=== PATIENT | male | born 1960 | race Caucasian/White ===

== ENCOUNTER 2017-10-16 18:44 | Emergency (ER) | payer MEDICAID, MEDICARE ==
[~2017-10-16] VITALS: Ht 185.4 cm; Wt 104.3 kg
--- NOTE | 2017-10-16 19:52 | ED Abdominal Pain ---
General Chief Complaint: Abdominal/GI Problems Stated Complaint: UNABLE TO URINATE,CONSTIPATED,PELVIC/LOWER BA PAIN Nursing Triage Note: PT STATES LOWER ABD PAIN SINCE LAST NIGHT. STATES HE HAS NOT BEEN ABLE TO URIATE TODAY AND HAS NOT HAD A BM SINCE LAST NIGHT. Sepsis Screen: No Definite Risk Source of Information: Patient Exam Limitations: No Limitations History of Present Illness Time Seen By Provider: 19:50 Initial Comments Ferdinand Guo with reports of suprapubic abdominal pain that radiates through to his back. He had a bowel movement yesterday that was normal. He has not urinated since this morning. He denies ever having had these symptoms before. Timing/Duration: 12-24 Hours Severity/Quality: Moderate Radiation: No Radiation Associated Symptoms: Nausea/Vomiting Allergies and Home Medications Allergies Coded Allergies: No Known Drug Allergies (Unverified , 10/16/17) Home Medications Docusate Sodium 100 Mg Capsule, 100 MG PO BID, #30 Prescribed by: CITLALI WEINBERG on 10/16/172120 Polyethylene Glycol 3350 17 Gm Powd.pack, 17 GM PO BID for 4 Days Prescribed by: CITLALI WEINBERG on 10/16/172120 Review of Systems Constitutional: see HPI EENTM: No Symptoms Reported Respiratory: No Symptoms Reported Cardiovascular: No Symptoms Reported Gastrointestinal: See HPI, Abdominal Pain, Denies Constipated, Denies Diarrhea , Denies Nausea, Denies Vomiting Genitourinary: See HPI, Other (retention) Musculoskeletal: no symptoms reported Skin: no symptoms reported Psychiatric/Neurological: No Symptoms Reported Endocrine: No Symptoms Reported Past Qxdjvkp-Hrdvxg-Nwqfwr Hx Patient Social History Alcohol Use: Denies Use Recreational Drug Use: No Smoking Status: Never a Smoker Type Used: Smokeless Tobacco Recent Foreign Travel: No Contact w/Someone Who Travel: No Recent Infectious Disease Expo: No Recent Hopitalizations: No Physical Abuse: No Sexual Abuse: No Mistreated: No Fear: No Immunizations Up To Date Date of Influenza Vaccine: Jul 28, 2017 Seasonal Allergies Seasonal Allergies: No Surgeries History of Surgeries: Yes (R HIP, TRAUMA-SHOULDER, CLAVICLE, NECK) Surgeries: Appendectomy, Gallbladder, Orthopedic, Tonsillectomy Respiratory History of Respiratory Disorde: Yes Respiratory Disorders: COPD Cardiovascular History of Cardiac Disorders: No Genitourinary History of Genitourinary Disor: No Gastrointestinal History of Gastrointestinal Di: Yes Gastrointestinal Disorders: Gastroesophageal Reflux Musculoskeletal History of Musculoskeletal Dis: No Endocrine History of Endocrine Disorders: No HEENT History of HEENT Disorders: No Cancer History of Cancer: Yes Cancer: Skin Psychosocial History of Psychiatric Problem: Yes Behavioral Health Disorders: Anxiety, Depression Suicide Risk Score: 0 Integumentary History of Skin or Integumenta: No Blood Transfusions History of Blood Disorders: No Physical Exam Vital Signs VS - Last 72 Hours, by Label 10/16/17 19:21 Temp 100.0 Pulse 75 Resp 16 B/P (MAP) 141/94 (110) Capillary Refill : Less Than 3 Seconds General Appearance: WD/WN, no apparent distress HEENT: PERRL/EOMI, normal ENT inspection Neck: non-tender, full range of motion Respiratory: normal breath sounds, no respiratory distress, no accessory muscle use Cardiovascular: regular rate, rhythm, no edema, no murmur Gastrointestinal: normal bowel sounds, soft, tenderness (Suprapubic tenderness) Extremities: normal range of motion, non-tender Neurologic/Psychiatric: alert, normal mood/affect, oriented x 3 Skin: normal color, warm/dry Progress/Results/Core Measures Results/Orders Lab Results Laboratory Tests Test 10/16/17 19:43 10/16/17 20:25 Range/Units White Blood Count 9.4 4.3-11.0 10^3/uL Red Blood Count 4.50 4.35-5.85 10^6/uL Hemoglobin 14.2 13.3-17.7 G/DL Hematocrit 41 40-54 % Mean Corpuscular Volume 91 80-99 FL Mean Corpuscular Hemoglobin 32 25-34 PG Mean Corpuscular Hemoglobin Concent 35 32-36 G/DL Red Cell Distribution Width 12.1 10.0-14.5 % Platelet Count 197 130-400 10^3/uL Mean Platelet Volume 10.6 H 7.4-10.4 FL Neutrophils (%) (Auto) 77 H 42-75 % Lymphocytes (%) (Auto) 13 12-44 % Monocytes (%) (Auto) 9 0-12 % Eosinophils (%) (Auto) 1 0-10 % Basophils (%) (Auto) 1 0-10 % Neutrophils # (Auto) 7.3 1.8-7.8 X 10^3 Lymphocytes # (Auto) 1.2 1.0-4.0 X 10^3 Monocytes # (Auto) 0.8 0.0-1.0 X 10^3 Eosinophils # (Auto) 0.1 0.0-0.3 10^3/uL Basophils # (Auto) 0.1 0.0-0.1 10^3/uL Sodium Level 138 135-145 MMOL/L Potassium Level 4.4 3.6-5.0 MMOL/L Chloride Level 106 98-107 MMOL/L Carbon Dioxide Level 25 21-32 MMOL/L Anion Gap 7 5-14 MMOL/L Blood Urea Nitrogen 13 7-18 MG/DL Creatinine 0.85 0.60-1.30 MG/DL Estimat Glomerular Filtration Rate > 60 BUN/Creatinine Ratio 15 Glucose Level 89 70-105 MG/DL Calcium Level 9.4 8.5-10.1 MG/DL Total Bilirubin 0.7 0.1-1.0 MG/DL Aspartate Amino Transf (AST/SGOT) 19 5-34 U/L Alanine Aminotransferase (ALT/SGPT) 13 0-55 U/L Alkaline Phosphatase 51 40-136 U/L Total Protein 6.5 6.4-8.2 GM/DL Albumin 4.2 3.2-4.5 GM/DL Urine Color YELLOW Urine Clarity CLEAR Urine pH 8 5-9 Urine Specific [place] 1.010 L 1.016-1.022 Urine Protein NEGATIVE NEGATIVE Urine Glucose (UA) NEGATIVE NEGATIVE Urine Ketones NEGATIVE NEGATIVE Urine Nitrite NEGATIVE NEGATIVE Urine Bilirubin NEGATIVE NEGATIVE Urine Urobilinogen NORMAL NORMAL MG/DL Urine Leukocyte Esterase 1+ H NEGATIVE Urine RBC (Auto) 2+ H NEGATIVE Urine RBC 5-10 H /HPF Urine WBC 2-5 /HPF Urine Squamous Epithelial Cells RARE /HPF Urine Crystals NONE /LPF Urine Bacteria NONE /HPF Urine Casts NONE /LPF Urine Mucus NEGATIVE /LPF Urine Culture Indicated NO My Orders Orders - CITLALI WEINBERG APRN Cbc With Automated Diff (10/16/17 19:29) Comprehensive Metabolic Panel (10/16/17 19:29) Ua Culture If Indicated (10/16/17 19:29) Saline Lock/Iv-Start (10/16/17 19:29) Ct Abdomen/Pelvis W (10/16/17 19:29) Saline Lock/Iv-Start (10/16/17 19:45) Lidocaine 2% (Urojet) (Xylocaine Urojet) (12/14/17 20:15) Iohexol Injection (Omnipaque 350 Mg/Ml 1 (10/16/17 20:30) Sodium Chloride Flush (Catheter Flush Sy (10/16/17 20:30) Ns (Ivpb) (Sodium Chloride 0.9% Ivpb Bag (10/16/17 20:30) Pharmacy Communication (Pharmacy Communi (10/16/17 20:20) Na Phos/Na Biphos Enema (Fleet Enema Carter (10/16/17 21:15) Ns Iv 1000 Ml (Sodium Chloride 0.9%) (10/16/17 21:15) Ns Iv 1000 Ml (Sodium Chloride 0.9%) (10/16/17 21:08) Fentanyl Injection (Sublimaze Injection (10/16/17 21:30) Lidocaine 2% (Urojet) (Xylocaine Urojet) (10/16/17 21:45) Medications Given in ED Current Medications Medications Dose Ordered Sig/Gunner Route Start Time Stop Time Status Last Admin Dose Admin Fentanyl Citrate 75 mcg ONCE ONCE IVP 10/16/17 21:30 10/16/17 21:31 DC 10/16/17 21:23 75 MCG Iohexol 100 ml ONCE ONCE IV 10/16/17 20:30 10/16/17 20:31 DC 10/16/17 20:40 100 ML Lidocaine HCl 10 ml ONCE ONCE TOP 10/16/17 20:15 10/16/17 20:16 DC 10/16/17 20:15 10 ML Lidocaine HCl 10 ml ONCE ONCE TOP 10/16/17 21:45 10/16/17 21:46 DC 10/16/17 21:38 10 ML Sodium Biphosphate/ Sodium Phosphate 1 ea ONCE ONCE IN 10/16/17 21:15 10/16/17 21:16 DC 10/16/17 21:38 1 EA Sodium Chloride 100 ml ONCE ONCE IV 10/16/17 20:30 10/16/17 20:31 DC 10/16/17 20:40 80 ML Vital Signs/I&O Vital Sign - Last 12Hours 10/16/17 19:21 Temp 100.0 Pulse 75 Resp 16 B/P (MAP) 141/94 (110) Blood Pressure Mean: 110 Diagnostic Imaging Diagonstic Imaging: CT Comments NAME: MITCH [facility]A [facility] REC#: [id number] PT STATUS: REG ER : 1960 PHYSICIAN: CITLALI WEINBERG APRN ADMIT DATE: 10/16/17/ER Draft Date of Exam:10/16/17 CT ABDOMEN/PELVIS W PROCEDURE: CT abdomen and pelvis with contrast. TECHNIQUE: Multiple contiguous axial images were obtained through the abdomen and pelvis after administration of intravenous contrast. INDICATION: Difficulty urinating, pelvic pain. No stool for one day. History of COPD, hernia repair, hip repair, cholecystectomy, ureteral stent. COMPARISON: None FINDINGS: There is atelectasis in the lung bases bilaterally. The heart is normal in size. There is no pericardial effusion. There are numerous well-circumscribed hypoattenuating nonenhancing lesions in the liver, thought to represent cysts. Cholecystectomy clips are noted. The spleen appears normal. The pancreas is unremarkable. The adrenal glands are normal. There is a cortical scar at the superior right kidney. No enhancing masses are seen. There are small hypoattenuating foci in the kidneys bilaterally, which likely represent cysts, but are too small to fully characterize. No associated enhancement is seen. There are mildly prominent loops of small bowel in the left abdomen, with no single focal transition point seen, which may represent ileus. The appendix is not seen. There is diverticulosis of the distal colon without diverticulitis seen. There is marked stool in the distal sigmoid colon and rectum. This is concerning for impaction. A Ortiz catheter is noted in the urinary bladder. Minimal free fluid is seen in the pelvis. There is retroperitoneal lymphadenopathy, with a prominent lymph node near the bifurcation of the aorta measuring 1.1 cm in short axis (image 53 series 2). There are also multiple prominent mesenteric lymph nodes, including the largest in the right lower quadrant, measuring 3.9 x 2.3 cm (image 55 series 2). There is inguinal lymphadenopathy bilaterally as well, which is prominent with the largest lymph node measuring up to 2 cm in short axis on the left (image 103 series 2). Right hip arthroplasty is noted. No acute osseous abnormalities are seen. IMPRESSION: 1. Marked stool in the rectum and sigmoid colon, concerning for impaction. 2. Diverticulosis of the distal colon without diverticulitis seen. 3. Lymphadenopathy in the retroperitoneum, mesentery, and inguinal regions, concerning for malignancy. Please correlate with patient history. 4. Mildly prominent loops of small bowel in the left abdomen, likely ileus. 5. Multiple hypoattenuating nonenhancing lesions in the liver are thought to represent cyst, however, further evaluation could be performed with MRI if clinically indicated. Dictated on workstation # [id number] Dict: 10/16/172051 Trans: 10/16/172110 [facility] [id number] Interpreted by: TRUMAN GRAY MD Electronically signed by: Departure Communication (Admissions) Family Conversation Patient reported being unable to urinate. Bladder scan was done showing 404 mL of urine in the bladder. Patient wanted to attempt urination in the bathroom prior to Ortiz catheter placement. He did attempt and was unsuccessful. 16 English Ortiz catheter coude was placed by RN. Immediate return of 500 ml clear yellow urine. I discussed the CT results of lymphadenopathy with the patient. He states that he has a strong family history of colon cancer but has had yearly colonoscopies most recently [address] Degroot at [place] and they have never found anything other than benign polyps. Progress Notes 2157- I did do a digital rectal exam. I was able to palpate a stool ball that was fairly soft actually. I was unable to reach the majority of this with my fingers to a fleets enema was given and a commode placed at the bedside. 2205- he had a very large formed bowel movement in the bed. Ortiz catheter has been clamped for one hour now. We will remove it to see if he can urinate. 2220-4 catheter was removed and he was then able to urinate on his own in the room. Impression Impression: Primary Impression: Bladder outlet obstruction Additional Impressions: Fecal impaction Pelvic lymphadenopathy Disposition: 01 HOME, SELF-CARE Condition: Stable Departure-Patient Inst. Decision time for Depature: 21:19 Referrals: SELF,SANGEETHA CARPENTER (PCP) Primary Care Physician VANESSA SCHWARTZ APRN (Family) Primary Care Physician Patient Instructions: Fecal Impaction Add. Discharge Instructions: 1. U have an abnormal number of lymph nodes in the lower part of your abdomen. This can be seen in response to certain cancers. You need to call one of the surgeons listed to make an appointment to schedule a colonoscopy. Call tomorrow to make an appointment to be seen within the next few weeks. Return to the emergency room if you find herself again unable to urinate. Take the stool softener and laxative as directed. Scripts Polyethylene Glycol 3350 (Miralax) 17 Gm Powd.pack 17 GM PO BID for 4 Days, EACH Prov: CITLALI WEINBERG APRN 10/16/17 Docusate Sodium (Colace) 100 Mg Capsule 100 MG PO BID, #30 CAP Prov: CITLALI WEINBERG APRN 10/16/17 Copy Copies To 1: SELF,CITLALI CORREA MD, APRN Oct 16, 2017 19:52
[2017-10-16 20:07] LABS: ALANINE AMINOTRANSFERASE 13 U/L (0-55); ALBUMIN 4.2 GM/DL (3.2-4.5); ANION GAP 7 MMOL/L (5-14); ASPARTATE AMINO TRANSFERASE 19 U/L (5-34); BILIRUBIN,TOTAL 0.7 MG/DL (0.1-1.0); BLOOD UREA NITROGEN 13 MG/DL (7-18); BUN/CREATININE RATIO 15; CALCIUM 9.4 MG/DL (8.5-10.1); CARBON DIOXIDE 25 MMOL/L (21-32); CHLORIDE 106 MMOL/L (98-107); CREATININE SERUM 0.85 MG/DL (0.60-1.30); GFR ESTIMATED > 60; GLUCOSE 89 MG/DL (70-105); POTASSIUM 4.4 MMOL/L (3.6-5.0); SODIUM 138 MMOL/L (135-145); TOTAL PROTEIN 6.5 GM/DL (6.4-8.2)
[2017-10-16 20:11] LABS: BASOPHILS # (AUTO) 0.1 10^3/uL (0.0-0.1); BASOPHILS % (AUTO) 1 % (0-10); EOSINOPHILS # (AUTO) 0.1 10^3/uL (0.0-0.3); EOSINOPHILS % (AUTO) 1 % (0-10); LYMPHOCYTES # (AUTO) 1.2 X 10^3 (1.0-4.0); LYMPHOCYTES % (AUTO) 13 % (12-44); MEAN CORPUSCULAR HEMOGLOBIN 32 PG (25-34); MEAN CORPUSCULAR HGB CONC 35 G/DL (32-36); MEAN CORPUSCULAR VOLUME 91 FL (80-99); MEAN PLATELET VOLUME 10.6 FL (7.4-10.4); MONOCYTES # (AUTO) 0.8 X 10^3 (0.0-1.0); MONOCYTES % (AUTO) 9 % (0-12); NEUTROPHILS # (AUTO) 7.3 X 10^3 (1.8-7.8); NEUTROPHILS % (AUTO) 77 % (42-75); PLATELET COUNT 197 10^3/uL (130-400); RED CELL DISTRIBUTION WIDTH 12.1 % (10.0-14.5); WHITE BLOOD COUNT 9.4 10^3/uL (4.3-11.0)
[2017-10-16] MEDS ORDERED: LIDOCAINE UROJET 2% GEL 10 ML PKG TOP ONE ×2 (20:15→21:45)
[2017-10-16] MEDS ORDERED: CATHETER FLUSH 10 ML SYR IV PRN (20:30)
[2017-10-16] MEDS ORDERED: IOHEXOL 350 MG/ML 100 ML (OMNIPAQUE 350) VIAL IV ONE (20:30)
[2017-10-16] MEDS ORDERED: NS 100 ML (IVPB) BAG IV ONE (20:30)
[2017-10-16 20:39] LABS: BILIRUBIN,URINE NEGATIVE (NEGATIVE); KETONES,URINE NEGATIVE (NEGATIVE); LEUKOCYTE ESTERASE ,URINE 1+ (NEGATIVE); NITRITE,URINE NEGATIVE (NEGATIVE); PH,URINE 8 (5-9); PROTEIN,URINE NEGATIVE (NEGATIVE); UROBILINOGEN,URINE NORMAL (NORMAL)
[2017-10-16 20:59] LABS: SQUAMOUS EPITHELIAL CELL,UR RARE /HPF
[2017-10-16] MEDS ORDERED: NS IV 1000 ML 1,000 ML ONE (21:08)
--- NOTE | 2017-10-16 21:12 | Diagnostic Imaging Report ---
PROCEDURE: CT abdomen and pelvis with contrast. TECHNIQUE: Multiple contiguous axial images were obtained through the abdomen and pelvis after administration of intravenous contrast. INDICATION: Difficulty urinating, pelvic pain. No stool for one day. History of COPD, hernia repair, hip repair, cholecystectomy, ureteral stent. COMPARISON: None FINDINGS: There is atelectasis in the lung bases bilaterally. The heart is normal in size. There is no pericardial effusion. There are numerous well-circumscribed hypoattenuating nonenhancing lesions in the liver, thought to represent cysts. Cholecystectomy clips are noted. The spleen appears normal. The pancreas is unremarkable. The adrenal glands are normal. There is a cortical scar at the superior right kidney. No enhancing masses are seen. There are small hypoattenuating foci in the kidneys bilaterally, which likely represent cysts, but are too small to fully characterize. No associated enhancement is seen. There are mildly prominent loops of small bowel in the left abdomen, with no single focal transition point seen, which may represent ileus. The appendix is not seen. There is diverticulosis of the distal colon without diverticulitis seen. There is marked stool in the distal sigmoid colon and rectum. This is concerning for impaction. A Ortiz catheter is noted in the urinary bladder. Minimal free fluid is seen in the pelvis. There is retroperitoneal lymphadenopathy, with a prominent lymph node near the bifurcation of the aorta measuring 1.1 cm in short axis (image 53 series 2). There are also multiple prominent mesenteric lymph nodes, including the largest in the right lower quadrant, measuring 3.9 x 2.3 cm (image 55 series 2). There is inguinal lymphadenopathy bilaterally as well, which is prominent with the largest lymph node measuring up to 2 cm in short axis on the left (image 103 series 2). Right hip arthroplasty is noted. No acute osseous abnormalities are seen. IMPRESSION: 1. Marked stool in the rectum and sigmoid colon, concerning for impaction. 2. Diverticulosis of the distal colon without diverticulitis seen. 3. Lymphadenopathy in the retroperitoneum, mesentery, and inguinal regions, concerning for malignancy. Please correlate with patient history. 4. Mildly prominent loops of small bowel in the left abdomen, likely ileus. 5. Multiple hypoattenuating nonenhancing lesions in the liver are thought to represent cyst, however, further evaluation could be performed with MRI if clinically indicated. Dictated by: Dictated on workstation # [id number]
[2017-10-16] MEDS ORDERED: FLEET ENEMA ADULT 1 EA BTL PR ONE (21:15)
[2017-10-16] MEDS ORDERED: NS IV 1000 ML 1,000 ML IV SCH (21:15)
[2017-10-16] MEDS ORDERED: POLY17PO6 PO (21:21)
[2017-10-16] MEDS ORDERED: DOCU-143 PO (21:21)
[2017-10-16] MEDS ORDERED: fentaNYL INJECTION 100 MCG/2 ML AMP IVP ONE (21:30)
[2017-10-16 22:35] VITALS: BP 141/94
== END 2017-10-16 22:37 | disposition home or self-care (01) ==
LOC: EDUNIT# 18:44 → ER 18:48
DX: N32.0 Bladder-neck obstruction (principal); K56.41 Fecal impaction; R59.0 Localized enlarged lymph nodes; J44.9 Chronic obstructive pulmonary disease, unspecified; K21.9 Gastro-esophageal reflux disease without esophagitis; F41.9 Anxiety disorder, unspecified; F32.9 Major depressive disorder, single episode, unspecified; Z85.828 Personal history of other malignant neoplasm of skin; Z90.49 Acquired absence of other specified parts of digestive tract; Z90.89 Acquired absence of other organs
CPT/HCPCS: 36415; 51702; 74177; 80053; 81000; 85025; 96361; 96374

== ENCOUNTER 2018-11-30 18:36 | Emergency (ER) | payer MEDICAID, MEDICARE ==
[~2018-11-30] VITALS: Ht 185.4 cm; Wt 112.5 kg
[~2018-11-30 18:36] MED LIST: DOCU-143 PO; POLY17PO6 PO
[2018-11-30 18:41] VITALS: BP 135/81
[2018-11-30 19:18] LABS: BASOPHILS % (AUTO) 1 % (0-10); EOSINOPHILS # (AUTO) 0.1 10^3/uL (0.0-0.3); EOSINOPHILS % (AUTO) 2 % (0-10); HEMATOCRIT 40 % (40-54); HEMOGLOBIN 14.4 G/DL (13.3-17.7); LYMPHOCYTES # (AUTO) 1.6 X 10^3 (1.0-4.0); LYMPHOCYTES % (AUTO) 26 % (12-44); MEAN CORPUSCULAR HEMOGLOBIN 32 PG (25-34); MEAN CORPUSCULAR HGB CONC 37 G/DL (32-36); MEAN CORPUSCULAR VOLUME 89 FL (80-99); MEAN PLATELET VOLUME 9.5 FL (7.4-10.4); MONOCYTES # (AUTO) 0.6 X 10^3 (0.0-1.0); MONOCYTES % (AUTO) 9 % (0-12); NEUTROPHILS # (AUTO) 3.9 X 10^3 (1.8-7.8); NEUTROPHILS % (AUTO) 62 % (42-75); PLATELET COUNT 165 10^3/uL (130-400); RED CELL DISTRIBUTION WIDTH 12.9 % (10.0-14.5); WHITE BLOOD COUNT 6.3 10^3/uL (4.3-11.0)
[2018-11-30 19:20] LABS: BILIRUBIN,URINE NEGATIVE (NEGATIVE); CLARITY,URINE CLEAR; COLOR,URINE YELLOW; GLUCOSE, URINE (UA) NEGATIVE (NEGATIVE); KETONES,URINE NEGATIVE (NEGATIVE); LEUKOCYTE ESTERASE ,URINE 1+ (NEGATIVE); NITRITE,URINE NEGATIVE (NEGATIVE); PH,URINE 5 (5-9); PROTEIN,URINE 2+ (NEGATIVE); UROBILINOGEN,URINE NORMAL (NORMAL)
--- NOTE | 2018-11-30 19:20 | ED Abdominal Pain ---
General Chief Complaint: Abdominal/GI Problems Stated Complaint: ABD PAIN Nursing Triage Note: pt arrived to ED POV et ambulated to triage room. Pt c/o mid abdominal pain with fevers, vomiting, diarrhea and thinks he has blood in his stool. Sepsis Screen: No Definite Risk Source of Information: Patient Exam Limitations: No Limitations History of Present Illness Date Seen by Provider: Nov 30, 2018 Time Seen by Provider: 19:10 Initial Comments 58-year-old male who presents to the emergency room with complaints of periumbilical abdominal pain, fevers, nausea, vomiting, diarrhea for one week. He reports that 1 week ago he finished a course of Levaquin for a sinus infection that he had previously taken amoxicillin before starting the Levaquin. He is concerned that there might be some blood streaking in his stool. Timing/Duration: 1 Week Severity/Quality: Cramping Location: Periumbilical Radiation: No Radiation Associated Symptoms: Fever/Chills, Nausea/Vomiting Allergies and Home Medications Allergies Coded Allergies: No Known Drug Allergies (Unverified , 10/16/17) Home Medications Docusate Sodium 100 Mg Capsule, 100 MG PO BID Prescribed by: CITLALI WEINBERG on 10/16/172120 Ondansetron HCl 4 Mg Tab, 4 MG PO Q4H PRN for NAUSEA/VOMITING-1ST LINE Prescribed by: BOY SOUSA on 11/30/182111 Polyethylene Glycol 3350 17 Gm Powd.pack, 17 GM PO BID Prescribed by: CITLALI WEINBERG on 10/16/172120 Patient Home Medication List Home Medication List Reviewed: Yes Review of Systems Review of Systems Constitutional: see HPI, fever Gastrointestinal: See HPI, Abdominal Pain, Diarrhea, Nausea, Vomiting All Other Systems Reviewed Negative Unless Noted: Yes Past Zyrvhlc-Vewmet-Ijtcmq Hx Past Med/Social Hx: Reviewed Nursing Past Med/Soc Hx Patient Social History Alcohol Use: Occasionally Uses Recreational Drug Use: No Type Used: Smokeless Tobacco 2nd Hand Smoke Exposure: No Recent Foreign Travel: No Contact w/Someone Who Travel: No Recent Infectious Disease Expo: No Recent Hopitalizations: No Physical Abuse: No Sexual Abuse: No Immunizations Up To Date Date of Influenza Vaccine: Jul 28, 2017 Seasonal Allergies Seasonal Allergies: No Past Medical History Surgeries: Yes (R HIP, TRAUMA-SHOULDER, CLAVICLE, NECK) Appendectomy, Gallbladder, Orthopedic, Tonsillectomy Respiratory: Yes COPD Cardiac: No Genitourinary: No Gastrointestinal: Yes Gastroesophageal Reflux Musculoskeletal: No Endocrine: No HEENT: No Cancer: Yes Skin Psychosocial: Yes Anxiety, Depression Integumentary: No Blood Disorders: No Family Medical History Reviewed Nursing Family Hx Physical Exam Vital Signs Vital Signs - First Documented 11/30/18 18:41 Temp 96.7 Pulse 86 Resp 20 B/P (MAP) 135/81 (99) Pulse Ox 100 O2 Delivery Room Air Capillary Refill : Less Than 3 Seconds Height/Weight/BMI Height: 6'1.00" Weight: 248lbs. oz. 112.950226er; BMI Method:Stated General Appearance: WD/WN, no apparent distress Neck: non-tender, full range of motion, supple, normal inspection Respiratory: chest non-tender, lungs clear, normal breath sounds, no respiratory distress, no accessory muscle use Cardiovascular: normal peripheral pulses, regular rate, rhythm, no edema, no gallop, no JVD, no murmur Gastrointestinal: normal bowel sounds, soft, no organomegaly, no pulsatile mass , tenderness (periumbilical tenderness) Rectal: normal exam, normal rectal tone, heme negative stool Neurologic/Psychiatric: alert, normal mood/affect, oriented x 3 Skin: normal color, warm/dry Progress/Results/Core Measures Results/Orders Lab Results Laboratory Tests Test 11/30/18 18:51 11/30/18 19:09 Range/Units Urine Color YELLOW Urine Clarity CLEAR Urine pH 5 5-9 Urine Specific [place] 1.025 H 1.016-1.022 Urine Protein 2+ H NEGATIVE Urine Glucose (UA) NEGATIVE NEGATIVE Urine Ketones NEGATIVE NEGATIVE Urine Nitrite NEGATIVE NEGATIVE Urine Bilirubin NEGATIVE NEGATIVE Urine Urobilinogen NORMAL NORMAL MG/DL Urine Leukocyte Esterase 1+ H NEGATIVE Urine RBC (Auto) 2+ H NEGATIVE Urine RBC RARE /HPF Urine WBC 0-2 /HPF Urine Squamous Epithelial Cells 0-2 /HPF Urine Crystals NONE /LPF Urine Bacteria FEW H /HPF Urine Casts PRESENT /LPF Urine Hyaline Casts 0-2 H /LPF Urine Mucus LARGE H /LPF Urine Culture Indicated NO White Blood Count 6.3 4.3-11.0 10^3/uL Red Blood Count 4.45 4.35-5.85 10^6/uL Hemoglobin 14.4 13.3-17.7 G/DL Hematocrit 40 40-54 % Mean Corpuscular Volume 89 80-99 FL Mean Corpuscular Hemoglobin 32 25-34 PG Mean Corpuscular Hemoglobin Concent 37 H 32-36 G/DL Red Cell Distribution Width 12.9 10.0-14.5 % Platelet Count 165 130-400 10^3/uL Mean Platelet Volume 9.5 7.4-10.4 FL Neutrophils (%) (Auto) 62 42-75 % Lymphocytes (%) (Auto) 26 12-44 % Monocytes (%) (Auto) 9 0-12 % Eosinophils (%) (Auto) 2 0-10 % Basophils (%) (Auto) 1 0-10 % Neutrophils # (Auto) 3.9 1.8-7.8 X 10^3 Lymphocytes # (Auto) 1.6 1.0-4.0 X 10^3 Monocytes # (Auto) 0.6 0.0-1.0 X 10^3 Eosinophils # (Auto) 0.1 0.0-0.3 10^3/uL Basophils # (Auto) 0.0 0.0-0.1 10^3/uL Sodium Level 141 135-145 MMOL/L Potassium Level 4.3 3.6-5.0 MMOL/L Chloride Level 107 98-107 MMOL/L Carbon Dioxide Level 23 21-32 MMOL/L Anion Gap 11 5-14 MMOL/L Blood Urea Nitrogen 18 7-18 MG/DL Creatinine 0.88 0.60-1.30 MG/DL Estimat Glomerular Filtration Rate > 60 BUN/Creatinine Ratio 20 Glucose Level 81 70-105 MG/DL Calcium Level 9.4 8.5-10.1 MG/DL Corrected Calcium 9.1 8.5-10.1 MG/DL Total Bilirubin 0.7 0.1-1.0 MG/DL Aspartate Amino Transf (AST/SGOT) 17 5-34 U/L Alanine Aminotransferase (ALT/SGPT) 12 0-55 U/L Alkaline Phosphatase 59 40-136 U/L Total Protein 6.5 6.4-8.2 GM/DL Albumin 4.4 3.2-4.5 GM/DL Amylase Level 61 25-125 U/L Lipase 31 8-78 U/L My Orders Orders - BOY SOUSA Comprehensive Metabolic Panel (11/30/18 19:13) Lipase (11/30/18 19:13) Amylase (11/30/18 19:13) Ua Culture If Indicated (11/30/18 19:13) Saline Lock/Iv-Start (11/30/18 19:13) Cbc With Automated Diff (11/30/18 19:13) Ct Abdomen/Pelvis W (11/30/18 19:13) Iohexol Injection (Omnipaque 350 Mg/Ml 1 (11/30/18 20:00) Contrast Received (Contrast Received) (11/30/18 20:00) Ns (Ivpb) (Sodium Chloride 0.9% Ivpb Bag (11/30/18 20:00) Rx-Ondansetron Po (Rx-Zofran Po) (11/30/18 21:13) Medications Given in ED Current Medications Medications Dose Ordered Sig/Gunner Route Start Time Stop Time Status Last Admin Dose Admin Iohexol 100 ml ONCE ONCE IV 11/30/18 20:00 11/30/18 20:06 DC 11/30/18 20:01 100 ML Sodium Chloride 100 ml ONCE ONCE IV 11/30/18 20:00 11/30/18 20:06 DC 11/30/18 20:02 85 ML Vital Signs/I&O 11/30/18 18:41 Temp 96.7 Pulse 86 Resp 20 B/P (MAP) 135/81 (99) Pulse Ox 100 O2 Delivery Room Air Blood Pressure Mean: 99 Progress Progress Note : Time: 21:00 Progress Note I have seen and evaluated the patient. I have informed the patient of his CT findings and a concerning mass. I have discussed the case with Dr. Siddiqui at this time. He agrees to have the patient follow up with him tomorrow morning. Patient agrees with plan of care, plans for discharge, return precautions were given. Diagnostic Imaging Diagonstic Imaging: CT Plain Films/CT/US/NM/MRI: abdomen, pelvis Comments NAME: MITCH [facility]A [facility] REC#: [id number] PT STATUS: REG ER : 1960 PHYSICIAN: BOY SOUSA ADMIT DATE: 11/30/18/ER Signed Date of Exam: 11/30/18 CT ABDOMEN/PELVIS W PROCEDURE: CT abdomen and pelvis with contrast. TECHNIQUE: Multiple contiguous axial images were obtained through the abdomen and pelvis after administration of intravenous contrast. INDICATION: Diffuse abdominal pain Lung bases are clear. There are multiple cysts of the liver. Gallbladder surgically absent. Pancreas appears normal. Kidneys and adrenals appear normal. Spleen is not enlarged. There is a soft tissue density mass anterior to the IVC and posterior to the portal vein and pancreas that measures 7 x 2 x 3.5 cm. This has smooth margins and suspicious for a large lymph node mass. Colon appears normal. Small bowel is not dilated. Appendix is surgically absent. Urinary bladder appears normal. 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 Hepatic artery appears to pass directly beneath it. The IVC is directed posterior to it. Portal vein is anterior to the mass and the duodenum passes around it. It is contiguous with the uncinate process of the pancreas but appears to be separate from the pancreas. Dictated by: Dictated on workstation # [id number] Dict: 11/30/182012 Trans: 11/30/182049 Interpreted by: PEMA TONG MD Electronically signed by: PEMA TONG MD 11/30/182049 Reviewed: Reviewed by Me Departure Impression Primary Impression: Gastroenteritis Additional Impression: Abdominal mass, RUQ (right upper quadrant) Disposition: HOME, SELF-CARE Condition: Stable/Unchanged Departure-Patient Inst. Decision time for Depature: 21:11 Referrals: SANGEETHA MURRY MD (PCP) Primary Care Physician VANESSA SCHWARTZ APRN (Family) Primary Care Physician CORINNA SIDDIQUI MD Patient Instructions: Acute Abdomen (Belly Pain), Adult (DC) Add. Discharge Instructions: Call first thing tomorrow morning for an appointment time with Dr. Siddiqui to review the results of your CT scan. Take medications as directed. Return back to the emergency room for worsening symptoms or concerns as needed. All discharge instructions reviewed with patient and/or family. Voiced understanding. Scripts Ondansetron HCl (Zofran) 4 Mg Tab 4 MG PO Q4H PRN for NAUSEA/VOMITING-1ST LINE, #10 TAB Prov: BOY SOUSA 11/30/18 Copy Copies To 1: CORINNA SIDDIQUI MD, TRAVIS Nov 30, 2018 19:20
[2018-11-30 19:29] LABS: BACTERIA,URINE FEW /HPF; HYALINE CASTS, URINE 0-2 /LPF; RBC,URINE RARE /HPF; SQUAMOUS EPITHELIAL CELL,UR 0-2 /HPF; WBC,URINE 0-2 /HPF
[2018-11-30 19:51] LABS: ALANINE AMINOTRANSFERASE 12 U/L (0-55); ALBUMIN 4.4 GM/DL (3.2-4.5); ALKALINE PHOSPHATASE 59 U/L (40-136); AMYLASE 61 U/L (25-125); BILIRUBIN,TOTAL 0.7 MG/DL (0.1-1.0); BUN/CREATININE RATIO 20; CALCIUM 9.4 MG/DL (8.5-10.1); CARBON DIOXIDE 23 MMOL/L (21-32); CHLORIDE 107 MMOL/L (98-107); CREATININE SERUM 0.88 MG/DL (0.60-1.30); GFR ESTIMATED > 60; GLUCOSE 81 MG/DL (70-105); LIPASE 31 U/L (8-78); POTASSIUM 4.3 MMOL/L (3.6-5.0); SODIUM 141 MMOL/L (135-145); TOTAL PROTEIN 6.5 GM/DL (6.4-8.2)
[2018-11-30] MEDS ORDERED: RECEIVED CONTRAST (Hold Metformin) IV SCH (20:00)
[2018-11-30] MEDS ORDERED: IOHEXOL 350 MG/ML 100 ML (OMNIPAQUE 350) VIAL IV ONE (20:00)
[2018-11-30] MEDS ORDERED: NS 100 ML (IVPB) BAG IV ONE (20:00)
--- NOTE | 2018-11-30 20:27 | Diagnostic Imaging Report ---
PROCEDURE: CT abdomen and pelvis with contrast. TECHNIQUE: Multiple contiguous axial images were obtained through the abdomen and pelvis after administration of intravenous contrast. INDICATION: Diffuse abdominal pain Lung bases are clear. There are multiple cysts of the liver. Gallbladder surgically absent. Pancreas appears normal. Kidneys and adrenals appear normal. Spleen is not enlarged. There is a soft tissue density mass anterior to the IVC and posterior to the portal vein and pancreas that measures 7 x 2 x 3.5 cm. This has smooth margins and suspicious for a large lymph node mass. Colon appears normal. Small bowel is not dilated. Appendix is surgically absent. Urinary bladder appears normal. 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 Hepatic artery appears to pass directly beneath it. The IVC is directed posterior to it. Portal vein is anterior to the mass and the duodenum passes around it. It is contiguous with the uncinate process of the pancreas but appears to be separate from the pancreas. Dictated by: Dictated on workstation # [id number]
[2018-11-30] MEDS ORDERED: ONDN4T PO (21:12)
[2018-11-30] MEDS ORDERED: RX-ONDANSETRON 4 MG ODT (ZOFRAN) PPK #4 PO STA (21:13)
== END 2018-11-30 21:30 | disposition home or self-care (01) ==
LOC: EDUNIT# 18:36 → ER 18:37
DX: K52.9 Noninfective gastroenteritis and colitis, unspecified (principal); J44.9 Chronic obstructive pulmonary disease, unspecified; K21.9 Gastro-esophageal reflux disease without esophagitis; F41.9 Anxiety disorder, unspecified; F32.9 Major depressive disorder, single episode, unspecified; Z85.828 Personal history of other malignant neoplasm of skin; Z90.49 Acquired absence of other specified parts of digestive tract; Z98.890 Other specified postprocedural states; Z90.89 Acquired absence of other organs
CPT/HCPCS: 36415; 74177; 80053; 81000; 82150; 83690; 85025

== ENCOUNTER 2018-12-08 09:24 | Day surgery (SDC) | payer MEDICARE ==
[~2018-12-08] VITALS: Ht 185.4 cm; Wt 110.3 kg
[~2018-12-08 09:24] MED LIST changes: +ONDN4T PO
[2018-12-08 09:50] VITALS: BP 137/82
[2018-12-08] MEDS ORDERED: ceFAZolin 2 GM IV Premixed 50 ML ONE (10:35)
[2018-12-08] MEDS ORDERED: BUP/EPI 0.5% 1:200,000 (SENSORCAINE) 30 ML VIAL ONE (10:36)
[2018-12-08] MEDS ORDERED: ESCI20TA45 PO (11:44)
[2018-12-08] MEDS ORDERED: VITA1CAP PO (11:44)
[2018-12-08] MEDS ORDERED: VENL75CA PO (11:44)
[2018-12-08] MEDS ORDERED: DIVA500T PO (11:44)
[2018-12-08] MEDS ORDERED: OMEP40CA36 PO (11:44)
[2018-12-08] MEDS ORDERED: OMG1KC PO (11:44)
[2018-12-08] MEDS ORDERED: MIDAZOLAM 2 MG/2 ML (VERSED) VIAL ONE (11:51)
[2018-12-08] MEDS ORDERED: fentaNYL INJECTION 100 MCG/2 ML AMP ONE (11:51)
[2018-12-08] MEDS ORDERED: ceFAZolin 2 GM/50 ML PRE-MIX IVPB IV ONE (12:15)
[2018-12-08] MEDS ORDERED: ONDANSETRON 4 MG/2 ML (SDV) Z0FRAN ONE ×2 (12:19→14:06)
[2018-12-08] MEDS ORDERED: ONDANSETRON 4 MG/2 ML (SDV) Z0FRAN IVP ONE (12:20)
--- NOTE | 2018-12-08 12:58 | Progress Note-Pre Operative ---
Pre-Operative Progress Note H&P Reviewed The H&P was reviewed, patient examined and no changes noted. Date Seen by Provider: Dec 07, 2018 Time Seen by Provider: 11:00 Date H&P Reviewed: Dec 08, 2018 Time H&P Reviewed: 12:57 Pre-Operative Diagnosis: Left inguinal lymphadenopathy CORINNA SIDDIQUI MD Dec 08, 2018 12:58
[2018-12-08] MEDS ORDERED: proPOfol 200 MG/20 ML (DIPRIVAN) VIAL IV ONE (14:06)
[2018-12-08] MEDS ORDERED: SEVOFLURANE (ULTANE) 15 ML INHAL SOLN ONE ×3 (14:06→14:07)
[2018-12-08] MEDS ORDERED: LIDOCAINE PF 2% 5 ML (XYLOCAINE) VIAL ONE (14:07)
[2018-12-08] MEDS ORDERED: DEXAMETHASONE 10 MG/ML (DECADRON) 1 ML VIAL ONE (14:08)
--- NOTE | 2018-12-08 14:27 | Operative Report ---
Operative Report Date of Procedure/Surgery Dec 08, 2018 Surgeon (s) CORINNA SIDDIQUI MD [employer] (s): N/A Post-Operative Diagnosis same Procedure Performed excision biopsy of left inguinal lymph node Description of Procedure Anesthesia Type: General Estimated blood loss (mL): minimal Specimen(s) collected/removed left inguinal lymph node Description of the Procedure Indication for the procedure: Evaluation for recent onset of poorly localized abdominal pain included a CT scan, revealing extensive para-aortic and hepatoduodenal lymphadenopathy, along with enlarged lymph nodes involving both inguinal regions. Lymphoma was suspected and therefore excision biopsy of a whole lymph node was felt to be appropriate. It was reasonable to perform excision of one of the left inguinal lymph nodes, that was easily palpable to, achieve a diagnosis. Should it returner to be nondiagnostic, CT-guided biopsy of para-aortic lymph nodes would be considered. With regard to the procedure, the details of surgery, complications of wound infection, lymphedema etc. were discussed with him. Informed consent was obtained. Description of the procedure: He was placed supine on the operative table and general anesthesia induced. 2 g of Ancef were administered intravenously as prophylaxis against wound infection. Sequential compression devices were placed around his legs, to minimize the risk of venous thrombosis. Left inguinal region was prepared and draped in the usual sterile manner. Preemptive analgesia was established using 0.5 percent Marcaine with epinephrine. A vertical incision about 5 cm in length was made and an enlarged lymph node about 3 cm in diameter involving the infra-inguinal group isolated. Lymphatics were controlled using ligaclips and the lymph node was sent fresh for histologic evaluation, followed by flow cytometry. Hemostasis was achieved using cautery and the incision closed using 3-0 Vicryl for the subcutaneous tissue and 4-0 Vicryl for skin, in a subcuticular fashion. Steri-Strips and a nonadherent dressing were then applied. He tolerated the procedure well, was extubated in the operating room and taken to recovery room in a stable condition Findings of the Procedure see operative report Allergies and Home Medications Allergies Coded Allergies: No Known Drug Allergies (Unverified , 10/16/17) Home Medications Divalproex Sodium 500 Mg Tablet.dr, 1,000 MG PO DAILY, (Reported) Docusate Sodium 100 Mg Capsule, 100 MG PO BID Prescribed by: CITLALI WEINBERG on 10/16/172120 [place] 3 Polyunsat Fatty Acids 1,000 Mg Cap, 1,000 MG PO DAILY, (Reported) Omeprazole 40 Mg Capsule.dr, 40 MG PO DAILY, (Reported) Ondansetron HCl 4 Mg Tab, 4 MG PO Q4H PRN for NAUSEA/VOMITING-1ST LINE Prescribed by: BOY SOUSA on 11/30/182111 Polyethylene Glycol 3350 17 Gm Powd.pack, 17 GM PO BID Prescribed by: CITLALI WEINBERG on 10/16/172120 Vitamin B Complex 1 Each Capsule, 1 EACH PO DAILY, (Reported) Patient Home Medication List Home Medication List Reviewed: Yes CORINNA SIDDIQUI MD Dec 08, 2018 14:27
[2018-12-08] MEDS ORDERED: ACHD5005 PO (14:28)
--- NOTE | 2018-12-08 14:29 | Discharge Inst-Simple/Standard ---
Discharge Inst-Standard Discharge Medications New, Converted or Re-Newed RX: RX on Chart Patient Instructions/Follow Up Plan of Care/Instructions/FU: dressings off in 48 hours. Follow-up in a week Activity as Tolerated: Yes Discharge Diet: No Restrictions CORINNA SIDDIQUI MD Dec 08, 2018 14:29
--- NOTE | 2018-12-08 14:37 | Anesthesia-General Post-Op ---
General Patient Condition Mental Status/LOC: Same as Preop Cardiovascular: Satisfactory Nausea/Vomiting: Absent Respiratory: Satisfactory Pain: Controlled Complications: Absent Post Op Complications Complications None Follow Up Care/Instructions Patient Instructions None needed. Anesthesia/Patient Condition Patient Condition Patient is doing well, no complaints, stable vital signs, no apparent adverse anesthesia problems. KENYA JETER DO Dec 08, 2018 14:37
[2018-12-08 14:50] VITALS: BP 111/68
[2018-12-08 15:20] VITALS: BP 131/87
== END 2018-12-08 15:30 | disposition home or self-care (01) ==
LOC: SDC 09:24
PROVIDERS: ATTEND Surgery
DX: C85.15 Unspecified B-cell lymphoma, lymph nodes of inguinal region and lower limb (principal); J44.9 Chronic obstructive pulmonary disease, unspecified; Z79.899 Other long term (current) drug therapy
CPT/HCPCS: 87081

== ENCOUNTER 2018-12-11 12:38 | Emergency (ER) | payer MEDICARE ==
[~2018-12-11] VITALS: Ht 185.4 cm; Wt 110.2 kg
[~2018-12-11 12:38] MED LIST changes: +ACHD5005 PO; +DIVA500T PO; +ESCI20TA45 PO; +OMEP40CA36 PO; +OMG1KC PO; +VENL75CA PO; +VITA1CAP PO
--- NOTE | 2018-12-11 13:13 | NUR ---
removed surgical dressing to look at pts incision. per , dr aaron instructed them they could remove the dressing after 48 hours. states pt did not want to remove the dressing after the 48 hours.
[2018-12-11] MEDS ORDERED: LIDOCAINE UROJET 2% GEL 10 ML PKG ONE (13:20)
[2018-12-11 13:52] LABS: BILIRUBIN,URINE NEGATIVE (NEGATIVE); CLARITY,URINE CLEAR; COLOR,URINE YELLOW; GLUCOSE, URINE (UA) NEGATIVE (NEGATIVE); KETONES,URINE NEGATIVE (NEGATIVE); LEUKOCYTE ESTERASE ,URINE NEGATIVE (NEGATIVE); NITRITE,URINE NEGATIVE (NEGATIVE); PH,URINE 8 (5-9); PROTEIN,URINE NEGATIVE (NEGATIVE); UROBILINOGEN,URINE NORMAL (NORMAL)
[2018-12-11 14:01] LABS: BACTERIA,URINE NEGATIVE /HPF
[2018-12-11] MEDS ORDERED: fentaNYL INJECTION 100 MCG/2 ML AMP ONE (14:09)
[2018-12-11] MEDS ORDERED: NS IV 1000 ML 1,000 ML ONE (14:09)
[2018-12-11] MEDS ORDERED: fentaNYL INJECTION 100 MCG/2 ML AMP IVP ONE ×2 (14:15→15:45)
[2018-12-11] MEDS ORDERED: NS IV 1000 ML 1,000 ML IV SCH (14:15)
[2018-12-11 14:31] LABS: BASOPHILS % (AUTO) 0 % (0-10); EOSINOPHILS # (AUTO) 0.1 10^3/uL (0.0-0.3); EOSINOPHILS % (AUTO) 1 % (0-10); HEMATOCRIT 39 % (40-54); HEMOGLOBIN 13.6 G/DL (13.3-17.7); LYMPHOCYTES # (AUTO) 1.4 X 10^3 (1.0-4.0); LYMPHOCYTES % (AUTO) 23 % (12-44); MEAN CORPUSCULAR HEMOGLOBIN 31 PG (25-34); MEAN CORPUSCULAR HGB CONC 35 G/DL (32-36); MEAN CORPUSCULAR VOLUME 90 FL (80-99); MEAN PLATELET VOLUME 9.7 FL (7.4-10.4); MONOCYTES # (AUTO) 0.7 X 10^3 (0.0-1.0); MONOCYTES % (AUTO) 11 % (0-12); NEUTROPHILS # (AUTO) 3.9 X 10^3 (1.8-7.8); NEUTROPHILS % (AUTO) 64 % (42-75); PLATELET COUNT 149 10^3/uL (130-400); RED CELL DISTRIBUTION WIDTH 12.7 % (10.0-14.5); WHITE BLOOD COUNT 6.1 10^3/uL (4.3-11.0)
[2018-12-11 14:49] LABS: ALANINE AMINOTRANSFERASE 11 U/L (0-55); ALBUMIN 3.8 GM/DL (3.2-4.5); ALKALINE PHOSPHATASE 45 U/L (40-136); AMYLASE 47 U/L (25-125); BILIRUBIN,TOTAL 0.6 MG/DL (0.1-1.0); BUN/CREATININE RATIO 21; CALCIUM 8.6 MG/DL (8.5-10.1); CARBON DIOXIDE 23 MMOL/L (21-32); CHLORIDE 108 MMOL/L (98-107); CREATININE SERUM 0.82 MG/DL (0.60-1.30); GFR ESTIMATED > 60; GLUCOSE 86 MG/DL (70-105); LIPASE 21 U/L (8-78); POTASSIUM 4.3 MMOL/L (3.6-5.0); SODIUM 140 MMOL/L (135-145); TOTAL PROTEIN 5.6 GM/DL (6.4-8.2)
--- NOTE | 2018-12-11 16:13 | Diagnostic Imaging Report ---
INDICATION: Constipation FINDINGS: The right hip is replaced. Calcific densities project lateral to the right acetabulum, unchanged from previous CT. A clip projects over the right lower quadrant as well as at the gallbladder fossa. There is no evidence for ileus or bowel obstruction. No abnormal fecal loading. IMPRESSION: Stable chronic findings, postoperative residua, right pelvic calcifications either pelvic digit or secondary to myositis ossificans as a chronic finding. Dictated by: Dictated on workstation # [id number]
[2018-12-11] MEDS ORDERED: HYDR-34 PO (16:46)
--- NOTE | 2018-12-11 16:46 | ED Abdominal Pain ---
General Chief Complaint: Abdominal/GI Problems Stated Complaint: GROIN PAIN Nursing Triage Note: RIGHT MID LOWER ABD PAIN THAT IS RADIATING INTO HIS TESTICLES AND RECUTUM. RECENT SURGERY WITH DR SIDDIQUI ON FRIDAY AND HAD AN ABD LYMPHNODE BX. Sepsis Screen: No Definite Risk Source of Information: Patient Exam Limitations: No Limitations History of Present Illness Date Seen by Provider: Dec 11, 2018 Time Seen by Provider: 13:20 Initial Comments 58-year-old male who presents to the emergency room with complaints of mid lower abdominal pain that is reading into his testicles and rectum. He reports that he had recent surgery remove an inguinal lymph node for biopsy. He is known to me from previous visit which diagnosed the mass in his abdomen. He reports that he has only had 1 episode avoiding since his surgery on Friday of this week. He also reports that he has not taken any of his pain medication at home which is Tylenol No. 3. Allergies and Home Medications Allergies Coded Allergies: No Known Drug Allergies (Unverified , 10/16/17) Home Medications Divalproex Sodium 500 Mg Tablet.dr, 1,000 MG PO DAILY, (Reported) Docusate Sodium 100 Mg Capsule, 100 MG PO BID Prescribed by: CITLALI WEINBERG on 10/16/172120 Hydrocodone Bit/Acetaminophen 1 Tab Tab, 1 TAB PO Q6H PRN for PAIN-MODERATE Prescribed by: CORINNA SIDDIQUI on 12/08/18 1428 [place] 3 Polyunsat Fatty Acids 1,000 Mg Cap, 1,000 MG PO DAILY, (Reported) Omeprazole 40 Mg Capsule., 40 MG PO DAILY, (Reported) Ondansetron HCl 4 Mg Tab, 4 MG PO Q4H PRN for NAUSEA/VOMITING-1ST LINE Prescribed by: BOY SOUSA on 11/30/182111 Polyethylene Glycol 3350 17 Gm Powd.pack, 17 GM PO BID Prescribed by: CITLALI WEINBERG on 10/16/172120 Vitamin B Complex 1 Each Capsule, 1 EACH PO DAILY, (Reported) Past Cdeeknu-Grvxja-Ofqufp Hx Patient Social History Alcohol Use: Denies Use Recreational Drug Use: No Type Used: Smokeless Tobacco 2nd Hand Smoke Exposure: No Recent Foreign Travel: No Contact w/Someone Who Travel: No Recent Infectious Disease Expo: No Recent Hopitalizations: No Immunizations Up To Date Tetanus Booster (TDap): Unknown PED Vaccines UTD: No Date of Influenza Vaccine: Jul 28, 2017 Seasonal Allergies Seasonal Allergies: No Past Medical History Surgeries: Yes (R HIP, TRAUMA-SHOULDER, CLAVICLE, NECK) Appendectomy, Gallbladder, Orthopedic, Tonsillectomy Respiratory: Yes COPD Cardiac: No Neurological: Yes ("head trauma") Genitourinary: No Gastrointestinal: Yes Gastroesophageal Reflux Musculoskeletal: No Endocrine: No HEENT: No Cancer: Yes Skin Psychosocial: Yes Anxiety, Depression Integumentary: No Blood Disorders: No Physical Exam Vital Signs Vital Signs - First Documented 12/11/18 12:48 Temp 96.8 Pulse 75 Resp 16 B/P (MAP) 152/81 (104) Pulse Ox 92 O2 Delivery Room Air Capillary Refill : Less Than 3 Seconds Height/Weight/BMI Height: 6'1.00" Weight: 243lbs. 2.0oz. 110.387876zz; 32.1 BMI Method:Stated Progress/Results/Core Measures Results/Orders Lab Results Laboratory Tests Test 12/11/18 13:35 12/11/18 14:25 Range/Units Urine Color YELLOW Urine Clarity CLEAR Urine pH 8 5-9 Urine Specific [place] 1.010 L 1.016-1.022 Urine Protein NEGATIVE NEGATIVE Urine Glucose (UA) NEGATIVE NEGATIVE Urine Ketones NEGATIVE NEGATIVE Urine Nitrite NEGATIVE NEGATIVE Urine Bilirubin NEGATIVE NEGATIVE Urine Urobilinogen NORMAL NORMAL MG/DL Urine Leukocyte Esterase NEGATIVE NEGATIVE Urine RBC (Auto) 3+ H NEGATIVE Urine RBC 10-25 H /HPF Urine WBC NONE /HPF Urine Squamous Epithelial Cells NONE /HPF Urine Crystals NONE /LPF Urine Bacteria NEGATIVE /HPF Urine Casts NONE /LPF Urine Mucus NEGATIVE /LPF Urine Culture Indicated NO White Blood Count 6.1 4.3-11.0 10^3/uL Red Blood Count 4.37 4.35-5.85 10^6/uL Hemoglobin 13.6 13.3-17.7 G/DL Hematocrit 39 L 40-54 % Mean Corpuscular Volume 90 80-99 FL Mean Corpuscular Hemoglobin 31 25-34 PG Mean Corpuscular Hemoglobin Concent 35 32-36 G/DL Red Cell Distribution Width 12.7 10.0-14.5 % Platelet Count 149 130-400 10^3/uL Mean Platelet Volume 9.7 7.4-10.4 FL Neutrophils (%) (Auto) 64 42-75 % Lymphocytes (%) (Auto) 23 12-44 % Monocytes (%) (Auto) 11 0-12 % Eosinophils (%) (Auto) 1 0-10 % Basophils (%) (Auto) 0 0-10 % Neutrophils # (Auto) 3.9 1.8-7.8 X 10^3 Lymphocytes # (Auto) 1.4 1.0-4.0 X 10^3 Monocytes # (Auto) 0.7 0.0-1.0 X 10^3 Eosinophils # (Auto) 0.1 0.0-0.3 10^3/uL Basophils # (Auto) 0.0 0.0-0.1 10^3/uL Sodium Level 140 135-145 MMOL/L Potassium Level 4.3 3.6-5.0 MMOL/L Chloride Level 108 H 98-107 MMOL/L Carbon Dioxide Level 23 21-32 MMOL/L Anion Gap 9 5-14 MMOL/L Blood Urea Nitrogen 17 7-18 MG/DL Creatinine 0.82 0.60-1.30 MG/DL Estimat Glomerular Filtration Rate > 60 BUN/Creatinine Ratio 21 Glucose Level 86 70-105 MG/DL Calcium Level 8.6 8.5-10.1 MG/DL Corrected Calcium 8.8 8.5-10.1 MG/DL Total Bilirubin 0.6 0.1-1.0 MG/DL Aspartate Amino Transf (AST/SGOT) 16 5-34 U/L Alanine Aminotransferase (ALT/SGPT) 11 0-55 U/L Alkaline Phosphatase 45 40-136 U/L Total Protein 5.6 L 6.4-8.2 GM/DL Albumin 3.8 3.2-4.5 GM/DL Amylase Level 47 25-125 U/L Lipase 21 8-78 U/L My Orders Orders - BOY SOUSA Comprehensive Metabolic Panel (12/11/18 13:20) Lipase (12/11/18 13:20) Amylase (12/11/18 13:20) Ua Culture If Indicated (12/11/18 13:20) Saline Lock/Iv-Start (12/11/18 13:20) Cbc With Automated Diff (12/11/18 13:20) Catheter(Urinary) Insert & Ass 03,15 (12/11/18 13:20) Lidocaine 2% (Urojet) (Xylocaine Urojet) (12/11/18 13:20) Ns Iv 1000 Ml (Sodium Chloride 0.9%) (12/11/18 14:15) Fentanyl Injection (Sublimaze Injection (12/11/18 14:15) Fentanyl Injection (Sublimaze Injection (12/11/18 14:09) Ns Iv 1000 Ml (Sodium Chloride 0.9%) (12/11/18 14:09) Fentanyl Injection (Sublimaze Injection (12/11/18 15:45) Abdomen/Kub 1[place] (12/11/18 15:20) Medications Given in ED Current Medications Medications Dose Ordered Sig/Gunner Route Start Time Stop Time Status Last Admin Dose Admin Fentanyl Citrate 75 mcg ONCE ONCE IVP 12/11/18 14:15 12/11/18 14:16 DC 12/11/18 14:18 75 MCG Fentanyl Citrate 75 mcg ONCE ONCE IVP 12/11/18 15:45 12/11/18 15:46 DC 12/11/18 15:41 75 MCG Lidocaine HCl 10 ml STK-MED ONCE .ROUTE 12/11/18 13:20 12/11/18 13:24 DC 12/11/18 13:30 10 ML Vital Signs/I&O 12/11/18 12:48 Temp 96.8 Pulse 75 Resp 16 B/P (MAP) 152/81 (104) Pulse Ox 92 O2 Delivery Room Air Blood Pressure Mean: 104 Departure Impression Primary Impression: Postoperative pain Disposition: 01 HOME, SELF-CARE Condition: Stable/Unchanged Departure-Patient Inst. Decision time for Depature: 16:45 Referrals: SELF,SANGEETHA CARPENTER (PCP) Primary Care Physician VANESSA SCHWARTZ APRN (Family) Primary Care Physician Patient Instructions: Postoperative Pain (DC) Add. Discharge Instructions: Take medications as directed. Keep your appointment with Dr. Siddiqui on Friday as scheduled. Return back to the emergency room for worsening symptoms or concerns as needed. All discharge instructions reviewed with patient and/or family. Voiced understanding. Scripts Hydrocodone Bit/Acetaminophen (LORTAB 7.5 MG TABLET) 1 Ea Tablet 1 EA PO Q4H PRN for PAIN-MODERATE, #14 TAB Prov: BOY SOUSA 12/11/18 BOY SOUSA Dec 11, 2018 16:46
[2018-12-11 17:02] VITALS: BP 127/81
== END 2018-12-11 17:02 | disposition home or self-care (01) ==
LOC: EDUNIT# 12:38 → ER 12:41
DX: G89.29 Other chronic pain (principal); R10.30 Lower abdominal pain, unspecified; J44.9 Chronic obstructive pulmonary disease, unspecified; K21.9 Gastro-esophageal reflux disease without esophagitis; F41.9 Anxiety disorder, unspecified; F32.9 Major depressive disorder, single episode, unspecified; Z85.828 Personal history of other malignant neoplasm of skin; Z90.49 Acquired absence of other specified parts of digestive tract; Z98.890 Other specified postprocedural states; Z90.89 Acquired absence of other organs
CPT/HCPCS: 36415; 51702; 74018; 80053; 81000; 82150; 83690; 85025

== ENCOUNTER → 2018-12-15 | Outpatient (CLI) | payer MEDICARE ==
[~2018-12-15] MED LIST changes: +HYDR-34 PO
--- NOTE | 2018-12-15 16:33 | Diagnostic Imaging Report ---
INDICATION: Non-Hodgkin's lymphoma. This study is performed for initial staging. TECHNIQUE: The serum blood glucose level at the time of injection was 88 mg/dL. The patient was administered 10.8 mCi of F-18 FDG intravenously and PET imaging from the top of the skull to the mid thighs was performed. A noncontrast CT was also performed for attenuation correction and anatomic correlation. COMPARISON: No prior PET studies are available for comparison. Correlation is made with a prior CT abdomen/pelvis from 11/30/2018. FINDINGS: There is symmetric activity throughout the brain. Multiple hypermetabolic lymph nodes are identified in the soft tissues of the neck. Hypermetabolic jugulodigastric nodes bilaterally as well as submandibular nodes bilaterally in addition to posterior cervical lymph nodes are seen. A right jugulodigastric node demonstrates an SUV max of approximately 5.9. A right supraclavicular node demonstrates an SUV max of approximately 6.8. There are hypermetabolic lymph nodes in the axillae bilaterally. Mediastinal hypermetabolic lymphadenopathy is identified. A subcarinal ada mass demonstrates an SUV max of approximately 4.8. No pulmonary parenchymal hypermetabolism is seen. Low level activity in the priti bilaterally is noted. The abdomen does show physiologic activity in the GI and tracts. There is a hypermetabolic ada mass in the portacaval and aortocaval region demonstrating an SUV max of approximately 5.8. More inferiorly at the aortic bifurcation, there is aortocaval and left periaortic hypermetabolic lymphadenopathy. Hypermetabolic iliac chain lymphadenopathy is seen bilaterally. Bilateral inguinal hypermetabolic lymphadenopathy is also noted. Bilateral obturator hypermetabolic lymphadenopathy is detected. IMPRESSION: Significant hypermetabolic lymphadenopathy is seen in the neck, chest, abdomen, and pelvis, consistent with lymphoma. Dictated by: Dictated on workstation # [id number]
== END ==
LOC: RAD 09:08
PROVIDERS: ATTEND Internal Medicine Hematology & Oncology
DX: Z51.81 Encounter for therapeutic drug level monitoring (principal); C85.90 Non-Hodgkin lymphoma, unspecified, unspecified site
CPT/HCPCS: 93306

== ENCOUNTER 2018-12-21 05:56 | Outpatient (CLI) | payer MEDICARE, MEDICAID ==
[~2018-12-21] VITALS: Ht 185.4 cm; Wt 112.5 kg
== END 2018-12-21 16:06 | disposition home or self-care (01) ==
LOC: PREOP 05:56
PROVIDERS: ATTEND Surgery
DX: Z01.818 Encounter for other preprocedural examination (principal)

== ENCOUNTER 2018-12-24 10:02 | Day surgery (SDC) | payer MEDICAID, MEDICARE ==
[~2018-12-24] VITALS: Ht 185.4 cm; Wt 112.5 kg
[~2018-12-24 10:02] MED LIST changes: +CITA40TA11 PO; +FLUT1DIS26 IH; +MELO15TA39 PO; +OMEP20CA12 PO
[2018-12-24] MEDS ORDERED: MIDAZOLAM 2 MG/2 ML (VERSED) VIAL IV ONE (11:45)
[2018-12-24] MEDS ORDERED: ceFAZolin 2 GM/50 ML PRE-MIX IVPB IV ONE (11:45)
[2018-12-24] MEDS ORDERED: proPOfol 200 MG/20 ML (DIPRIVAN) VIAL IV ONE ×2 (11:58→13:52)
[2018-12-24] MEDS ORDERED: LIDOCAINE PF 2% 5 ML (XYLOCAINE) VIAL ONE (11:58)
[2018-12-24] MEDS ORDERED: SEVOFLURANE (ULTANE) 15 ML INHAL SOLN ONE ×3 (11:58→13:52)
[2018-12-24] MEDS ORDERED: ONDANSETRON 4 MG/2 ML (SDV) Z0FRAN ONE (11:58)
[2018-12-24] MEDS ORDERED: DEXAMETHASONE 10 MG/ML (DECADRON) 1 ML VIAL ONE (11:58)
[2018-12-24] MEDS ORDERED: MIDAZOLAM 2 MG/2 ML (VERSED) VIAL ONE (11:59)
[2018-12-24] MEDS ORDERED: fentaNYL INJECTION 100 MCG/2 ML AMP ONE (11:59)
[2018-12-24] MEDS ORDERED: BUP/EPI 0.5% 1:200,000 (SENSORCAINE) 30 ML VIAL ONE (12:15)
[2018-12-24] MEDS ORDERED: HEParin (CENTRAL IV FLUSH) 500 UNIT/5 ML SYR ONE (12:15)
[2018-12-24] MEDS ORDERED: 0.9% SODIUM CHLORIDE PF INJ 20 ML VIAL ONE (12:15)
[2018-12-24] MEDS ORDERED: ceFAZolin 2 GM IV Premixed 50 ML IV ONE (12:30)
[2018-12-24] MEDS: LACTATED RINGERS 1,000 ML IV PRN ×2 (12:52→13:45)
[2018-12-24 13:40] VITALS: BP 120/96
--- NOTE | 2018-12-24 13:57 | Progress Note-Pre Operative ---
Pre-Operative Progress Note H&P Reviewed The H&P was reviewed, patient examined and no changes noted. Date Seen by Provider: Dec 14, 2018 Time Seen by Provider: 16:00 Date H&P Reviewed: Dec 24, 2018 Time H&P Reviewed: 12:20 Pre-Operative Diagnosis: lymphoma CORINNA SIDDIQUI MD Dec 24, 2018 13:57
--- NOTE | 2018-12-24 14:03 | Operative Report ---
Operative Report Date of Procedure/Surgery Dec 24, 2018 Surgeon (s) CORINNA SIDDIQUI MD Body Team Member (s): N/A Post-Operative Diagnosis same Procedure Performed PowerPort placement Description of Procedure Anesthesia Type: General Estimated blood loss (mL): minimal Specimen(s) collected/removed none Description of the Procedure Indication for the procedure: This gentleman is due to receive systemic chemotherapy to manage mantle cell lymphoma. To facilitate this, it was felt reasonable to place a PowerPort. Informed consent was obtained after reviewing the details of the procedure and complications of hematoma, bacteremia and malfunction of the catheter, requiring replacement. Description of the procedure: He was placed supine on the operative table and general anesthesia induced. 2 g of Ancef was administered intravenously as prophylaxis against wound infection. Sequential compression devices were placed around his legs, to minimize the risk of venous thrombosis. His neck and upper chest were prepared and draped in the usual sterile manner. Right internal jugular vein was localized using a 12 MHz ultrasound probe and a floppy guidewire introduced into the heart, under fluoroscopy. A subcutaneous pocket was created over the infraclavicular fossa and the Anthony catheter brought into the neck, in a retrograde fashion. It was then advanced into the heart, under fluoroscopy, using the peel-away sheath. The catheter was then pulled back to the SVC under fluoroscopy, and connected to the PowerPort, that had been primed with heparinized saline. I was able to aspirate and flush the system without any difficulty. The port was then secured to the pectoralis major fascia using 2-0 Prolene sutures. The incision was then closed using 3-0 Vicryl for the dermal layer and 4-0 Vicryl for skin, in a subcuticular fashion. Preemptive analgesia was established using 0.5 percent Marcaine with epinephrine. He tolerated the procedure well, was extubated in the operating room and taken to the recovery room in a stable condition. Findings of the Procedure See op report Allergies and Home Medications Allergies Coded Allergies: No Known Drug Allergies (Unverified , 10/16/17) Home Medications Citalopram Hydrobromide 40 Mg Tablet, 60 MG PO HS, (Reported) TAKE 1 1/2 OF 40MG TAB Divalproex Sodium 500 Mg Tablet.dr, 750 MG PO HS, (Reported) TAKE 1 1/2 OF 500MG TAB Fluticasone/Salmeterol 1 Each Blst.w.dev, 1 EACH IH DAILY PRN for SHORTNESS OF BREATH, (Reported) Meloxicam 15 Mg Tablet, 15 MG PO HS, (Reported) [place] 3 Polyunsat Fatty Acids 1,000 Mg Cap, 1,000 MG PO DAILY, (Reported) Omeprazole 20 Mg Capsule.dr, 20 MG PO BID, (Reported) Vitamin B Complex 1 Each Capsule, 1 EACH PO DAILY, (Reported) Patient Home Medication List Home Medication List Reviewed: Yes CORINNA SIDDIQUI MD Dec 24, 2018 14:03
[2018-12-24] MEDS ORDERED: ACHD5005 PO (14:04)
--- NOTE | 2018-12-24 14:05 | Discharge Inst-Simple/Standard ---
Discharge Inst-Standard Discharge Medications New, Converted or Re-Newed RX: RX on Chart Patient Instructions/Follow Up Plan of Care/Instructions/FU: Band-Aids off in 48 hours. May use the port. Activity as Tolerated: Yes Discharge Diet: No Restrictions CORINNA SIDDIQUI MD Dec 24, 2018 14:05
[2018-12-24 15:20] VITALS: BP 131/79
[2018-12-24 15:50] VITALS: BP 130/77
--- NOTE | 2018-12-24 16:06 | Diagnostic Imaging Report ---
Indication: Central line placement. Impression: 134.5 seconds of fluoroscopy and 3 intraoperative digital images were obtained by Dr. Alvarez during right IJ Gro[place] catheter insertion. Images show the catheter tip projecting over the right atrium. Dictated by: Dictated on workstation # [id number]
--- NOTE | 2018-12-24 16:09 | Anesthesia-General Post-Op ---
General Patient Condition Mental Status/LOC: Same as Preop Cardiovascular: Satisfactory Nausea/Vomiting: Absent Respiratory: Satisfactory Pain: Controlled Complications: Absent Post Op Complications Complications None Follow Up Care/Instructions Patient Instructions None needed. Anesthesia/Patient Condition Patient Condition Patient was seen after the procedure and he was doing well, no complaints, stable vital signs, no apparent adverse anesthesia problems. KENYA JETER DO Dec 24, 2018 16:09
[2018-12-24 16:20] VITALS: BP 130/77
[2018-12-24 16:25] VITALS: BP 130/77
== END 2018-12-24 16:25 | disposition home or self-care (01) ==
LOC: SDC 10:02
PROVIDERS: ATTEND Surgery
DX: C83.15 Mantle cell lymphoma, lymph nodes of inguinal region and lower limb (principal); J44.9 Chronic obstructive pulmonary disease, unspecified; K21.9 Gastro-esophageal reflux disease without esophagitis; F17.220 Nicotine dependence, chewing tobacco, uncomplicated; E66.9 Obesity, unspecified; Z68.32 Body mass index [BMI] 32.0-32.9, adult; Z79.899 Other long term (current) drug therapy
CPT/HCPCS: 87081

== ENCOUNTER → 2019-02-22 | Outpatient (CLI) | payer MEDICARE, MEDICAID ==
[~2019-02-22] MED LIST changes: +ACYC400T PO; +ALBU18HF2 INH; +AMOX1TAB12 PO; +DIVA-76 PO; +ONDA8TAB12 PO; +PROM25TA14 PO; +SULF-222 PO
== END ==
LOC: LAB 10:28
PROVIDERS: ATTEND Nurse Practitioner Family
DX: F33.2 Major depressive disorder, recurrent severe without psychotic features (principal); Z79.899 Other long term (current) drug therapy
CPT/HCPCS: 36415; 80164

== ENCOUNTER 2019-03-02 11:02 | Outpatient (RCR) | payer MEDICAID, MEDICARE ==
[2018-12-14 17:06] LABS: BASOPHILS % (AUTO) 0 % (0-10); EOSINOPHILS # (AUTO) 0.1 10^3/uL (0.0-0.3); EOSINOPHILS % (AUTO) 2 % (0-10); HEMATOCRIT 41 % (40-54); HEMOGLOBIN 14.4 G/DL (13.3-17.7); LYMPHOCYTES # (AUTO) 1.1 X 10^3 (1.0-4.0); LYMPHOCYTES % (AUTO) 20 % (12-44); MEAN CORPUSCULAR HEMOGLOBIN 31 PG (25-34); MEAN CORPUSCULAR HGB CONC 35 G/DL (32-36); MEAN CORPUSCULAR VOLUME 89 FL (80-99); MONOCYTES # (AUTO) 0.5 X 10^3 (0.0-1.0); MONOCYTES % (AUTO) 9 % (0-12); NEUTROPHILS # (AUTO) 3.7 X 10^3 (1.8-7.8); NEUTROPHILS % (AUTO) 69 % (42-75); PLATELET COUNT 183 10^3/uL (130-400); RED CELL DISTRIBUTION WIDTH 12.8 % (10.0-14.5); WHITE BLOOD COUNT 5.4 10^3/uL (4.3-11.0)
[2018-12-14 17:25] LABS: ALANINE AMINOTRANSFERASE 13 U/L (0-55); ALBUMIN 4.4 GM/DL (3.2-4.5); ALKALINE PHOSPHATASE 58 U/L (40-136); BILIRUBIN,TOTAL 0.6 MG/DL (0.1-1.0); BUN/CREATININE RATIO 14; CALCIUM 9.6 MG/DL (8.5-10.1); CARBON DIOXIDE 24 MMOL/L (21-32); CHLORIDE 106 MMOL/L (98-107); CREATININE SERUM 1.03 MG/DL (0.60-1.30); GFR ESTIMATED > 60; GLUCOSE 91 MG/DL (70-105); POTASSIUM 4.8 MMOL/L (3.6-5.0); SODIUM 140 MMOL/L (135-145); TOTAL PROTEIN 6.4 GM/DL (6.4-8.2)
[2018-12-16 09:12] LABS: HEPATITIS C ANTIBODY C Non-Reactive (Non-Reactive)
[2019-01-11 10:29] LABS: BASOPHILS % (AUTO) 0 % (0-10); EOSINOPHILS # (AUTO) 0.3 10^3/uL (0.0-0.3); EOSINOPHILS % (AUTO) 5 % (0-10); HEMATOCRIT 41 % (40-54); HEMOGLOBIN 14.1 G/DL (13.3-17.7); LYMPHOCYTES # (AUTO) 0.3 X 10^3 (1.0-4.0); LYMPHOCYTES % (AUTO) 7 % (12-44); MEAN CORPUSCULAR HEMOGLOBIN 31 PG (25-34); MEAN CORPUSCULAR HGB CONC 35 G/DL (32-36); MEAN CORPUSCULAR VOLUME 90 FL (80-99); MEAN PLATELET VOLUME 9.5 FL (7.4-10.4); MONOCYTES # (AUTO) 0.6 X 10^3 (0.0-1.0); MONOCYTES % (AUTO) 13 % (0-12); NEUTROPHILS # (AUTO) 3.5 X 10^3 (1.8-7.8); NEUTROPHILS % (AUTO) 75 % (42-75); PLATELET COUNT 202 10^3/uL (130-400); RED CELL DISTRIBUTION WIDTH 13.1 % (10.0-14.5); WHITE BLOOD COUNT 4.6 10^3/uL (4.3-11.0)
[2019-01-11 10:42] LABS: BILIRUBIN,URINE NEGATIVE (NEGATIVE); CLARITY,URINE CLEAR; COLOR,URINE YELLOW; GLUCOSE, URINE (UA) NEGATIVE (NEGATIVE); KETONES,URINE 1+ (NEGATIVE); LEUKOCYTE ESTERASE ,URINE NEGATIVE (NEGATIVE); NITRITE,URINE NEGATIVE (NEGATIVE); PH,URINE 5 (5-9); PROTEIN,URINE 1+ (NEGATIVE); UROBILINOGEN,URINE NORMAL (NORMAL)
[2019-01-11 10:55] LABS: BUN/CREATININE RATIO 19; CALCIUM 8.9 MG/DL (8.5-10.1); CARBON DIOXIDE 22 MMOL/L (21-32); CHLORIDE 109 MMOL/L (98-107); CREATININE SERUM 0.98 MG/DL (0.60-1.30); GFR ESTIMATED > 60; GLUCOSE 94 MG/DL (70-105); POTASSIUM 4.6 MMOL/L (3.6-5.0); SODIUM 143 MMOL/L (135-145)
[2019-01-11 10:59] LABS: BACTERIA,URINE NEGATIVE /HPF; RBC,URINE RARE /HPF; SQUAMOUS EPITHELIAL CELL,UR RARE /HPF
[2019-01-18 10:11] LABS: BASOPHILS # (AUTO) 0.1 10^3/uL (0.0-0.1); BASOPHILS % (AUTO) 2 % (0-10); EOSINOPHILS # (AUTO) 0.3 10^3/uL (0.0-0.3); EOSINOPHILS % (AUTO) 7 % (0-10); HEMATOCRIT 36 % (40-54); HEMOGLOBIN 12.5 G/DL (13.3-17.7); LYMPHOCYTES # (AUTO) 0.3 X 10^3 (1.0-4.0); LYMPHOCYTES % (AUTO) 7 % (12-44); MEAN CORPUSCULAR HGB CONC 35 G/DL (32-36); MEAN CORPUSCULAR VOLUME 91 FL (80-99); MEAN PLATELET VOLUME 8.9 FL (7.4-10.4); MONOCYTES # (AUTO) 0.6 X 10^3 (0.0-1.0); MONOCYTES % (AUTO) 12 % (0-12); NEUTROPHILS # (AUTO) 3.5 X 10^3 (1.8-7.8); NEUTROPHILS % (AUTO) 72 % (42-75); PLATELET COUNT 181 10^3/uL (130-400); RED CELL DISTRIBUTION WIDTH 13.4 % (10.0-14.5); WHITE BLOOD COUNT 4.8 10^3/uL (4.3-11.0)
[2019-01-18 10:13] LABS: MEAN CORPUSCULAR HEMOGLOBIN 31 PG (25-34)
[2019-01-18 10:27] LABS: BUN/CREATININE RATIO 19; CALCIUM 8.6 MG/DL (8.5-10.1); CARBON DIOXIDE 22 MMOL/L (21-32); CHLORIDE 109 MMOL/L (98-107); CREATININE SERUM 0.81 MG/DL (0.60-1.30); GFR ESTIMATED > 60; GLUCOSE 93 MG/DL (70-105); POTASSIUM 3.7 MMOL/L (3.6-5.0); SODIUM 141 MMOL/L (135-145)
[2019-01-25 09:34] LABS: BASOPHILS # (AUTO) 0.1 10^3/uL (0.0-0.1); BASOPHILS % (AUTO) 3 % (0-10); EOSINOPHILS # (AUTO) 0.4 10^3/uL (0.0-0.3); EOSINOPHILS % (AUTO) 10 % (0-10); HEMATOCRIT 41 % (40-54); LYMPHOCYTES # (AUTO) 0.5 X 10^3 (1.0-4.0); LYMPHOCYTES % (AUTO) 13 % (12-44); MEAN CORPUSCULAR HEMOGLOBIN 31 PG (25-34); MEAN CORPUSCULAR HGB CONC 34 G/DL (32-36); MEAN CORPUSCULAR VOLUME 92 FL (80-99); MEAN PLATELET VOLUME 9.6 FL (7.4-10.4); MONOCYTES # (AUTO) 0.7 X 10^3 (0.0-1.0); MONOCYTES % (AUTO) 16 % (0-12); NEUTROPHILS # (AUTO) 2.4 X 10^3 (1.8-7.8); NEUTROPHILS % (AUTO) 59 % (42-75); PLATELET COUNT 169 10^3/uL (130-400); RED CELL DISTRIBUTION WIDTH 13.4 % (10.0-14.5); WHITE BLOOD COUNT 4.1 10^3/uL (4.3-11.0)
[2019-01-25 09:57] LABS: BUN/CREATININE RATIO 19; CALCIUM 9.3 MG/DL (8.5-10.1); CARBON DIOXIDE 23 MMOL/L (21-32); CHLORIDE 108 MMOL/L (98-107); CREATININE SERUM 0.94 MG/DL (0.60-1.30); GFR ESTIMATED > 60; GLUCOSE 109 MG/DL (70-105); POTASSIUM 4.6 MMOL/L (3.6-5.0); SODIUM 142 MMOL/L (135-145)
[2019-02-01 10:34] LABS: BASOPHILS % (AUTO) 1 % (0-10); EOSINOPHILS # (AUTO) 0.2 10^3/uL (0.0-0.3); EOSINOPHILS % (AUTO) 4 % (0-10); HEMATOCRIT 41 % (40-54); HEMOGLOBIN 14.5 G/DL (13.3-17.7); LYMPHOCYTES # (AUTO) 0.6 X 10^3 (1.0-4.0); LYMPHOCYTES % (AUTO) 11 % (12-44); MEAN CORPUSCULAR HEMOGLOBIN 32 PG (25-34); MEAN CORPUSCULAR HGB CONC 36 G/DL (32-36); MEAN CORPUSCULAR VOLUME 90 FL (80-99); MEAN PLATELET VOLUME 9.1 FL (7.4-10.4); MONOCYTES # (AUTO) 0.8 X 10^3 (0.0-1.0); MONOCYTES % (AUTO) 16 % (0-12); NEUTROPHILS # (AUTO) 3.3 X 10^3 (1.8-7.8); NEUTROPHILS % (AUTO) 68 % (42-75); PLATELET COUNT 180 10^3/uL (130-400); RED CELL DISTRIBUTION WIDTH 13.5 % (10.0-14.5); WHITE BLOOD COUNT 4.9 10^3/uL (4.3-11.0)
[2019-02-01 10:59] LABS: ALANINE AMINOTRANSFERASE 14 U/L (0-55); ALBUMIN 4.3 GM/DL (3.2-4.5); ALKALINE PHOSPHATASE 49 U/L (40-136); BILIRUBIN,TOTAL 0.7 MG/DL (0.1-1.0); BUN/CREATININE RATIO 21; CALCIUM 9.3 MG/DL (8.5-10.1); CARBON DIOXIDE 21 MMOL/L (21-32); CHLORIDE 109 MMOL/L (98-107); CREATININE SERUM 0.97 MG/DL (0.60-1.30); GFR ESTIMATED > 60; GLUCOSE 102 MG/DL (70-105); POTASSIUM 4.9 MMOL/L (3.6-5.0); SODIUM 139 MMOL/L (135-145); TOTAL PROTEIN 6.3 GM/DL (6.4-8.2)
[2019-02-08 10:49] LABS: BASOPHILS % (AUTO) 1 % (0-10); EOSINOPHILS # (AUTO) 0.2 10^3/uL (0.0-0.3); EOSINOPHILS % (AUTO) 5 % (0-10); HEMATOCRIT 38 % (40-54); HEMOGLOBIN 13.1 G/DL (13.3-17.7); LYMPHOCYTES # (AUTO) 0.3 X 10^3 (1.0-4.0); LYMPHOCYTES % (AUTO) 8 % (12-44); MEAN CORPUSCULAR HEMOGLOBIN 31 PG (25-34); MEAN CORPUSCULAR HGB CONC 34 G/DL (32-36); MEAN CORPUSCULAR VOLUME 91 FL (80-99); MEAN PLATELET VOLUME 9.2 FL (7.4-10.4); MONOCYTES # (AUTO) 0.4 X 10^3 (0.0-1.0); MONOCYTES % (AUTO) 10 % (0-12); NEUTROPHILS # (AUTO) 3.2 X 10^3 (1.8-7.8); NEUTROPHILS % (AUTO) 76 % (42-75); PLATELET COUNT 165 10^3/uL (130-400); RED CELL DISTRIBUTION WIDTH 13.2 % (10.0-14.5); WHITE BLOOD COUNT 4.2 10^3/uL (4.3-11.0)
[2019-02-08 11:07] LABS: BUN/CREATININE RATIO 17; CALCIUM 8.9 MG/DL (8.5-10.1); CARBON DIOXIDE 24 MMOL/L (21-32); CHLORIDE 108 MMOL/L (98-107); GFR ESTIMATED > 60; GLUCOSE 108 MG/DL (70-105); POTASSIUM 3.9 MMOL/L (3.6-5.0); SODIUM 140 MMOL/L (135-145)
[2019-02-15 10:08] LABS: BASOPHILS % (AUTO) 1 % (0-10); EOSINOPHILS # (AUTO) 0.1 10^3/uL (0.0-0.3); EOSINOPHILS % (AUTO) 4 % (0-10); HEMATOCRIT 41 % (40-54); HEMOGLOBIN 14.5 G/DL (13.3-17.7); LYMPHOCYTES # (AUTO) 0.4 X 10^3 (1.0-4.0); LYMPHOCYTES % (AUTO) 11 % (12-44); MEAN CORPUSCULAR HEMOGLOBIN 33 PG (25-34); MEAN CORPUSCULAR HGB CONC 36 G/DL (32-36); MEAN CORPUSCULAR VOLUME 91 FL (80-99); MEAN PLATELET VOLUME 9.1 FL (7.4-10.4); MONOCYTES # (AUTO) 0.7 X 10^3 (0.0-1.0); MONOCYTES % (AUTO) 20 % (0-12); NEUTROPHILS # (AUTO) 2.2 X 10^3 (1.8-7.8); NEUTROPHILS % (AUTO) 64 % (42-75); PLATELET COUNT 210 10^3/uL (130-400); RED CELL DISTRIBUTION WIDTH 13.3 % (10.0-14.5); WHITE BLOOD COUNT 3.4 10^3/uL (4.3-11.0)
[2019-02-15 10:27] LABS: BUN/CREATININE RATIO 16; CALCIUM 9.1 MG/DL (8.5-10.1); CARBON DIOXIDE 21 MMOL/L (21-32); CHLORIDE 112 MMOL/L (98-107); CREATININE SERUM 0.85 MG/DL (0.60-1.30); GFR ESTIMATED > 60; GLUCOSE 103 MG/DL (70-105); POTASSIUM 4.5 MMOL/L (3.6-5.0); SODIUM 142 MMOL/L (135-145)
[2019-02-22 10:31] LABS: BASOPHILS % (AUTO) 1 % (0-10); EOSINOPHILS # (AUTO) 0.1 10^3/uL (0.0-0.3); EOSINOPHILS % (AUTO) 3 % (0-10); HEMATOCRIT 40 % (40-54); HEMOGLOBIN 14.2 G/DL (13.3-17.7); LYMPHOCYTES # (AUTO) 0.5 X 10^3 (1.0-4.0); LYMPHOCYTES % (AUTO) 18 % (12-44); MEAN CORPUSCULAR HEMOGLOBIN 32 PG (25-34); MEAN CORPUSCULAR HGB CONC 35 G/DL (32-36); MEAN CORPUSCULAR VOLUME 90 FL (80-99); MEAN PLATELET VOLUME 9.3 FL (7.4-10.4); MONOCYTES # (AUTO) 0.7 X 10^3 (0.0-1.0); MONOCYTES % (AUTO) 25 % (0-12); NEUTROPHILS # (AUTO) 1.6 X 10^3 (1.8-7.8); NEUTROPHILS % (AUTO) 54 % (42-75); PLATELET COUNT 187 10^3/uL (130-400); RED CELL DISTRIBUTION WIDTH 12.8 % (10.0-14.5); WHITE BLOOD COUNT 2.9 10^3/uL (4.3-11.0)
[2019-02-22 10:47] LABS: BUN/CREATININE RATIO 14; CALCIUM 8.9 MG/DL (8.5-10.1); CARBON DIOXIDE 22 MMOL/L (21-32); CHLORIDE 109 MMOL/L (98-107); CREATININE SERUM 0.84 MG/DL (0.60-1.30); GFR ESTIMATED > 60; GLUCOSE 97 MG/DL (70-105); POTASSIUM 4.2 MMOL/L (3.6-5.0); SODIUM 140 MMOL/L (135-145)
[2019-03-01 09:02] LABS: BASOPHILS % (AUTO) 1 % (0-10); EOSINOPHILS # (AUTO) 0.1 10^3/uL (0.0-0.3); EOSINOPHILS % (AUTO) 2 % (0-10); HEMATOCRIT 41 % (40-54); HEMOGLOBIN 14.4 G/DL (13.3-17.7); LYMPHOCYTES # (AUTO) 0.5 X 10^3 (1.0-4.0); LYMPHOCYTES % (AUTO) 17 % (12-44); MEAN CORPUSCULAR HEMOGLOBIN 32 PG (25-34); MEAN CORPUSCULAR HGB CONC 36 G/DL (32-36); MEAN CORPUSCULAR VOLUME 91 FL (80-99); MONOCYTES # (AUTO) 0.6 X 10^3 (0.0-1.0); MONOCYTES % (AUTO) 19 % (0-12); NEUTROPHILS # (AUTO) 1.7 X 10^3 (1.8-7.8); NEUTROPHILS % (AUTO) 60 % (42-75); PLATELET COUNT 166 10^3/uL (130-400); RED CELL DISTRIBUTION WIDTH 12.7 % (10.0-14.5); WHITE BLOOD COUNT 2.8 10^3/uL (4.3-11.0)
[2019-03-01 09:34] LABS: ALANINE AMINOTRANSFERASE 18 U/L (0-55); ALKALINE PHOSPHATASE 47 U/L (40-136); BILIRUBIN,TOTAL 0.6 MG/DL (0.1-1.0); BUN/CREATININE RATIO 15; CALCIUM 8.5 MG/DL (8.5-10.1); CARBON DIOXIDE 18 MMOL/L (21-32); CHLORIDE 111 MMOL/L (98-107); CREATININE SERUM 0.86 MG/DL (0.60-1.30); GFR ESTIMATED > 60; GLUCOSE 114 MG/DL (70-105); POTASSIUM 4.4 MMOL/L (3.6-5.0); SODIUM 139 MMOL/L (135-145); TOTAL PROTEIN 5.9 GM/DL (6.4-8.2)
[~2019-03-02] VITALS: Ht 184.2 cm; Wt 119.3 kg
[~2019-03-02 11:02] MED LIST changes: +ACETAMINOPHEN 325 MG TAB (TYLENOL) CANCER CTR ONE; +ACETAMINOPHEN 325 MG TAB (TYLENOL) CANCER CTR PO PRN; +ACETAMINOPHEN 500 MG TAB (TYLENOL) CANCER CTR ONE; -ACYC400T PO; -ALBU18HF2 INH; -AMOX1TAB12 PO; +BENDAMUSTINE HCL 180 MG in NS (IVPB) CANCER CENTER 50 ML IV SCH; +DEXAMETHASONE IV SCH; -DIVA-76 PO; +NS (IVPB) CANCER CENTER 250 ML ONE; +NS IV 1000 ML (CANCER CTR) IV SCH; +NS IV SCH; -ONDA8TAB12 PO; +ONDANSETRON IV SCH; +ONDANSETRON MDV (CANCER CENTER 16 MG, DEXAMETHASONE INJECTION 10 MG in NS (IVPB) CANCER... IV SCH; +PALONOSETRON HCL 0.25 MG, DEXAMETHASONE INJECTION 10 MG in NS (IVPB) CANCER CENTER 50 ML IV SCH; +PALONOSETRON HCL IV SCH; -PROM25TA14 PO; -SULF-222 PO; +[UNRECOGNIZED DRUG - OTHER] IV SCH; +diphenhydrAMINE 25 MG TAB (BENADRYL) CANCER CENTER PO SCH; +diphenhydrAMINE 50 MG/ML INJ (CANCER CENTER) IV PRN; +diphenhydrAMINE 50 MG/ML INJ (CANCER CENTER) ONE; +riTUXimab 500 MG, riTUXimab FOR IV INJ CONC 300 MG in NS (IVPB) CANCER CENTER 186 ML IV SCH
[2019-03-03] MEDS ORDERED: ACYC400T PO (09:56)
[2019-03-03] MEDS ORDERED: SULF-222 PO (09:56)
[2019-03-03] MEDS ORDERED: ONDA8TAB12 PO (09:56)
[2019-03-03] MEDS ORDERED: AMOX1TAB12 PO (09:56)
[2019-03-03] MEDS ORDERED: PROM25TA14 PO (09:56)
[2019-03-03] MEDS ORDERED: DIVA-76 PO (09:56)
[2019-03-03] MEDS ORDERED: ALBU18HF2 INH (10:12)
[2019-03-08 10:03] LABS: BASOPHILS % (AUTO) 1 % (0-10); EOSINOPHILS # (AUTO) 0.1 10^3/uL (0.0-0.3); EOSINOPHILS % (AUTO) 3 % (0-10); HEMATOCRIT 41 % (40-54); HEMOGLOBIN 14.6 G/DL (13.3-17.7); LYMPHOCYTES # (AUTO) 0.4 X 10^3 (1.0-4.0); LYMPHOCYTES % (AUTO) 13 % (12-44); MEAN CORPUSCULAR HEMOGLOBIN 32 PG (25-34); MEAN CORPUSCULAR HGB CONC 36 G/DL (32-36); MEAN CORPUSCULAR VOLUME 89 FL (80-99); MEAN PLATELET VOLUME 9.6 FL (7.4-10.4); MONOCYTES # (AUTO) 0.6 X 10^3 (0.0-1.0); MONOCYTES % (AUTO) 19 % (0-12); NEUTROPHILS # (AUTO) 2.1 X 10^3 (1.8-7.8); NEUTROPHILS % (AUTO) 65 % (42-75); PLATELET COUNT 166 10^3/uL (130-400); RED CELL DISTRIBUTION WIDTH 12.8 % (10.0-14.5); WHITE BLOOD COUNT 3.2 10^3/uL (4.3-11.0)
[2019-03-08 10:25] LABS: BUN/CREATININE RATIO 18; CALCIUM 9.2 MG/DL (8.5-10.1); CARBON DIOXIDE 27 MMOL/L (21-32); CHLORIDE 107 MMOL/L (98-107); CREATININE SERUM 0.85 MG/DL (0.60-1.30); GFR ESTIMATED > 60; GLUCOSE 96 MG/DL (70-105); POTASSIUM 4.6 MMOL/L (3.6-5.0); SODIUM 142 MMOL/L (135-145)
== END 2019-03-14 | disposition home or self-care (01) ==
LOC: ONC 11:02
PROVIDERS: ATTEND Internal Medicine Hematology & Oncology
DX: C85.90 Non-Hodgkin lymphoma, unspecified, unspecified site (principal)
CPT/HCPCS: 36415; 36591; 80048; 80053; 80074; 81000; 83615; 84550; 85025; 96374; 96375; 96409; 96411; 96413; 96415; 96417; 96523; 99214; J9312

== ENCOUNTER 2019-03-02 15:13 | Observation (INO) | payer MEDICAID, MEDICARE ==
[~2019-03-02] VITALS: Ht 182.9 cm; Wt 120.7 kg
[~2019-03-02 15:13] MED LIST changes: -ACETAMINOPHEN 325 MG TAB (TYLENOL) CANCER CTR ONE; -ACETAMINOPHEN 325 MG TAB (TYLENOL) CANCER CTR PO PRN; -ACETAMINOPHEN 500 MG TAB (TYLENOL) CANCER CTR ONE; -BENDAMUSTINE HCL 180 MG in NS (IVPB) CANCER CENTER 50 ML IV SCH; -DEXAMETHASONE IV SCH; -NS (IVPB) CANCER CENTER 250 ML ONE; -NS IV 1000 ML (CANCER CTR) IV SCH; -NS IV SCH; -ONDANSETRON IV SCH; -ONDANSETRON MDV (CANCER CENTER 16 MG, DEXAMETHASONE INJECTION 10 MG in NS (IVPB) CANCER... IV SCH; -PALONOSETRON HCL 0.25 MG, DEXAMETHASONE INJECTION 10 MG in NS (IVPB) CANCER CENTER 50 ML IV SCH; -PALONOSETRON HCL IV SCH; -[UNRECOGNIZED DRUG - OTHER] IV SCH; -diphenhydrAMINE 25 MG TAB (BENADRYL) CANCER CENTER PO SCH; -diphenhydrAMINE 50 MG/ML INJ (CANCER CENTER) IV PRN; -diphenhydrAMINE 50 MG/ML INJ (CANCER CENTER) ONE; -riTUXimab 500 MG, riTUXimab FOR IV INJ CONC 300 MG in NS (IVPB) CANCER CENTER 186 ML IV SCH
[2019-03-02] MEDS ORDERED: NITROGLYCERIN 0.4 MG SL TABS BTL 25'S SL PRN ×2 (15:30→20:15)
[2019-03-02] MEDS ORDERED: ASPIRIN 81 MG CHEW (CHILDREN'S ASA) PO ONE (15:30)
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
[2019-03-02 15:44] LABS: BASOPHILS % (AUTO) 0 % (0-10); EOSINOPHILS % (AUTO) 0 % (0-10); HEMATOCRIT 39 % (40-54); HEMOGLOBIN 13.6 G/DL (13.3-17.7); LYMPHOCYTES # (AUTO) 0.4 X 10^3 (1.0-4.0); LYMPHOCYTES % (AUTO) 4 % (12-44); MEAN CORPUSCULAR HGB CONC 35 G/DL (32-36); MEAN CORPUSCULAR VOLUME 91 FL (80-99); MEAN PLATELET VOLUME 9.8 FL (7.4-10.4); MONOCYTES # (AUTO) 0.4 X 10^3 (0.0-1.0); MONOCYTES % (AUTO) 5 % (0-12); NEUTROPHILS # (AUTO) 7.8 X 10^3 (1.8-7.8); NEUTROPHILS % (AUTO) 91 % (42-75); PLATELET COUNT 170 10^3/uL (130-400); RED CELL DISTRIBUTION WIDTH 12.9 % (10.0-14.5); WHITE BLOOD COUNT 8.6 10^3/uL (4.3-11.0)
[2019-03-02 15:48] LABS: MEAN CORPUSCULAR HEMOGLOBIN 31 PG (25-34)
--- NOTE | 2019-03-02 15:49 | Diagnostic Imaging Report ---
Indication: Lymphoma. Comparison made with prior examination of 11/06/2009. Findings: There has been interval placement of an Ytsocx-T-Hugh catheter which overlies the right hemithorax. Tips in the superior vena cava. Heart size is normal. Lungs are clear. No pleural effusion or pneumothorax. Mediastinum unremarkable. Impression: No acute cardiopulmonary abnormality. The Zgpgxl-Y-Dgyc catheter is in satisfactory position. Dictated by: Dictated on workstation # [id number]
[2019-03-02 15:54] LABS: PROTHROMBIN TIME PATIENT 13.5 SEC (12.2-14.7)
[2019-03-02 16:02] LABS: ALANINE AMINOTRANSFERASE 16 U/L (0-55); ALBUMIN 4.1 GM/DL (3.2-4.5); ALKALINE PHOSPHATASE 47 U/L (40-136); AMYLASE 55 U/L (25-125); BILIRUBIN,TOTAL 0.3 MG/DL (0.1-1.0); BUN/CREATININE RATIO 9; CARBON DIOXIDE 21 MMOL/L (21-32); CHLORIDE 111 MMOL/L (98-107); CREATINE KINASE 188 U/L (30-200); GFR ESTIMATED > 60; GLUCOSE 111 MG/DL (70-105); LIPASE 23 U/L (8-78); MAGNESIUM 1.9 MG/DL (1.8-2.4); POTASSIUM 4.6 MMOL/L (3.6-5.0); SODIUM 142 MMOL/L (135-145); TOTAL PROTEIN 5.9 GM/DL (6.4-8.2)
--- OUTSIDE RECORDS SUMMARY | 2019-03-02 16:09 | XMS REPORT | Continuity of Care Document ---
Author Organization Unknown Address Unknown Allergies There is no data. Medications There is no data. Problems There is no data. Procedures There is no data. Results There is no data. Encounters ACCT No. Visit Date/Time Discharge Status Pt. Type Provider Facility Loc./Unit Complaint [id number] 02/26/2019 14:40:00 02/26/2019 23:59:59 CLS Outpatient [facility] SCHWARTZ [facility]
[2019-03-02 16:10] LABS: CREATINE KINASE MB 3.7 NG/ML (<6.6)
[2019-03-02] MEDS ORDERED: morphine INJ 10 MG/ML 1ML (SYR OR VIAL) IVP STA ×2 (16:10→18:07)
--- NOTE | 2019-03-02 16:17 | NUR ---
2.05 LACTIC ACID AND VALPORIC ACID 40.[address] PANCHAL
[2019-03-02 16:23] LABS: BILIRUBIN,URINE NEGATIVE (NEGATIVE); CLARITY,URINE CLEAR; COLOR,URINE YELLOW; GLUCOSE, URINE (UA) NEGATIVE (NEGATIVE); KETONES,URINE 1+ (NEGATIVE); LEUKOCYTE ESTERASE ,URINE 1+ (NEGATIVE); NITRITE,URINE NEGATIVE (NEGATIVE); PH,URINE 6 (5-9); PROTEIN,URINE NEGATIVE (NEGATIVE); UROBILINOGEN,URINE NORMAL (NORMAL)
[2019-03-02 16:42] LABS: BACTERIA,URINE NEGATIVE /HPF; SQUAMOUS EPITHELIAL CELL,UR RARE /HPF
[2019-03-02 16:43] LABS: WHITE BLOOD CELL CASTS, URINE 0-2 /LPF
[2019-03-02 16:52] LABS: BAND NEUTROPHILS 2 %; BASOPHILS % (MANUAL) 0 %; EOSINOPHILS % (MANUAL) 0 %; LYMPHOCYTES % (MANUAL) 6 %; MONOCYTES % (MANUAL) 3 %; NEUTROPHILS % (MANUAL) 89 %
[2019-03-02 16:53] LABS: ELLIPT/OVALOCYTES SLIGHT; POIKILOCYTOSIS SLIGHT
[2019-03-02] MEDS ORDERED: HOLD METFORMIN - RECEIVED CONTRAST 20 ML VIAL IV SCH (17:00)
[2019-03-02] MEDS ORDERED: IOHEXOL 350 MG/ML 150 ML (OMNIPAQUE 350) VIAL IV ONE (17:00)
--- NOTE | 2019-03-02 17:12 | NUR ---
INFUSAPORT NEEDLE CHANGED TO POWER PORT NEEDLE USING COMMERCIAL CREDIT LEAD FOR CONTRAST DYE
--- NOTE | 2019-03-02 17:40 | Diagnostic Imaging Report ---
PROCEDURE: CT angiography of the chest with contrast. TECHNIQUE: Multiple contiguous axial images were obtained through the chest after uneventful bolus administration of intravenous contrast. 2D reconstructed CTA MIP acquisitions were also performed. Auto Exposure Controls were utilized during the CT exam to meet ALARA standards for radiation dose reduction. INDICATION: 58-year-old male with severe shortness of breath and chest pain, assess for pulmonary embolism COMPARISONS: None FINDINGS: There are shotty benign-appearing axillary nodes but no evidence of axillary adenopathy. There is also no evidence of hilar or mediastinal adenopathy. Cardiac contour is normal. Thoracic aortic contour is also normal with no evidence of aneurysm or dissection. There is normal arch origin of the great vessels. The pulmonary outflow tract as well as the right and left pulmonary arteries, their segmental and subsegmental branches are widely patent with no evidence of intraluminal thrombus to suggest a pulmonary embolism. There are subpleural dependent atelectatic infiltrates with minimal chronic parenchymal changes but otherwise no significant consolidation, effusion or pneumothorax. Limited assessment of the abdomen shows several cysts in the liver, the largest of which is in the right lobe measuring approximately 3.2 cm. The gallbladder is surgically absent. The spleen shows a mosaic pattern, most likely due to the arterial phase. GE junction is normal. The stomach and duodenal sweep are unremarkable. The pancreas shows sharp margins. Adrenals are normal. Visualized kidneys appear normal in size, composition and contour. There is symmetrical perfusion of contrast. There is normal origin of the visceral arteries. IMPRESSION: 1. Apart from subpleural dependent atelectatic infiltrates, some discoid type atelectasis in the right lower lobe, no significant consolidations, effusion or pneumothorax seen. 2. No CT angiographic evidence for aortic aneurysm, dissection or pulmonary embolism. Additional nonemergent findings as described above. Dictated by: Dictated on workstation # [id number]
--- NOTE | 2019-03-02 17:54 | NUR ---
LACTIC ACID REDRAWN PER PROTOCOL
--- NOTE | 2019-03-02 18:01 | NUR ---
OUT TO CAR TO GET KEYS W STAFF IN W/C
[2019-03-02] MEDS ORDERED: ENOXAPARIN 40 MG/0.4 ML (LOVENOX) SYR SC ONE (18:15)
--- OUTSIDE RECORDS SUMMARY | 2019-03-02 18:53 | XMS REPORT | Continuity of Care Document ---
Author Organization Unknown Address Unknown Allergies There is no data. Medications There is no data. Problems There is no data. Procedures There is no data. Results There is no data. Encounters ACCT No. Visit Date/Time Discharge Status Pt. Type Provider Facility Loc./Unit Complaint [id number] 02/26/2019 14:40:00 02/26/2019 23:59:59 CLS Outpatient [facility] SCHWART[facility]
--- NOTE | 2019-03-02 20:00 | NUR ---
MITCH AGUILERA JR admitted to room CU4-1, with an admitting diagnosis of chest pain; mantle cell lymphoma on chemo, on 03/02/19 from ed via , accompanied by staff.MITCH AGUILERA JR introduced to surroundings, call light, bed controls, phone, TV, temperature control, lights, meal times, smoking policy, visitor policy, side rail policy, bathrooms and showers. Patient Rights given to patient in the handbook. MITCH AGUILERA JR verbalizes understanding that [facility] is not responsible for the loss or damage to any personal effects or valuables that are kept in the patient's possession during their hospitalization. This rn discussed the plan of care with the patient, he agrees to the plan and denies any questions or concerns at this time. Patient and/or family were informed about the Rapid Response Team and its purpose.
[2019-03-02 20:08] VITALS: BP 137/95
[2019-03-02] MEDS: NS IV 1000 ML 1,000 ML IV SCH (20:12)
[2019-03-02] MEDS ORDERED: morphine INJ 4 MG/ML 1 ML (VIAL/SYRINGE) IV PRN (20:15)
[2019-03-02 20:46] VITALS: BP 132/77
[2019-03-02 22:01] VITALS: BP 143/85
[2019-03-02 22:08] VITALS: BP 141/80
[2019-03-02] MEDS ORDERED: DIVALPROEX 500 MG DELAYED RELEASE (DEPAKOTE) TAB PO SCH (22:15)
[2019-03-02] MEDS ORDERED: ACETAMINOPHEN 500 MG TAB (TYLENOL) PO PRN (22:15)
--- NOTE | 2019-03-02 22:15 | NUR ---
-pt reports that this chest pain has been going on for 3 days prior to admission-pt also refusing to take nitro because it "gives me a headache" pt also refusing to take morphine because "it's addictive" pt requesting that this rn contact the doctor for some Tylenol & his hs medication-this rn called dr. holloway new orders received.
[2019-03-02] MEDS ORDERED: ACETAMINOPHEN 500 MG TAB (TYLENOL) ONE (22:23)
[2019-03-02 23:08] VITALS: BP 96/61
[2019-03-02 23:40] VITALS: BP 119/80
[2019-03-03] VITALS (12 sets, daily range): BP systolic 111–170; BP diastolic 66–91
[2019-03-03 04:01] LABS: BASOPHILS % (AUTO) 0 % (0-10); EOSINOPHILS % (AUTO) 0 % (0-10); HEMATOCRIT 37 % (40-54); HEMOGLOBIN 12.8 G/DL (13.3-17.7); LYMPHOCYTES # (AUTO) 0.5 X 10^3 (1.0-4.0); LYMPHOCYTES % (AUTO) 6 % (12-44); MEAN CORPUSCULAR HEMOGLOBIN 32 PG (25-34); MEAN CORPUSCULAR HGB CONC 35 G/DL (32-36); MEAN CORPUSCULAR VOLUME 92 FL (80-99); MEAN PLATELET VOLUME 10.2 FL (7.4-10.4); MONOCYTES # (AUTO) 1.2 X 10^3 (0.0-1.0); MONOCYTES % (AUTO) 13 % (0-12); NEUTROPHILS # (AUTO) 7.4 X 10^3 (1.8-7.8); NEUTROPHILS % (AUTO) 82 % (42-75); PLATELET COUNT 164 10^3/uL (130-400); RED CELL DISTRIBUTION WIDTH 12.9 % (10.0-14.5); WHITE BLOOD COUNT 9.1 10^3/uL (4.3-11.0)
[2019-03-03 04:28] LABS: ALANINE AMINOTRANSFERASE 16 U/L (0-55); ALBUMIN 3.8 GM/DL (3.2-4.5); ALKALINE PHOSPHATASE 43 U/L (40-136); BILIRUBIN,TOTAL 0.4 MG/DL (0.1-1.0); BUN/CREATININE RATIO 14; CALCIUM 8.4 MG/DL (8.5-10.1); CARBON DIOXIDE 21 MMOL/L (21-32); CHLORIDE 110 MMOL/L (98-107); CHOLESTEROL 130 MG/DL (< 200); CREATININE SERUM 0.93 MG/DL (0.60-1.30); GFR ESTIMATED > 60; GLUCOSE 101 MG/DL (70-105); HDL CHOLESTEROL 41 MG/DL (40-60); POTASSIUM 4.7 MMOL/L (3.6-5.0); SODIUM 141 MMOL/L (135-145); TOTAL PROTEIN 5.4 GM/DL (6.4-8.2); TRIGLYCERIDES 72 MG/DL (<150); VLDL CHOLESTEROL 14 MG/DL (5-40)
[2019-03-03] MEDS: NS IV 1000 ML 1,000 ML IV SCH (06:10)
[2019-03-03] MEDS ORDERED: ASPIRIN E.C. 81 MG (ECOTRIN) TAB PO SCH (09:00)
[2019-03-03] MEDS ORDERED: REGADENOSON 0.4 MG/5 ML SYR (LEXISCAN) IV ONE ×2 (09:45→13:31)
[2019-03-03] MEDS ORDERED: PROM25TA14 PO (09:56)
[2019-03-03] MEDS ORDERED: SULF-222 PO (09:56)
[2019-03-03] MEDS ORDERED: DIVA-76 PO (09:56)
[2019-03-03] MEDS ORDERED: AMOX1TAB12 PO (09:56)
[2019-03-03] MEDS ORDERED: ONDA8TAB12 PO (09:56)
[2019-03-03] MEDS ORDERED: ACYC400T PO (09:56)
[2019-03-03] MEDS ORDERED: ALBU18HF2 INH (10:12)
--- NOTE | 2019-03-03 10:13 | NUR ---
SPOKE WITH THE PATIENT ABOUT HIS MEDICATIONS. WE WENT OVER THE EXT MED HX AND HE VERIFIED HOW HE TAKES THEM. HIS DEPAKOTE WAS FILLED #180 FRO 90 DAYS 02-04-19 HOWEVER HE STATES HE ONLY TAKES 1/2 IN THE MORNING AND 1 AT HS. HE TAKES FISH OIL AND B COMPLEX OTC DAILY. HE STATES HE ALSO USES VENTOLIN AND ADVAIR BUT ONLY NEEDED.
[2019-03-03] MEDS ORDERED: CATHETER FLUSH 10 ML SYR IV PRN (12:30)
--- NOTE | 2019-03-03 13:44 | Consultation-Cardiology ---
HPI-Cardiology Cardiology Consultation: Date of Consultation 03/03/19 Date of Admission Attending Physician Chayito Lieberman MD Admitting Physician Mirza Hannah MD Consulting Physician Ioana ALMAGUER MD HPI: Time Seen by a Provider: 08:50 Chief Complaint: Chest pain This is a 58-year-old gentleman who has been following with Dr. Sheppard's for history of mantle cell lymphoma since Dec 2018. Was supposed to get his sixth cycle of chemotherapy yesterday but he complained of chest pressure and Dr. Donis requested a office visit with me. The patient has been having chest pain for at least the last 2 days and is feeling like an element sitting on his chest. Associated with increased shortness of breath. History of COPD. Denies any palpitation, near syncope, syncope or previous cardiac history. Possible history of hypertension. Patient does not smoke. No family history of premature CAD. Review of Systems-Cardiology Review of Systems Constitutional: As described under HPI; No As described under HPI, No no symptoms reported, No chills, No fever, No lightheadedness Eyes: No As described under HPI, No no symptoms reported, No blindness, No blurred vision, No contact lenses, No drainage, No decreased acuity, No foreign body sensation, No pain, No vision change Ears/Nose/Throat: No As described under HPI, No no symptoms reported, No chronic hearing loss, No ear discharge, No ear pain, No nasal drainage, No ulcerations Respiratory: No no symptoms reported; As described under HPI; No As described under HPI, No cough, No orthopnea, No shortness of breath, No SOB with excertion Cardiovascular: No no symptoms reported; As described under HPI; No As described under HPI; chest pain; No edema, No irregular heart rate, No lightheadedness, No palpitations Gastrointestinal: No no symptoms reported, No As described under HPI, No abdomen distended, No abdominal pain, No blood streaked bowels, No constipation , No diarrhea, No nausea, No vomiting, No stool coloration changes Genitourinary: No As described under HPI, No burning, No dysuria, No discharge , No frequency, No flank pain, No hematuria, No urgency Skin: No rash, No skin related problems, No ulcerations Psychiatric/Neurological: No anxiety, No depression, No seizure, No focal weakness, No syncope Hematologic: No bleeding abnormalities HYS-Qzxfoi-Pimiwl Hx Patient Social History Alcohol Use: Denies Use Recreational Drug Use: No Smoking Status: Former Smoker Type Used: Cigarettes, Smokeless Tobacco 2nd Hand Smoke Exposure: No Recent Foreign Travel: No Recent Infectious Disease Expo: No Hospitalization with Isolation: Denies Immunizations Up To Date Tetanus Booster (TDap): Unknown Date of Pneumonia Vaccine: Aug 03, 2018 Date of Influenza Vaccine: Jul 28, 2018 Past Medical History PMH As described under Assessment. Family Medical History Family History: Cardiovascular disease 19 MOTHER G8 SISTER Completed stroke G8 SISTER FH: brain tumor G8 SISTER FH: emphysema 19 FATHER FH: kidney failure 19 FATHER Allergies and Home Medications Allergies Coded Allergies: No Known Drug Allergies (Unverified , 10/16/17) Home Medications Acyclovir 400 Mg Tablet, 400 MG PO BID, (Reported) Albuterol Sulfate 18 Gm Hfa.aer.ad, 2 PUFF INH Q4H PRN for SHORTNESS OF BREATH, (Reported) Amoxicillin/Potassium Clav 1 Each Tablet, 1 TAB PO BID, (Reported) 10 DAY SUPPLY FILLED 02-26-19 Citalopram Hydrobromide 40 Mg Tablet, 60 MG PO HS, (Reported) TAKES 1 & 1/2 (40MG) TABLET Divalproex Sodium 500 Mg Tablet.dr, 500 MG PO 1800, (Reported) Divalproex Sodium 500 Mg Tablet.dr, 250 MG PO DAILY, (Reported) TAKES 1/2 (500MG) TABLET Fluticasone/Salmeterol 1 Each Blst.w.dev, 1 EACH IH DAILY PRN for SHORTNESS OF BREATH, (Reported) Meloxicam 15 Mg Tablet, 15 MG PO HS, (Reported) [place] 3 Polyunsat Fatty Acids 1,000 Mg Cap, 1,000 MG PO DAILY, (Reported) Omeprazole 20 Mg Capsule.dr, 20 MG PO BID, (Reported) Ondansetron HCl 8 Mg Tablet, 8 MG PO TID PRN for NAUSEA/VOMITING-1ST LINE, ( Reported) Promethazine HCl 25 Mg Tablet, 25 MG PO TID PRN for NAUSEA/VOMITING-2ND LINE, ( Reported) Sulfamethoxazole/Trimethoprim 1 Each Tablet, 1 TAB PO MoTh, (Reported) Vitamin B Complex 1 Each Capsule, 1 CAP PO DAILY, (Reported) Patient Home Medication List Home Medication List Reviewed: Yes Physical Exam-Cardiology Physical Exam Vital Signs/I&O 03/03/19 03/03/19 03/03/19 03/03/19 02:40 03:40 04:00 04:00 Temp 97.0 Pulse 53 53 Resp 19 15 B/P (MAP) 111/75 (87) 125/81 (96) Pulse Ox 95 97 O2 Delivery Nasal Cannula Nasal Cannula Nasal Cannula O2 Flow Rate 2.00 2.00 2.00 03/03/19 03/03/19 03/03/19 03/03/19 07:00 07:10 07:45 07:51 Temp 97.1 Pulse 54 53 Resp 23 B/P (MAP) 118/75 (89) Pulse Ox 93 O2 Delivery Nasal Cannula Nasal Cannula Nasal Cannula O2 Flow Rate 2.00 2.00 03/03/19 03/03/19 03/03/19 03/03/19 08:00 09:00 10:00 11:00 Pulse 57 63 70 60 Resp 15 14 8 14 B/P (MAP) 117/75 (89) 129/91 (104) 112/66 (81) Pulse Ox 97 95 97 O2 Delivery Nasal Cannula Nasal Cannula Nasal Cannula Nasal Cannula O2 Flow Rate 2.00 2.00 2.00 2.00 03/03/19 03/03/19 12:00 12:02 Temp 96.4 O2 Delivery Nasal Cannula O2 Flow Rate 2.00 03/03/19 00:00 Intake Total 300 ml Output Total 800 ml Balance -500 ml Capillary Refill : Less Than 3 Seconds Constitutional: appears stated age, AAO x 3; No apparent distress; well- developed, well-nourished HEENT: PERRL; No normal ENT inspection, No TMs normal, No pharynx normal, No scleral icterus (R), No scleral icterus (L), No pale conjunctivae (R), No pale conjunctivae (L), No photophobia, No TM abnormal (R), No TM abnormal (L), No pharyngeal erythema, No tonsillar exudate, No other, No discharge, No EOMI; hearing is well preserved; No hard of hearing; oral hygience is good; No ulceration, No xanthelasmas are seen Neck: No non-tender, No full range of motion, No supple, No normal inspection, No carotid bruit, No limited range of motion, No lymphadenopathy (R), No lymphadenopathy (L), No tender lateral, No tender midline, No thyromegaly, No other; carotid pulses are 2 + bilaterally; No with good upstrokes Respiratory: No accessory muscle use, No respiratory distress, No chest tender , No chest expansion is symmetric; chest is bilaterally symmetric; No lungs clear to percussion; lungs clear to auscultation; No crackles, No rhonchi, No rales, No stridor, No wheezing, No pleural rub, No other Cardiovascular: regular rate-rhythm; No irregularly irregular, No extra beats, No parasternal heave is noted, No JVD, No edema, No bradycardia, No tachycardia , No point of maximal impulse, No cardiac thrills are palpable; S1 and S2; No gallop/S3, No gallop/S4, No diastolic murmur, No systolic murmur, No friction rub, No click, No other Gastrointestinal: No tender, No soft, No round, No distended, No pulsatile mass , No organomegaly, No guarding, No rebound, No tenderness, No hernia, No mass, No audible bowel sounds, No abnormal bowel sounds, No abdominal bruits, No spleenomegaly, No other Rectal: deferred Extremities: No normal range of motion, No non-tender, No normal inspection, No pedal edema, No calf tenderness, No normal capillary refill, No pelvis stable , No calf tenderness, No inflammation, No pedal edema, No slow capillary refill , No swelling, No other, No abrasion, No clubbing, No cyanosis, No ecchymosis, No laceration, No no lower extremity edema bilateral, No significant edema, No tenderness, No wound Neurologic/Psychiatric: no motor/sensory deficits, alert, normal mood/affect, oriented x 3, power is 5/5 both on sides Skin: No normal color, No warm/dry, No cyanosis, No cool, No diaphoresis, No damp, No ecchymosis, No jaundice, No mottled, No pallor, No rash, No tattoos/ piercings, No ulcerations, No rash on exposed areas, No ulcerations on exposed areas, No other Data Review Labs Laboratory Tests 03/02/19 15:30: White Blood Count 8.6, Red Blood Count 4.32L, Hemoglobin 13.6, Hematocrit 39L, Mean Corpuscular Volume 91, Mean Corpuscular Hemoglobin 31, Mean Corpuscular Hemoglobin Concent 35, Red Cell Distribution Width 12.9, Platelet Count 170, Mean Platelet Volume 9.8, Neutrophils (%) (Auto) 91H, Lymphocytes (%) (Auto) 4L , Monocytes (%) (Auto) 5, Eosinophils (%) (Auto) 0, Basophils (%) (Auto) 0, Neutrophils # (Auto) 7.8, Lymphocytes # (Auto) 0.4L, Monocytes # (Auto) 0.4, Eosinophils # (Auto) 0.0, Basophils # (Auto) 0.0, Neutrophils % (Manual) 89, Lymphocytes % (Manual) 6, Monocytes % (Manual) 3, Eosinophils % (Manual) 0, Basophils % (Manual) 0, Band Neutrophils 2, Poikilocytosis SLIGHT, Elliptocytes SLIGHT, Prothrombin Time 13.5, INR Comment 1.0, Activated Partial Thromboplast Time 25, Sodium Level 142, Potassium Level 4.6, Chloride Level 111H, Carbon Dioxide Level 21, Anion Gap 10, Blood Urea Nitrogen 10, Creatinine 1.10, Estimat Glomerular Filtration Rate > 60, BUN/Creatinine Ratio 9, Glucose Level 111H, Calcium Level 9.0, Corrected Calcium 8.9, Magnesium Level 1.9, Total Bilirubin 0.3, Aspartate Amino Transf (AST/SGOT) 17, Alanine Aminotransferase ( ALT/SGPT) 16, Alkaline Phosphatase 47, Total Creatine Kinase 188, Creatine Kinase MB 3.7, Myoglobin 113.6H, Troponin I < 0.028, B-Type Natriuretic Peptide 34.5, Total Protein 5.9L, Albumin 4.1, Amylase Level 55, Lipase 23, Valproic Acid (Depakene) Level 40.8L 03/02/19 15:50: Lactic Acid Level 2.05*H 03/02/19 16:16: Urine Color YELLOW, Urine Clarity CLEAR, Urine pH 6, Urine Specific [place] 1.015L, Urine Protein NEGATIVE, Urine Glucose (UA) NEGATIVE, Urine Ketones 1+H, Urine Nitrite NEGATIVE, Urine Bilirubin NEGATIVE, Urine Urobilinogen NORMAL, Urine Leukocyte Esterase 1+H, Urine RBC (Auto) NEGATIVE, Urine RBC NONE, Urine WBC 2-5, Urine Squamous Epithelial Cells RARE, Urine Renal Epithelial Cells NONE , Urine Crystals NONE, Urine Bacteria NEGATIVE, Urine Casts PRESENT, Urine Hyaline Casts 10-25H, Urine White Blood Cell Casts 0-2H, Urine Mucus SMALLH, Urine Culture Indicated NO 03/02/19 17:52: Lactic Acid Level 1.64 03/02/19 21:25: Troponin I < 0.028 03/03/19 03:40: White Blood Count 9.1, Red Blood Count 4.04L, Hemoglobin 12.8L, Hematocrit 37L, Mean Corpuscular Volume 92, Mean Corpuscular Hemoglobin 32, Mean Corpuscular Hemoglobin Concent 35, Red Cell Distribution Width 12.9, Platelet Count 164, Mean Platelet Volume 10.2, Neutrophils (%) (Auto) 82H, Lymphocytes (%) (Auto) 6L , Monocytes (%) (Auto) 13H, Eosinophils (%) (Auto) 0, Basophils (%) (Auto) 0, Neutrophils # (Auto) 7.4, Lymphocytes # (Auto) 0.5L, Monocytes # (Auto) 1.2H, Eosinophils # (Auto) 0.0, Basophils # (Auto) 0.0, Sodium Level 141, Potassium Level 4.7, Chloride Level 110H, Carbon Dioxide Level 21, Anion Gap 10, Blood Urea Nitrogen 13, Creatinine 0.93, Estimat Glomerular Filtration Rate > 60, BUN/ Creatinine Ratio 14, Glucose Level 101, Calcium Level 8.4L, Corrected Calcium 8.6, Total Bilirubin 0.4, Aspartate Amino Transf (AST/SGOT) 19, Alanine Aminotransferase (ALT/SGPT) 16, Alkaline Phosphatase 43, Total Protein 5.4L, Albumin 3.8, Triglycerides Level 72, Cholesterol Level 130, LDL Cholesterol Direct 75, VLDL Cholesterol 14, HDL Cholesterol 41 Microbiology 03/02/19 Influenza Types A,B Antigen (HUMA) - Final, Complete ECG Impression ECG Initial ECG Rhythm: Normal Sinus Initial ECG Impression: Normal A/P-Cardiology Assessment/Admission Diagnosis Chest pain, mantle cell lymphoma, copd Plan Acute coronary syndrome ruled out with negative serial troponin and EKG. Nuclear stress test is recommended. Pulmonary embolism, aortic dissection ruled out with chest CTA. Positive lactate, defer to the primary team. Anemia, likely secondary to chemotherapy. Lymphoma: Defer to the cancer Center. Thank you for your consultation. Please call me if you have any questions. Lucas Almaguer MD, FACP, FACC, FSCAI, FHRS, CCDS Interventional Cardiology Cardiac Electrophysiology Vascular Medicine and Endovascular Interventions Clinical Quality Measures AMI/AHF: ASA po Prior to arrival: No DVT/VTE Risk/Contraindication: Risk Factor Score Per Nursin RFS Level Per Nursing on Admit: 4+=Very High Ioana ALMAGUER MD March 03, 2019 13:44
[2019-03-03] MEDS ORDERED: RT-ALBUTEROL SULF 2.5 MG/3 ML PRE-MIX VIAL INH PRN (14:00)
[2019-03-03] MEDS ORDERED: PROMETHAZINE 25 MG (PHENERGAN) TAB PO PRN (14:00)
[2019-03-03] MEDS ORDERED: NON-FORMULARY MEDICATION 1 EA EA (Fluticasone/Salmeterol (Advair 250-50 Diskus) 1 EACH) IH PRN (14:00)
[2019-03-03] MEDS ORDERED: NON-FORMULARY MEDICATION 1 EA EA (Ondansetron HCl 8 MG) PO PRN (14:00)
[2019-03-03] MEDS ORDERED: ONDANSETRON 4 MG (ZOFRAN) ORAL DISSOLVE TAB PO PRN (14:15)
[2019-03-03] MEDS ORDERED: ENOXAPARIN 40 MG/0.4 ML (LOVENOX) SYR SC SCH ×2 (14:15→18:00)
[2019-03-03] MEDS ORDERED: RT-ADVAIR HFA 115/21 MCG PER PUFF IH PRN (14:30)
--- NOTE | 2019-03-03 15:43 | Discharge Instructions ---
Discharge [facility] Discharge Medications Continued Medications: Acyclovir (Acyclovir) 400 Mg Tablet 400 MG PO BID, TAB Albuterol Sulfate (Ventolin Hfa) 18 Gm Hfa.aer.ad 2 PUFF INH Q4H PRN for SHORTNESS OF BREATH, INHALER Amoxicillin/Potassium Clav (Amox Tr-K Clv 875-125 mg Tab) 1 Each Tablet 1 TAB PO BID for 10 Days, TAB 10 DAY SUPPLY FILLED 02-26-19 Citalopram Hydrobromide (Citalopram HBr) 40 Mg Tablet 60 MG PO HS, TAB TAKES 1 & 1/2 (40MG) TABLET Divalproex Sodium (Depakote) 500 Mg Tablet.dr 500 MG PO 1800, TAB Divalproex Sodium (Divalproex Sodium) 500 Mg Tablet.dr 250 MG PO DAILY, TAB TAKES 1/2 (500MG) TABLET Fluticasone/Salmeterol (Advair 250-50 Diskus) 1 Each Blst.w.dev 1 EACH IH DAILY PRN for SHORTNESS OF BREATH Meloxicam (Meloxicam) 15 Mg Tablet 15 MG PO HS, TAB [place] 3 Polyunsat Fatty Acids (Fish Oil 1,000 mg Capsule) 1,000 Mg Cap 1000 MG PO DAILY, CAP Omeprazole (Omeprazole) 20 Mg Capsule.dr 20 MG PO BID, CAP Ondansetron HCl (Ondansetron HCl) 8 Mg Tablet 8 MG PO TID PRN for NAUSEA/VOMITING-1ST LINE, TAB Promethazine HCl (Promethazine Tablet) 25 Mg Tablet 25 MG PO TID PRN for NAUSEA/VOMITING-2ND LINE, TAB Sulfamethoxazole/Trimethoprim (Sulfamethoxazole-Tmp Ds Tablet) 1 Each Tablet 1 TAB PO MoTh, TAB Vitamin B Complex (Vitamin B Complex) 1 Each Capsule 1 CAP PO DAILY, CAP Patient Instructions Goal/Follow Up Appt: Follow up with Dr. Hannah as routinely planned. Return to The Hospital For: Worsening chest pain, shortness of breath Activity & Diet Discharge Diet: Regular Diet Activity as Tolerated: Yes Copy Copies To 1: LOVELY,MATTHEW GUIDRY MD, MD March 03, 2019 15:43
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
[2019-03-03] MEDS ORDERED: AUGMENTIN 875 MG TAB (AMOXICILLIN/CLAVULANATE) PO SCH (17:00)
[2019-03-03] MEDS ORDERED: MELOXICAM 7.5 MG (MOBIC) TABLET PO SCH ×2 (18:00→21:00)
[2019-03-03] MEDS ORDERED: CITALOPRAM HYDROBROMIDE 60 MG PO SCH (21:00)
[2019-03-03] MEDS ORDERED: ACYCLOVIR 400 MG TABLET (ZOVIRAX) PO SCH (21:00)
[2019-03-03] MEDS ORDERED: NON-FORMULARY MEDICATION 1 EA EA (Acyclovir 400 MG) PO SCH (21:00)
[2019-03-03] MEDS ORDERED: NON-FORMULARY MEDICATION 1 EA EA (Amoxicillin/Potassium Clav (Amox Tr-K Clv 875-125 mg Tab PO SCH (21:00)
[2019-03-03] MEDS ORDERED: OMEPRAZOLE 20 MG (PriLOSEC) CAP NON-FORMULARY PO SCH (21:00)
[2019-03-03] MEDS ORDERED: NON-FORMULARY MEDICATION 1 EA EA (Meloxicam 15 MG) PO SCH (21:00)
[2019-03-03] MEDS ORDERED: PANTOPRAZOLE 20 MG TABLET (PROTONIX) PO SCH (21:00)
[2019-03-04] MEDS ORDERED: TRIM/SULFAMETH 160/800 (SEPTRA DS) TAB PO SCH (08:00)
[2019-03-04] MEDS ORDERED: DIVALPROEX 500 MG DELAYED RELEASE (DEPAKOTE) TAB PO SCH (09:00)
[2019-03-04] MEDS ORDERED: TRIMETHOPRIM PO SCH (14:00)
[2019-03-04] MEDS ORDERED: SULFAMETHOXAZOLE PO SCH (14:00)
[2019-03-04] MEDS ORDERED: [UNRECOGNIZED DRUG - OTHER] PO SCH (14:00)
== END 2019-03-03 16:09 | disposition home or self-care (01) ==
LOC: EDUNIT# 15:13 → ER 15:14 → ICU 18:00
PROVIDERS: ADMIT Family Medicine; ATTEND Family Medicine
DX: R07.89 Other chest pain (principal); D64.9 Anemia, unspecified; C83.10 Mantle cell lymphoma, unspecified site; J44.9 Chronic obstructive pulmonary disease, unspecified; K21.9 Gastro-esophageal reflux disease without esophagitis; F41.9 Anxiety disorder, unspecified; F32.9 Major depressive disorder, single episode, unspecified; G47.30 Sleep apnea, unspecified; Z79.899 Other long term (current) drug therapy; Z87.891 Personal history of nicotine dependence; Z99.89 Dependence on other enabling machines and devices
CPT/HCPCS: 36415; 71045; 71275; 78452; 80053; 80061; 80164; 81000; 82150; 82550; 82553; 83605; 83690; 83735; 83874; 83880; 84484; 85007; 85025; 85027; 85610; 85730; 87040; 87804; 93005; 93017; 93041; 96372; 96374; 96376; 99291

== ENCOUNTER → 2019-03-23 | Outpatient (CLI) | payer MEDICAID, MEDICARE ==
[~2019-03-23] MED LIST changes: +ACYC400T PO; +ALBU18HF2 INH; +AMOX1TAB12 PO; +DIVA-76 PO; +ONDA8TAB12 PO; +PROM25TA14 PO; +SULF-222 PO
--- NOTE | 2019-03-23 13:40 | Diagnostic Imaging Report ---
INDICATION: Mantle cell lymphoma. The study is performed for restaging and to assess treatment response. Serum blood glucose level at the time of injection was 102 mg/dL. TECHNIQUE: Patient was administered 14.8 mCi of F-18 FDG intravenously, and PET imaging was performed from the top of the skull to mid thighs. Noncontrast CT was also performed for attenuation correction and anatomic correlation. COMPARISON: Correlation is made with prior PET/CT from 12/15/2018. FINDINGS: Symmetric activity within the brain is identified. There appears to be physiologic activity in the vocal cords. Previously noted numerous hypermetabolic lymph nodes in the neck are no longer present. No hypermetabolic axillary lymphadenopathy is seen on today's study. Martha and mediastinum are also unremarkable on today's study. The pulmonary parenchyma is without abnormality. Imaging through the abdomen and pelvis again demonstrates physiologic activity within the GI and tracts. The previously noted portacaval and central retroperitoneal hypermetabolic lymphadenopathy is no longer appreciated. Iliac chain lymphadenopathy is no longer visualized. There is mild residual uptake in the inguinal regions bilaterally with SUV max of approximately 3.3; however, again this has significantly improved. IMPRESSION: Significant response to therapy when compared with prior PET/CT from 12/15/2018. Majority of regions of hypermetabolism within the neck, chest, abdomen, and pelvis have resolved. There is only mild low-level activity identified within bilateral inguinal regions. No new abnormality is seen. Dictated by: Dictated on workstation # [id number]
== END ==
LOC: RAD 09:11
PROVIDERS: ATTEND Internal Medicine Hematology & Oncology
DX: C85.10 Unspecified B-cell lymphoma, unspecified site (principal); C83.18 Mantle cell lymphoma, lymph nodes of multiple sites

== ENCOUNTER 2019-04-22 01:15 | Emergency (ER) | payer MEDICARE, OTHER ==
[~2019-04-22] VITALS: Ht 185.4 cm; Wt 110.2 kg
[2019-04-22] MEDS ORDERED: LORATADINE (CLARITIN) 10 MG TAB PO ONE (01:45)
--- NOTE | 2019-04-22 01:46 | ED Integumentary General ---
General Chief Complaint: Skin/Wound Problems Stated Complaint: RT ARM SWOLLEN,LOFTON,WARM TO TOUCH Nursing Triage Note: RIGHT UPPER MEDIAL ARM REDNESS. Source: patient Exam Limitations: no limitations History of Present Illness Date Seen by Provider: Apr 22, 2019 Time Seen by Provider: 01:30 Initial Comments Patient presents to ER with his and chief complaint is get painful red rash on his inner right bicep for about 2 days now. Friday, last evening he went to urgent care for Cristofer negative him a shot of antibiotics and some steroid cream for it. He said the cream did not help with the itching sensation. He says it's burning painful going up his arm. He also has spots appearing on his trunk bilaterally. He takes meloxicam for his artificial hip. He is on chemotherapy with Dr. Donis every month for stage IV mantle cell cancer. His last dose of chemotherapy was 10 days ago Friday. He's had no fevers chills nausea vomiting. He has irregular bowel movements already. He does not tolerate opiates very well and says that high-dose steroids made him very aggressive. Allergies and Home Medications Allergies Coded Allergies: No Known Drug Allergies (Unverified , 10/16/17) Home Medications Albuterol Sulfate 18 Gm Hfa.aer.ad, 2 PUFF INH Q4H PRN for SHORTNESS OF BREATH, (Reported) Citalopram Hydrobromide 40 Mg Tablet, 60 MG PO HS, (Reported) TAKES 1 & 1/2 (40MG) TABLET Divalproex Sodium 500 Mg Tablet.dr, 500 MG PO 1800, (Reported) Fluticasone/Salmeterol 1 Each Blst.w.dev, 1 EACH IH DAILY PRN for SHORTNESS OF BREATH, (Reported) Meloxicam 15 Mg Tablet, 15 MG PO HS, (Reported) [place] 3 Polyunsat Fatty Acids 1,000 Mg Cap, 1,000 MG PO DAILY, (Reported) Omeprazole 20 Mg Capsule.dr, 20 MG PO BID, (Reported) Vitamin B Complex 1 Each Capsule, 1 CAP PO DAILY, (Reported) Patient Home Medication List Home Medication List Reviewed: Yes Review of Systems Review of Systems Constitutional: No chills, No diaphoresis EENTM: No ear discharge, No ear pain Respiratory: No cough, No short of breath Cardiovascular: No chest pain, No edema Gastrointestinal: No abdominal pain, No nausea Genitourinary: No discharge, No dysuria Musculoskeletal: No back pain, No joint pain Past Vogexkb-Fmctrx-Cmsazl Hx Patient Social History Alcohol Use: Denies Use Recreational Drug Use: No Smoking Status: Never a Smoker Type Used: Cigarettes, Smokeless Tobacco 2nd Hand Smoke Exposure: No Recent Foreign Travel: No Contact w/Someone Who Travel: No Recent Infectious Disease Expo: No Recent Hopitalizations: No Immunizations Up To Date Tetanus Booster (TDap): Unknown PED Vaccines UTD: No Date of Pneumonia Vaccine: Aug 03, 2018 Date of Influenza Vaccine: Jul 28, 2018 Seasonal Allergies Seasonal Allergies: No Past Medical History Surgeries: Yes Abdominal, Appendectomy, Gallbladder, Orthopedic, Rectal, Tonsillectomy Respiratory: Yes COPD Currently Using CPAP: Yes Cardiac: No Neurological: No Genitourinary: No Gastrointestinal: Yes Abdominal Hernia, Gastroesophageal Reflux, Hemorrhoids Musculoskeletal: Yes Arthritis, Fractures Endocrine: No HEENT: No Cancer: Yes Skin, Lymphoma Did You Recieve Any Treatments: Yes What Type of Treatment Did You: Chemotherapy Psychosocial: Yes Anxiety, Depression Integumentary: Yes (BENIGN TUMOR LEFT EAR) Recent Skin Changes Blood Disorders: Yes (MANTLE CELL LYMPHOMA) Family Medical History Cardiovascular disease 19 MOTHER G8 SISTER Completed stroke G8 SISTER FH: brain tumor G8 SISTER FH: emphysema 19 FATHER FH: kidney failure 19 FATHER Physical Exam Vital Signs Vital Signs - First Documented 04/22/19 01:21 Temp 98.1 Pulse 76 Resp 16 B/P (MAP) 133/87 (102) Pulse Ox 95 O2 Delivery Room Air Capillary Refill : Less Than 3 Seconds General Appearance: WD/WN, no apparent distress HEENT: PERRL/EOMI, normal ENT inspection, pharynx normal Neck: non-tender, full range of motion Cardiovascular: normal peripheral pulses, regular rate, rhythm Respiratory: normal breath sounds, no respiratory distress, no accessory muscle use Gastrointestinal: non tender, soft Neurologic/Psychiatric: no motor/sensory deficits, alert, normal mood/affect, oriented x 3 Skin: rash (erythematous based rash on her right bicep approximately 6 cm diameter, irregular, nonraised patch. Small similar papules seen on both sides of the trunk with whiteheads.) Progress/Results/Core Measures Results/Orders My Orders Orders - YURI GREER Loratadine Tablet (Claritin Tablet) (6/20/19 01:45) Tramadol Tablet (Ultram Tablet) (04/22/19 01:45) Vital Signs/I&O 04/22/19 01:21 Temp 98.1 Pulse 76 Resp 16 B/P (MAP) 133/87 (102) Pulse Ox 95 O2 Delivery Room Air Blood Pressure Mean: 102 Progress Progress Note : Time: 01:45 Progress Note Does not appear to be cellulitis. Suspect may be an insect bite or bites however with his weakened immune system 2 days ago white count was 2.[address] for 10 days. Possibly be shingles. The patient's brought up the possibility. It's affecting multiple dermatomes bilaterally which would be unlikely but we've discussed prophylactic acyclovir. Plan to put him on Keflex use Claritin and Benadryl as needed. We'll provide him with a small stash of tramadol for the discomfort. Departure Impression Primary Impression: Rash Disposition: HOME, SELF-CARE Condition: Stable Departure-Patient Inst. Decision time for Depature: 01:46 Referrals: SELF,SANGEETHA CARPENTER (PCP/Family) Primary Care Physician Patient Instructions: Skin Rash (DC) Add. Discharge Instructions: Start the Keflex 3 times a day for the next week. If you're not seeing improvement by Friday you may start acyclovir and follow-up with primary care for reevaluation of your skin rash. Follow-up with your doctor the same day if you start to have redness and swelling all over your arm or you start to have fever, chills, vomiting etc. All discharge instructions reviewed with patient and/or family. Voiced understanding. Scripts Tramadol HCl (Tramadol HCl) 50 Mg Tablet 50 MG PO Q6H PRN for PAIN for 3 Days, #15 TAB 0 Refills Prov: YURI GREER 04/22/19 Acyclovir (Acyclovir) 200 Mg Capsule 200 MG PO 5XD for 7 Days, #35 CAP 0 Refills Prov: YURI GREER 04/22/19 Cephalexin (Keflex) 500 Mg Capsule 500 MG PO TID for 7 Days, #21 CAP 0 Refills Prov: YURI GREER 04/22/19 YURI GREER Apr 22, 2019 01:46
[2019-04-22] MEDS ORDERED: CEPH-507 PO (01:48)
[2019-04-22] MEDS ORDERED: TRAM50TA2 PO (01:48)
[2019-04-22] MEDS ORDERED: ACYC200C PO (01:48)
[2019-04-22 01:52] VITALS: BP 133/87
--- OUTSIDE RECORDS SUMMARY | 2019-04-22 06:46 | XMS REPORT | Continuity of Care Document ---
Author Organization Unknown Address Unknown Allergies Active Description Code Type Severity Reaction Onset Reported/Identified Relationship to Patient Clinical Status Yes No Known Drug Allergies [id number] Drug Allergy Unknown N/A 10/16/2017 Medications There is no data. Problems Date Dx Coded Attending Type Code Diagnosis Diagnosed By 10/16/2017 CITLALI WEINBERG APRN Ot F32.9 MAJOR DEPRESSIVE DISORDER, SINGLE EPISOD 10/16/2017 CITLALI WEINBERG APRN Ot F41.9 ANXIETY DISORDER, UNSPECIFIED 10/16/2017 CITLALI WEINBERG APRN Ot J44.9 CHRONIC OBSTRUCTIVE PULMONARY DISEASE, U 10/16/2017 CITLALI WEINBERG APRN Ot K21.9 GASTRO-ESOPHAGEAL REFLUX DISEASE WITHOUT 10/16/2017 CITLALI WEINBERG APRN Ot K56.41 FECAL IMPACTION 10/16/2017 CITLALI WEINBERG APRN Ot N32.0 BLADDER-NECK OBSTRUCTION 10/16/2017 CITLALI WEINBERG APRN Ot R10.30 LOWER ABDOMINAL PAIN, UNSPECIFIED 10/16/2017 CITLALI WEINBERG APRN Ot R59.0 LOCALIZED ENLARGED LYMPH NODES 10/16/2017 CITLALI WEINBERG APRN Ot Z85.828 PERSONAL HISTORY OF OTHER MALIGNANT NEOP 10/16/2017 CITLALI WEINBERG APRN Ot Z90.49 ACQUIRED ABSENCE OF OTHER SPECIFIED PART 10/16/2017 CITLALI WEINBERG APRN Ot Z90.89 ACQUIRED ABSENCE OF OTHER ORGANS 11/30/2018 BOY SOUSA Ot F32.9 MAJOR DEPRESSIVE DISORDER, SINGLE EPISOD 11/30/2018 BOY SOUSA Ot F41.9 ANXIETY DISORDER, UNSPECIFIED 11/30/2018 BOY SOUSA Ot J44.9 CHRONIC OBSTRUCTIVE PULMONARY DISEASE, U 11/30/2018 BOY SOUSA Ot K21.9 GASTRO- ESOPHAGEAL REFLUX DISEASE WITHOUT 11/30/2018 BYO SOUSA Ot K52.9 NONINFECTIVE GASTROENTERITIS AND COLITIS 11/30/2018 BERNOT, BOY Ot R10.33 PERIUMBILICAL PAIN 11/30/2018 BERNELIZABETH HUNTERIS Ot Z85.828 PERSONAL HISTORY OF OTHER MALIGNANT NEOP 11/30/2018 ELIZABETH SOUSAIS Ot Z90.49 ACQUIRED ABSENCE OF OTHER SPECIFIED PART 11/30/2018 BERNELIZABETH HUNTERIS Ot Z90.89 ACQUIRED ABSENCE OF OTHER ORGANS 11/30/2018 ELIZABETH SOUSAIS Ot Z98.890 OTHER SPECIFIED POSTPROCEDURAL STATES 12/02/2018 ELIZABETH SOUSAIS Ot F32.9 MAJOR DEPRESSIVE DISORDER, SINGLE EPISOD 12/02/2018 ELIZABETH SOUSAIS Ot F41.9 ANXIETY DISORDER, UNSPECIFIED 12/02/2018 ELIZABETH SOUSAIS Ot J44.9 CHRONIC OBSTRUCTIVE PULMONARY DISEASE, U 12/02/2018 ELIZABETH SOUSAIS Ot K21.9 GASTRO- ESOPHAGEAL REFLUX DISEASE WITHOUT 12/02/2018 ELIZABETH SOUSAIS Ot K52.9 NONINFECTIVE GASTROENTERITIS AND COLITIS 12/02/2018 MERRY BOY Ot R10.33 PERIUMBILICAL PAIN 12/02/2018 MARITZADALE BOY Ot Z85.828 PERSONAL HISTORY OF OTHER MALIGNANT NEOP 12/02/2018 MERRY BOY Ot Z90.49 ACQUIRED ABSENCE OF OTHER SPECIFIED PART 12/02/2018 ELIZABETH SOUSAIS Ot Z90.89 ACQUIRED ABSENCE OF OTHER ORGANS 12/02/2018 MERRY BOY Ot Z98.890 OTHER SPECIFIED POSTPROCEDURAL STATES 12/08/2018 ARTUR CARPENTER, CORINNA Triplett Ot 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, NODES OF ING REGIO 12/08/2018 ARTUR CARPENTER, CORINNA Triplett Ot J44.9 CHRONIC OBSTRUCTIVE PULMONARY DISEASE, U 12/08/2018 CORINNA SIDDIQUI MD Ot Z79.899 OTHER SILK BLOCKER (CURRENT) DRUG THERAPY 12/11/2018 ARTUR CARPENTER, CORINNA Triplett Ot 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, NODES OF ING REGIO 12/11/2018 CORINNA SIDDIQUI MD Ot J44.9 CHRONIC OBSTRUCTIVE PULMONARY DISEASE, U 12/11/2018 CORINNA SIDDIQUI MD Ot Z79.899 OTHER [facility] (CURRENT) DRUG THERAPY 12/11/2018 BOY SOUSA Ot F32.9 MAJOR DEPRESSIVE DISORDER, SINGLE EPISOD 12/11/2018 ELIZABETH SOUSAIS Ot F41.9 ANXIETY DISORDER, UNSPECIFIED 12/11/2018 BOY SOUSA Ot G89.29 OTHER CHRONIC PAIN 12/11/2018 BOY SOUSA Ot J44.9 CHRONIC OBSTRUCTIVE PULMONARY DISEASE, U 12/11/2018 BOY SOUSA Ot K21.9 GASTRO- ESOPHAGEAL REFLUX DISEASE WITHOUT 12/11/2018 BOY SOUSA Ot R10.30 LOWER ABDOMINAL PAIN, UNSPECIFIED 12/11/2018 BOY SOUSA Ot Z85.828 PERSONAL HISTORY OF OTHER MALIGNANT NEOP 12/11/2018 BOY SOUSA Ot Z90.49 ACQUIRED ABSENCE OF OTHER SPECIFIED PART 12/11/2018 ELIZABETH SOUSAIS Ot Z90.89 ACQUIRED ABSENCE OF OTHER ORGANS 12/11/2018 BOY SOUSA Ot Z98.890 OTHER SPECIFIED POSTPROCEDURAL STATES 12/15/2018 NILAM, BOBAN N Ot C85.90 NON-HODGKIN LYMPHOMA, UNSPECIFIED, UNSPE 12/15/2018 NILAM, BOBAN N Ot Z51.81 ENCOUNTER FOR THERAPEUTIC DRUG LEVEL MON 12/18/2018 NILAM, BOBAN N Ot C85.90 NON-H[place]GK[place] LYMPHOMA, UNSPECIFIED, UNSPE 12/18/2018 NILAM, BOBAN N Ot Z51.81 ENCOUNTER FOR THERAPEUTIC DRUG LEVEL MON 12/18/2018 NILAM, BOBAN N Ot C85.90 NON-H[place] LYMPHOMA, UNSPECIFIED, UNSPE 12/18/2018 NILAM, BOBAN N Ot C85.90 NON-H[place] LYMPHOMA, UNSPECIFIED, UNSPE 12/18/2018 NILAM, BOBAN N Ot C85.90 NON-H[place] LYMPHOMA, UNSPECIFIED, UNSPE 12/18/2018 NILAM, BOBAN N Ot Z51.81 ENCOUNTER FOR THERAPEUTIC DRUG LEVEL MON 12/18/2018 NILAM, BOBAN N Ot C85.90 NON-H[place]GK[place] LYMPHOMA, UNSPECIFIED, UNSPE 12/20/2018 BOY SOUSA Ot F32.9 MAJOR DEPRESSIVE DISORDER, SINGLE EPISOD 12/20/2018 BOY SOUSA Ot F41.9 ANXIETY DISORDER, UNSPECIFIED 12/20/2018 BOY SOUSA Ot G89.29 OTHER CHRONIC PAIN 12/20/2018 BOY SOUSA Ot J44.9 CHRONIC OBSTRUCTIVE PULMONARY DISEASE, U 12/20/2018 BOY SOUSA Ot K21.9 GASTRO- ESOPHAGEAL REFLUX DISEASE WITHOUT 12/20/2018 MERRY BOY Ot R10.30 LOWER ABDOMINAL PAIN, UNSPECIFIED 12/20/2018 ELIZABETH SOUSAIS Ot Z85.828 PERSONAL HISTORY OF OTHER MALIGNANT NEOP 12/20/2018 MARITZAELIZABETH HUNTERIS Ot Z90.49 ACQUIRED ABSENCE OF OTHER SPECIFIED PART 12/20/2018 BERNDALE BOY Ot Z90.89 ACQUIRED ABSENCE OF OTHER ORGANS 12/20/2018 MERRY BOY Ot Z98.890 OTHER SPECIFIED POSTPROCEDURAL STATES 12/21/2018 ARTUR CARPENTER, CORINNA Triplett Ot Z01.818 ENCOUNTER FOR OTHER PREPROCEDURAL EXAMIN 12/22/2018 ELIGIO DEMARCO Kevin Ot C85.90 NON-HODGK[place] LYMPHOMA, UNSPECIFIED, UNSPE 12/24/2018 CORINNA SIDDIQUI MD Ot C83.15 MANTLE CELL LYMPHOMA, NODES OF ING REGIO 12/24/2018 CORINNA SIDDIQUI MD Ot E66.9 OBESITY, UNSPECIFIED 12/24/2018 CORINNA SIDDIQUI MD Ot F17.220 NICOTINE DEPENDENCE, CHEWING TOBACCO, UN 12/24/2018 CORINNA SIDDIQUI MD Ot J44.9 CHRONIC OBSTRUCTIVE PULMONARY DISEASE, U 12/24/2018 CORINNA SIDDIQUI MD Ot K21.9 GASTRO-ESOPHAGEAL REFLUX DISEASE WITHOUT 12/24/2018 CORINNA SIDDIQUI MD Ot Z68.32 BODY MASS INDEX (BMI) 32.0-32.9, ADULT 12/24/2018 CORINNA SIDDIQUI MD Ot Z79.899 OTHER SILK BLOCKER (CURRENT) DRUG THERAPY 12/30/2018 CORINNA SIDDIQUI MD Ot C83.15 MANTLE CELL LYMPHOMA, NODES OF ING REGIO 12/30/2018 CORINNA SIDDIQUI MD Ot E66.9 OBESITY, UNSPECIFIED 12/30/2018 CORINNA SIDDIQUI MD Ot F17.220 NICOTINE DEPENDENCE, CHEWING TOBACCO, UN 12/30/2018 CORINNA SIDDIQUI MD Ot J44.9 CHRONIC OBSTRUCTIVE PULMONARY DISEASE, U 12/30/2018 CORINNA SIDDIQUI MD Ot K21.9 GASTRO-ESOPHAGEAL REFLUX DISEASE WITHOUT 12/30/2018 CORINNA SIDDIQUI MD Ot Z68.32 BODY MASS INDEX (BMI) 32.0-32.9, ADULT 12/30/2018 SIDDIQUI MD, CORINNA M Ot Z79.899 OTHER [facility] (CURRENT) DRUG THERAPY 01/06/2019 NILAMELIGIO PRICE N Ot C85.90 NON-[place] LYMPHOMA, UNSPECIFIED, UNSPE 01/13/2019 NILAMELIGIO N Ot C85.90 NON-[place] LYMPHOMA, UNSPECIFIED, UNSPE 01/13/2019 NILAM, BOBMELA N Ot Z51.81 ENCOUNTER FOR THERAPEUTIC DRUG LEVEL MON 01/22/2019 ELIGIO DEMARCO N Ot C85.90 NON-[place] LYMPHOMA, UNSPECIFIED, UNSPE 02/01/2019 NILAMELIGIO N Ot C85.90 NON-[place] LYMPHOMA, UNSPECIFIED, UNSPE 02/23/2019 NILAMKAYLIAN N Ot C85.98 NON-[place] LYMPHOMA, UNSP, LYMPH NODES 02/23/2019 NILAMELIGIO PRICE N Ot Z51.81 ENCOUNTER FOR THERAPEUTIC DRUG LEVEL MON 02/23/2019 EFREN, VANESSA S HEALTH DIAGNOSTICS TEACHER Ot F33.2 MAJOR DEPRESSV DISORDER, RECURRENT SEVER 02/23/2019 EFREN, VANESSA S HEALTH DIAGNOSTICS TEACHER Ot Z79.899 OTHER SILK BLOCKER (CURRENT) DRUG THERAPY 02/23/2019 EFREN, VANESSA S HEALTH DIAGNOSTICS TEACHER Ot F33.2 MAJOR DEPRESSV DISORDER, RECURRENT SEVER 02/23/2019 EFREN, VANESSA S HEALTH DIAGNOSTICS TEACHER Ot Z79.899 OTHER [facility] (CURRENT) DRUG THERAPY 02/28/2019 ELIGIO DEMARCO N Ot C85.98 NON-HODGKIN LYMPHOMA, UNSP, LYMPH NODES 02/28/2019 NLIAMELIGIO N Ot Z51.81 ENCOUNTER FOR THERAPEUTIC DRUG LEVEL MON 02/28/2019 NILAMELIGIO PRICE N Ot C85.90 NON-[place] LYMPHOMA, UNSPECIFIED, UNSPE 02/28/2019 EFREN, VANESSA S HEALTH DIAGNOSTICS TEACHER Ot F33.2 MAJOR DEPRESSV DISORDER, RECURRENT SEVER 02/28/2019 EFREN, VANESSA S HEALTH DIAGNOSTICS TEACHER Ot Z79.899 OTHER M[facility] (CURRENT) DRUG THERAPY 02/28/2019 EFREN, VANESSA S HEALTH DIAGNOSTICS TEACHER Ot F33.2 MAJOR DEPRESSV DISORDER, RECURRENT SEVER 02/28/2019 EFREN, VANESSA S HEALTH DIAGNOSTICS TEACHER Ot Z79.899 OTHER SILK BLOCKER (CURRENT) DRUG THERAPY 03/03/2019 SHAILA CARPENTER, MATTHEW Brown Ot C83.10 MANTLE CELL LYMPHOMA, UNSPECIFIED SITE 03/03/2019 MATTHEW LINTON MD Ot D64.9 ANEMIA, UNSPECIFIED 03/03/2019 MATTHEW LINTON MD Ot F32.9 MAJOR DEPRESSIVE DISORDER, SINGLE EPISOD 03/03/2019 MATTHEW LINTON MD Ot F41.9 ANXIETY DISORDER, UNSPECIFIED 03/03/2019 MATTHEW LINTON MD Ot G47.30 SLEEP APNEA, UNSPECIFIED 03/03/2019 MATTHEW LINTON MD Ot J44.9 CHRONIC OBSTRUCTIVE PULMONARY DISEASE, U 03/03/2019 MATTHEW LINTON MD Ot K21.9 GASTRO-ESOPHAGEAL REFLUX DISEASE WITHOUT 03/03/2019 MATTHEW LINTON MD Ot R07.89 OTHER CHEST PAIN 03/03/2019 MATTHEW LINTON MD Ot Z79.899 OTHER SILK BLOCKER (CURRENT) DRUG THERAPY 03/03/2019 MATTHEW LINTON MD Ot Z87.891 PERSONAL HISTORY OF NICOTINE DEPENDENCE 03/03/2019 MATTHEW LINTON MD Ot Z99.89 DEPENDENCE ON OTHER ENABLING MACHINES AN 03/03/2019 MATTHEW LINTON MD Ot C83.10 MANTLE CELL LYMPHOMA, UNSPECIFIED SITE 03/03/2019 MATTHEW LINTON MD Ot D64.9 ANEMIA, UNSPECIFIED 03/03/2019 MATTHEW LINTON MD Ot F32.9 MAJOR DEPRESSIVE DISORDER, SINGLE EPISOD 03/03/2019 MATTHEW LINTON MD Ot F41.9 ANXIETY DISORDER, UNSPECIFIED 03/03/2019 MATTHEW LINTON MD Ot G47.30 SLEEP APNEA, UNSPECIFIED 03/03/2019 MATTHEW LINTON MD, Ot J44.9 CHRONIC OBSTRUCTIVE PULMONARY DISEASE, U 03/03/2019 MATTHEW LINTON MD Ot K21.9 GASTRO-ESOPHAGEAL REFLUX DISEASE WITHOUT 03/03/2019 MATTHEW LINTON MD Ot R07.89 OTHER CHEST PAIN 03/03/2019 MATTHEW LINTON MD Ot Z79.899 OTHER M[facility] (CURRENT) DRUG THERAPY 03/03/2019 MATTHEW LINTON MD Ot Z87.891 PERSONAL HISTORY OF NICOTINE DEPENDENCE 03/03/2019 MATTHEW LINTON MD Ot Z99.89 DEPENDENCE ON OTHER ENABLING MACHINES AN 03/08/2019 NILAM, BOBAN N Ot C85.90 NON-HODGKIN LYMPHOMA, UNSPECIFIED, UNSPE 03/11/2019 NILAM, BOBAN N Ot C85.98 NON-HODGKIN LYMPHOMA, UNSP, LYMPH NODES 03/11/2019 NILAM, BOBAN N Ot Z51.81 ENCOUNTER FOR THERAPEUTIC DRUG LEVEL MON 03/14/2019 NILAM, BOBAN N Ot C85.90 NON-HODGKIN LYMPHOMA, UNSPECIFIED, UNSPE 03/15/2019 NILAM, BOBAN N Ot C85.90 NON-H[place]KIN LYMPHOMA, UNSPECIFIED, UNSPE 03/15/2019 NILAM, BOBAN N Ot C85.90 NON-H[place]KIN LYMPHOMA, UNSPECIFIED, UNSPE 03/16/2019 VANESSA SCHWARTZ HEALTH DIAGNOSTICS TEACHER Ot F33.2 MAJOR DEPRESSV DISORDER, RECURRENT SEVER 03/16/2019 VANESSA SCHWARTZ HEALTH DIAGNOSTICS TEACHER Ot Z79.899 OTHER [facility] (CURRENT) DRUG THERAPY 03/18/2019 NILAM, BOBAN N Ot C85.90 NON-[place] LYMPHOMA, UNSPECIFIED, UNSPE 03/24/2019 NILAM BOBAN N Ot C83.18 MANTLE CELL LYMPHOMA, LYMPH NODES OF MUL 03/24/2019 NILAM, BOBAN N Ot C85.10 UNSPECIFIED B-CELL LYMPHOMA, UNSPECIFIED 03/30/2019 NILAM, BOBAN N Ot C85.98 NON-HODGKIN LYMPHOMA, UNSP, LYMPH NODES 03/30/2019 NILAM, BOBAN N Ot Z51.81 ENCOUNTER FOR THERAPEUTIC DRUG LEVEL MON 03/30/2019 NILAM, BOBAN N Ot C83.18 MANTLE CELL LYMPHOMA, LYMPH NODES OF MUL 03/30/2019 NILAM, BOBAN N Ot C85.10 UNSPECIFIED B-CELL LYMPHOMA, UNSPECIFIED 03/30/2019 NILAM, BOBAN N Ot C85.90 NON-HODGKIN LYMPHOMA, UNSPECIFIED, UNSPE 04/06/2019 NILAM, BOBAN N Ot C85.90 NON-H[place]IN LYMPHOMA, UNSPECIFIED, UNSPE 04/14/2019 NILAM, BOBAN N Ot C83.18 MANTLE CELL LYMPHOMA, LYMPH NODES OF MUL 04/14/2019 NILAM, BOBAN N Ot C85.10 UNSPECIFIED B-CELL LYMPHOMA, UNSPECIFIED 04/19/2019 NILAM, BOBAN N Ot C85.98 NON-HODGKIN LYMPHOMA, UNSP, LYMPH NODES 04/19/2019 NILAM, BOBAN N Ot Z51.81 ENCOUNTER FOR THERAPEUTIC DRUG LEVEL MON 04/19/2019 NILAM, BOBAN N Ot C83.18 MANTLE CELL LYMPHOMA, LYMPH NODES OF MUL 04/19/2019 NILAM, BOBAN N Ot C85.10 UNSPECIFIED B-CELL LYMPHOMA, UNSPECIFIED 04/19/2019 NILAM, BOBAN N Ot C85.90 NON-HODGKIN LYMPHOMA, UNSPECIFIED, UNSPE 04/19/2019 NILAM, BOBAN N Ot C83.18 MANTLE CELL LYMPHOMA, LYMPH NODES OF MUL 04/19/2019 NILAM, BOBAN N Ot C85.10 UNSPECIFIED B-CELL LYMPHOMA, UNSPECIFIED 04/19/2019 NILAM, BOBAN N Ot C85.98 NON-HODGKIN LYMPHOMA, UNSP, LYMPH NODES 04/19/2019 NILAM, BOBAN N Ot Z51.81 ENCOUNTER FOR THERAPEUTIC DRUG LEVEL MON 04/22/2019 NILAM, BOBAN N Ot C83.18 MANTLE CELL LYMPHOMA, LYMPH NODES OF MUL 04/22/2019 NILAM, BOBAN N Ot C85.10 UNSPECIFIED B-CELL LYMPHOMA, UNSPECIFIED 04/22/2019 NILAM, BOBAN N Ot C85.98 NON-HODGKIN LYMPHOMA, UNSP, LYMPH NODES 04/22/2019 NILAM, BOBAN N Ot Z51.81 ENCOUNTER FOR THERAPEUTIC DRUG LEVEL MON 04/22/2019 NILAM, BOBAN N Ot C83.18 MANTLE CELL LYMPHOMA, LYMPH NODES OF MUL 04/22/2019 NILAM, BOBAN N Ot C85.10 UNSPECIFIED B-CELL LYMPHOMA, UNSPECIFIED 04/22/2019 NILAM, BOBAN N Ot C85.90 NON-HODGKIN LYMPHOMA, UNSPECIFIED, UNSPE Procedures There is no data. Results Test Result Range Comprehensive metabolic panel - 10/16/17 19:43 Serum or plasma sodium measurement (moles/volume) 138 mmol/L 135-145 Serum or plasma potassium measurement (moles/volume) 4.4 mmol/L 3.6-5.0 Serum or plasma chloride measurement (moles/volume) 106 mmol/L 98-107 Carbon dioxide 25 mmol/L 21-32 Serum or plasma anion gap determination (moles/volume) 7 mmol/L 5-14 Serum or plasma urea nitrogen measurement (mass/volume) 13 mg/dL 7-18 Serum or plasma creatinine measurement (mass/volume) 0.85 mg/dL 0.60-1.30 Serum or plasma urea nitrogen/creatinine mass ratio 15 NRG Serum or plasma creatinine measurement with calculation of estimated glomerular filtration rate > NRG Serum or plasma glucose measurement (mass/volume) 89 mg/dL 70-105 Serum or plasma calcium measurement (mass/volume) 9.4 mg/dL 8.5-10.1 Serum or plasma total bilirubin measurement (mass/volume) 0.7 mg/dL 0.1-1.0 Serum or plasma alkaline phosphatase measurement (enzymatic activity/volume) 51 U/L 40-136 Serum or plasma aspartate aminotransferase measurement (enzymatic activity/volume) 19 U/L 5-34 Serum or plasma alanine aminotransferase measurement (enzymatic activity/volume) 13 U/L 0-55 Serum or plasma protein measurement (mass/volume) 6.5 g/dL 6.4-8.2 Serum or plasma albumin measurement (mass/volume) 4.2 g/dL 3.2-4.5 Complete blood count (CBC) with automated white blood cell (WBC) differential - 10/16/17 19:43 Blood leukocytes automated count (number/volume) 9.4 10*3/uL 4.3-11.0 Blood erythrocytes automated count (number/volume) 4.50 10*6/uL 4.35-5.85 Venous blood hemoglobin measurement (mass/volume) 14.2 g/dL 13.3-17.7 Blood hematocrit (volume fraction) 41 % 40-54 Automated erythrocyte mean corpuscular volume 91 [foz_us] 80-99 Automated erythrocyte mean corpuscular hemoglobin (mass per erythrocyte) 32 pg 25-34 Automated erythrocyte mean corpuscular hemoglobin concentration measurement (mass/volume) 35 g/dL 32-36 Automated erythrocyte distribution width ratio 12.1 % 10.0- 14.5 Automated blood platelet count (count/volume) 197 10*3/uL 130-400 Automated blood platelet mean volume measurement 10.6 [foz_us] 7.4-10.4 Automated blood neutrophils/100 leukocytes 77 % 42-75 Automated blood lymphocytes/100 leukocytes 13 % 12-44 Blood monocytes/100 leukocytes 9 % 0-12 Automated blood eosinophils/100 leukocytes 1 % 0-10 Automated blood basophils/100 leukocytes 1 % 0-10 Blood neutrophils automated count (number/volume) 7.3 10*3 1.8-7.8 Blood lymphocytes automated count (number/volume) 1.2 10*3 1.0-4.0 Blood monocytes automated count (number/volume) 0.8 10*3 0.0- 1.0 Automated eosinophil count 0.1 10*3/uL 0.0-0.3 Automated blood basophil count (count/volume) 0.1 10*3/uL 0.0-0.1 Complete urinalysis with reflex to culture - 10/16/17 20:25 Urine color determination YELLOW NRG Urine clarity determination CLEAR NRG Urine pH measurement by test strip 8 5-9 Specific gravity of urine by test strip 1.010 1.016-1.022 Urine protein assay by test strip, semi-quantitative NEGATIVE NEGATIVE Urine glucose detection by automated test strip NEGATIVE NEGATIVE Erythrocytes detection in urine sediment by light microscopy 2+ NEGATIVE Urine ketones detection by automated test strip NEGATIVE NEGATIVE Urine nitrite detection by test strip NEGATIVE NEGATIVE Urine total bilirubin detection by test strip NEGATIVE NEGATIVE Urine urobilinogen measurement by automated test strip (mass/volume) NORMAL NORMAL Urine leukocyte esterase detection by dipstick 1+ NEGATIVE Automated urine sediment erythrocyte count by microscopy (number/high power field) [HPF] NRG Automated urine sediment leukocyte count by microscopy (number/high power field) [HPF] NRG Bacteria detection in urine sediment by light microscopy NONE NRG Squamous epithelial cells detection in urine sediment by light microscopy RARE NRG Crystals detection in urine sediment by light microscopy NONE NRG Casts detection in urine sediment by light microscopy NONE NRG Mucus detection in urine sediment by light microscopy NEGATIVE NRG Complete urinalysis with reflex to culture NO NRG Complete urinalysis with reflex to culture - 11/30/18 18:51 Urine color determination YELLOW NRG Urine clarity determination CLEAR NRG Urine pH measurement by test strip 5 5-9 Specific gravity of urine by test strip 1.025 1.016-1.022 Urine protein assay by test strip, semi-quantitative 2+ NEGATIVE Urine glucose detection by automated test strip NEGATIVE NEGATIVE Erythrocytes detection in urine sediment by light microscopy 2+ NEGATIVE Urine ketones detection by automated test strip NEGATIVE NEGATIVE Urine nitrite detection by test strip NEGATIVE NEGATIVE Urine total bilirubin detection by test strip NEGATIVE NEGATIVE Urine urobilinogen measurement by automated test strip (mass/volume) NORMAL NORMAL Urine leukocyte esterase detection by dipstick 1+ NEGATIVE Automated urine sediment erythrocyte count by microscopy (number/high power field) RARE NRG Automated urine sediment leukocyte count by microscopy (number/high power field) [HPF] NRG Bacteria detection in urine sediment by light microscopy FEW NRG Squamous epithelial cells detection in urine sediment by light microscopy 0-2 NRG Crystals detection in urine sediment by light microscopy NONE NRG Casts detection in urine sediment by light microscopy PRESENT NRG Mucus detection in urine sediment by light microscopy LARGE NRG Complete urinalysis with reflex to culture NO NRG Hyaline casts detection in urine sediment by light microscopy 0-2 NRG Complete blood count (CBC) with automated white blood cell (WBC) differential - 11/30/18 19:09 Blood leukocytes automated count (number/volume) 6.3 10*3/uL 4.3-11.0 Blood erythrocytes automated count (number/volume) 4.45 10*6/uL 4.35-5.85 Venous blood hemoglobin measurement (mass/volume) 14.4 g/dL 13.3-17.7 Blood hematocrit (volume fraction) 40 % 40-54 Automated erythrocyte mean corpuscular volume 89 [foz_us] 80-99 Automated erythrocyte mean corpuscular hemoglobin (mass per erythrocyte) 32 pg 25-34 Automated erythrocyte mean corpuscular hemoglobin concentration measurement (mass/volume) 37 g/dL 32-36 Automated erythrocyte distribution width ratio 12.9 % 10.0- 14.5 Automated blood platelet count (count/volume) 165 10*3/uL 130-400 Automated blood platelet mean volume measurement 9.5 [foz_us] 7.4-10.4 Automated blood neutrophils/100 leukocytes 62 % 42-75 Automated blood lymphocytes/100 leukocytes 26 % 12-44 Blood monocytes/100 leukocytes 9 % 0-12 Automated blood eosinophils/100 leukocytes 2 % 0-10 Automated blood basophils/100 leukocytes 1 % 0-10 Blood neutrophils automated count (number/volume) 3.9 10*3 1.8-7.8 Blood lymphocytes automated count (number/volume) 1.6 10*3 1.0-4.0 Blood monocytes automated count (number/volume) 0.6 10*3 0.0- 1.0 Automated eosinophil count 0.1 10*3/uL 0.0-0.3 Automated blood basophil count (count/volume) 0.0 10*3/uL 0.0-0.1 Comprehensive metabolic panel - 11/30/18 19:09 Serum or plasma sodium measurement (moles/volume) 141 mmol/L 135-145 Serum or plasma potassium measurement (moles/volume) 4.3 mmol/L 3.6-5.0 Serum or plasma chloride measurement (moles/volume) 107 mmol/L 98-107 Carbon dioxide 23 mmol/L 21-32 Serum or plasma anion gap determination (moles/volume) 11 mmol/L 5-14 Serum or plasma urea nitrogen measurement (mass/volume) 18 mg/dL 7-18 Serum or plasma creatinine measurement (mass/volume) 0.88 mg/dL 0.60-1.30 Serum or plasma urea nitrogen/creatinine mass ratio 20 NRG Serum or plasma creatinine measurement with calculation of estimated glomerular filtration rate > NRG Serum or plasma glucose measurement (mass/volume) 81 mg/dL 70-105 Serum or plasma calcium measurement (mass/volume) 9.4 mg/dL 8.5-10.1 Serum or plasma total bilirubin measurement (mass/volume) 0.7 mg/dL 0.1-1.0 Serum or plasma alkaline phosphatase measurement (enzymatic activity/volume) 59 U/L 40-136 Serum or plasma aspartate aminotransferase measurement (enzymatic activity/volume) 17 U/L 5-34 Serum or plasma alanine aminotransferase measurement (enzymatic activity/volume) 12 U/L 0-55 Serum or plasma protein measurement (mass/volume) 6.5 g/dL 6.4-8.2 Serum or plasma albumin measurement (mass/volume) 4.4 g/dL 3.2-4.5 CALCIUM CORRECTED 9.1 mg/dL 8.5-10.1 Serum or plasma amylase measurement (enzymatic activity/volume) - 11/30/18 19:09 Serum or plasma amylase measurement (enzymatic activity/volume) 61 U/L 25-125 Lipase - 11/30/18 19:09 Lipase 31 U/L 8-78 Methicillin resistant Staphylococcus aureus (MRSA) screening culture - 12/08/18 09:55 Methicillin resistant Staphylococcus aureus (MRSA) screening culture NEG NRG Complete urinalysis with reflex to culture - 12/11/18 13:35 Urine color determination YELLOW NRG Urine clarity determination CLEAR NRG Urine pH measurement by test strip 8 5-9 Specific gravity of urine by test strip 1.010 1.016-1.022 Urine protein assay by test strip, semi-quantitative NEGATIVE NEGATIVE Urine glucose detection by automated test strip NEGATIVE NEGATIVE Erythrocytes detection in urine sediment by light microscopy 3+ NEGATIVE Urine ketones detection by automated test strip NEGATIVE NEGATIVE Urine nitrite detection by test strip NEGATIVE NEGATIVE Urine total bilirubin detection by test strip NEGATIVE NEGATIVE Urine urobilinogen measurement by automated test strip (mass/volume) NORMAL NORMAL Urine leukocyte esterase detection by dipstick NEGATIVE NEGATIVE Automated urine sediment erythrocyte count by microscopy (number/high power field) [HPF] NRG Automated urine sediment leukocyte count by microscopy (number/high power field) NONE NRG Bacteria detection in urine sediment by light microscopy NEGATIVE NRG Squamous epithelial cells detection in urine sediment by light microscopy NONE NRG Crystals detection in urine sediment by light microscopy NONE NRG Casts detection in urine sediment by light microscopy NONE NRG Mucus detection in urine sediment by light microscopy NEGATIVE NRG Complete urinalysis with reflex to culture NO NRG Complete blood count (CBC) with automated white blood cell (WBC) differential - 12/11/18 14:25 Blood leukocytes automated count (number/volume) 6.1 10*3/uL 4.3-11.0 Blood erythrocytes automated count (number/volume) 4.37 10*6/uL 4.35-5.85 Venous blood hemoglobin measurement (mass/volume) 13.6 g/dL 13.3-17.7 Blood hematocrit (volume fraction) 39 % 40-54 Automated erythrocyte mean corpuscular volume 90 [foz_us] 80-99 Automated erythrocyte mean corpuscular hemoglobin (mass per erythrocyte) 31 pg 25-34 Automated erythrocyte mean corpuscular hemoglobin concentration measurement (mass/volume) 35 g/dL 32-36 Automated erythrocyte distribution width ratio 12.7 % 10.0- 14.5 Automated blood platelet count (count/volume) 149 10*3/uL 130-400 Automated blood platelet mean volume measurement 9.7 [foz_us] 7.4-10.4 Automated blood neutrophils/100 leukocytes 64 % 42-75 Automated blood lymphocytes/100 leukocytes 23 % 12-44 Blood monocytes/100 leukocytes 11 % 0-12 Automated blood eosinophils/100 leukocytes 1 % 0-10 Automated blood basophils/100 leukocytes 0 % 0-10 Blood neutrophils automated count (number/volume) 3.9 10*3 1.8-7.8 Blood lymphocytes automated count (number/volume) 1.4 10*3 1.0-4.0 Blood monocytes automated count (number/volume) 0.7 10*3 0.0- 1.0 Automated eosinophil count 0.1 10*3/uL 0.0-0.3 Automated blood basophil count (count/volume) 0.0 10*3/uL 0.0-0.1 Comprehensive metabolic panel - 12/11/18 14:25 Serum or plasma sodium measurement (moles/volume) 140 mmol/L 135-145 Serum or plasma potassium measurement (moles/volume) 4.3 mmol/L 3.6-5.0 Serum or plasma chloride measurement (moles/volume) 108 mmol/L 98-107 Carbon dioxide 23 mmol/L 21-32 Serum or plasma anion gap determination (moles/volume) 9 mmol/L 5-14 Serum or plasma urea nitrogen measurement (mass/volume) 17 mg/dL 7-18 Serum or plasma creatinine measurement (mass/volume) 0.82 mg/dL 0.60-1.30 Serum or plasma urea nitrogen/creatinine mass ratio 21 NRG Serum or plasma creatinine measurement with calculation of estimated glomerular filtration rate > NRG Serum or plasma glucose measurement (mass/volume) 86 mg/dL 70-105 Serum or plasma calcium measurement (mass/volume) 8.6 mg/dL 8.5-10.1 Serum or plasma total bilirubin measurement (mass/volume) 0.6 mg/dL 0.1-1.0 Serum or plasma alkaline phosphatase measurement (enzymatic activity/volume) 45 U/L 40-136 Serum or plasma aspartate aminotransferase measurement (enzymatic activity/volume) 16 U/L 5-34 Serum or plasma alanine aminotransferase measurement (enzymatic activity/volume) 11 U/L 0-55 Serum or plasma protein measurement (mass/volume) 5.6 g/dL 6.4-8.2 Serum or plasma albumin measurement (mass/volume) 3.8 g/dL 3.2-4.5 CALCIUM CORRECTED 8.8 mg/dL 8.5-10.1 Serum or plasma amylase measurement (enzymatic activity/volume) - 12/11/18 14:25 Serum or plasma amylase measurement (enzymatic activity/volume) 47 U/L 25-125 Lipase - 12/11/18 14:25 Lipase 21 U/L 8-78 Methicillin resistant Staphylococcus aureus (MRSA) screening culture - 12/24/18 11:00 Methicillin resistant Staphylococcus aureus (MRSA) screening culture NEG NRG Complete urinalysis with reflex to culture - 01/11/19 10:25 Urine color determination YELLOW NRG Urine clarity determination CLEAR NRG Urine pH measurement by test strip 5 5-9 Specific gravity of urine by test strip 1.020 1.016-1.022 Urine protein assay by test strip, semi-quantitative 1+ NEGATIVE Urine glucose detection by automated test strip NEGATIVE NEGATIVE Erythrocytes detection in urine sediment by light microscopy 1+ NEGATIVE Urine ketones detection by automated test strip 1+ NEGATIVE Urine nitrite detection by test strip NEGATIVE NEGATIVE Urine total bilirubin detection by test strip NEGATIVE NEGATIVE Urine urobilinogen measurement by automated test strip (mass/volume) NORMAL NORMAL Urine leukocyte esterase detection by dipstick NEGATIVE NEGATIVE Automated urine sediment erythrocyte count by microscopy (number/high power field) RARE NRG Automated urine sediment leukocyte count by microscopy (number/high power field) NONE NRG Bacteria detection in urine sediment by light microscopy NEGATIVE NRG Squamous epithelial cells detection in urine sediment by light microscopy RARE NRG Crystals detection in urine sediment by light microscopy NONE NRG Casts detection in urine sediment by light microscopy NONE NRG Mucus detection in urine sediment by light microscopy NEGATIVE NRG Complete urinalysis with reflex to culture NO NRG Complete blood count (CBC) with automated white blood cell (WBC) differential - 03/02/19 15:30 Blood leukocytes automated count (number/volume) 8.6 10*3/uL 4.3-11.0 Blood erythrocytes automated count (number/volume) 4.32 10*6/uL 4.35-5.85 Venous blood hemoglobin measurement (mass/volume) 13.6 g/dL 13.3-17.7 Blood hematocrit (volume fraction) 39 % 40-54 Automated erythrocyte mean corpuscular volume 91 [foz_us] 80-99 Automated erythrocyte mean corpuscular hemoglobin (mass per erythrocyte) 31 pg 25-34 Automated erythrocyte mean corpuscular hemoglobin concentration measurement (mass/volume) 35 g/dL 32-36 Automated erythrocyte distribution width ratio 12.9 % 10.0- 14.5 Automated blood platelet count (count/volume) 170 10*3/uL 130-400 Automated blood platelet mean volume measurement 9.8 [foz_us] 7.4-10.4 Automated blood neutrophils/100 leukocytes 91 % 42-75 Automated blood lymphocytes/100 leukocytes 4 % 12-44 Blood monocytes/100 leukocytes 5 % 0-12 Automated blood eosinophils/100 leukocytes 0 % 0-10 Automated blood basophils/100 leukocytes 0 % 0-10 Blood neutrophils automated count (number/volume) 7.8 10*3 1.8-7.8 Blood lymphocytes automated count (number/volume) 0.4 10*3 1.0-4.0 Blood monocytes automated count (number/volume) 0.4 10*3 0.0- 1.0 Automated eosinophil count 0.0 10*3/uL 0.0-0.3 Automated blood basophil count (count/volume) 0.0 10*3/uL 0.0-0.1 PT panel in platelet poor plasma by coagulation assay - 03/02/19 15:30 Prothrombin time (PT) in platelet poor plasma by coagulation assay 13.5 s 12.2-14.7 INR in platelet poor plasma or blood by coagulation assay 1.0 0.8-1.4 Activated partial thromboplastin time (aPTT) in platelet poor plasma bycoagulation assay - 03/02/19 15:30 Activated partial thromboplastin time (aPTT) in platelet poor plasma bycoagulation assay 25 s 24-35 Comprehensive metabolic panel - 03/02/19 15:30 Serum or plasma sodium measurement (moles/volume) 142 mmol/L 135-145 Serum or plasma potassium measurement (moles/volume) 4.6 mmol/L 3.6-5.0 Serum or plasma chloride measurement (moles/volume) 111 mmol/L 98-107 Carbon dioxide 21 mmol/L 21-32 Serum or plasma anion gap determination (moles/volume) 10 mmol/L 5-14 Serum or plasma urea nitrogen measurement (mass/volume) 10 mg/dL 7-18 Serum or plasma creatinine measurement (mass/volume) 1.10 mg/dL 0.60-1.30 Serum or plasma urea nitrogen/creatinine mass ratio 9 NRG Serum or plasma creatinine measurement with calculation of estimated glomerular filtration rate > NRG Serum or plasma glucose measurement (mass/volume) 111 mg/dL 70-105 Serum or plasma calcium measurement (mass/volume) 9.0 mg/dL 8.5-10.1 Serum or plasma total bilirubin measurement (mass/volume) 0.3 mg/dL 0.1-1.0 Serum or plasma alkaline phosphatase measurement (enzymatic activity/volume) 47 U/L 40-136 Serum or plasma aspartate aminotransferase measurement (enzymatic activity/volume) 17 U/L 5-34 Serum or plasma alanine aminotransferase measurement (enzymatic activity/volume) 16 U/L 0-55 Serum or plasma protein measurement (mass/volume) 5.9 g/dL 6.4-8.2 Serum or plasma albumin measurement (mass/volume) 4.1 g/dL 3.2-4.5 CALCIUM CORRECTED 8.9 mg/dL 8.5-10.1 Magnesium - 03/02/19 15:30 Magnesium 1.9 mg/dL 1.8-2.4 Serum or plasma creatine kinase measurement (enzymatic activity/volume) - 03/02/19 15:30 Serum or plasma creatine kinase measurement (enzymatic activity/volume) 188 U/L 30-200 Serum or plasma creatine kinase MB measurement (enzymatic activity/volume) - 03/02/19 15:30 Serum or plasma creatine kinase MB measurement (enzymatic activity/volume) 3.7 ng/mL <6.6 Serum or plasma troponin i.cardiac measurement (mass/volume) - 03/02/19 15:30 Serum or plasma troponin i.cardiac measurement (mass/volume) < ng/mL <0.028 Myoglobin, serum - 03/02/19 15:30 Myoglobin, serum 113.6 ng/mL 10.0-92.0 Serum or plasma amylase measurement (enzymatic activity/volume) - 03/02/19 15:30 Serum or plasma amylase measurement (enzymatic activity/volume) 55 U/L 25-125 Lipase - 03/02/19 15:30 Lipase 23 U/L 8-78 [id number] - 03/02/19 15:30 [id number] 40.8 ug/mL 50.0-100.0 Serum or plasma lithium measurement (moles/volume) - 03/02/19 15:30 BNP level 34.5 pg/mL <100.0 Blood manual differential performed detection - 03/02/19 15:30 Blood monocytes/100 leukocytes 3 % NRG Manual blood segmented neutrophils/100 leukocytes 89 % NRG Blood band neutrophils/100 leukocytes 2 % NRG Manual blood lymphocytes/100 leukocytes 6 % NRG Manual eosinophils/100 leukocytes in nose 0 % NRG Manual blood basophils/100 leukocytes 0 % NRG Blood ovalocytes detection by light microscopy SLIGHT NRG Blood poikilocytosis detection by light microscopy SLIGHT NRG Blood lactic acid measurement (moles/volume) - 03/02/19 15:50 Blood lactic acid measurement (moles/volume) 2.05 mmol/L 0.50- 2.00 Influenza virus A and B antigen detection - 03/02/19 15:50 FLU RESULT NEGATIVE FOR INFLUENZA A AND B ANTIGENS BY IA NRG Bacterial blood culture - 03/02/19 15:50 Bacterial blood culture NG NRG Bacterial blood culture - 03/02/19 16:07 Bacterial blood culture NG NRG Complete urinalysis with reflex to culture - 03/02/19 16:16 Urine color determination YELLOW NRG Urine clarity determination CLEAR NRG Urine pH measurement by test strip 6 5-9 Specific gravity of urine by test strip 1.015 1.016-1.022 Urine protein assay by test strip, semi-quantitative NEGATIVE NEGATIVE Urine glucose detection by automated test strip NEGATIVE NEGATIVE Erythrocytes detection in urine sediment by light microscopy NEGATIVE NEGATIVE Urine ketones detection by automated test strip 1+ NEGATIVE Urine nitrite detection by test strip NEGATIVE NEGATIVE Urine total bilirubin detection by test strip NEGATIVE NEGATIVE Urine urobilinogen measurement by automated test strip (mass/volume) NORMAL NORMAL Urine leukocyte esterase detection by dipstick 1+ NEGATIVE Automated urine sediment erythrocyte count by microscopy (number/high power field) NONE NRG Automated urine sediment leukocyte count by microscopy (number/high power field) [HPF] NRG Bacteria detection in urine sediment by light microscopy NEGATIVE NRG Squamous epithelial cells detection in urine sediment by light microscopy RARE NRG Crystals detection in urine sediment by light microscopy NONE NRG Casts detection in urine sediment by light microscopy PRESENT NRG Mucus detection in urine sediment by light microscopy SMALL NRG Complete urinalysis with reflex to culture NO NRG Hyaline casts detection in urine sediment by light microscopy 10-25 NRG Renal epithelial cells detection in urine sediment by light microscopy NONE NRG WBC casts detection in urine sediment by light microscopy 0-2 NRG Serum or plasma lactate measurement (moles/volume) - 03/02/19 17:52 Serum or plasma lactate measurement (moles/volume) 1.64 mmol/L 0.50-2.00 Serum or plasma troponin i.cardiac measurement (mass/volume) - 03/02/19 21:25 Serum or plasma troponin i.cardiac measurement (mass/volume) < ng/mL <0.028 Complete blood count (CBC) with automated white blood cell (WBC) differential - 03/03/19 03:40 Blood leukocytes automated count (number/volume) 9.1 10*3/uL 4.3-11.0 Blood erythrocytes automated count (number/volume) 4.04 10*6/uL 4.35-5.85 Venous blood hemoglobin measurement (mass/volume) 12.8 g/dL 13.3-17.7 Blood hematocrit (volume fraction) 37 % 40-54 Automated erythrocyte mean corpuscular volume 92 [foz_us] 80-99 Automated erythrocyte mean corpuscular hemoglobin (mass per erythrocyte) 32 pg 25-34 Automated erythrocyte mean corpuscular hemoglobin concentration measurement (mass/volume) 35 g/dL 32-36 Automated erythrocyte distribution width ratio 12.9 % 10.0- 14.5 Automated blood platelet count (count/volume) 164 10*3/uL 130-400 Automated blood platelet mean volume measurement 10.2 [foz_us] 7.4-10.4 Automated blood neutrophils/100 leukocytes 82 % 42-75 Automated blood lymphocytes/100 leukocytes 6 % 12-44 Blood monocytes/100 leukocytes 13 % 0-12 Automated blood eosinophils/100 leukocytes 0 % 0-10 Automated blood basophils/100 leukocytes 0 % 0-10 Blood neutrophils automated count (number/volume) 7.4 10*3 1.8-7.8 Blood lymphocytes automated count (number/volume) 0.5 10*3 1.0-4.0 Blood monocytes automated count (number/volume) 1.2 10*3 0.0- 1.0 Automated eosinophil count 0.0 10*3/uL 0.0-0.3 Automated blood basophil count (count/volume) 0.0 10*3/uL 0.0-0.1 Comprehensive metabolic panel - 03/03/19 03:40 Serum or plasma sodium measurement (moles/volume) 141 mmol/L 135-145 Serum or plasma potassium measurement (moles/volume) 4.7 mmol/L 3.6-5.0 Serum or plasma chloride measurement (moles/volume) 110 mmol/L 98-107 Carbon dioxide 21 mmol/L 21-32 Serum or plasma anion gap determination (moles/volume) 10 mmol/L 5-14 Serum or plasma urea nitrogen measurement (mass/volume) 13 mg/dL 7-18 Serum or plasma creatinine measurement (mass/volume) 0.93 mg/dL 0.60-1.30 Serum or plasma urea nitrogen/creatinine mass ratio 14 NRG Serum or plasma creatinine measurement with calculation of estimated glomerular filtration rate > NRG Serum or plasma glucose measurement (mass/volume) 101 mg/dL 70-105 Serum or plasma calcium measurement (mass/volume) 8.4 mg/dL 8.5-10.1 Serum or plasma total bilirubin measurement (mass/volume) 0.4 mg/dL 0.1-1.0 Serum or plasma alkaline phosphatase measurement (enzymatic activity/volume) 43 U/L 40-136 Serum or plasma aspartate aminotransferase measurement (enzymatic activity/volume) 19 U/L 5-34 Serum or plasma alanine aminotransferase measurement (enzymatic activity/volume) 16 U/L 0-55 Serum or plasma protein measurement (mass/volume) 5.4 g/dL 6.4-8.2 Serum or plasma albumin measurement (mass/volume) 3.8 g/dL 3.2-4.5 CALCIUM CORRECTED 8.6 mg/dL 8.5-10.1 Lipid 1996 panel - 03/03/19 03:40 Serum or plasma triglyceride measurement (mass/volume) 72 mg/dL <150 Serum or plasma cholesterol measurement (mass/volume) 130 mg/dL < 200 Serum or plasma cholesterol in HDL measurement (mass/volume) 41 mg/dL 40-60 Cholesterol in LDL [mass/volume] in serum or plasma by direct assay 75 mg/dL 1-129 Serum or plasma cholesterol in VLDL measurement (mass/volume) 14 mg/dL 5-40 Encounters ACCT No. Visit Date/Time Discharge Status Pt. Type Provider Facility Loc./Unit Complaint [id number] 04/21/2019 11:50:00 ACT Outpatient VANESSA SCHWARTZ [facility] [id number] 04/22/2019 01:18:00 04/22/2019 01:54:00 DIS Emergency ZOEY CARPENTER, YURI Rivera [facility] ER RT ARM SWOLLEN,LOFTON,WARM TO TOUCH,POSS BUG BITE [id number] 03/23/2019 09:11:00 03/23/2019 23:59:59 CLS Outpatient ELIGIO DEMARCO [facility] RAD B-CELL LYMPHOMA,MANTLE CELL LYMPHOMA [id number] 03/02/2019 11:02:00 03/14/2019 00:01:00 DIS Outpatient ELIGIO DEMARCO [facility] ONC [id number] 03/02/2019 18:00:00 03/03/2019 16:09:00 DIS Inpatient SHAILA CARPENTER, MATTHEW Brown [facility] ICU CHEST PAIN;MANTLE CELL LYMPHOMA ON CHEMO [id number] 02/22/2019 10:28:00 02/22/2019 23:59:59 CLS Outpatient VANESSA SCHWARTZ [facility] LAB [id number] 12/24/2018 10:02:00 12/24/2018 16:25:00 DIS Outpatient CORINNA SIDDIQUI MD [facility] B-CELL LYMPHOMA [id number] 12/21/2018 05:56:00 12/21/2018 16:06:00 DIS Outpatient CORINNA SIDDIQUI MD [facility] PREOP PORT PLACEMENT [id number] 12/15/2018 09:08:00 12/15/2018 23:59:59 CLS Outpatient ELIGIO DEMARCO [facility] RAD NHL [id number] 12/11/2018 12:41:00 12/11/2018 17:02:00 DIS Emergency BOY SOUSA [facility] ER GROIN PAIN [id number] 12/08/2018 09:24:00 12/08/2018 15:30:00 DIS Outpatient ARTUR CARPENTER, CORINNA Triplett [facility] LEFT INGUINAL LYMPH NODE [id number] 11/30/2018 18:37:00 11/30/2018 21:30:00 DIS Emergency BOY SOUSA [facility] ER ABD PAIN [id number] 10/16/2017 18:48:00 10/16/2017 22:37:00 DIS Emergency CITLALI [facility] ER UNABLE TO URINATE,CONSTIPATED,PELVIC/LOWER BA PAIN [id number] 04/19/2019 09:13:00 ACT Outpatient ELIGIO DEMARCO [facility] ONC
== END 2019-04-22 01:54 | disposition home or self-care (01) ==
LOC: EDUNIT# 01:15 → ER 01:18
DX: R21 Rash and other nonspecific skin eruption (principal); C83.13 Mantle cell lymphoma, intra-abdominal lymph nodes; J44.9 Chronic obstructive pulmonary disease, unspecified; K21.9 Gastro-esophageal reflux disease without esophagitis; F41.9 Anxiety disorder, unspecified; F32.9 Major depressive disorder, single episode, unspecified; F17.200 Nicotine dependence, unspecified, uncomplicated; Z90.49 Acquired absence of other specified parts of digestive tract; Z90.89 Acquired absence of other organs; Z85.828 Personal history of other malignant neoplasm of skin; Z82.49 Family history of ischemic heart disease and other diseases of the circulatory system; Z98.890 Other specified postprocedural states; Z79.51 Long term (current) use of inhaled steroids; Z87.19 Personal history of other diseases of the digestive system
CPT/HCPCS: 99283

== ENCOUNTER 2019-06-02 11:54 | Outpatient (RCR) | payer MEDICARE, OTHER ==
[2019-03-15 09:57] LABS: BASOPHILS # (AUTO) 0.1 10^3/uL (0.0-0.1); BASOPHILS % (AUTO) 2 % (0-10); EOSINOPHILS # (AUTO) 0.1 10^3/uL (0.0-0.3); EOSINOPHILS % (AUTO) 3 % (0-10); HEMATOCRIT 41 % (40-54); HEMOGLOBIN 14.5 G/DL (13.3-17.7); LYMPHOCYTES # (AUTO) 0.4 X 10^3 (1.0-4.0); LYMPHOCYTES % (AUTO) 10 % (12-44); MEAN CORPUSCULAR HEMOGLOBIN 32 PG (25-34); MEAN CORPUSCULAR HGB CONC 35 G/DL (32-36); MEAN CORPUSCULAR VOLUME 90 FL (80-99); MEAN PLATELET VOLUME 9.3 FL (7.4-10.4); MONOCYTES # (AUTO) 0.5 X 10^3 (0.0-1.0); MONOCYTES % (AUTO) 14 % (0-12); NEUTROPHILS # (AUTO) 2.7 X 10^3 (1.8-7.8); NEUTROPHILS % (AUTO) 71 % (42-75); PLATELET COUNT 198 10^3/uL (130-400); RED CELL DISTRIBUTION WIDTH 12.8 % (10.0-14.5); WHITE BLOOD COUNT 3.7 10^3/uL (4.3-11.0)
[2019-03-15 10:14] LABS: BUN/CREATININE RATIO 25; CARBON DIOXIDE 22 MMOL/L (21-32); CHLORIDE 110 MMOL/L (98-107); CREATININE SERUM 0.87 MG/DL (0.60-1.30); POTASSIUM 4.4 MMOL/L (3.6-5.0); SODIUM 142 MMOL/L (135-145)
[2019-03-15 10:15] LABS: CALCIUM 9.3 MG/DL (8.5-10.1); GFR ESTIMATED > 60; GLUCOSE 128 MG/DL (70-105)
[2019-03-22 09:14] LABS: BASOPHILS % (AUTO) 1 % (0-10); EOSINOPHILS # (AUTO) 0.1 10^3/uL (0.0-0.3); EOSINOPHILS % (AUTO) 4 % (0-10); HEMATOCRIT 42 % (40-54); HEMOGLOBIN 15.3 G/DL (13.3-17.7); LYMPHOCYTES # (AUTO) 0.7 X 10^3 (1.0-4.0); LYMPHOCYTES % (AUTO) 23 % (12-44); MEAN CORPUSCULAR HEMOGLOBIN 32 PG (25-34); MEAN CORPUSCULAR HGB CONC 36 G/DL (32-36); MEAN CORPUSCULAR VOLUME 88 FL (80-99); MEAN PLATELET VOLUME 9.2 FL (7.4-10.4); MONOCYTES # (AUTO) 0.6 X 10^3 (0.0-1.0); MONOCYTES % (AUTO) 21 % (0-12); NEUTROPHILS # (AUTO) 1.5 X 10^3 (1.8-7.8); NEUTROPHILS % (AUTO) 51 % (42-75); PLATELET COUNT 190 10^3/uL (130-400); RED CELL DISTRIBUTION WIDTH 12.5 % (10.0-14.5)
[2019-03-22 09:27] LABS: BUN/CREATININE RATIO 16; CALCIUM 9.5 MG/DL (8.5-10.1); CARBON DIOXIDE 22 MMOL/L (21-32); CHLORIDE 108 MMOL/L (98-107); CREATININE SERUM 1.03 MG/DL (0.60-1.30); GFR ESTIMATED > 60; GLUCOSE 102 MG/DL (70-105); POTASSIUM 4.7 MMOL/L (3.6-5.0); SODIUM 141 MMOL/L (135-145)
[2019-03-30 09:14] LABS: BASOPHILS % (AUTO) 2 % (0-10); EOSINOPHILS # (AUTO) 0.1 10^3/uL (0.0-0.3); EOSINOPHILS % (AUTO) 6 % (0-10); HEMATOCRIT 42 % (40-54); HEMOGLOBIN 15.1 G/DL (13.3-17.7); LYMPHOCYTES # (AUTO) 0.4 X 10^3 (1.0-4.0); LYMPHOCYTES % (AUTO) 20 % (12-44); MEAN CORPUSCULAR HEMOGLOBIN 32 PG (25-34); MEAN CORPUSCULAR HGB CONC 36 G/DL (32-36); MEAN CORPUSCULAR VOLUME 88 FL (80-99); MEAN PLATELET VOLUME 9.2 FL (7.4-10.4); MONOCYTES # (AUTO) 0.6 X 10^3 (0.0-1.0); MONOCYTES % (AUTO) 31 % (0-12); NEUTROPHILS # (AUTO) 0.8 X 10^3 (1.8-7.8); NEUTROPHILS % (AUTO) 41 % (42-75); PLATELET COUNT 174 10^3/uL (130-400); RED CELL DISTRIBUTION WIDTH 12.3 % (10.0-14.5); WHITE BLOOD COUNT 1.9 10^3/uL (4.3-11.0)
[2019-03-30 09:33] LABS: ALANINE AMINOTRANSFERASE 28 U/L (0-55); ALBUMIN 4.3 GM/DL (3.2-4.5); ALKALINE PHOSPHATASE 47 U/L (40-136); BILIRUBIN,TOTAL 0.8 MG/DL (0.1-1.0); BUN/CREATININE RATIO 15; CALCIUM 9.2 MG/DL (8.5-10.1); CARBON DIOXIDE 24 MMOL/L (21-32); CHLORIDE 106 MMOL/L (98-107); CREATININE SERUM 1.23 MG/DL (0.60-1.30); GFR ESTIMATED > 60; GLUCOSE 111 MG/DL (70-105); POTASSIUM 4.6 MMOL/L (3.6-5.0); SODIUM 138 MMOL/L (135-145); TOTAL PROTEIN 6.3 GM/DL (6.4-8.2)
[2019-04-06 08:58] LABS: BASOPHILS % (AUTO) 1 % (0-10); EOSINOPHILS # (AUTO) 0.1 10^3/uL (0.0-0.3); EOSINOPHILS % (AUTO) 6 % (0-10); HEMATOCRIT 41 % (40-54); HEMOGLOBIN 14.6 G/DL (13.3-17.7); LYMPHOCYTES # (AUTO) 0.5 X 10^3 (1.0-4.0); LYMPHOCYTES % (AUTO) 22 % (12-44); MEAN CORPUSCULAR HEMOGLOBIN 31 PG (25-34); MEAN CORPUSCULAR HGB CONC 36 G/DL (32-36); MEAN CORPUSCULAR VOLUME 88 FL (80-99); MEAN PLATELET VOLUME 9.3 FL (7.4-10.4); MONOCYTES # (AUTO) 0.5 X 10^3 (0.0-1.0); MONOCYTES % (AUTO) 22 % (0-12); NEUTROPHILS # (AUTO) 1.1 X 10^3 (1.8-7.8); NEUTROPHILS % (AUTO) 49 % (42-75); PLATELET COUNT 173 10^3/uL (130-400); RED CELL DISTRIBUTION WIDTH 12.3 % (10.0-14.5); WHITE BLOOD COUNT 2.3 10^3/uL (4.3-11.0)
[2019-04-06 09:22] LABS: BUN/CREATININE RATIO 10; CALCIUM 8.5 MG/DL (8.5-10.1); CARBON DIOXIDE 23 MMOL/L (21-32); CHLORIDE 110 MMOL/L (98-107); CREATININE SERUM 1.07 MG/DL (0.60-1.30); GFR ESTIMATED > 60; GLUCOSE 104 MG/DL (70-105); POTASSIUM 4.4 MMOL/L (3.6-5.0); SODIUM 140 MMOL/L (135-145)
[2019-04-12 10:22] LABS: BASOPHILS % (AUTO) 1 % (0-10); EOSINOPHILS # (AUTO) 0.1 10^3/uL (0.0-0.3); EOSINOPHILS % (AUTO) 3 % (0-10); HEMATOCRIT 40 % (40-54); HEMOGLOBIN 14.1 G/DL (13.3-17.7); LYMPHOCYTES # (AUTO) 0.3 X 10^3 (1.0-4.0); LYMPHOCYTES % (AUTO) 11 % (12-44); MEAN CORPUSCULAR HEMOGLOBIN 31 PG (25-34); MEAN CORPUSCULAR HGB CONC 36 G/DL (32-36); MEAN CORPUSCULAR VOLUME 88 FL (80-99); MEAN PLATELET VOLUME 9.2 FL (7.4-10.4); MONOCYTES # (AUTO) 0.5 X 10^3 (0.0-1.0); MONOCYTES % (AUTO) 18 % (0-12); NEUTROPHILS # (AUTO) 1.9 X 10^3 (1.8-7.8); NEUTROPHILS % (AUTO) 68 % (42-75); PLATELET COUNT 181 10^3/uL (130-400); RED CELL DISTRIBUTION WIDTH 12.4 % (10.0-14.5); WHITE BLOOD COUNT 2.8 10^3/uL (4.3-11.0)
[2019-04-12 10:55] LABS: BUN/CREATININE RATIO 16; CALCIUM 8.9 MG/DL (8.5-10.1); CARBON DIOXIDE 25 MMOL/L (21-32); CHLORIDE 107 MMOL/L (98-107); CREATININE SERUM 0.91 MG/DL (0.60-1.30); GFR ESTIMATED > 60; GLUCOSE 99 MG/DL (70-105); POTASSIUM 4.5 MMOL/L (3.6-5.0); SODIUM 139 MMOL/L (135-145)
[2019-04-19 09:31] LABS: BASOPHILS % (AUTO) 1 % (0-10); EOSINOPHILS # (AUTO) 0.1 10^3/uL (0.0-0.3); EOSINOPHILS % (AUTO) 3 % (0-10); HEMATOCRIT 41 % (40-54); HEMOGLOBIN 14.9 G/DL (13.3-17.7); LYMPHOCYTES # (AUTO) 0.2 X 10^3 (1.0-4.0); LYMPHOCYTES % (AUTO) 9 % (12-44); MEAN CORPUSCULAR HEMOGLOBIN 32 PG (25-34); MEAN CORPUSCULAR HGB CONC 36 G/DL (32-36); MEAN CORPUSCULAR VOLUME 89 FL (80-99); MEAN PLATELET VOLUME 9.4 FL (7.4-10.4); MONOCYTES # (AUTO) 0.5 X 10^3 (0.0-1.0); MONOCYTES % (AUTO) 18 % (0-12); NEUTROPHILS % (AUTO) 69 % (42-75); PLATELET COUNT 184 10^3/uL (130-400); RED CELL DISTRIBUTION WIDTH 12.7 % (10.0-14.5); WHITE BLOOD COUNT 2.8 10^3/uL (4.3-11.0)
[2019-04-19 09:46] LABS: BUN/CREATININE RATIO 8; CALCIUM 9.2 MG/DL (8.5-10.1); CARBON DIOXIDE 22 MMOL/L (21-32); CHLORIDE 108 MMOL/L (98-107); CREATININE SERUM 1.06 MG/DL (0.60-1.30); GFR ESTIMATED > 60; GLUCOSE 119 MG/DL (70-105); POTASSIUM 4.2 MMOL/L (3.6-5.0); SODIUM 139 MMOL/L (135-145)
[2019-04-27 09:57] LABS: BASOPHILS % (AUTO) 1 % (0-10); EOSINOPHILS # (AUTO) 0.2 10^3/uL (0.0-0.3); EOSINOPHILS % (AUTO) 4 % (0-10); HEMATOCRIT 41 % (40-54); HEMOGLOBIN 14.6 G/DL (13.3-17.7); LYMPHOCYTES # (AUTO) 0.3 X 10^3 (1.0-4.0); LYMPHOCYTES % (AUTO) 6 % (12-44); MEAN CORPUSCULAR HEMOGLOBIN 32 PG (25-34); MEAN CORPUSCULAR HGB CONC 36 G/DL (32-36); MEAN CORPUSCULAR VOLUME 89 FL (80-99); MEAN PLATELET VOLUME 9.6 FL (7.4-10.4); MONOCYTES # (AUTO) 0.7 X 10^3 (0.0-1.0); MONOCYTES % (AUTO) 15 % (0-12); NEUTROPHILS # (AUTO) 3.3 X 10^3 (1.8-7.8); NEUTROPHILS % (AUTO) 73 % (42-75); PLATELET COUNT 156 10^3/uL (130-400); RED CELL DISTRIBUTION WIDTH 12.2 % (10.0-14.5); WHITE BLOOD COUNT 4.5 10^3/uL (4.3-11.0)
[2019-04-27 10:13] LABS: BUN/CREATININE RATIO 12; CALCIUM 9.2 MG/DL (8.5-10.1); CARBON DIOXIDE 24 MMOL/L (21-32); CHLORIDE 107 MMOL/L (98-107); CREATININE SERUM 0.97 MG/DL (0.60-1.30); GFR ESTIMATED > 60; GLUCOSE 102 MG/DL (70-105); POTASSIUM 4.6 MMOL/L (3.6-5.0); SODIUM 140 MMOL/L (135-145)
[2019-05-04 10:29] LABS: BASOPHILS % (AUTO) 1 % (0-10); EOSINOPHILS # (AUTO) 0.1 10^3/uL (0.0-0.3); EOSINOPHILS % (AUTO) 3 % (0-10); HEMATOCRIT 39 % (40-54); HEMOGLOBIN 13.6 G/DL (13.3-17.7); LYMPHOCYTES # (AUTO) 0.4 X 10^3 (1.0-4.0); LYMPHOCYTES % (AUTO) 13 % (12-44); MEAN CORPUSCULAR HEMOGLOBIN 31 PG (25-34); MEAN CORPUSCULAR HGB CONC 35 G/DL (32-36); MEAN CORPUSCULAR VOLUME 89 FL (80-99); MONOCYTES # (AUTO) 0.5 X 10^3 (0.0-1.0); MONOCYTES % (AUTO) 15 % (0-12); NEUTROPHILS # (AUTO) 2.2 X 10^3 (1.8-7.8); NEUTROPHILS % (AUTO) 67 % (42-75); PLATELET COUNT 160 10^3/uL (130-400); RED CELL DISTRIBUTION WIDTH 12.5 % (10.0-14.5); WHITE BLOOD COUNT 3.3 10^3/uL (4.3-11.0)
[2019-05-04 10:45] LABS: ALANINE AMINOTRANSFERASE 18 U/L (0-55); ALBUMIN 4.1 GM/DL (3.2-4.5); ALKALINE PHOSPHATASE 52 U/L (40-136); BILIRUBIN,TOTAL 0.6 MG/DL (0.1-1.0); BUN/CREATININE RATIO 11; CALCIUM 8.9 MG/DL (8.5-10.1); CARBON DIOXIDE 26 MMOL/L (21-32); CHLORIDE 108 MMOL/L (98-107); CREATININE SERUM 1.05 MG/DL (0.60-1.30); GFR ESTIMATED > 60; GLUCOSE 103 MG/DL (70-105); POTASSIUM 4.3 MMOL/L (3.6-5.0); SODIUM 140 MMOL/L (135-145)
[2019-05-13 10:35] LABS: BASOPHILS % (AUTO) 0 % (0-10); EOSINOPHILS # (AUTO) 0.2 10^3/uL (0.0-0.3); EOSINOPHILS % (AUTO) 8 % (0-10); HEMATOCRIT 40 % (40-54); HEMOGLOBIN 14.3 G/DL (13.3-17.7); LYMPHOCYTES # (AUTO) 0.3 X 10^3 (1.0-4.0); LYMPHOCYTES % (AUTO) 12 % (12-44); MEAN CORPUSCULAR HEMOGLOBIN 32 PG (25-34); MEAN CORPUSCULAR HGB CONC 36 G/DL (32-36); MEAN CORPUSCULAR VOLUME 89 FL (80-99); MEAN PLATELET VOLUME 9.9 FL (7.4-10.4); MONOCYTES # (AUTO) 0.4 X 10^3 (0.0-1.0); MONOCYTES % (AUTO) 18 % (0-12); NEUTROPHILS # (AUTO) 1.4 X 10^3 (1.8-7.8); NEUTROPHILS % (AUTO) 62 % (42-75); PLATELET COUNT 150 10^3/uL (130-400); RED CELL DISTRIBUTION WIDTH 12.7 % (10.0-14.5); WHITE BLOOD COUNT 2.3 10^3/uL (4.3-11.0)
[2019-05-13 11:06] LABS: BUN/CREATININE RATIO 10; CARBON DIOXIDE 24 MMOL/L (21-32); CHLORIDE 109 MMOL/L (98-107); CREATININE SERUM 0.98 MG/DL (0.60-1.30); GFR ESTIMATED > 60; GLUCOSE 110 MG/DL (70-105); POTASSIUM 4.6 MMOL/L (3.6-5.0); SODIUM 142 MMOL/L (135-145)
[2019-05-17 10:07] LABS: BASOPHILS # (AUTO) 0.1 10^3/uL (0.0-0.1); BASOPHILS % (AUTO) 3 % (0-10); EOSINOPHILS # (AUTO) 0.1 10^3/uL (0.0-0.3); EOSINOPHILS % (AUTO) 7 % (0-10); HEMATOCRIT 39 % (40-54); LYMPHOCYTES # (AUTO) 0.4 X 10^3 (1.0-4.0); LYMPHOCYTES % (AUTO) 17 % (12-44); MEAN CORPUSCULAR HEMOGLOBIN 32 PG (25-34); MEAN CORPUSCULAR HGB CONC 36 G/DL (32-36); MEAN CORPUSCULAR VOLUME 89 FL (80-99); MEAN PLATELET VOLUME 9.4 FL (7.4-10.4); MONOCYTES # (AUTO) 0.6 X 10^3 (0.0-1.0); MONOCYTES % (AUTO) 29 % (0-12); NEUTROPHILS # (AUTO) 0.9 X 10^3 (1.8-7.8); NEUTROPHILS % (AUTO) 45 % (42-75); PLATELET COUNT 188 10^3/uL (130-400)
[2019-05-17 10:24] LABS: BUN/CREATININE RATIO 10; CALCIUM 9.4 MG/DL (8.5-10.1); CARBON DIOXIDE 23 MMOL/L (21-32); CHLORIDE 108 MMOL/L (98-107); CREATININE SERUM 0.96 MG/DL (0.60-1.30); GFR ESTIMATED > 60; GLUCOSE 90 MG/DL (70-105); POTASSIUM 4.1 MMOL/L (3.6-5.0); SODIUM 142 MMOL/L (135-145)
[2019-05-25 09:07] LABS: BASOPHILS # (AUTO) 0.1 10^3/uL (0.0-0.1); BASOPHILS % (AUTO) 3 % (0-10); EOSINOPHILS # (AUTO) 0.2 10^3/uL (0.0-0.3); EOSINOPHILS % (AUTO) 9 % (0-10); HEMATOCRIT 40 % (40-54); HEMOGLOBIN 14.2 G/DL (13.3-17.7); LYMPHOCYTES # (AUTO) 0.5 X 10^3 (1.0-4.0); LYMPHOCYTES % (AUTO) 20 % (12-44); MEAN CORPUSCULAR HEMOGLOBIN 32 PG (25-34); MEAN CORPUSCULAR HGB CONC 36 G/DL (32-36); MEAN CORPUSCULAR VOLUME 89 FL (80-99); MEAN PLATELET VOLUME 9.2 FL (7.4-10.4); MONOCYTES # (AUTO) 0.5 X 10^3 (0.0-1.0); MONOCYTES % (AUTO) 20 % (0-12); NEUTROPHILS # (AUTO) 1.1 X 10^3 (1.8-7.8); NEUTROPHILS % (AUTO) 48 % (42-75); PLATELET COUNT 180 10^3/uL (130-400); RED CELL DISTRIBUTION WIDTH 13.4 % (10.0-14.5); WHITE BLOOD COUNT 2.4 10^3/uL (4.3-11.0)
[2019-05-25 09:24] LABS: BUN/CREATININE RATIO 10; CALCIUM 9.1 MG/DL (8.5-10.1); CARBON DIOXIDE 23 MMOL/L (21-32); CHLORIDE 109 MMOL/L (98-107); CREATININE SERUM 0.92 MG/DL (0.60-1.30); GFR ESTIMATED > 60; GLUCOSE 96 MG/DL (70-105); POTASSIUM 4.2 MMOL/L (3.6-5.0); SODIUM 142 MMOL/L (135-145)
[2019-06-01 09:33] LABS: BASOPHILS # (AUTO) 0.1 10^3/uL (0.0-0.1); BASOPHILS % (AUTO) 2 % (0-10); EOSINOPHILS # (AUTO) 0.3 10^3/uL (0.0-0.3); EOSINOPHILS % (AUTO) 7 % (0-10); HEMATOCRIT 42 % (40-54); HEMOGLOBIN 14.9 G/DL (13.3-17.7); LYMPHOCYTES # (AUTO) 0.6 X 10^3 (1.0-4.0); LYMPHOCYTES % (AUTO) 18 % (12-44); MEAN CORPUSCULAR HEMOGLOBIN 32 PG (25-34); MEAN CORPUSCULAR HGB CONC 36 G/DL (32-36); MEAN CORPUSCULAR VOLUME 89 FL (80-99); MONOCYTES # (AUTO) 0.4 X 10^3 (0.0-1.0); MONOCYTES % (AUTO) 10 % (0-12); NEUTROPHILS # (AUTO) 2.3 X 10^3 (1.8-7.8); NEUTROPHILS % (AUTO) 63 % (42-75); PLATELET COUNT 161 10^3/uL (130-400); RED CELL DISTRIBUTION WIDTH 13.4 % (10.0-14.5); WHITE BLOOD COUNT 3.6 10^3/uL (4.3-11.0)
[2019-06-01 09:51] LABS: ALANINE AMINOTRANSFERASE 19 U/L (0-55); ALBUMIN 4.3 GM/DL (3.2-4.5); ALKALINE PHOSPHATASE 55 U/L (40-136); BILIRUBIN,TOTAL 0.7 MG/DL (0.1-1.0); BUN/CREATININE RATIO 14; CALCIUM 9.3 MG/DL (8.5-10.1); CARBON DIOXIDE 22 MMOL/L (21-32); CHLORIDE 106 MMOL/L (98-107); GFR ESTIMATED > 60; GLUCOSE 122 MG/DL (70-105); POTASSIUM 4.3 MMOL/L (3.6-5.0); SODIUM 140 MMOL/L (135-145); TOTAL PROTEIN 6.2 GM/DL (6.4-8.2)
[~2019-06-02] VITALS: Ht 184.2 cm; Wt 117.9 kg
[~2019-06-02 11:54] MED LIST changes: +ACETAMINOPHEN 325 MG TAB (TYLENOL) CANCER CTR PO PRN; +ACYC200C PO; +BENDAMUSTINE HCL 180 MG in NS (IVPB) CANCER CENTER 50 ML IV SCH; +CEPH-507 PO; +DEXAMETHASONE IV SCH; +FILGRASTIM 480 MCG/1.6 ML VIAL CANCER CENTER SQ SCH; +NS IV 1000 ML (CANCER CTR) IV SCH; +NS IV SCH; -OMEP20CA12 PO; +OMEP20CA13 PO; +ONDANSETRON IV SCH; +PALONOSETRON HCL IV SCH; +TRAM50TA2 PO; +[UNRECOGNIZED DRUG - OTHER] IV SCH; +diphenhydrAMINE 25 MG TAB (BENADRYL) CANCER CENTER PO SCH; +riTUXimab 500 MG, riTUXimab FOR IV INJ CONC 300 MG in NS (IVPB) CANCER CENTER 186 ML IV SCH
== END 2019-06-13 | disposition home or self-care (01) ==
LOC: ONC 11:54
PROVIDERS: ATTEND Internal Medicine Hematology & Oncology
DX: Z51.11 Encounter for antineoplastic chemotherapy (principal); C85.90 Non-Hodgkin lymphoma, unspecified, unspecified site
CPT/HCPCS: 36415; 36591; 80048; 80053; 83615; 85025; 96375; 96409; 96411; 96413; J9312

== ENCOUNTER 2019-06-07 18:12 | Emergency (ER) | payer MEDICARE ==
[~2019-06-07] VITALS: Ht 185.4 cm; Wt 117.9 kg
[~2019-06-07 18:12] MED LIST changes: -ACETAMINOPHEN 325 MG TAB (TYLENOL) CANCER CTR PO PRN; -BENDAMUSTINE HCL 180 MG in NS (IVPB) CANCER CENTER 50 ML IV SCH; -DEXAMETHASONE IV SCH; -FILGRASTIM 480 MCG/1.6 ML VIAL CANCER CENTER SQ SCH; -NS IV 1000 ML (CANCER CTR) IV SCH; -NS IV SCH; -ONDANSETRON IV SCH; -PALONOSETRON HCL IV SCH; -[UNRECOGNIZED DRUG - OTHER] IV SCH; -diphenhydrAMINE 25 MG TAB (BENADRYL) CANCER CENTER PO SCH; -riTUXimab 500 MG, riTUXimab FOR IV INJ CONC 300 MG in NS (IVPB) CANCER CENTER 186 ML IV SCH
--- OUTSIDE RECORDS SUMMARY | 2019-06-07 18:18 | XMS REPORT | Continuity of Care Document ---
Author Organization Unknown Address Unknown Phone Unavailable Allergies Active Description Code Type Severity Reaction Onset Reported/Identified Relationship to Patient Clinical Status Yes No Known Drug Allergies [id number] Drug Allergy Unknown N/A 10/16/2017 Medications There [...] OF OTHER SPECIFIED PART 10/16/2017 CITLALI WEINBERG PASS WORKER Ot Z90.89 ACQUIRED ABSENCE OF OTHER ORGANS 11/30/2018 BOY SOUSA Ot F32.9 MAJOR DEPRESSIVE DISORDER, SINGLE EPISOD 11/30/2018 BOY SOUSA Ot F41.9 ANXIETY DISORDER, UNSPECIFIED 11/30/2018 BOY SOUSA Ot J44.9 CHRONIC OBSTRUCTIVE PULMONARY DISEASE, U 11/30/2018 BOY SOUSA Ot K21.9 GASTRO- ESOPHAGEAL REFLUX DISEASE WITHOUT 11/30/2018 BOY SOUSA Ot K52.9 NONINFECTIVE GASTROENTERITIS AND COLITIS 11/30/2018 BERNOT, BOY Ot R10.33 PERIUMBILICAL PAIN 11/30/2018 ELIZABETH SOUSAIS Ot Z85.828 PERSONAL HISTORY OF OTHER MALIGNANT NEOP 11/30/2018 ELIZABETH SOUSAIS Ot Z90.49 ACQUIRED ABSENCE OF OTHER SPECIFIED PART 11/30/2018 BERNELIZABETH HUNTERIS Ot Z90.89 ACQUIRED ABSENCE OF OTHER ORGANS 11/30/2018 ELIZABETH SOUSAIS Ot Z98.890 OTHER SPECIFIED POSTPROCEDURAL STATES 12/02/2018 MERRY BOY Ot F32.9 MAJOR DEPRESSIVE DISORDER, SINGLE EPISOD 12/02/2018 BERNDALE BOY Ot F41.9 ANXIETY DISORDER, UNSPECIFIED 12/02/2018 ELIZABETH SOUSAIS Ot J44.9 CHRONIC OBSTRUCTIVE PULMONARY DISEASE, U 12/02/2018 MERRY BOY Ot K21.9 GASTRO- ESOPHAGEAL REFLUX DISEASE WITHOUT 12/02/2018 MERRY BOY Ot K52.9 NONINFECTIVE GASTROENTERITIS AND COLITIS 12/02/2018 ELIZABETH SOUSAIS Ot R10.33 PERIUMBILICAL PAIN 12/02/2018 ELIZABETH SOUSAIS Ot Z85.828 PERSONAL HISTORY OF OTHER MALIGNANT NEOP 12/02/2018 ELIZABETH SOUSAIS Ot Z90.49 ACQUIRED ABSENCE OF OTHER SPECIFIED PART 12/02/2018 ELIZABETH SOUSAIS Ot Z90.89 ACQUIRED ABSENCE OF OTHER ORGANS 12/02/2018 ELIZABETH SOUSAIS Ot Z98.890 OTHER SPECIFIED POSTPROCEDURAL STATES 12/08/2018 ARTUR CARPENTER, CORINNA Triplett Ot 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, NODES OF ING REGIO 12/08/2018 ARTUR CARPENTER, CORINNA Triplett Ot J44.9 CHRONIC OBSTRUCTIVE PULMONARY DISEASE, U 12/08/2018 ARTUR CARPENTER, CORINNA Triplett Ot Z79.899 OTHER FIELD CONTRACTOR (CURRENT) DRUG THERAPY 12/11/2018 ARTUR CARPENTER, CORINNA Triplett Ot 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, NODES OF ING REGIO 12/11/2018 CORINNA SIDDIQUI MD Ot J44.9 CHRONIC OBSTRUCTIVE PULMONARY DISEASE, U 12/11/2018 ARTUR CARPENTER, CORINNA Triplett Ot Z79.899 OTHER M[facility] (CURRENT) DRUG THERAPY 12/11/2018 ELIZABETH SOUSAIS Ot F32.9 MAJOR DEPRESSIVE DISORDER, [...] K21.9 GASTRO- ESOPHAGEAL REFLUX DISEASE WITHOUT 12/20/2018 BOY SOUSA Ot R10.30 LOWER ABDOMINAL PAIN, UNSPECIFIED 12/20/2018 BOY SOUSA Ot Z85.828 PERSONAL HISTORY OF OTHER MALIGNANT NEOP 12/20/2018 BOY SOUSA Ot Z90.49 ACQUIRED ABSENCE OF OTHER SPECIFIED PART 12/20/2018 ELIZABETH SOUSAIS Ot Z90.89 ACQUIRED ABSENCE OF OTHER ORGANS 12/20/2018 BOY SOUSA Ot Z98.890 OTHER SPECIFIED POSTPROCEDURAL STATES 12/21/2018 ARTUR CARPENTER, CORINNA Triplett Ot Z01.818 ENCOUNTER FOR OTHER PREPROCEDURAL EXAMIN 12/22/2018 ELIGIO DEMARCO Kevin Ot C85.90 NON-HODGKIN LYMPHOMA, UNSPECIFIED, UNSPE 12/24/2018 ARTUR CARPENTER, CORINNA Triplett Ot C83.15 MANTLE CELL LYMPHOMA, NODES OF [...] 12/24/2018 CORINNA SIDDIQUI MD Ot Z79.899 OTHER FIELD CONTRACTOR (CURRENT) DRUG THERAPY 12/30/2018 CORINNA SIDDIQUI MD [...] BODY MASS INDEX (BMI) 32.0-32.9, ADULT 12/30/2018 CORINNA SIDDIQUI MD Ot Z79.899 OTHER MCC (CURRENT) DRUG THERAPY 01/06/2019 NILAM, BOBAN N Ot C85.90 NON-HODGKIN LYMPHOMA, UNSPECIFIED, UNSPE 01/13/2019 NILAM, BOBAN N Ot C85.90 NON-HODGKIN LYMPHOMA, UNSPECIFIED, UNSPE 01/13/2019 NILAM, BOBMELA N Ot Z51.81 ENCOUNTER FOR THERAPEUTIC DRUG LEVEL MON 01/22/2019 ELIGIO DEMARCO N Ot C85.90 NON-HODGKIN LYMPHOMA, UNSPECIFIED, UNSPE 02/01/2019 NILAM, BOBMELA N Ot C85.90 NON-H[place]IN LYMPHOMA, UNSPECIFIED, UNSPE 02/23/2019 NILAM BOBAN N Ot C85.98 NON-HODGKIN LYMPHOMA, UNSP, LYMPH NODES 02/23/2019 NILAM, BOBAN N Ot Z51.81 ENCOUNTER FOR THERAPEUTIC DRUG LEVEL MON 02/23/2019 EFREN VANESSA S PASS WORKER Ot F33.2 MAJOR DEPRESSV DISORDER, RECURRENT SEVER 02/23/2019 EFREN, VANESSA S PASS WORKER Ot Z79.899 OTHER MCC (CURRENT) DRUG THERAPY 02/23/2019 EFREN, VANESSA S PASS WORKER Ot F33.2 MAJOR DEPRESSV DISORDER, RECURRENT SEVER 02/23/2019 EFREN, VANESSA S PASS WORKER Ot Z79.899 OTHER FIELD CONTRACTOR (CURRENT) DRUG THERAPY 02/28/2019 ELIGIO DEMARCO N Ot C85.98 NON-HODGKIN LYMPHOMA, UNSP, LYMPH NODES 02/28/2019 NILAMELIGIO PRICE N Ot Z51.81 ENCOUNTER FOR THERAPEUTIC DRUG LEVEL MON 02/28/2019 ELIGIO DEMARCO N Ot C85.90 NON-HODGKIN LYMPHOMA, UNSPECIFIED, UNSPE 02/28/2019 EFREN, VANESSA S PASS WORKER Ot F33.2 MAJOR DEPRESSV DISORDER, RECURRENT SEVER 02/28/2019 EFREN, VANSESA S PASS WORKER Ot Z79.899 OTHER FIELD CONTRACTOR (CURRENT) DRUG THERAPY 02/28/2019 EFREN, VANESSA S PASS WORKER Ot F33.2 MAJOR DEPRESSV DISORDER, RECURRENT SEVER 02/28/2019 EFREN, VANESSA S PASS WORKER Ot Z79.899 OTHER FIELD CONTRACTOR (CURRENT) DRUG THERAPY 03/03/2019 MATTHEW LINTON MD Ot C83.10 MANTLE [...] 03/03/2019 MATTHEW LINTON MD Ot Z79.899 OTHER FIELD CONTRACTOR (CURRENT) DRUG THERAPY 03/03/2019 MATTHEW LINTON MD [...] 03/03/2019 MATTHEW LINTON MD Ot Z79.899 OTHER FIELD CONTRACTOR (CURRENT) DRUG THERAPY 03/03/2019 MATTHEW LINTON MD [...] NON-HODGKIN LYMPHOMA, UNSPECIFIED, UNSPE 03/16/2019 VANESSA SCHWARTZ PASS WORKER Ot F33.2 MAJOR DEPRESSV DISORDER, RECURRENT SEVER 03/16/2019 VANESSA SCHWARTZ PASS WORKER Ot Z79.899 OTHER FIELD CONTRACTOR (CURRENT) DRUG THERAPY 03/18/2019 NILAM, BOBAN N Ot C85.90 NON-HODGKIN LYMPHOMA, UNSPECIFIED, UNSPE 03/24/2019 NILAM, BOBAN N Ot C83.18 MANTLE CELL [...] ENCOUNTER FOR THERAPEUTIC DRUG LEVEL MON 04/22/2019 NILAM BOBAN N Ot C83.18 MANTLE CELL LYMPHOMA, LYMPH NODES OF MUL 04/22/2019 NILAM, BOBAN N Ot C85.10 UNSPECIFIED B-CELL LYMPHOMA, UNSPECIFIED 04/22/2019 NILAM, BOBAN N Ot C85.98 NON-HODGKIN LYMPHOMA, UNSP, LYMPH NODES 04/22/2019 NILAM, BOBAN N Ot Z51.81 ENCOUNTER FOR THERAPEUTIC DRUG LEVEL MON 04/22/2019 NILAM BOBAN N Ot C83.18 MANTLE CELL LYMPHOMA, LYMPH NODES OF MUL 04/22/2019 NILAM, BOBAN N Ot C85.10 UNSPECIFIED B-CELL LYMPHOMA, UNSPECIFIED 04/22/2019 NILAM, BOBAN N Ot C85.90 NON-HODGKIN LYMPHOMA, UNSPECIFIED, UNSPE 04/22/2019 ZOEY CARPENTER, YURI Rivera Ot C83.13 MANTLE CELL LYMPHOMA, INTRA-ABDOMINAL LY 04/22/2019 ZOEY CARPENTER, YURI Rivera Ot 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 DEPENDENCE, UNSPECIFIED, UNCOMP 04/22/2019 ZOEY CARPENTER, YURI Rivera Ot F32.9 MAJOR DEPRESSIVE DISORDER, SINGLE EPISOD 04/22/2019 ZOEY CARPENTER, YURI Rivera Ot F41.9 ANXIETY DISORDER, UNSPECIFIED 04/22/2019 ZOEY CARPENTER, YURI Rivera Ot J44.9 CHRONIC OBSTRUCTIVE PULMONARY DISEASE, U 04/22/2019 ZOEY CARPENTER, YURI Rivera Ot K21.9 GASTRO-ESOPHAGEAL REFLUX DISEASE WITHOUT 04/22/2019 YURI GREER MD Ot R21 RASH AND OTHER NONSPECIFIC SKIN ERUPTION 04/22/2019 YURI GREER MD Ot Z79.51 MCC (CURRENT) USE OF INHALED STERO 04/22/2019 YURI GREER MD Ot Z82.49 FAMILY HX OF ISCHEM HEART DIS AND OTH DI 04/22/2019 YURI GREER MD Ot Z85.828 PERSONAL HISTORY OF OTHER MALIGNANT NEOP 04/22/2019 YURI GREER MD Ot Z87.19 PERSONAL HISTORY OF OTHER DISEASES OF TH 04/22/2019 YURI GREER MD Ot Z90.49 ACQUIRED ABSENCE OF OTHER SPECIFIED PART 04/22/2019 YURI GREER MD Ot Z90.89 ACQUIRED ABSENCE OF OTHER ORGANS 04/22/2019 YURI GREER MD Ot Z98.890 OTHER SPECIFIED POSTPROCEDURAL STATES 04/23/2019 YURI GREER MD Ot C83.13 MANTLE CELL LYMPHOMA, INTRA-ABDOMINAL LY 04/23/2019 YURI GREER MD Ot 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 DEPENDENCE, UNSPECIFIED, UNCOMP 04/23/2019 YURI GREER MD Ot F32.9 MAJOR DEPRESSIVE DISORDER, SINGLE EPISOD 04/23/2019 YURI GREER MD Ot F41.9 ANXIETY DISORDER, UNSPECIFIED 04/23/2019 YURI GREER MD Ot J44.9 CHRONIC OBSTRUCTIVE PULMONARY DISEASE, U 04/23/2019 YURI GREER MD Ot K21.9 GASTRO-ESOPHAGEAL REFLUX DISEASE WITHOUT 04/23/2019 YURI GREER MD Ot R21 RASH AND OTHER NONSPECIFIC SKIN ERUPTION 04/23/2019 YURI GREER MD Ot Z79.51 MCC (CURRENT) USE OF INHALED STERO 04/23/2019 YURI GREER MD Ot Z82.49 FAMILY HX OF ISCHEM HEART DIS AND OTH DI 04/23/2019 YURI GREER MD Ot Z85.828 PERSONAL HISTORY OF OTHER MALIGNANT NEOP 04/23/2019 YURI GREER MD Ot Z87.19 PERSONAL HISTORY OF OTHER DISEASES OF TH 04/23/2019 YURI GREER MD Ot Z90.49 ACQUIRED ABSENCE OF OTHER SPECIFIED PART 04/23/2019 YURI GREER MD Ot Z90.89 ACQUIRED ABSENCE OF OTHER ORGANS 04/23/2019 YURI GREER MD Ot Z98.890 OTHER SPECIFIED POSTPROCEDURAL STATES 04/28/2019 YURI GREER MD Ot C83.13 MANTLE CELL LYMPHOMA, INTRA-ABDOMINAL LY 04/28/2019 YURI GREER MD Ot 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 DEPENDENCE, UNSPECIFIED, UNCOMP 04/28/2019 YURI GREER MD Ot F32.9 MAJOR DEPRESSIVE DISORDER, SINGLE EPISOD 04/28/2019 YURI GREER MD Ot F41.9 ANXIETY DISORDER, UNSPECIFIED 04/28/2019 YURI GREER MD, Ot J44.9 CHRONIC OBSTRUCTIVE PULMONARY DISEASE, U 04/28/2019 YURI GREER MD, Ot K21.9 GASTRO-ESOPHAGEAL REFLUX DISEASE WITHOUT 04/28/2019 YURI GREER MD Ot R21 RASH AND OTHER NONSPECIFIC SKIN ERUPTION 04/28/2019 YURI GREER MD Ot Z79.51 FIELD CONTRACTOR (CURRENT) USE OF INHALED STERO 04/28/2019 YURI GREER MD Ot Z82.49 FAMILY HX OF ISCHEM HEART DIS AND OTH DI 04/28/2019 YURI GREER MD Ot Z85.828 PERSONAL HISTORY OF OTHER MALIGNANT NEOP 04/28/2019 YURI GREER MD Ot Z87.19 PERSONAL HISTORY OF OTHER DISEASES OF TH 04/28/2019 YURI GREER MD Ot Z90.49 ACQUIRED ABSENCE OF OTHER SPECIFIED PART 04/28/2019 YURI GREER MD Ot Z90.89 ACQUIRED ABSENCE OF OTHER ORGANS 04/28/2019 YURI GREER MD Ot Z98.890 OTHER SPECIFIED POSTPROCEDURAL STATES 04/30/2019 ELIGIO DEMARCO Ot C85.90 NON-HODGKIN LYMPHOMA, UNSPECIFIED, UNSPE 05/04/2019 ELIGIO DEMARCO Ot C85.90 NON-HODGKIN LYMPHOMA, UNSPECIFIED, UNSPE 05/21/2019 ELIGIO DEMARCO Ot C85.90 NON-HODGKIN LYMPHOMA, UNSPECIFIED, UNSPE 06/01/2019 ELIGIO DEMARCO Ot C85.90 NON-HODGKIN LYMPHOMA, UNSPECIFIED, UNSPE Procedures [...] - 03/02/19 15:30 Lipase 23 U/L 8-78 [id number] - 03/02/19 15:30 [id number] 40.8 ug/mL 50.0-100.0 Serum or plasma lithium [...] in VLDL measurement (mass/volume) 14 mg/dL 5-40 Complete blood count (CBC) with automated white blood cell (WBC) differential - 05/13/19 10:28 Blood leukocytes automated count (number/volume) 2.3 10*3/uL 4.3-11.0 Blood erythrocytes automated count (number/volume) 4.50 10*6/uL 4.35-5.85 Venous blood hemoglobin measurement (mass/volume) 14.3 g/dL 13.3-17.7 Blood hematocrit (volume fraction) 40 % 40-54 Automated erythrocyte mean corpuscular volume 89 [foz_us] 80-99 Automated erythrocyte mean corpuscular hemoglobin (mass per erythrocyte) 32 pg 25-34 Automated erythrocyte mean corpuscular hemoglobin concentration measurement (mass/volume) 36 g/dL 32-36 Automated erythrocyte distribution width ratio 12.7 % 10.0- 14.5 Automated blood platelet count (count/volume) 150 10*3/uL 130-400 Automated blood platelet mean volume measurement 9.9 [foz_us] 7.4-10.4 Automated blood neutrophils/100 leukocytes 62 % 42-75 Automated blood lymphocytes/100 leukocytes 12 % 12-44 Blood monocytes/100 leukocytes 18 % 0-12 Automated blood eosinophils/100 leukocytes 8 % 0-10 Automated blood basophils/100 leukocytes 0 % 0-10 Blood neutrophils automated count (number/volume) 1.4 10*3 1.8-7.8 Blood lymphocytes automated count (number/volume) 0.3 10*3 1.0-4.0 Blood monocytes automated count (number/volume) 0.4 10*3 0.0- 1.0 Automated eosinophil count 0.2 10*3/uL 0.0-0.3 Automated blood basophil count (count/volume) 0.0 10*3/uL 0.0-0.1 Whole blood basic metabolic panel - 05/13/19 10:28 Serum or plasma sodium measurement (moles/volume) 142 mmol/L 135-145 Serum or plasma potassium measurement (moles/volume) 4.6 mmol/L 3.6-5.0 Serum or plasma chloride measurement (moles/volume) 109 mmol/L 98-107 Carbon dioxide 24 mmol/L 21-32 Serum or plasma anion gap determination (moles/volume) 9 mmol/L 5-14 Serum or plasma urea nitrogen measurement (mass/volume) 10 mg/dL 7-18 Serum or plasma creatinine measurement (mass/volume) 0.98 mg/dL 0.60-1.30 Serum or plasma urea nitrogen/creatinine mass ratio 10 NRG Serum or plasma creatinine measurement with calculation of estimated glomerular filtration rate > NRG Serum or plasma glucose measurement (mass/volume) 110 mg/dL 70-105 Serum or plasma calcium measurement (mass/volume) 9.0 mg/dL 8.5-10.1 Complete blood count (CBC) with automated white blood cell (WBC) differential - 05/17/19 09:57 Blood leukocytes automated count (number/volume) 2.0 10*3/uL 4.3-11.0 Blood erythrocytes automated count (number/volume) 4.40 10*6/uL 4.35-5.85 Venous blood hemoglobin measurement (mass/volume) 14.0 g/dL 13.3-17.7 Blood hematocrit (volume fraction) 39 % 40-54 Automated erythrocyte mean corpuscular volume 89 [foz_us] 80-99 Automated erythrocyte mean corpuscular hemoglobin (mass per erythrocyte) 32 pg 25-34 Automated erythrocyte mean corpuscular hemoglobin concentration measurement (mass/volume) 36 g/dL 32-36 Automated erythrocyte distribution width ratio 13.0 % 10.0- 14.5 Automated blood platelet count (count/volume) 188 10*3/uL 130-400 Automated blood platelet mean volume measurement 9.4 [foz_us] 7.4-10.4 Automated blood neutrophils/100 leukocytes 45 % 42-75 Automated blood lymphocytes/100 leukocytes 17 % 12-44 Blood monocytes/100 leukocytes 29 % 0-12 Automated blood eosinophils/100 leukocytes 7 % 0-10 Automated blood basophils/100 leukocytes 3 % 0-10 Blood neutrophils automated count (number/volume) 0.9 10*3 1.8-7.8 Blood lymphocytes automated count (number/volume) 0.4 10*3 1.0-4.0 Blood monocytes automated count (number/volume) 0.6 10*3 0.0- 1.0 Automated eosinophil count 0.1 10*3/uL 0.0-0.3 Automated blood basophil count (count/volume) 0.1 10*3/uL 0.0-0.1 Whole blood basic metabolic panel - 05/17/19 09:57 Serum or plasma sodium measurement (moles/volume) 142 mmol/L 135-145 Serum or plasma potassium measurement (moles/volume) 4.1 mmol/L 3.6-5.0 Serum or plasma chloride measurement (moles/volume) 108 mmol/L 98-107 Carbon dioxide 23 mmol/L 21-32 Serum or plasma anion gap determination (moles/volume) 11 mmol/L 5-14 Serum or plasma urea nitrogen measurement (mass/volume) 10 mg/dL 7-18 Serum or plasma creatinine measurement (mass/volume) 0.96 mg/dL 0.60-1.30 Serum or plasma urea nitrogen/creatinine mass ratio 10 NRG Serum or plasma creatinine measurement with calculation of estimated glomerular filtration rate > NRG Serum or plasma glucose measurement (mass/volume) 90 mg/dL 70-105 Serum or plasma calcium measurement (mass/volume) 9.4 mg/dL 8.5-10.1 Encounters ACCT No. Visit Date/Time Discharge Status Pt. Type Provider Facility Loc./Unit Complaint [id number] 05/27/2019 08:20:00 05/27/2019 23:59:59 CLS Outpatient [facility] [id number] 06/02/2019 11:54:00 06/02/2019 23:59:59 CLS Outpatient ELIGIO DEMARCO [facility] ONC [id number] 06/02/2019 13:34:00 06/02/2019 13:34:00 CAN Preadmit LORY ALVES [facility] LAB FS C85.10 [id number] 04/22/2019 01:18:00 04/22/2019 01:54:00 DIS Emergency ZOEY CARPENTER, YURI Rivera [facility] ER RT ARM SWOLLEN,LOFTON,WARM TO TOUCH,POSS BUG BITE [id number] 03/23/2019 09:11:00 03/23/2019 23:59:59 CLS Outpatient ELIGIO DEMARCO [facility] RAD B-CELL LYMPHOMA,MANTLE CELL LYMPHOMA [id number] 03/02/2019 11:02:00 03/14/2019 00:01:00 DIS Outpatient ELIGIO DEMARCO [facility] ONC [id number] 03/02/2019 18:00:00 03/03/2019 16:09:00 DIS Inpatient MATTHEW LINTON MD [facility] ICU CHEST PAIN;MANTLE CELL LYMPHOMA ON CHEMO [id number] 02/22/2019 10:28:00 02/22/2019 23:59:59 CLS Outpatient VANESSA SCHWARTZ PASS WORKER [facility] LAB [id number] 12/24/2018 10:02:00 12/24/2018 16:25:00 DIS Outpatient SIDDIQUI MD, CORINNA Triplett [facility] SDC B-CELL LYMPHOMA [id number] 12/21/2018 05:56:00 12/21/2018 16:06:00 DIS Outpatient ARTUR CARPENTER, CORINNA Triplett [facility] PREOP PORT PLACEMENT [id number] 12/15/2018 09:08:00 12/15/2018 23:59:59 CLS Outpatient ELIGIO DEMARCO [facility] RAD NHL [id number] 12/11/2018 12:41:00 12/11/2018 17:02:00 DIS Emergency BOY SOUSA [facility] ER GROIN PAIN [id number] 12/08/2018 09:24:00 12/08/2018 15:30:00 DIS Outpatient ARTUR CARPENTER[facility]GUIN[facility]H NODE [id number] 11/30/2018 18:37:00 11/30/2018 21:30:00 DIS Emergency BOY SOUSA [facility] ER ABD PAIN [id number] 10/16/2017 18:48:00 10/16/2017 22:37:00 DIS Emergency CITLALI WEINBERG APRN [facility] ER UNABLE TO URINATE,CONSTIPATED,PELVIC/LOWER BA PAIN [id number] 06/28/2019 09:45:00 PEN Preadmit LORY ALVES APPLIANCE COUNSELOR [facility] RAD IMAGING STUDY TO RESTAGE NEOPLASM
--- NOTE | 2019-06-07 18:23 | ED Chest Pain ---
General Chief Complaint: Cardiac/General Problems Stated Complaint: CHEST PAIN, SOB Source: patient, RN notes reviewed Exam Limitations: no limitations History of Present Illness Date Seen by Provider: Jun 07, 2019 Time Seen by Provider: 18:21 Allergies and Home Medications Allergies Coded Allergies: No Known Drug Allergies (Unverified , 10/16/17) Home Medications Acyclovir 200 Mg Capsule, 200 MG PO 5XD Prescribed by: YURI GREER on 04/22/19147 Albuterol Sulfate 18 Gm Hfa.aer.ad, 2 PUFF INH Q4H PRN for SHORTNESS OF BREATH, (Reported) Cephalexin 500 Mg Capsule, 500 MG PO TID Prescribed by: YURI GREER on 04/22/19147 Citalopram Hydrobromide 40 Mg Tablet, 60 MG PO HS, (Reported) TAKES 1 & 1/2 (40MG) TABLET Divalproex Sodium 500 Mg Tablet.dr, 500 MG PO 1800, (Reported) Fluticasone/Salmeterol 1 Each Blst.w.dev, 1 EACH IH DAILY PRN for SHORTNESS OF BREATH, (Reported) Meloxicam 15 Mg Tablet, 15 MG PO HS, (Reported) [place] 3 Polyunsat Fatty Acids 1,000 Mg Cap, 1,000 MG PO DAILY, (Reported) Omeprazole 20 Mg Capsule.dr, 20 MG PO BID, (Reported) Tramadol HCl 50 Mg Tablet, 50 MG PO Q6H PRN for PAIN Prescribed by: YURI GREER on 04/22/19147 Vitamin B Complex 1 Each Capsule, 1 CAP PO DAILY, (Reported) Past Xbadbma-Uklohi-Tnljab Hx Patient Social History Type Used: Cigarettes, Smokeless Tobacco 2nd Hand Smoke Exposure: No Recent Foreign Travel: No Contact w/Someone Who Travel: No Recent Hopitalizations: No Immunizations Up To Date Tetanus Booster (TDap): Unknown PED Vaccines UTD: No Date of Pneumonia Vaccine: Aug 03, 2018 Date of Influenza Vaccine: Jul 28, 2018 Seasonal Allergies Seasonal Allergies: No Past Medical History Surgeries: Yes Abdominal, Appendectomy, Gallbladder, Orthopedic, Rectal, Tonsillectomy Respiratory: Yes COPD Currently Using CPAP: Yes Cardiac: No Neurological: No Genitourinary: No Gastrointestinal: Yes Abdominal Hernia, Gastroesophageal Reflux, Hemorrhoids Musculoskeletal: Yes Arthritis, Fractures Endocrine: No HEENT: No Cancer: Yes Skin, Lymphoma Did You Recieve Any Treatments: Yes What Type of Treatment Did You: Chemotherapy Psychosocial: Yes Anxiety, Depression Integumentary: Yes (BENIGN TUMOR LEFT EAR) Recent Skin Changes Blood Disorders: Yes (MANTLE CELL LYMPHOMA) Family Medical History Cardiovascular disease 19 MOTHER G8 SISTER Completed stroke G8 SISTER FH: brain tumor G8 SISTER FH: emphysema 19 FATHER FH: kidney failure 19 FATHER Physical Exam Vital Signs Vital Signs - First Documented 06/07/19 18:25 Temp 98.3 Pulse 71 Resp 19 B/P (MAP) 171/87 (115) Capillary Refill : Height, Weight, BMI Height: 6'1.00" Weight: 243lbs. 0.0oz. 110.366814qb; 35.8 BMI Method:Estimated Progress/Results/Core Measures Results/Orders Lab Results Laboratory Tests Test 06/07/19 18:20 Range/Units White Blood Count 5.6 4.3-11.0 10^3/uL Red Blood Count 4.36 4.35-5.85 10^6/uL Hemoglobin 14.3 13.3-17.7 G/DL Hematocrit 39 L 40-54 % Mean Corpuscular Volume 89 80-99 FL Mean Corpuscular Hemoglobin 33 25-34 PG Mean Corpuscular Hemoglobin Concent 37 H 32-36 G/DL Red Cell Distribution Width 12.8 10.0-14.5 % Platelet Count 206 130-400 10^3/uL Mean Platelet Volume 9.4 7.4-10.4 FL Neutrophils (%) (Auto) 75 42-75 % Lymphocytes (%) (Auto) 10 L 12-44 % Monocytes (%) (Auto) 9 0-12 % Eosinophils (%) (Auto) 5 0-10 % Basophils (%) (Auto) 1 0-10 % Neutrophils # (Auto) 4.2 1.8-7.8 X 10^3 Lymphocytes # (Auto) 0.5 L 1.0-4.0 X 10^3 Monocytes # (Auto) 0.5 0.0-1.0 X 10^3 Eosinophils # (Auto) 0.3 0.0-0.3 10^3/uL Basophils # (Auto) 0.0 0.0-0.1 10^3/uL Sodium Level 143 135-145 MMOL/L Potassium Level 4.3 3.6-5.0 MMOL/L Chloride Level 104 98-107 MMOL/L Carbon Dioxide Level 25 21-32 MMOL/L Anion Gap 14 5-14 MMOL/L Blood Urea Nitrogen 11 7-18 MG/DL Creatinine 1.03 0.60-1.30 MG/DL Estimat Glomerular Filtration Rate > 60 BUN/Creatinine Ratio 11 Glucose Level 108 H 70-105 MG/DL Calcium Level 9.0 8.5-10.1 MG/DL Corrected Calcium 8.7 8.5-10.1 MG/DL Magnesium Level 1.7 L 1.8-2.4 MG/DL Total Bilirubin 0.4 0.1-1.0 MG/DL Aspartate Amino Transf (AST/SGOT) 16 5-34 U/L Alanine Aminotransferase (ALT/SGPT) 12 0-55 U/L Alkaline Phosphatase 66 40-136 U/L Troponin I < 0.30 <0.30 NG/ML Pro-B-Type Natriuretic Peptide 115.6 H <75.0 PG/ML Total Protein 6.4 6.4-8.2 GM/DL Albumin 4.4 3.2-4.5 GM/DL Lipase 35 8-78 U/L My Orders Orders - SHREYA APARICIO DO Ed Iv/Invasive Line Start (06/07/19 18:23) Ekg Tracing (06/07/19 18:23) Cbc With Automated Diff (06/07/19 18:23) Comprehensive Metabolic Panel (06/07/19 18:23) Lipase (06/07/19 18:23) Magnesium (06/07/19 18:23) Troponin I (06/07/19 18:23) Probnp Fs (06/07/19 18:23) Chest Pa/Lat (2 View) (06/07/19 18:23) Ct Abdomen/Pelvis W (06/07/19 19:18) Ct Chest Wo (06/07/19 19:18) Dexamethasone Injection (Decadron Inject (06/07/19 19:45) Ketorolac Injection (Toradol Injection) (06/07/19 19:45) Iohexol Injection (Omnipaque 350 Mg/Ml 1 (06/07/19 19:45) Received Contrast (Hold Metformin- Contr (06/07/19 19:45) Sodium Chloride Flush (Catheter Flush Sy (06/07/19 19:45) Ns (Ivpb) (Sodium Chloride 0.9% Ivpb Bag (06/07/19 19:45) Medications Given in ED Current Medications Medications Dose Ordered Sig/Gunner Route Start Time Stop Time Status Last Admin Dose Admin Iohexol 100 ml ONCE ONCE IV 06/07/19 19:45 06/07/19 19:59 DC 06/07/19 19:53 100 ML Sodium Chloride 10 ml NEEDED PRN IV 06/07/19 19:45 06/07/19 19:53 10 ML Sodium Chloride 100 ml ONCE ONCE IV 06/07/19 19:45 06/07/19 19:59 DC 06/07/19 19:53 80 ML Vital Signs/I&O 06/07/19 18:25 Temp 98.3 Pulse 71 Resp 19 B/P (MAP) 171/87 (115) Initial ECG Impression Date: Jun 07, 2019 Initial ECG Impression Time: 18:20 Initial ECG Rate: 69 Initial ECG Rhythm: Normal Sinus Initial ECG Impression: Nonspecific Changes (LAD) Initial ECG Comparisson: No Previous ECG Available Departure Impression Primary Impression: Costochondritis, acute Disposition: 07 AGAINST MEDICAL ADVICE Condition: Against Medical Advice Departure-Patient Inst. Referrals: SELF,SANGEETHA CARPENTER (PCP/Family) Primary Care Physician SHREYA APARICIO DO Jun 07, 2019 18:22
[2019-06-07 18:25] VITALS: BP 171/87
[2019-06-07 18:34] LABS: BASOPHILS % (AUTO) 1 % (0-10); EOSINOPHILS % (AUTO) 5 % (0-10); HEMATOCRIT 39 % (40-54); HEMOGLOBIN 14.3 G/DL (13.3-17.7); LYMPHOCYTES # (AUTO) 0.5 X 10^3 (1.0-4.0); LYMPHOCYTES % (AUTO) 10 % (12-44); MEAN CORPUSCULAR HEMOGLOBIN 33 PG (25-34); MEAN CORPUSCULAR HGB CONC 37 G/DL (32-36); MEAN CORPUSCULAR VOLUME 89 FL (80-99); MEAN PLATELET VOLUME 9.4 FL (7.4-10.4); MONOCYTES # (AUTO) 0.5 X 10^3 (0.0-1.0); MONOCYTES % (AUTO) 9 % (0-12); NEUTROPHILS # (AUTO) 4.2 X 10^3 (1.8-7.8); NEUTROPHILS % (AUTO) 75 % (42-75); PLATELET COUNT 206 10^3/uL (130-400); RED CELL DISTRIBUTION WIDTH 12.8 % (10.0-14.5); WHITE BLOOD COUNT 5.6 10^3/uL (4.3-11.0)
[2019-06-07 18:35] LABS: EOSINOPHILS # (AUTO) 0.3 10^3/uL (0.0-0.3)
--- NOTE | 2019-06-07 19:00 | NUR ---
Report from Zoie KUMARI.
[2019-06-07 19:03] LABS: ALANINE AMINOTRANSFERASE 12 U/L (0-55); ALKALINE PHOSPHATASE 66 U/L (40-136); BILIRUBIN,TOTAL 0.4 MG/DL (0.1-1.0); BUN/CREATININE RATIO 11; CARBON DIOXIDE 25 MMOL/L (21-32); CHLORIDE 104 MMOL/L (98-107); CREATININE SERUM 1.03 MG/DL (0.60-1.30); GFR ESTIMATED > 60; GLUCOSE 108 MG/DL (70-105); MAGNESIUM 1.7 MG/DL (1.8-2.4); POTASSIUM 4.3 MMOL/L (3.6-5.0); SODIUM 143 MMOL/L (135-145)
[2019-06-07 19:04] LABS: ALBUMIN 4.4 GM/DL (3.2-4.5); LIPASE 35 U/L (8-78); TOTAL PROTEIN 6.4 GM/DL (6.4-8.2)
--- NOTE | 2019-06-07 19:04 | Diagnostic Imaging Report ---
EXAMINATION: CHEST (PA AND LATERAL) CLINICAL INDICATION: 58-year-old male, difficulty breathing. COMPARISON: March 02, 2019. FINDINGS: There is cervical spine hardware. Right-sided port catheter tip overlies the mid SVC. Heart size and mediastinal contours are unchanged. There is no identified pneumothorax. There is no pleural effusion. There is no identified focal airspace consolidation. The left clavicle is not well-seen and may be absent. This finding was noted previously. IMPRESSION: No identified acute cardiopulmonary abnormality. Dictated by: Dictated on workstation # [id number]
--- NOTE | 2019-06-07 19:40 | NUR ---
To CT for test ordered.
[2019-06-07] MEDS ORDERED: CATHETER FLUSH 10 ML SYR IV PRN (19:45)
[2019-06-07] MEDS ORDERED: KETOROLAC 30 MG/ML VIAL IVP ONE (19:45)
[2019-06-07] MEDS ORDERED: HOLD METFORMIN - RECEIVED CONTRAST 20 ML VIAL IV SCH (19:45)
[2019-06-07] MEDS ORDERED: IOHEXOL 350 MG/ML 100 ML (OMNIPAQUE 350) VIAL IV ONE (19:45)
[2019-06-07] MEDS ORDERED: NS 100 ML (IVPB) BAG IV ONE (19:45)
[2019-06-07] MEDS ORDERED: DEXAMETHASONE 10 MG/ML (DECADRON) 1 ML VIAL IV ONE (19:45)
--- NOTE | 2019-06-07 20:04 | NUR ---
Returned to room, results are pending.
--- NOTE | 2019-06-07 21:27 | Diagnostic Imaging Report ---
PROCEDURE: CT chest without contrast. TECHNIQUE: Multiple contiguous axial images were obtained through the chest without the use of intravenous contrast. Auto Exposure Controls were utilized during the CT exam to meet ALARA standards for radiation dose reduction. DATE: June 07, 2019. COMPARISON: Chest radiographs June 07, 2019. CT chest March 02, 2019. INDICATION: 58-year-old male, difficulty breathing. History of malignancy. FINDINGS: There is no identified pulmonary nodule or lung mass. There is no focal airspace consolidation. There is no pneumothorax. There is no pleural effusion. The central airways are patent. The heart is not enlarged. There is no identified pericardial effusion. There is no identified abnormally enlarged mediastinal or axillary lymph node which meets CT size criteria for adenopathy. There are several low-attenuation lesions in the right and left lobes of the liver. One of the largest is on axial image 102 and has internal attenuation diagnostic for a benign cyst. The largest lesion in the left lobe of the liver is also diagnostic for a benign cyst. Some of the lesions are subcentimeter in size and not able to be definitively classified. The patient is status post cholecystectomy. Additional evaluation of the imaged portions of the upper abdomen is unremarkable. There are degenerative changes of the spine. The left clavicle is absent. There is no identified acute bony abnormality. IMPRESSION: CT CHEST. 1. No identified acute cardiopulmonary abnormality. Dictated by: Dictated on workstation # [id number]
--- NOTE | 2019-06-07 21:27 | NUR ---
Pt was up walking in [place] and goes directly to physician's office to ask about not being discharged yet. Physician reported that so many patients in ER and tests being evaluated that the radiologist has not released his CT result yet and so he can not prepare a discharge yet. Pt reports it is unsatisfactory and requests IV out now. requests staff to follow pt to his room and go ahead and remove SL. Upon entering room by staff the pt had ripped the SL out of site and refused for a dsg to be placed at the site. Pt was approached to sign an AMA form and pt punched the ER wall. Pt instructed to please stop at registartion window and pt left ED punched the wall by registration then yelled at visitors in waiting room.
--- NOTE | 2019-06-07 21:49 | Diagnostic Imaging Report ---
PROCEDURE: CT abdomen and pelvis with contrast. TECHNIQUE: Multiple contiguous axial images were obtained through the abdomen and pelvis after administration of intravenous contrast. Auto Exposure Controls were utilized during the CT exam to meet ALARA standards for radiation dose reduction. DATE: June 07, 2019. COMPARISON: PET/CT March 23, 2019. INDICATION: 58-year-old male, difficulty breathing. History of malignancy. FINDINGS: There are numerous low-attenuation lesions in the right and left lobes of the liver with the largest lesions compatible with benign cysts. Some of the lesions are subcentimeter in size and too small to characterize. The main, right, and left portal veins are patent. The outer liver contours are unremarkable. The patient is status post cholecystectomy. There is no biliary ductal dilation. The main pancreatic duct is not abnormally dilated. Unremarkable appearance of the pancreatic parenchyma. The spleen is normal in size. The adrenal glands are unremarkable. There is right renal cortical scarring. There is a 7 mm low-attenuation left renal lesion on axial image 37 too small to characterize. There is an additional left renal lesion on delayed axial image 35 measuring 14 mm in size which is difficult to definitively characterize. Internal attenuation is measured at 25 Hounsfield units. There is a 4 mm low-attenuation right renal lesion not able to be definitively characterized. The urinary collecting systems are not distended. There is no identified renal or ureteral stone. The urinary bladder is unremarkable. There is diverticulosis without evidence of acute diverticulitis. The appendix is not well seen. There are no identified secondary findings to suggest acute appendicitis. There is no free intraperitoneal air. There is no drainable fluid collection. There is no sizable volume free pelvic fluid. There is high attenuation material in the left inguinal region which may be procedural related. Recommend correlation. There is no identified abnormally enlarged lymph node in the abdomen or pelvis which meets CT size criteria for adenopathy. There is a right total hip prosthesis. There is avascular necrosis of the left femoral head. There is no identified acute bony abnormality. IMPRESSION: CT ABDOMEN AND PELVIS. 1. No identified acute abnormality in the abdomen or pelvis. 2. No evidence of active malignancy in the abdomen or pelvis. Dictated by: Dictated on workstation # [id number]
== END 2019-06-07 21:27 | disposition left against medical advice (07) ==
LOC: EDUNIT# 18:12 → ER FS 18:13
DX: M94.0 Chondrocostal junction syndrome [Tietze] (principal); J44.9 Chronic obstructive pulmonary disease, unspecified; F32.9 Major depressive disorder, single episode, unspecified; F41.9 Anxiety disorder, unspecified; K21.9 Gastro-esophageal reflux disease without esophagitis; Z85.72 Personal history of non-Hodgkin lymphomas; Z85.828 Personal history of other malignant neoplasm of skin; Z99.89 Dependence on other enabling machines and devices; Z79.51 Long term (current) use of inhaled steroids; Z90.49 Acquired absence of other specified parts of digestive tract; Z90.89 Acquired absence of other organs; Z82.49 Family history of ischemic heart disease and other diseases of the circulatory system
CPT/HCPCS: 36415; 71046; 71250; 74177; 80053; 83690; 83735; 83880; 84484; 85025; 93005

== ENCOUNTER 2019-06-23 08:55 | Outpatient (RCR) | payer MEDICARE ==
[2019-06-16 10:08] LABS: WHITE BLOOD COUNT 3.6 10^3/uL (4.3-11.0)
[2019-06-16 10:09] LABS: BASOPHILS # (AUTO) 0.1 10^3/uL (0.0-0.1); BASOPHILS % (AUTO) 1 % (0-10); EOSINOPHILS # (AUTO) 0.2 10^3/uL (0.0-0.3); EOSINOPHILS % (AUTO) 5 % (0-10); HEMATOCRIT 39 % (40-54); HEMOGLOBIN 13.7 G/DL (13.3-17.7); LYMPHOCYTES # (AUTO) 0.4 X 10^3 (1.0-4.0); LYMPHOCYTES % (AUTO) 10 % (12-44); MEAN CORPUSCULAR HEMOGLOBIN 32 PG (25-34); MEAN CORPUSCULAR HGB CONC 35 G/DL (32-36); MEAN CORPUSCULAR VOLUME 91 FL (80-99); MONOCYTES # (AUTO) 0.5 X 10^3 (0.0-1.0); MONOCYTES % (AUTO) 15 % (0-12); NEUTROPHILS # (AUTO) 2.4 X 10^3 (1.8-7.8); NEUTROPHILS % (AUTO) 68 % (42-75); PLATELET COUNT 201 10^3/uL (130-400); RED CELL DISTRIBUTION WIDTH 12.9 % (10.0-14.5)
[2019-06-16 10:23] LABS: BUN/CREATININE RATIO 9; CARBON DIOXIDE 24 MMOL/L (21-32); CHLORIDE 104 MMOL/L (98-107); CREATININE SERUM 0.91 MG/DL (0.60-1.30); GFR ESTIMATED > 60; GLUCOSE 110 MG/DL (70-105); POTASSIUM 4.6 MMOL/L (3.6-5.0); SODIUM 142 MMOL/L (135-145)
[2019-06-23 11:17] LABS: BUN/CREATININE RATIO 10; CALCIUM 9.5 MG/DL (8.5-10.1); CARBON DIOXIDE 24 MMOL/L (21-32); CHLORIDE 101 MMOL/L (98-107); CREATININE SERUM 1.01 MG/DL (0.60-1.30); GFR ESTIMATED > 60; GLUCOSE 117 MG/DL (70-105); POTASSIUM 3.9 MMOL/L (3.6-5.0); SODIUM 140 MMOL/L (135-145)
[2019-06-23 11:18] LABS: HEMATOCRIT 40 % (40-54); HEMOGLOBIN 14.4 G/DL (13.3-17.7); MEAN CORPUSCULAR HEMOGLOBIN 33 PG (25-34); MEAN CORPUSCULAR HGB CONC 36 G/DL (32-36); MEAN CORPUSCULAR VOLUME 92 FL (80-99)
[2019-06-23 11:19] LABS: BASOPHILS % (AUTO) 1 % (0-10); EOSINOPHILS # (AUTO) 0.1 10^3/uL (0.0-0.3); EOSINOPHILS % (AUTO) 4 % (0-10); LYMPHOCYTES # (AUTO) 0.4 X 10^3 (1.0-4.0); LYMPHOCYTES % (AUTO) 13 % (12-44); MEAN PLATELET VOLUME 9.7 FL (7.4-10.4); MONOCYTES # (AUTO) 0.4 X 10^3 (0.0-1.0); MONOCYTES % (AUTO) 12 % (0-12); NEUTROPHILS # (AUTO) 2.1 X 10^3 (1.8-7.8); NEUTROPHILS % (AUTO) 70 % (42-75); PLATELET COUNT 169 10^3/uL (130-400); RED CELL DISTRIBUTION WIDTH 12.9 % (10.0-14.5)
== END 2019-09-14 | disposition home or self-care (01) ==
LOC: LAB FS 08:55
PROVIDERS: ATTEND Nurse Practitioner Adult Health
DX: C85.10 Unspecified B-cell lymphoma, unspecified site (principal)
CPT/HCPCS: 36415; 80048; 85025; 85027

== ENCOUNTER → 2019-06-28 | Outpatient (CLI) | payer MEDICARE ==
[~2019-06-28] MED LIST changes: +BARIUM SUSPENSION 2.1% (VANILLA SILQ) 450 ML PO ONE; +CATHETER FLUSH 10 ML SYR IV PRN; +HOLD METFORMIN - RECEIVED CONTRAST 20 ML VIAL IV SCH; +IOHEXOL 350 MG/ML 100 ML (OMNIPAQUE 350) VIAL IV ONE; +NS 100 ML (IVPB) BAG IV ONE
--- NOTE | 2019-06-28 10:08 | Diagnostic Imaging Report ---
EXAMINATION: CT of the neck, chest, abdomen and pelvis with intravenous contrast. INDICATION: Lymphoma. Comparison is 06/07/2019. FINDINGS: There is no lymphadenopathy in the neck. The carotid arteries are normal. Jugular veins are patent. Parotid and submandibular glands are symmetric. Pharynx and larynx appear normal. Musculature and fascial planes are preserved. There is mild right maxillary sinus mucosal disease. Limited views of the skull base are normal. No osseous lesions are seen in the neck. There has been an anterior cervical spine fusion. Lungs are clear. No edema or pneumonia. No pleural effusion or pneumothorax. No suspicious pulmonary nodules. Heart size is normal. No pericardial effusion. Aorta is normal in caliber. No axillary, supraclavicular or mediastinal lymphadenopathy. Port catheter is present through right internal jugular approach. There are numerous cysts in the liver which are unchanged. Gallbladder is absent. No biliary ductal dilation. Portal vein is patent. Pancreas, spleen and adrenal glands are normal. Kidneys enhance symmetrically without suspicious lesion. Few cysts are seen in the kidneys. No hydronephrosis. Urinary bladder is normal. No dilated loops of large or small bowel. There is no bowel obstruction or inflammation. Surgical material is seen near the region of the cecum. Mesocolonic soft tissue thickening along the vasculature is unchanged and likely represents scarring. No abdominal or pelvic lymphadenopathy. Abdominal aorta is normal in caliber. There is right total hip arthroplasty. There are no suspicious osseous lesions. IMPRESSION: 1. No evidence for recurrent lymphoma in the neck, chest, abdomen or pelvis. Dictated by: Dictated on workstation # [id number]
== END ==
LOC: RAD 08:35
PROVIDERS: ATTEND Nurse Practitioner Adult Health
DX: C83.10 Mantle cell lymphoma, unspecified site (principal); Z95.828 Presence of other vascular implants and grafts; Z90.49 Acquired absence of other specified parts of digestive tract; Z96.641 Presence of right artificial hip joint
CPT/HCPCS: 70491; 71260; 74176

== ENCOUNTER 2019-09-21 09:55 | Outpatient (RCR) | payer MEDICARE, OTHER ==
[2019-06-28 09:34] LABS: BASOPHILS % (AUTO) 1 % (0-10); EOSINOPHILS # (AUTO) 0.1 10^3/uL (0.0-0.3); EOSINOPHILS % (AUTO) 4 % (0-10); HEMATOCRIT 39 % (40-54); LYMPHOCYTES # (AUTO) 0.4 X 10^3 (1.0-4.0); LYMPHOCYTES % (AUTO) 13 % (12-44); MEAN CORPUSCULAR HEMOGLOBIN 32 PG (25-34); MEAN CORPUSCULAR HGB CONC 36 G/DL (32-36); MEAN CORPUSCULAR VOLUME 90 FL (80-99); MEAN PLATELET VOLUME 9.7 FL (7.4-10.4); MONOCYTES # (AUTO) 0.5 X 10^3 (0.0-1.0); MONOCYTES % (AUTO) 17 % (0-12); NEUTROPHILS # (AUTO) 1.9 X 10^3 (1.8-7.8); NEUTROPHILS % (AUTO) 65 % (42-75); PLATELET COUNT 147 10^3/uL (130-400); RED CELL DISTRIBUTION WIDTH 12.7 % (10.0-14.5); WHITE BLOOD COUNT 2.9 10^3/uL (4.3-11.0)
[2019-06-28 09:53] LABS: ALANINE AMINOTRANSFERASE 23 U/L (0-55); ALBUMIN 4.3 GM/DL (3.2-4.5); ALKALINE PHOSPHATASE 50 U/L (40-136); BILIRUBIN,TOTAL 0.7 MG/DL (0.1-1.0); BUN/CREATININE RATIO 12; CALCIUM 8.9 MG/DL (8.5-10.1); CARBON DIOXIDE 25 MMOL/L (21-32); CHLORIDE 107 MMOL/L (98-107); CREATININE SERUM 0.95 MG/DL (0.60-1.30); GFR ESTIMATED > 60; GLUCOSE 96 MG/DL (70-105); POTASSIUM 4.4 MMOL/L (3.6-5.0); SODIUM 141 MMOL/L (135-145); TOTAL PROTEIN 6.2 GM/DL (6.4-8.2)
[2019-07-27 09:55] LABS: BASOPHILS % (AUTO) 1 % (0-10); EOSINOPHILS # (AUTO) 0.3 10^3/uL (0.0-0.3); EOSINOPHILS % (AUTO) 9 % (0-10); HEMATOCRIT 40 % (40-54); HEMOGLOBIN 13.8 G/DL (13.3-17.7); LYMPHOCYTES # (AUTO) 0.3 X 10^3 (1.0-4.0); LYMPHOCYTES % (AUTO) 10 % (12-44); MEAN CORPUSCULAR HEMOGLOBIN 32 PG (25-34); MEAN CORPUSCULAR HGB CONC 35 G/DL (32-36); MEAN CORPUSCULAR VOLUME 90 FL (80-99); MEAN PLATELET VOLUME 9.2 FL (7.4-10.4); MONOCYTES # (AUTO) 0.4 X 10^3 (0.0-1.0); MONOCYTES % (AUTO) 12 % (0-12); NEUTROPHILS # (AUTO) 2.2 X 10^3 (1.8-7.8); NEUTROPHILS % (AUTO) 68 % (42-75); PLATELET COUNT 170 10^3/uL (130-400); RED CELL DISTRIBUTION WIDTH 12.9 % (10.0-14.5); WHITE BLOOD COUNT 3.2 10^3/uL (4.3-11.0)
[2019-07-27 10:13] LABS: ALANINE AMINOTRANSFERASE 15 U/L (0-55); ALBUMIN 4.3 GM/DL (3.2-4.5); ALKALINE PHOSPHATASE 64 U/L (40-136); BILIRUBIN,TOTAL 0.7 MG/DL (0.1-1.0); BUN/CREATININE RATIO 11; CARBON DIOXIDE 24 MMOL/L (21-32); CHLORIDE 110 MMOL/L (98-107); CREATININE SERUM 0.93 MG/DL (0.60-1.30); GFR ESTIMATED > 60; GLUCOSE 124 MG/DL (70-105); POTASSIUM 4.1 MMOL/L (3.6-5.0); SODIUM 141 MMOL/L (135-145); TOTAL PROTEIN 6.2 GM/DL (6.4-8.2)
[~2019-09-21 09:55] MED LIST changes: +ACETAMINOPHEN 325 MG TAB (TYLENOL) CANCER CTR PO PRN; -BARIUM SUSPENSION 2.1% (VANILLA SILQ) 450 ML PO ONE; +BENDAMUSTINE HCL 180 MG in NS (IVPB) CANCER CENTER 50 ML IV SCH; -CATHETER FLUSH 10 ML SYR IV PRN; +DEXAMETHASONE IV SCH; -HOLD METFORMIN - RECEIVED CONTRAST 20 ML VIAL IV SCH; -IOHEXOL 350 MG/ML 100 ML (OMNIPAQUE 350) VIAL IV ONE; -NS 100 ML (IVPB) BAG IV ONE; +NS IV 1000 ML (CANCER CTR) IV SCH; +NS IV SCH; +ONDANSETRON IV SCH; +PALONOSETRON HCL IV SCH; +[UNRECOGNIZED DRUG - OTHER] IV SCH; +diphenhydrAMINE 25 MG TAB (BENADRYL) CANCER CENTER PO SCH; +riTUXimab 500 MG, riTUXimab FOR IV INJ CONC 300 MG in NS (IVPB) CANCER CENTER 186 ML IV SCH
[2019-09-21 10:20] LABS: BASOPHILS % (AUTO) 1 % (0-10); EOSINOPHILS # (AUTO) 0.3 10^3/uL (0.0-0.3); EOSINOPHILS % (AUTO) 7 % (0-10); HEMATOCRIT 39 % (40-54); HEMOGLOBIN 13.6 G/DL (13.3-17.7); LYMPHOCYTES # (AUTO) 0.4 X 10^3 (1.0-4.0); LYMPHOCYTES % (AUTO) 12 % (12-44); MEAN CORPUSCULAR HEMOGLOBIN 32 PG (25-34); MEAN CORPUSCULAR HGB CONC 35 G/DL (32-36); MEAN CORPUSCULAR VOLUME 91 FL (80-99); MEAN PLATELET VOLUME 9.5 FL (7.4-10.4); MONOCYTES # (AUTO) 0.5 X 10^3 (0.0-1.0); MONOCYTES % (AUTO) 12 % (0-12); NEUTROPHILS # (AUTO) 2.5 X 10^3 (1.8-7.8); NEUTROPHILS % (AUTO) 68 % (42-75); PLATELET COUNT 173 10^3/uL (130-400); RED CELL DISTRIBUTION WIDTH 12.4 % (10.0-14.5); WHITE BLOOD COUNT 3.7 10^3/uL (4.3-11.0)
[2019-09-21 10:39] LABS: ALANINE AMINOTRANSFERASE 18 U/L (0-55); ALBUMIN 4.3 GM/DL (3.2-4.5); ALKALINE PHOSPHATASE 65 U/L (40-136); BILIRUBIN,TOTAL 0.6 MG/DL (0.1-1.0); BUN/CREATININE RATIO 15; CARBON DIOXIDE 23 MMOL/L (21-32); CHLORIDE 109 MMOL/L (98-107); CREATININE SERUM 0.87 MG/DL (0.60-1.30); GFR ESTIMATED > 60; GLUCOSE 105 MG/DL (70-105); POTASSIUM 4.4 MMOL/L (3.6-5.0); SODIUM 142 MMOL/L (135-145); TOTAL PROTEIN 6.2 GM/DL (6.4-8.2)
== END 2019-09-26 | disposition home or self-care (01) ==
LOC: ONC 09:55
PROVIDERS: ATTEND Internal Medicine Hematology & Oncology
DX: C85.90 Non-Hodgkin lymphoma, unspecified, unspecified site (principal)
CPT/HCPCS: 36591; 80053; 83615; 85025; 96413; 99213; J9312

== ENCOUNTER 2019-10-29 20:12 | Emergency (ER) | payer MEDICARE ==
[~2019-10-29] VITALS: Ht 185 cm; Wt 116.9 kg
[~2019-10-29 20:12] MED LIST changes: -ACETAMINOPHEN 325 MG TAB (TYLENOL) CANCER CTR PO PRN; -BENDAMUSTINE HCL 180 MG in NS (IVPB) CANCER CENTER 50 ML IV SCH; -DEXAMETHASONE IV SCH; -NS IV 1000 ML (CANCER CTR) IV SCH; -NS IV SCH; -ONDANSETRON IV SCH; -PALONOSETRON HCL IV SCH; -[UNRECOGNIZED DRUG - OTHER] IV SCH; -diphenhydrAMINE 25 MG TAB (BENADRYL) CANCER CENTER PO SCH; -riTUXimab 500 MG, riTUXimab FOR IV INJ CONC 300 MG in NS (IVPB) CANCER CENTER 186 ML IV SCH
[2019-10-29] MEDS ORDERED: RT-ALBUTEROL/IPRATROPIUM 3 ML (DUONEB) VIAL INH ONE (20:45)
[2019-10-29] MEDS ORDERED: HYDROCORTISONE 100 MG/2 ML (Solu-CORTEF) VIAL IV ONE (20:45)
[2019-10-29 21:31] LABS: BASOPHILS % (AUTO) 1 % (0-10); EOSINOPHILS # (AUTO) 0.3 10^3/uL (0.0-0.3); EOSINOPHILS % (AUTO) 5 % (0-10); HEMATOCRIT 40 % (40-54); HEMOGLOBIN 14.2 G/DL (13.3-17.7); LYMPHOCYTES # (AUTO) 0.6 X 10^3 (1.0-4.0); LYMPHOCYTES % (AUTO) 10 % (12-44); MEAN CORPUSCULAR HEMOGLOBIN 32 PG (25-34); MEAN CORPUSCULAR HGB CONC 35 G/DL (32-36); MEAN CORPUSCULAR VOLUME 91 FL (80-99); MEAN PLATELET VOLUME 9.7 FL (7.4-10.4); MONOCYTES # (AUTO) 0.6 X 10^3 (0.0-1.0); MONOCYTES % (AUTO) 11 % (0-12); NEUTROPHILS # (AUTO) 4.2 X 10^3 (1.8-7.8); NEUTROPHILS % (AUTO) 73 % (42-75); PLATELET COUNT 184 10^3/uL (130-400); RED CELL DISTRIBUTION WIDTH 12.8 % (10.0-14.5); WHITE BLOOD COUNT 5.7 10^3/uL (4.3-11.0)
--- NOTE | 2019-10-29 21:50 | Diagnostic Imaging Report ---
INDICATION: Cough, lymphoma COMPARISON: 06/07/2019 FINDINGS: Frontal and lateral views of the chest demonstrate malpositioned right IJ Port-A-Cath. The catheter is coiled overlying the right lung apex. Otherwise, lungs are clear. The heart is normal. There is no pneumothorax. Osseous structures are stable. IMPRESSION: 1. Malpositioned right IJ Port-A-Cath 2. Negative chest Dictated by: Dictated on workstation # [id number]
[2019-10-29 21:53] LABS: ALANINE AMINOTRANSFERASE 19 U/L (0-55); ALBUMIN 4.4 GM/DL (3.2-4.5); ALKALINE PHOSPHATASE 64 U/L (40-136); BILIRUBIN,TOTAL 0.5 MG/DL (0.1-1.0); BUN/CREATININE RATIO 11; CALCIUM 8.9 MG/DL (8.5-10.1); CARBON DIOXIDE 20 MMOL/L (21-32); CHLORIDE 109 MMOL/L (98-107); CREATININE SERUM 0.97 MG/DL (0.60-1.30); GFR ESTIMATED > 60; GLUCOSE 117 MG/DL (70-105); POTASSIUM 3.8 MMOL/L (3.6-5.0); SODIUM 141 MMOL/L (135-145); TOTAL PROTEIN 6.2 GM/DL (6.4-8.2)
--- NOTE | 2019-10-29 21:57 | ED Cough/URI ---
General Chief Complaint: Cough/Cold/Flu Symptoms Stated Complaint: VOMITTING,CONGESTED Nursing Triage Note: Pt ambulates to [facility] 9 with c/o cough/vomiting/chills x 3 months. Pt has been on 4 rounds of Abx and steroids for PNA and has not gotten better. Pt reports Hx of COPD and also in remission for Stage IV Non-Hodgkins lymphoma. Pt reports SOB, denies CP. O2 97% on RA upon arrival. Sepsis Screen: No Definite Risk History of Present Illness Date Seen by Provider: Oct 29, 2019 Time Seen by Provider: 20:20 Initial Comments 59-year-old male presents for chronic cough that is been present for approximately 3 months. He has been treated with antibiotics and steroids that no improvement. He has had neither of these in the last 6 weeks. He denies recent fevers. He cannot take cough suppressant because of his Depakote. Patient does not believe that he is worse today however they were in town and his daughter up from work. He has this to be using nebulized albuterol treatments every 4 hours, however he is mainly been doing them once daily. He was on Tessalon Perles and did notice some improvement while using those. He did not receive an influenza vaccine this year. Timing/Duration: intermittent Severity/Quality: mild, productive cough Prior Episodes/Possible Cause: occasional episodes Modifying Factors: Improves With Albuterol Nebulizer Associated Symptoms: denies symptoms Allergies and Home Medications Allergies Coded Allergies: No Known Drug Allergies (Unverified , 10/16/17) Home Medications Acyclovir 200 Mg Capsule, 200 MG PO 5XD Prescribed by: YURI GREER on 04/22/19 014 Albuterol Sulfate 18 Gm Hfa.aer.ad, 2 PUFF INH Q4H PRN for SHORTNESS OF BREATH, (Reported) Benzonatate 100 Mg Capsule, 100 MG PO Q6H PRN for COUGH Prescribed by: LEIGHTON LU on 10/29/192203 Cephalexin 500 Mg Capsule, 500 MG PO TID Prescribed by: YURI GREER on 04/22/19 0148 Citalopram Hydrobromide 40 Mg Tablet, 60 MG PO HS, (Reported) TAKES 1 & 1/2 (40MG) TABLET Divalproex Sodium 500 Mg Tablet.dr, 500 MG PO 1800, (Reported) Fluticasone/Salmeterol 1 Each Blst.w.dev, 1 EACH IH DAILY PRN for SHORTNESS OF BREATH, (Reported) Meloxicam 15 Mg Tablet, 15 MG PO HS, (Reported) [place] 3 Polyunsat Fatty Acids 1,000 Mg Cap, 1,000 MG PO DAILY, (Reported) Omeprazole 20 Mg Capsule.dr, 20 MG PO BID, (Reported) Prednisone 20 Mg Tab, 60 MG PO DAILY Prescribed by: LEIGHTON LU on 10/29/192203 Tramadol HCl 50 Mg Tablet, 50 MG PO Q6H PRN for PAIN Prescribed by: YURI GREER on 04/22/19 0148 Vitamin B Complex 1 Each Capsule, 1 CAP PO DAILY, (Reported) Patient Home Medication List Home Medication List Reviewed: Yes Review of Systems Review of Systems Constitutional: no symptoms reported, see HPI Respiratory: see HPI, cough; No dyspnea on exertion, No hemoptysis; phlegm; No short of breath, No wheezing Cardiovascular: no symptoms reported, see HPI; No chest pain All Other Systems Reviewed Negative Unless Noted: Yes Past Qnxpnhe-Yytzav-Ggbarj Hx Past Med/Social Hx: Reviewed Nursing Past Med/Soc Hx Patient Social History Alcohol Use: Denies Use Recreational Drug Use: No Type Used: Smokeless Tobacco 2nd Hand Smoke Exposure: No Recent Foreign Travel: No Contact w/Someone Who Travel: No Recent Infectious Disease Expo: No Recent Hopitalizations: No Physical Abuse: No Sexual Abuse: No Mistreated: No Fear: No Immunizations Up To Date Tetanus Booster (TDap): Unknown PED Vaccines UTD: No Date of Pneumonia Vaccine: Aug 03, 2018 Date of Influenza Vaccine: Jul 28, 2018 Seasonal Allergies Seasonal Allergies: No Past Medical History Surgeries: Yes Abdominal, Appendectomy, Gallbladder, Orthopedic, Rectal, Tonsillectomy Respiratory: Yes COPD Currently Using CPAP: Yes Cardiac: No Neurological: No Genitourinary: No Gastrointestinal: Yes Abdominal Hernia, Gastroesophageal Reflux, Hemorrhoids Musculoskeletal: Yes Arthritis, Fractures Endocrine: No HEENT: No Cancer: Yes Skin, Lymphoma Did You Recieve Any Treatments: Yes What Type of Treatment Did You: Chemotherapy Psychosocial: Yes Anxiety, Depression Integumentary: Yes (BENIGN TUMOR LEFT EAR) Recent Skin Changes Blood Disorders: Yes (MANTLE CELL LYMPHOMA) Family Medical History Cardiovascular disease 19 MOTHER G8 SISTER Completed stroke G8 SISTER FH: brain tumor G8 SISTER FH: emphysema 19 FATHER FH: kidney failure 19 FATHER Physical Exam Vital Signs - First Documented 10/29/19 20:17 Temp 36.2 Pulse 87 Resp 20 B/P (MAP) 152/91 (111) Pulse Ox 97 O2 Delivery Room Air Capillary Refill : Less Than 3 Seconds Height: 6'1.00" Weight: 260lbs. 0.0oz. 117.939228yi; 34.00 BMI Method:Stated General Appearance: WD/WN, no apparent distress Eyes: Bilateral Eye Normal Inspection, Bilateral Eye PERRL, Bilateral Eye EOMI HEENT: PERRL/EOMI, normal ENT inspection, TMs normal, pharynx normal (with postnasal drainage noted) Neck: non-tender, full range of motion, supple, normal inspection Respiratory: chest non-tender (port noted to right chest wall), lungs clear, normal breath sounds Cardiovascular: normal peripheral pulses, regular rate, rhythm Gastrointestinal: normal bowel sounds, non tender, soft Extremities: normal range of motion, non-tender, normal inspection, no pedal edema Neurologic/Psychiatric: no motor/sensory deficits, alert, normal mood/affect, oriented x 3 Progress/Results/Core Measures Suspected Sepsis Recent Fever Within 48 Hours: No Infection Criteria Present: None New/Unexplained Altered Menta: No Sepsis Screen: No Definite Risk SIRS Temperature: Pulse: 87 Respiratory Rate: 20 Laboratory Tests 10/29/19 21:22: White Blood Count 5.7 Blood Pressure 152 /91 Mean: 111 Laboratory Tests 10/29/19 21:22: Creatinine 0.97, Platelet Count 184, Total Bilirubin 0.5 Results/Orders Lab Results Laboratory Tests Test 10/29/19 21:22 Range/Units White Blood Count 5.7 4.3-11.0 10^3/uL Red Blood Count 4.40 4.35-5.85 10^6/uL Hemoglobin 14.2 13.3-17.7 G/DL Hematocrit 40 40-54 % Mean Corpuscular Volume 91 80-99 FL Mean Corpuscular Hemoglobin 32 25-34 PG Mean Corpuscular Hemoglobin Concent 35 32-36 G/DL Red Cell Distribution Width 12.8 10.0-14.5 % Platelet Count 184 130-400 10^3/uL Mean Platelet Volume 9.7 7.4-10.4 FL Neutrophils (%) (Auto) 73 42-75 % Lymphocytes (%) (Auto) 10 L 12-44 % Monocytes (%) (Auto) 11 0-12 % Eosinophils (%) (Auto) 5 0-10 % Basophils (%) (Auto) 1 0-10 % Neutrophils # (Auto) 4.2 1.8-7.8 X 10^3 Lymphocytes # (Auto) 0.6 L 1.0-4.0 X 10^3 Monocytes # (Auto) 0.6 0.0-1.0 X 10^3 Eosinophils # (Auto) 0.3 0.0-0.3 10^3/uL Basophils # (Auto) 0.0 0.0-0.1 10^3/uL Sodium Level 141 135-145 MMOL/L Potassium Level 3.8 3.6-5.0 MMOL/L Chloride Level 109 H 98-107 MMOL/L Carbon Dioxide Level 20 L 21-32 MMOL/L Anion Gap 12 5-14 MMOL/L Blood Urea Nitrogen 11 7-18 MG/DL Creatinine 0.97 0.60-1.30 MG/DL Estimat Glomerular Filtration Rate > 60 BUN/Creatinine Ratio 11 Glucose Level 117 H 70-105 MG/DL Calcium Level 8.9 8.5-10.1 MG/DL Corrected Calcium 8.6 8.5-10.1 MG/DL Total Bilirubin 0.5 0.1-1.0 MG/DL Aspartate Amino Transf (AST/SGOT) 27 5-34 U/L Alanine Aminotransferase (ALT/SGPT) 19 0-55 U/L Alkaline Phosphatase 64 40-136 U/L B-Type Natriuretic Peptide < 10.0 <100.0 PG/ML Total Protein 6.2 L 6.4-8.2 GM/DL Albumin 4.4 3.2-4.5 GM/DL Micro Results Microbiology 10/29/19 Influenza Types A,B Antigen (HUMA) - Final, Complete My Orders Orders - LEIGHTON LU Cbc With Automated Diff (10/29/19 20:27) Comprehensive Metabolic Panel (10/29/19 20:27) Influenza A And B Antigens (10/29/19 20:27) Albuterol/Ipra Inhalation Soln (Duoneb I (10/29/19 20:45) Svn Small Volume Nebulizer (10/29/19 20:39) BNP (10/29/19 20:39) Chest Pa/Lat (2 View) (10/29/19 20:39) Hydrocortisone Injection (Solu-Cortef In (10/29/19 20:45) Benzonatate Capsule (Tessalon Perles) (10/29/19 22:01) Medications Given in ED Current Medications Medications Dose Ordered Sig/Gunner Route Start Time Stop Time Status Last Admin Dose Admin Albuterol/ Ipratropium 3 ml ONCE ONCE INH 10/29/19 20:45 10/29/19 20:46 DC 10/29/19 20:46 3 ML Hydrocortisone Sodium Succinate 100 mg ONCE ONCE IV 10/29/19 20:45 10/29/19 20:46 DC 10/29/19 21:11 100 MG Vital Signs/I&O 10/29/19 10/29/19 10/29/19 20:17 20:27 23:13 Temp 36.2 36.1 Pulse 87 81 Resp 20 20 B/P (MAP) 152/91 (111) 128/92 (111) Pulse Ox 97 97 O2 Delivery Room Air Room Air Room Air Capillary Refill : Less Than 3 Seconds Blood Pressure Mean: 111 Diagnostic Imaging Diagonstic Imaging: Xray Plain Films/CT/US/NM/MRI: chest Comments NAME: [facility] REC#: [id number] PT STATUS: REG ER : 1960 PHYSICIAN: LEIGHTON LU ADMIT DATE: 10/29/19/ER Draft Date of Exam:10/29/19 CHEST PA/LAT (2 VIEW) INDICATION: Cough, lymphoma COMPARISON: 06/07/2019 FINDINGS: Frontal and lateral views of the chest demonstrate malpositioned right IJ Port-A-Cath. The catheter is coiled overlying the right lung apex. Otherwise, lungs are clear. The heart is normal. There is no pneumothorax. Osseous structures are stable. IMPRESSION: 1. Malpositioned right IJ Port-A-Cath 2. Negative chest Dictated on workstation # [id number] Dict: 10/29/192139 Trans: 10/29/192148 SCOTT [id number] Interpreted by: MITCHELL CORREIA Electronically signed by: Reviewed: Reviewed by Me Departure Impression Primary Impression: Upper respiratory infection Qualified Codes: J06.9 - Acute upper respiratory infection, unspecified Disposition: 01 HOME, SELF-CARE Condition: Improved Departure-Patient Inst. Referrals: SELF,SANGEETHA CARPENTER (PCP/Family) Primary Care Physician Patient Instructions: Cough, Adult (DC), Viral Upper Respiratory Infection, Adult (DC) Add. Discharge Instructions: Use the albuterol nebulized treatments every 4 hours. Obtain an influenza vaccine. Take the prednisone and Tessalon Perles as ordered. Follow-up with your primary care provider if symptoms are not improving or worsen. Continue to take Mucinex one tablet every 12 hours with one full glass of water. Return to the emergency department for fever greater than 101 not relieved by Tylenol or ibuprofen, shortness of air, or new urgent health care concerns. All discharge instructions reviewed with patient and/or family. Voiced understanding. Scripts Benzonatate (Tessalon Perle) 100 Mg Capsule 100 MG PO Q6H PRN for COUGH, #20 CAP 0 Refills Prov: LEIGHTON LU 10/29/19 Prednisone (Prednisone) 20 Mg Tab 60 MG PO DAILY, #9 TAB 0 Refills Prov: LEIGHTON LU 10/29/19 LEIGHTON LU Oct 29, 2019 21:57
[2019-10-29] MEDS ORDERED: BENZONATATE 100 MG (TESSALON) CAPSULE PO STA (22:01)
[2019-10-29] MEDS ORDERED: BENZ-13 PO (22:04)
[2019-10-29] MEDS ORDERED: PRD20T PO (22:04)
[2019-10-29 23:13] VITALS: BP 128/92
== END 2019-10-29 23:05 | disposition home or self-care (01) ==
LOC: EDUNIT# 20:12 → ER 20:13
DX: J06.9 Acute upper respiratory infection, unspecified (principal); J44.9 Chronic obstructive pulmonary disease, unspecified; F41.9 Anxiety disorder, unspecified; F32.9 Major depressive disorder, single episode, unspecified; K21.9 Gastro-esophageal reflux disease without esophagitis; Z85.828 Personal history of other malignant neoplasm of skin; Z85.72 Personal history of non-Hodgkin lymphomas; Z79.51 Long term (current) use of inhaled steroids; Z90.49 Acquired absence of other specified parts of digestive tract; Z90.89 Acquired absence of other organs; Z82.49 Family history of ischemic heart disease and other diseases of the circulatory system
CPT/HCPCS: 36415; 71046; 80053; 83880; 85025; 87804; 96374

== ENCOUNTER → 2019-11-04 | Outpatient (CLI) | payer MEDICARE ==
[~2019-11-04] MED LIST changes: +BENZ-13 PO; +CATHETER FLUSH 10 ML SYR IV PRN; +HOLD METFORMIN - RECEIVED CONTRAST 20 ML VIAL IV SCH; +IOHEXOL 350 MG/ML 100 ML (OMNIPAQUE 350) VIAL IV ONE; +NS 100 ML (IVPB) BAG IV ONE; +PRD20T PO; -TRAM50TA2 PO; +TRM50T PO
--- NOTE | 2019-11-04 09:48 | Diagnostic Imaging Report ---
PROCEDURE: CT chest with and without contrast. TECHNIQUE: Multiple contiguous axial images were obtained through the chest before and after administration of intravenous contrast. Auto Exposure Controls were utilized during the CT exam to meet ALARA standards for radiation dose reduction. INDICATION: Cough with nausea and vomiting for three months. Patient does have history of non-Hodgkin's lymphoma. COMPARISON: Correlation is made with prior CT chest from 06/28/2019. FINDINGS: Right chest wall port appears to be malpositioned. The port is coiled in the right upper chest. There are numerous collateral opacified venous structures in the posterior upper chest bilaterally, likely from port injection into a venous branch. No axillary lymphadenopathy is detected. No definite hilar or mediastinal lymphadenopathy is detected. No pericardial or pleural fluid is detected. No pulmonary infiltrates, nodules or masses are seen. Central airways are patent. Upper abdomen does show multiple low densities throughout the liver consistent with cysts. IMPRESSION: 1. Malpositioned right chest wall port. 2. No evidence of thoracic lymphadenopathy, pulmonary mass or infiltrate. No chest effusion is detected. Dictated by: Dictated on workstation # [id number]
== END ==
LOC: RAD FS 08:35
PROVIDERS: ATTEND Nurse Practitioner Family
DX: T85.9XXA Unspecified complication of internal prosthetic device, implant and graft, initial encounter (principal); J44.9 Chronic obstructive pulmonary disease, unspecified
CPT/HCPCS: 71270

== ENCOUNTER → 2019-11-08 | Outpatient (CLI) | payer MEDICARE ==
[~2019-11-08] MED LIST changes: -CATHETER FLUSH 10 ML SYR IV PRN; -HOLD METFORMIN - RECEIVED CONTRAST 20 ML VIAL IV SCH; -IOHEXOL 350 MG/ML 100 ML (OMNIPAQUE 350) VIAL IV ONE; -NS 100 ML (IVPB) BAG IV ONE
--- NOTE | 2019-11-08 10:11 | Diagnostic Imaging Report ---
INDICATION: Right forearm injury. FINDINGS: Two views of the right forearm show no fracture or dislocation. IMPRESSION: Negative left forearm. Dictated by: Dictated on workstation # [id number]
== END ==
LOC: RAD FS 10:02
PROVIDERS: ATTEND Nurse Practitioner Family
DX: S59.911A Unspecified injury of right forearm, initial encounter (principal); X58.XXXA Exposure to other specified factors, initial encounter
CPT/HCPCS: 73090

== ENCOUNTER 2019-12-04 18:02 | Observation (INO) | payer MEDICARE ==
[~2019-12-04] VITALS: Ht 185 cm; Wt 116.0 kg
[~2019-12-04 18:02] MED LIST changes: +OMEP-280 PO; -OMEP20CA13 PO; +OMEP40CA27 PO; -OMEP40CA36 PO
--- NOTE | 2019-12-04 18:28 | ED General ---
General Stated Complaint: CHEST PAIN History of Present Illness Date Seen by Provider: Dec 04, 2019 Time Seen by Provider: 18:05 Initial Comments The patient is a 59-year-old male with a history of depression, COPD, non- Hodgkin's lymphoma reportedly in remission at this time. He has a right upper chest wall oymi-k-wizwfyux which is reportedly malpositioned and "coiled up in the chest" and scheduled for surgical removal and replacement in the near future. The patient presents with concern for 2 days of sharp, pleuritic, quite severe chest discomfort localizing to the central sternal chest and the right inferior lateral chest. Associated nausea. No associated fever, vomiting, upper respiratory congestion/rhinorrhea, cough, shortness of breath, flank pain, back pain, abdominal pain. Patient first went to urgent care and was redirected to the emergency department for evaluation. Allergies and Home Medications Allergies Coded Allergies: No Known Drug Allergies (Unverified , 10/16/17) Home Medications Acyclovir 200 Mg Capsule, 200 MG PO 5XD Prescribed by: YURI GREER on 04/22/19147 Albuterol Sulfate 18 Gm Hfa.aer.ad, 2 PUFF INH Q4H PRN for SHORTNESS OF BREATH, (Reported) Benzonatate 100 Mg Capsule, 100 MG PO Q6H PRN for COUGH Prescribed by: LEIGHTON LU on 10/29/192203 Cephalexin 500 Mg Capsule, 500 MG PO TID Prescribed by: YURI GREER on 04/22/19147 Citalopram Hydrobromide 40 Mg Tablet, 60 MG PO HS, (Reported) TAKES 1 & 1/2 (40MG) TABLET Divalproex Sodium 500 Mg Tablet.dr, 500 MG PO 1800, (Reported) Fluticasone/Salmeterol 1 Each Blst.w.dev, 1 EACH IH DAILY PRN for SHORTNESS OF BREATH, (Reported) Meloxicam 15 Mg Tablet, 15 MG PO HS, (Reported) [place] 3 Polyunsat Fatty Acids 1,000 Mg Cap, 1,000 MG PO DAILY, (Reported) Omeprazole 20 Mg Capsule.dr, 20 MG PO BID, (Reported) Prednisone 20 Mg Tab, 60 MG PO DAILY Prescribed by: LEIGHTON LU on 10/29/192203 Tramadol HCl 50 Mg Tablet, 50 MG PO Q6H PRN for PAIN Prescribed by: YURI GREER on 04/22/19 0148 Vitamin B Complex 1 Each Capsule, 1 CAP PO DAILY, (Reported) Patient Home Medication List Home Medication List Reviewed: Yes Review of Systems Review of Systems Constitutional: see HPI All Other Systems Reviewed Negative Unless Noted: Yes (Negative excepted noted.) Past Lambghj-Bcgkma-Vfcrkx Hx Past Med/Social Hx: Reviewed Nursing Past Med/Soc Hx Patient Social History Type Used: Smokeless Tobacco 2nd Hand Smoke Exposure: No Recent Hopitalizations: No Immunizations Up To Date Tetanus Booster (TDap): Unknown PED Vaccines UTD: No Date of Pneumonia Vaccine: Aug 03, 2018 Date of Influenza Vaccine: Jul 28, 2018 Seasonal Allergies Seasonal Allergies: No Past Medical History Surgeries: Yes Abdominal, Appendectomy, Gallbladder, Orthopedic, Rectal, Tonsillectomy Respiratory: Yes COPD Currently Using CPAP: Yes Cardiac: No Neurological: No Genitourinary: No Gastrointestinal: Yes Abdominal Hernia, Gastroesophageal Reflux, Hemorrhoids Musculoskeletal: Yes Arthritis, Fractures Endocrine: No HEENT: No Cancer: Yes Skin, Lymphoma Did You Recieve Any Treatments: Yes What Type of Treatment Did You: Chemotherapy Psychosocial: Yes Anxiety, Depression Integumentary: Yes (BENIGN TUMOR LEFT EAR) Recent Skin Changes Blood Disorders: Yes (MANTLE CELL LYMPHOMA) Family Medical History Reviewed Nursing Family Hx Cardiovascular disease 19 MOTHER G8 SISTER Completed stroke G8 SISTER FH: brain tumor G8 SISTER FH: emphysema 19 FATHER FH: kidney failure 19 FATHER Physical Exam Vital Signs Vital Signs - First Documented 12/04/19 18:05 Temp 36.5 Pulse 80 Resp 20 B/P (MAP) 162/74 (103) Pulse Ox 98 O2 Delivery Room Air Capillary Refill : Height, Weight, BMI Height: 6'1.00" Weight: 260lbs. 0.0oz. 117.846328uf; 34.00 BMI Method:Stated General Appearance: No Apparent Distress Comments This is an older male appearing nontoxic and in no acute distress. Head is normocephalic and atraumatic. Neck is supple and nontender. Oropharynx is moist. Lungs are clear to auscultation at all stations. There is a normal S1 and S2 without rubs or gallops and capillary refill is appropriate, less than 2 seconds globally. Examination of the chest wall reveals thalia catheter in place to right upper chest without surrounding skin surface erythema, warmth, swelling or significant tenderness. Abdomen is soft, nontender and nondistended. Skin is warm and dry without cyanosis, clubbing or edema. Psychiatrically, the patient demonstrates appropriate mood and affect and is alert. Progress/Results/Core Measures Suspected Sepsis SIRS Temperature: Pulse: Respiratory Rate: Laboratory Tests 12/04/19 18:25: White Blood Count 5.4 Blood Pressure / Mean: Laboratory Tests 12/04/19 18:25: Creatinine 1.04, INR Comment 1.0, Platelet Count 174, Total Bilirubin 0.5 Results/Orders Lab Results Laboratory Tests Test 12/04/19 18:25 Range/Units White Blood Count 5.4 4.3-11.0 10^3/uL Red Blood Count 4.47 4.35-5.85 10^6/uL Hemoglobin 14.4 13.3-17.7 G/DL Hematocrit 40 40-54 % Mean Corpuscular Volume 90 80-99 FL Mean Corpuscular Hemoglobin 32 25-34 PG Mean Corpuscular Hemoglobin Concent 36 32-36 G/DL Red Cell Distribution Width 12.1 10.0-14.5 % Platelet Count 174 130-400 10^3/uL Mean Platelet Volume 9.5 7.4-10.4 FL Neutrophils (%) (Auto) 75 42-75 % Lymphocytes (%) (Auto) 9 L 12-44 % Monocytes (%) (Auto) 11 0-12 % Eosinophils (%) (Auto) 4 0-10 % Basophils (%) (Auto) 1 0-10 % Neutrophils # (Auto) 4.0 1.8-7.8 X 10^3 Lymphocytes # (Auto) 0.5 L 1.0-4.0 X 10^3 Monocytes # (Auto) 0.6 0.0-1.0 X 10^3 Eosinophils # (Auto) 0.2 0.0-0.3 10^3/uL Basophils # (Auto) 0.1 0.0-0.1 10^3/uL Prothrombin Time 13.4 12.2-14.7 SEC INR Comment 1.0 0.8-1.4 Activated Partial Thromboplast Time 26 24-35 SEC Sodium Level 140 135-145 MMOL/L Potassium Level 4.0 3.6-5.0 MMOL/L Chloride Level 105 98-107 MMOL/L Carbon Dioxide Level 23 21-32 MMOL/L Anion Gap 12 5-14 MMOL/L Blood Urea Nitrogen 16 7-18 MG/DL Creatinine 1.04 0.60-1.30 MG/DL Estimat Glomerular Filtration Rate > 60 BUN/Creatinine Ratio 15 Glucose Level 100 70-105 MG/DL Calcium Level 9.3 8.5-10.1 MG/DL Corrected Calcium 8.5-10.1 MG/DL Total Bilirubin 0.5 0.1-1.0 MG/DL Aspartate Amino Transf (AST/SGOT) 15 5-34 U/L Alanine Aminotransferase (ALT/SGPT) 9 0-55 U/L Alkaline Phosphatase 63 40-136 U/L Troponin I < 0.30 <0.30 NG/ML Pro-B-Type Natriuretic Peptide 44.8 <75.0 PG/ML Total Protein 6.0 L 6.4-8.2 GM/DL Albumin 4.6 H 3.2-4.5 GM/DL My Orders Orders - VINEET CHEN MD Cbc With Automated Diff (12/04/19 18:20) Comprehensive Metabolic Panel (12/04/19 18:20) Troponin I Fs (12/04/19 18:20) Ekg Tracing (12/04/19 18:20) Ct Angio Chest W (12/04/19 18:20) Probnp Fs (12/04/19 18:20) Protime With Inr (12/04/19 18:20) Partial Thromboplastin Time (12/04/19 18:20) Aspirin Tablet (Aspirin Tablet) (12/04/19 18:30) Iohexol Injection (Omnipaque 350 Mg/Ml 1 (12/04/19 19:15) Received Contrast (Hold Metformin- Contr (12/04/19 19:15) Sodium Chloride Flush (Catheter Flush Sy (12/04/19 19:15) Ns (Ivpb) (Sodium Chloride 0.9% Ivpb Bag (12/04/19 19:15) Morphine Injection (Morphine Injection (12/04/19 19:28) Medications Given in ED Current Medications Medications Dose Ordered Sig/Gunner Route Start Time Stop Time Status Last Admin Dose Admin Aspirin 325 mg ONCE ONCE PO 12/04/19 18:30 12/04/19 18:31 DC 12/04/19 18:36 325 MG Iohexol 125 ml ONCE ONCE IV 12/04/19 19:15 12/04/19 19:16 DC 12/04/19 19:43 125 ML Sodium Chloride 10 ml NEEDED PRN IV 12/04/19 19:15 12/04/19 19:44 10 ML Sodium Chloride 100 ml ONCE ONCE IV 12/04/19 19:15 12/04/19 19:16 DC 12/04/19 19:44 80 ML Vital Signs/I&O 12/04/19 12/04/19 18:05 18:05 Temp 36.5 Pulse 80 Resp 20 B/P (MAP) 162/74 (103) Pulse Ox 98 O2 Delivery Room Air Room Air Capillary Refill : Progress Note : Time: 18:27 Progress Note 59-year-old gentleman with a history of non-Hodgkin's lymphoma and a malpositioned right chest portacatheter who presents with severe pleuritic constant central and right inferior chest discomfort 2 days. Vital signs and clinical examination generally reassuring. We will check labs and EKG and obtain a CT angiogram of the chest and will give a full strength aspirin. We will also give some Tylenol for discomfort. We will then reevaluate. Update 2020: Workup as above, without evidence of cardiorespiratory abnormality by labs and no pulmonary embolism or other significant acute abnormality in the chest but evidence of persistent malpositioned portacatheter coiled in the neck. Patient continued to have quite significant right-sided and central pleuritic chest discomfort. He has been in some distress here. Vital signs are appropriate. We'll transfer to [facility] for observation on telemetry, turning of cardiac biomarkers, attention from the putaway driver from the general surgeon for revision of portacatheter. Unable to reach Dr. Blunt at any of the phone numbers available for him for an extended length of time. Therefore, per boiling house oiler at [place], admitting to Dr. Cagle. She graciously accepts. ECG EKG : Comment Sinus rhythm, rate 77, no acute ST elevation or depression, VT 158, QRS 96, QTC 419, EP interpretation. Diagnostic Imaging Diagonstic Imaging: CT Comments CT ANGIO CHEST W PROCEDURE: CT angiography of the chest with contrast. TECHNIQUE: Multiple contiguous axial images were obtained through the chest after uneventful bolus administration of intravenous contrast. 3D reconstructed CTA MIP acquisitions were also performed. Auto Exposure Controls were utilized during the CT exam to meet ALARA standards for radiation dose reduction. INDICATION: Chest pain COMPARISON: 11/04/2019 FINDINGS: Right-sided Port-A-Cath is again identified. This is not completely included within the xwudb-bk-xabz, though does appear to be coiled within the right lower neck. No significant adenopathy within the chest. No aneurysmal dilatation of the thoracic aorta. Heart is within normal limits in size. No pericardial effusion. No pleural effusion. No pneumothorax. Minimal left basilar atelectasis. Dependent atelectasis bilaterally with associated subpleural atelectasis or fibrosis. The lungs are otherwise clear. The airway is patent. No significant filling defect within the central or segmental pulmonary arteries. Multiple hepatic hypodensities are again identified, stable from prior imaging and consistent with cysts. Cholecystectomy. The visualized upper abdomen is otherwise unremarkable. Postsurgical changes within the cervical spine. Scattered Schmorl's nodes and degenerative changes. No acute osseous abnormality. IMPRESSION: No significant pulmonary embolism. Mild scattered regions of atelectasis with additional mild subpleural atelectasis and/or fibrosis. Port-A-Cath remains abnormally positioned. Though only partially visualized, this appears to be coiled within the right lower neck. Departure Impression Primary Impression: Other chest pain Additional Impression: Encounter for care related to Port-a-Cath Disposition: ADMITTED INPATIENT Condition: Stable Departure-Patient Inst. Referrals: SANGEETHA MURRY MD (PCP/Family) Primary Care Physician VINEET CHEN MD Dec 04, 2019 18:28
[2019-12-04] MEDS ORDERED: ASPIRIN 325 MG (5 GR) TABLET PO ONE (18:30)
[2019-12-04] MEDS ORDERED: ACETAMINOPHEN 325 MG TABLET PO ONE (18:30)
[2019-12-04 18:38] LABS: WHITE BLOOD COUNT 5.4 10^3/uL (4.3-11.0)
[2019-12-04 18:39] LABS: BASOPHILS # (AUTO) 0.1 10^3/uL (0.0-0.1); BASOPHILS % (AUTO) 1 % (0-10); EOSINOPHILS # (AUTO) 0.2 10^3/uL (0.0-0.3); EOSINOPHILS % (AUTO) 4 % (0-10); HEMATOCRIT 40 % (40-54); HEMOGLOBIN 14.4 G/DL (13.3-17.7); LYMPHOCYTES # (AUTO) 0.5 X 10^3 (1.0-4.0); LYMPHOCYTES % (AUTO) 9 % (12-44); MEAN CORPUSCULAR HEMOGLOBIN 32 PG (25-34); MEAN CORPUSCULAR HGB CONC 36 G/DL (32-36); MEAN CORPUSCULAR VOLUME 90 FL (80-99); MEAN PLATELET VOLUME 9.5 FL (7.4-10.4); MONOCYTES # (AUTO) 0.6 X 10^3 (0.0-1.0); MONOCYTES % (AUTO) 11 % (0-12); NEUTROPHILS % (AUTO) 75 % (42-75); PLATELET COUNT 174 10^3/uL (130-400); RED CELL DISTRIBUTION WIDTH 12.1 % (10.0-14.5)
[2019-12-04 18:49] LABS: PROTHROMBIN TIME PATIENT 13.4 SEC (12.2-14.7)
[2019-12-04 19:03] LABS: ALANINE AMINOTRANSFERASE 9 U/L (0-55); ALBUMIN 4.6 GM/DL (3.2-4.5); ALKALINE PHOSPHATASE 63 U/L (40-136); BILIRUBIN,TOTAL 0.5 MG/DL (0.1-1.0); BUN/CREATININE RATIO 15; CALCIUM 9.3 MG/DL (8.5-10.1); CARBON DIOXIDE 23 MMOL/L (21-32); CHLORIDE 105 MMOL/L (98-107); CREATININE SERUM 1.04 MG/DL (0.60-1.30); GFR ESTIMATED > 60; GLUCOSE 100 MG/DL (70-105); SODIUM 140 MMOL/L (135-145)
[2019-12-04] MEDS ORDERED: NS 100 ML (IVPB) BAG IV ONE (19:15)
[2019-12-04] MEDS ORDERED: CATHETER FLUSH 10 ML SYR IV PRN (19:15)
[2019-12-04] MEDS ORDERED: HOLD METFORMIN - RECEIVED CONTRAST 20 ML VIAL IV SCH (19:15)
[2019-12-04] MEDS ORDERED: IOHEXOL 350 MG/ML 150 ML (OMNIPAQUE 350) VIAL IV ONE (19:15)
[2019-12-04] MEDS ORDERED: morphine INJ 10 MG/ML 1ML (SYR OR VIAL) IVP STA (19:28)
--- NOTE | 2019-12-04 20:02 | Diagnostic Imaging Report ---
PROCEDURE: CT angiography of the chest with contrast. TECHNIQUE: Multiple contiguous axial images were obtained through the chest after uneventful bolus administration of intravenous contrast. 3D reconstructed CTA MIP acquisitions were also performed. Auto Exposure Controls were utilized during the CT exam to meet ALARA standards for radiation dose reduction. INDICATION: Chest pain COMPARISON: 11/04/2019 FINDINGS: Right-sided Port-A-Cath is again identified. This is not completely included within the bvfbm-iy-eozz, though does appear to be coiled within the right lower neck. No significant adenopathy within the chest. No aneurysmal dilatation of the thoracic aorta. Heart is within normal limits in size. No pericardial effusion. No pleural effusion. No pneumothorax. Minimal left basilar atelectasis. Dependent atelectasis bilaterally with associated subpleural atelectasis or fibrosis. The lungs are otherwise clear. The airway is patent. No significant filling defect within the central or segmental pulmonary arteries. Multiple hepatic hypodensities are again identified, stable from prior imaging and consistent with cysts. Cholecystectomy. The visualized upper abdomen is otherwise unremarkable. Postsurgical changes within the cervical spine. Scattered Schmorl's nodes and degenerative changes. No acute osseous abnormality. IMPRESSION: No significant pulmonary embolism. Mild scattered regions of atelectasis with additional mild subpleural atelectasis and/or fibrosis. Port-A-Cath remains abnormally positioned. Though only partially visualized, this appears to be coiled within the right lower neck. Dictated by: Dictated on workstation # [id number]
[2019-12-04 22:30] VITALS: BP 147/104
[2019-12-04] MEDS ORDERED: morphine INJ 4 MG/ML 1 ML (VIAL/SYRINGE) IV PRN (23:00)
[2019-12-04] MEDS ORDERED: ONDANSETRON 4 MG/2 ML (SDV) Z0FRAN IV PRN (23:00)
[2019-12-04] MEDS ORDERED: fentaNYL INJECTION 100 MCG/2 ML AMP ONE (23:52)
[2019-12-04] MEDS ORDERED: MELOXICAM 7.5 MG (MOBIC) TABLET PO ONE (23:52)
[2019-12-04] MEDS ORDERED: DIVALPROEX EXT RELEASE 500 MG (DEPAKOTE ER) TAB PO ONE (23:53)
[2019-12-05] VITALS: BP 132/87
[2019-12-05] MEDS ORDERED: DIVALPROEX 250 MG DELAYED RELEASE (DEPAKOTE) TAB PO ONE
[2019-12-05] MEDS ORDERED: DIVALPROEX 500 MG DELAYED RELEASE (DEPAKOTE) TAB PO ONE
[2019-12-05] MEDS ORDERED: MELOXICAM 7.5 MG (MOBIC) TABLET PO ONE ×2
[2019-12-05] MEDS ORDERED: fentaNYL INJECTION 100 MCG/2 ML AMP IVP PRN
[2019-12-05 01:10] VITALS: BP 147/104
[2019-12-05 04:00] VITALS: BP 123/76
[2019-12-05 04:20] LABS: ALANINE AMINOTRANSFERASE 11 U/L (0-55); ALBUMIN 3.9 GM/DL (3.2-4.5); ALKALINE PHOSPHATASE 58 U/L (40-136); BILIRUBIN,TOTAL 0.3 MG/DL (0.1-1.0); BUN/CREATININE RATIO 14; CALCIUM 8.9 MG/DL (8.5-10.1); CARBON DIOXIDE 21 MMOL/L (21-32); CHLORIDE 109 MMOL/L (98-107); CREATININE SERUM 1.06 MG/DL (0.60-1.30); GFR ESTIMATED > 60; GLUCOSE 111 MG/DL (70-105); POTASSIUM 3.7 MMOL/L (3.6-5.0); SODIUM 140 MMOL/L (135-145); TOTAL PROTEIN 5.6 GM/DL (6.4-8.2)
--- NOTE | 2019-12-05 07:30 | History & Physical-Hospitalist ---
History of Present Illness HPI/Chief Complaint The patient is a 59-year-old male with a history of depression, COPD, non- Hodgkin's lymphoma reportedly in remission at this time. He has a right upper chest wall hsky-n-ekowfgyr which is reportedly malpositioned and "coiled up in the chest" and scheduled for surgical removal and replacement in the near future. The patient presents with concern for 2 days of sharp, pleuritic, quite severe chest discomfort localizing to the central sternal chest and the right inferior lateral chest. Associated nausea. No associated fever, vomiting, upper respiratory congestion/rhinorrhea, cough, shortness of breath, flank pain, back pain, abdominal pain. Patient first went to urgent care and was redirected to the emergency department for evaluatio Date Seen 12/05/19 Attending Physician Serge Bruce MD PCP Self,Mirza CARPENTER Referring Physician Date of Admission Dec 04, 2019 at 21:16 Home Medications & Allergies Home Medications Reviewed patient Home Medication Reconciliation performed by pharmacy medication reconciliations crown and bridge technician and/or nursing. Patients Allergies have been reviewed. Allergies Allergies Coded Allergies No Known Drug Allergies (Erddbnmfom29/14/17) Past Tnoqyrd-Mjnpao-Ouywnx Hx Past Med/Social Hx: Reviewed Nursing Past Med/Soc Hx Patient Social History Alcohol Use: Denies Use Recreational Drug Use: No Smoking Status: Former Smoker Former Smoker, Quit: Nov 03, 1989 Type Used: Smokeless Tobacco 2nd Hand Smoke Exposure: No Recent Foreign Travel: No Contact w/other who traveled: No Recent Hopitalizations: No Recent Infectious Disease Expo: No Immunizations Up To Date Tetanus Booster (TDap): Unknown Pediatric: No Date of Pneumonia Vaccine: Aug 03, 2018 Date of Influenza Vaccine: Aug 27, 2019 Seasonal Allergies Seasonal Allergies: No Past Medical History Surgeries: Abdominal, Appendectomy, Gallbladder, Joint Replacement, Orthopedic, Rectal, Tonsillectomy Respiratory: COPD, Sleep Apnea Currently Using CPAP: Yes Gastrointestinal: Abdominal Hernia, Gastroesophageal Reflux, Hemorrhoids Musculoskeletal: Arthritis, Fractures Cancer: Skin, Lymphoma Did You Recieve Any Treatments: Yes What Type of Treatment Did You: Chemotherapy Psychosocial: Anxiety, Depression Skin/Integumentary: Recent Skin Changes History of Blood Disorders: Yes (MANTLE CELL LYMPHOMA) Family History Reviewed Nursing Family Hx Cardiovascular disease 19 MOTHER G8 SISTER Completed stroke G8 SISTER FH: brain tumor G8 SISTER FH: emphysema 19 FATHER FH: kidney failure 19 FATHER Physical Exam Physical Exam Vital Signs Vital Signs - First Documented 12/04/19 18:05 Temp 36.5 Pulse 80 Resp 20 B/P (MAP) 162/74 (103) Pulse Ox 98 O2 Delivery Room Air Capillary Refill : Less Than 3 Seconds Height, Weight, BMI Height: 6'1.00" Weight: 260lbs. 0.0oz. 117.852997wt; 33.89 BMI Method:Stated Results Results/Procedures Labs Laboratory Tests 12/04/19 18:25 12/05/19 03:20 Patient resulted labs reviewed. Clinical Quality Measures AMI/AHF: ASA po Prior to arrival: No DVT/VTE Risk/Contraindication: Risk Factor Score Per Nursin RFS Level Per Nursing on Admit: 1=Low/No VTE PPX SERGE BRUCE MD Dec 05, 2019 07:30
[2019-12-05 08:00] VITALS: BP 121/78
[2019-12-05] MEDS ORDERED: RT-ALBUTEROL/IPRATROPIUM 3 ML (DUONEB) VIAL INH PRN (09:30)
--- NOTE | 2019-12-05 09:43 | Short Stay Summary-Hospitalist ---
History of Present Illness HPI/Chief Complaint The patient is a 59-year-old male with a history of depression, COPD, non- Hodgkin's lymphoma reportedly in remission at this time. He has a right upper chest wall qdbl-r-grupnqxy which is reportedly malpositioned and "coiled up in the chest" and scheduled for surgical removal and replacement in the near future. The patient presents with concern for 2 days of sharp, pleuritic, quite severe chest discomfort localizing to the central sternal chest and the right inferior lateral chest. Associated nausea. No associated fever, vomiting, upper respiratory congestion/rhinorrhea, cough, shortness of breath, flank pain, back pain, abdominal pain. Patient first went to urgent care and was redirected to the emergency department for evaluation.the patient underwent CT angiography which revealed no evidence for clot problems. It does appear that his right Wdwxok-w-Zfpw is coiled. He had no reported facial edema and no evidence for blood clots or pulmonary embolism. For me he reports that most of his pain is the base of his right trapezius worse with coughing worse with movement. He has no pain radiating to the shoulder or the hand or weakness in the upper extremity. He's had no chills fever and denies any pain with deep breathing. Only if he coughs or sneezes. There is no associated shortness of breath or diaphoresis. He denies night sweats chills or fever. Date Seen 12/05/19 Time Seen by a Provider: 06:30 Attending Physician Serge dent MD PCP SelfMirza MD Referring Physician Date of Admission Dec 04, 2019 at 21:16 Home Medications & Allergies Home Medications Reviewed patient Home Medication Reconciliation performed by pharmacy medication reconciliations parts technician and/or nursing. Patients Allergies have been reviewed. Allergies Allergies Coded Allergies No Known Drug Allergies (Wgeovqmxda82/14/17) Past Hqaowni-Snwtha-Ovtzyq Hx Past Med/Social Hx: Reviewed Nursing Past Med/Soc Hx, Reviewed and Corrections made Patient Social History Alcohol Use: Denies Use Recreational Drug Use: No Smoking Status: Former Smoker Former Smoker, Quit: Nov 03, 1989 Type Used: Smokeless Tobacco 2nd Hand Smoke Exposure: No Recent Foreign Travel: No Contact w/other who traveled: No Recent Hopitalizations: No Recent Infectious Disease Expo: No Immunizations Up To Date Tetanus Booster (TDap): Unknown Pediatric: No Date of Pneumonia Vaccine: Aug 03, 2018 Date of Influenza Vaccine: Aug 27, 2019 Seasonal Allergies Seasonal Allergies: No Past Medical History Surgeries: Abdominal, Appendectomy, Gallbladder, Joint Replacement, Orthopedic, Rectal, Tonsillectomy Respiratory: COPD, Sleep Apnea Currently Using CPAP: Yes Gastrointestinal: Abdominal Hernia, Gastroesophageal Reflux, Hemorrhoids Musculoskeletal: Arthritis, Fractures Cancer: Skin, Lymphoma Did You Recieve Any Treatments: Yes What Type of Treatment Did You: Chemotherapy Psychosocial: Anxiety, Depression Skin/Integumentary: Recent Skin Changes History of Blood Disorders: Yes (MANTLE CELL LYMPHOMA) Family History Reviewed Nursing Family Hx Cardiovascular disease 19 MOTHER G8 SISTER Completed stroke G8 SISTER FH: brain tumor G8 SISTER FH: emphysema 19 FATHER FH: kidney failure 19 FATHER Review of Systems Constitutional: see HPI Physical Exam Physical Exam Vital Signs Vital Signs - First Documented 12/04/19 18:05 Temp 36.5 Pulse 80 Resp 20 B/P (MAP) 162/74 (103) Pulse Ox 98 O2 Delivery Room Air Capillary Refill : Less Than 3 Seconds Height, Weight, BMI Height: 6'1.00" Weight: 260lbs. 0.0oz. [id number]; 33.89 BMI Method:Stated General Appearance: No Apparent Distress Neck: Full Range of Motion, Normal Inspection, Non Tender, Supple, Carotid Bruit, Other (pain to palpation with base the right sternocleidomastoid muscle is no evidence for warmth erythema or induration of the skin no palpable abnormalities are appreciated of little tightness in the muscle.) Respiratory: Chest Non Tender, Lungs Clear, Normal Breath Sounds, No Accessory Muscle Use, No Respiratory Distress Cardiovascular: Regular Rate, Rhythm, No Edema, No Gallop, No JVD, No Murmur, Normal Peripheral Pulses Gastrointestinal: Normal Bowel Sounds, No Organomegaly, No Pulsatile Mass, Non Tender, Soft Extremity: Normal Capillary Refill, Normal Inspection, Normal Range of Motion, Non Tender, No Calf Tenderness, No Pedal Edema Results Results/Procedures Labs Laboratory Tests 12/04/19 18:25 12/05/19 03:20 Patient resulted labs reviewed. Short Stay Diagnosis Discharge Diagnosis-Short Stay Admission Diagnosis 1. Chest and neck pain no evidence for acute coronary syndrome likely muscle spasm in etiology. patient advised to ice and use ibuprofen or Tylenol when necessary. 600 mg every 8 for the former or 650 mg every 6 when necessary of the latter. 2. Coiled right Qibuiy-v-Cbxr patient is scheduled with Dr. Boykin on Friday to have the port replaced on his left side. He states that he has not been able to [place] or shoot his rifle which is important to him because of his right-sided Fzzmaq-d-Ejav and he was looking forward to getting it removed the other side so that he could resume shooting again. 3. Hodgkin's lymphoma in remission now. Final Discharge Diagnosis as per above Conclusion Plan see admission diagnosis Clinical Quality Measures AMI/AHF: ASA po Prior to arrival: No DVT/VTE Risk/Contraindication: Risk Factor Score Per Nursin RFS Level Per Nursing on Admit: 1=Low/No VTE PPX Copy Copies To 1: SELF,SERGE WILLIAMSON MD, MD Dec 05, 2019 09:43
--- NOTE | 2019-12-05 15:42 | Consultation - Surgery ---
History of Present Illness History of Present Illness Patient Consulted On(sherwin/time) 12/05/19 15:22 Date Seen by Provider: Dec 05, 2019 Time Seen by Provider: 07:12 History of Present Illness Consult requested by Dr. Cagle for malpositioned port. Patient is a 59 year old male admitted for chest pain. Patient having sharp pain central/right side of chest. Radiates into back. Worse with certain movements/positions. Has had pain for about 3 days. Was seen in urgent care yesterday and then sent to ER. Has port for Hodgkin lymphoma. Was seen at [facility] n/v fever sweats chills shortness of breath. Had CTA showing catheter from port into right side of neck, no significant pe, mild scattered regions of atelectasis. Allergies and Home Medications Allergies Coded Allergies: No Known Drug Allergies (Unverified , 10/16/17) Home Medications Acyclovir 200 Mg Capsule, 200 MG PO 5XD Prescribed by: YURI GREER on 04/22/19147 Albuterol Sulfate 18 Gm Hfa.aer.ad, 2 PUFF INH Q4H PRN for SHORTNESS OF BREATH, (Reported) Benzonatate 100 Mg Capsule, 100 MG PO Q6H PRN for COUGH Prescribed by: LEIGHTON LU on 10/29/192203 Cephalexin 500 Mg Capsule, 500 MG PO TID Prescribed by: YURI GREER on 04/22/19147 Citalopram Hydrobromide 40 Mg Tablet, 60 MG PO HS, (Reported) TAKES 1 & 1/2 (40MG) TABLET Divalproex Sodium 500 Mg Tablet.dr, 500 MG PO 1800, (Reported) Fluticasone/Salmeterol 1 Each Blst.w.dev, 1 EACH IH DAILY PRN for SHORTNESS OF BREATH, (Reported) Meloxicam 15 Mg Tablet, 15 MG PO HS, (Reported) Girard 3 Polyunsat Fatty Acids 1,000 Mg Cap, 1,000 MG PO DAILY, (Reported) Omeprazole 20 Mg Capsule.dr, 20 MG PO BID, (Reported) Prednisone 20 Mg Tab, 60 MG PO DAILY Prescribed by: LEIGHTON LU on 10/29/192203 Tramadol HCl 50 Mg Tablet, 50 MG PO Q6H PRN for PAIN Prescribed by: YURI GREER on 04/22/19147 Vitamin B Complex 1 Each Capsule, 1 CAP PO DAILY, (Reported) Patient Home Medication List Home Medication List Reviewed: Yes Past Jxyznlo-Pwivyd-Xueapg Hx Patient Social History Alcohol Use: Denies Use Recreational Drug Use: No Smoking Status: Former Smoker Former Smoker, Quit: Nov 03, 1989 Type Used: Smokeless Tobacco 2nd Hand Smoke Exposure: No Recent Foreign Travel: No Contact w/Someone Who Travel: No Recent Infectious Disease Expo: No Recent Hopitalizations: No Immunizations Up To Date Tetanus Booster (TDap): Unknown PED Vaccines UTD: No Date of Pneumonia Vaccine: Aug 03, 2018 Date of Influenza Vaccine: Aug 27, 2019 Seasonal Allergies Seasonal Allergies: No Surgeries History of Surgeries: Yes (Port Placement, R THR) Surgeries: Abdominal, Appendectomy, Gallbladder, Joint Replacement, Orthopedic, Rectal, Tonsillectomy Respiratory History of Respiratory Disorde: Yes Respiratory Disorders: COPD Cardiovascular History of Cardiac Disorders: No Neurological History of Neurological Disord: No Genitourinary History of Genitourinary Disor: No Gastrointestinal History of Gastrointestinal Di: Yes Gastrointestinal Disorders: Abdominal Hernia, Gastroesophageal Reflux, Hemorrhoids Musculoskeletal History of Musculoskeletal Dis: Yes Musculoskeletal Disorders: Arthritis, Fractures Endocrine History of Endocrine Disorders: No HEENT History of HEENT Disorders: No Cancer History of Cancer: Yes Cancer: Skin, Lymphoma Psychosocial History of Psychiatric Problem: Yes Behavioral Health Disorders: Anxiety, Depression Integumentary History of Skin or Integumenta: Yes (BENIGN TUMOR LEFT EAR) Skin/Integumentary Disorders: Recent Skin Changes Blood Transfusions History of Blood Disorders: Yes (MANTLE CELL LYMPHOMA) Reviewed Nursing Assessment Reviewed/Agree w Nursing PMH: Yes Family Medical History Significant Family History: No Pertinent Family Hx Family Medial History: Cardiovascular disease 19 MOTHER G8 SISTER Completed stroke G8 SISTER FH: brain tumor G8 SISTER FH: emphysema 19 FATHER FH: kidney failure 19 FATHER Review of Systems-General Constitutional: No chills, No diaphoresis EENTM: No hearing loss, No blurred vision, No double vision Respiratory: No cough, No short of breath Cardiovascular: chest pain Gastrointestinal: No abdominal pain, No constipation, No diarrhea, No heartburn Genitourinary: No decreased output, No discharge Musculoskeletal: back pain; No joint pain Skin: No change in color, No change in hair/nails Psychiatric/Neurological: Denies Anxiety, Denies Depressed Physical Exam-General Problems Physical Exam Vital Signs Vital Signs - First Documented 2/1/20 18:05 Temp 36.5 Pulse 80 Resp 20 B/P (MAP) 162/74 (103) Pulse Ox 98 O2 Delivery Room Air Capillary Refill : Less Than 3 Seconds General Appearance: WD/WN, no apparent distress HEENT: PERRL/EOMI, other (right neck with subcutaneous catheter.) Neck: non-tender, supple Respiratory: chest non-tender, no respiratory distress, no accessory muscle use Cardiovascular: regular rate, rhythm Gastrointestinal: non tender, soft, no organomegaly Rectal: deferred Back: normal inspection, no vertebral tenderness, CVA tenderness (R) (increased muscle tone) Extremities: non-tender, normal inspection 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 tested, no motor/sensory deficits, alert, normal mood/affect, oriented x 3 Skin: normal color, warm/dry Lymphatic: no adenopathy Data Review Labs Laboratory Tests 12/04/19 18:25: White Blood Count 5.4, Red Blood Count 4.47, Hemoglobin 14.4, Hematocrit 40, Mean Corpuscular Volume 90, Mean Corpuscular Hemoglobin 32, Mean Corpuscular Hemoglobin Concent 36, Red Cell Distribution Width 12.1, Platelet Count 174, Mean Platelet Volume 9.5, Neutrophils (%) (Auto) 75, Lymphocytes (%) (Auto) 9L, Monocytes (%) (Auto) 11, Eosinophils (%) (Auto) 4, Basophils (%) (Auto) 1, Neutrophils # (Auto) 4.0, Lymphocytes # (Auto) 0.5L, Monocytes # (Auto) 0.6, Eosinophils # (Auto) 0.2, Basophils # (Auto) 0.1, Prothrombin Time 13.4, INR Comment 1.0, Activated Partial Thromboplast Time 26, Sodium Level 140, Potassium Level 4.0, Chloride Level 105, Carbon Dioxide Level 23, Anion Gap 12, Blood Urea Nitrogen 16, Creatinine 1.04, Estimat Glomerular Filtration Rate > 60, BUN/Creatinine Ratio 15, Glucose Level 100, Calcium Level 9.3, Corrected Calcium , Total Bilirubin 0.5, Aspartate Amino Transf (AST/SGOT) 15, Alanine Aminotransferase (ALT/SGPT) 9, Alkaline Phosphatase 63, Troponin I < 0.30, Pro-B-Type Natriuretic Peptide 44.8, Total Protein 6.0L, Albumin 4.6H 2/1/20 23:16: Troponin I < 0.028 12/05/19 03:20: Sodium Level 140, Potassium Level 3.7, Chloride Level 109H, Carbon Dioxide Level 21, Anion Gap 10, Blood Urea Nitrogen 15, Creatinine 1.06, Estimat Glomerular Filtration Rate > 60, BUN/Creatinine Ratio 14, Glucose Level 111H, Calcium Level 8.9, Corrected Calcium 9.0, Total Bilirubin 0.3, Aspartate Amino Transf (AST /SGOT) 14, Alanine Aminotransferase (ALT/SGPT) 11, Alkaline Phosphatase 58, Troponin I < 0.028, Total Protein 5.6L, Albumin 3.9 Assessment/Plan Assessment/Plan Assessment/Plan chest pain malpositioned port right chest Hodgkin lymphoma in remission Patient with catheter into neck. Discussed having cardiology to retrieve and reposition catheter with snare, patient wants the catheter to be removed and replaced. He is scheduled for this to occur on Friday. No acute surgical intervention can proceed with scheduled elective procedure. patient agrees with plan. Clinical Quality Measures AMI/AHF: ASA po Prior to arrival: No DVT/VTE Risk/Contraindication: Risk Factor Score Per Nursin RFS Level Per Nursing on Admit: 1=Low/No VTE PPX NICOLE SPENCER DO Dec 05, 2019 15:42
[2019-12-05] MEDS ORDERED: OSELTAMIVIR 75 MG (TAMIFLU) CAPSULE PO SCH (21:00)
[2019-12-06] MEDS ORDERED: METHIMAZOLE TABLET 5 MG TABLET PO SCH (09:00)
== END 2019-12-05 11:03 | disposition home or self-care (01) ==
LOC: EDUNIT# 18:02 → ER FS 18:03 → ICU 21:16
PROVIDERS: ADMIT Family Medicine; ATTEND Family Medicine
DX: M54.2 Cervicalgia (principal); C85.90 Non-Hodgkin lymphoma, unspecified, unspecified site; J44.9 Chronic obstructive pulmonary disease, unspecified; K21.9 Gastro-esophageal reflux disease without esophagitis; M19.90 Unspecified osteoarthritis, unspecified site; F41.9 Anxiety disorder, unspecified; F32.9 Major depressive disorder, single episode, unspecified; Z79.899 Other long term (current) drug therapy; Z90.89 Acquired absence of other organs; Z82.49 Family history of ischemic heart disease and other diseases of the circulatory system; Z82.3 Family history of stroke
CPT/HCPCS: 36415; 71275; 80053; 83880; 84484; 85025; 85610; 85730; 93005

== ENCOUNTER 2019-12-07 10:00 | Outpatient (CLI) | payer MEDICARE ==
[~2019-12-07] VITALS: Ht 185 cm; Wt 120.0 kg
[2019-12-08] MEDS ORDERED: UMEC1BLS IH (09:03)
[2019-12-08] MEDS ORDERED: ACHD5005 PO (11:12)
== END 2019-12-07 11:52 | disposition home or self-care (01) ==
LOC: PREOP 10:00
PROVIDERS: ATTEND Surgery
DX: Z01.818 Encounter for other preprocedural examination (principal)

== ENCOUNTER 2019-12-08 07:57 | Day surgery (SDC) | payer MEDICARE ==
[~2019-12-08] VITALS: Ht 185 cm; Wt 120.0 kg
[2019-12-08] VITALS (11 sets, daily range): BP systolic 93–134; BP diastolic 62–88
[~2019-12-08 07:57] MED LIST changes: +LACTATED RINGERS 1,000 ML IV PRN
[2019-12-08] MEDS ORDERED: ceFAZolin 2 GM/50 ML NS 50 ML ONE (08:27)
[2019-12-08] MEDS ORDERED: ceFAZolin 2 GM/50 ML NS 50 ML IV ONE (08:30)
--- NOTE | 2019-12-08 08:34 | Progress Note-Pre Operative ---
Pre-Operative Progress Note H&P Reviewed The H&P was reviewed, patient examined and no changes noted. Time Seen by Provider: 08:28 Date H&P Reviewed: Dec 08, 2019 Time H&P Reviewed: 08:25 Pre-Operative Diagnosis: Malfunctioning port, Venous Insufficiency, Lymphoma MALI GUPTA DO Dec 08, 2019 08:34
[2019-12-08] MEDS ORDERED: UMEC1BLS IH (09:03)
[2019-12-08] MEDS ORDERED: 0.9% SODIUM CHLORIDE PF INJ 20 ML VIAL ONE (09:18)
[2019-12-08] MEDS ORDERED: BUP/EPI 0.5% 1:200,000 (SENSORCAINE) 30 ML VIAL ONE (09:18)
[2019-12-08] MEDS ORDERED: HEParin (CENTRAL IV FLUSH) 500 UNIT/5 ML SYR ONE (09:18)
[2019-12-08] MEDS ORDERED: KETAMINE/NaCl 50 MG/5 ML SYRINGE (ED ONLY) ONE (09:26)
[2019-12-08] MEDS ORDERED: proPOfol 200 MG/20 ML (DIPRIVAN) VIAL IV ONE (09:26)
[2019-12-08] MEDS ORDERED: MIDAZOLAM 2 MG/2 ML (VERSED) VIAL ONE (09:26)
[2019-12-08] MEDS ORDERED: PROPOFOL INJECTION 50 ML IV ONE ×2 (09:54→10:36)
--- NOTE | 2019-12-08 11:11 | Diagnostic Imaging Report ---
INDICATION: Port-A-Cath placement. COMPARISON: None TOTAL FLUOROSCOPY TIME: 11.5 seconds. TOTAL NUMBER OF FLUOROSCOPIC IMAGES SAVED: 1. FINDINGS: A single intraoperative image intensifier view of the chest was obtained during Port-A-Cath placement. The image provided shows a left subclavian venous approach with the central tip projecting over the SVC. Evaluation for pneumothorax is suboptimal given fluoroscopic modality. Please note, the interpreting radiologist was not present during the procedure. IMPRESSION: Left-sided subclavian Port-A-Cath with the tip projecting over the SVC. Dictated by: Dictated on workstation # [id number]
--- NOTE | 2019-12-08 11:11 | Progress Note-Post Operative ---
Post-Operative Progess Note Surgeon (s)/E Commerce Manager (s) Surgeon MALI GUPTA DO E Commerce Manager: MACKENZIE Tripp Pre-Operative Diagnosis Malfunctioning port, Venous Insufficiency, Lymphoma Post-Operative Diagnosis same Procedure & Operative Findings Date of Procedure 12/08/19 Procedure Performed/Findings Vaibhav-cath placement Left ACW Vaibhav-cath removal right ACW Anesthesia Type IV sedation by DERRICK CAR OPERATOR Estimated Blood Loss Estimated blood loss (mL): less than 5ml Specimens/Packing Specimens Removed port from right chest wall MALI GUPTA DO Dec 08, 2019 11:11
[2019-12-08] MEDS ORDERED: ACHD5005 PO (11:12)
--- NOTE | 2019-12-08 11:12 | Discharge Inst-Surgical ---
Discharge Inst-Surgical Depart Medication/Instructions New, Converted or Re-Newed RX: RX Given to Pt/Family Patient Instructions Follow up Appt: Make appointment for 1 week. [phone] Instructions: No strenuous activity. May shower in 24 hours, no tub bath or soaking. Use incentive spirometer at home as directed. No Smoking Skin/Wound Care: May remove bandages in am. You need to leave the Dermabond on incision it will fall off on it's own. Symptoms to Report: Appetite Changes, Extremity Discoloration, Numbness/Tingling, Swelling Increased, Bleeding Excessive, Eyesight Changes, Pain Increased, Urine Color Yadi nge, Constipation(Persistent), Fever over 101 degree F, Pain/Pressure in chest, Urinating Difficulty, Cough Up/Vomit Blood, Heart Beat Irreg/Pounding, Pain/Pressure in jaw, Cramps in feet or legs, Lightheadedness, Pain/Pressure in shoulder, Diarrhea(Persistent), Memory Changes Suddenly, Questions/Concerns, Weight gain consecutive days, Dizziness/Fainting, Nausea/Vomiting, Shortness of Breath, Weight gain over 2 pounds If questions or concerns contact your physician Or seek help at emergency department. Activity Activity as Tolerated: Yes Activity Instructions: Avoid Stress to Incision Driving Instructions: No Driving/Refer to Dr. Carlisle Discharge Diet: No Restrictions Diet After 24 Hours: Clear Liquid if Nauseous If Any Problems/Questions/Issu: Contact Your Physician, Go to Emergency Room Skin/Wound Care Infection Signs and Symptoms: Increased Redness, Foul Odor of Wound, Increased Drainage, Skin Itchy or Has a Rash, Increased Swelling, Temperature Above 101 F Bathing Instructions: Shower Stitches/Maria Alejandra/Dermabond Dis: Dermabond Ice Pack: Ice On and Off Site MALI GPUTA DO Dec 08, 2019 11:12
[2019-12-08] MEDS ORDERED: MEPERIDINE (DEMEROL) INJ 50 MG/ML IVP ONE (11:30)
[2019-12-08] MEDS ORDERED: morphine INJ 10 MG/ML 1ML (SYR OR VIAL) IVP ONE (11:30)
[2019-12-08] MEDS ORDERED: ONDANSETRON 4 MG/2 ML (SDV) Z0FRAN IVP PRN (11:30)
--- NOTE | 2019-12-08 16:02 | Anesthesia-General Post-Op ---
MAC Patient Condition Mental Status/LOC: Same as Preop Cardiovascular: Satisfactory Nausea/Vomiting: Absent Respiratory: Satisfactory Pain: Controlled Complications: Absent Post Op Complications Complications None Follow Up Care/Instructions Patient Instructions None needed. Anesthesiology Discharge Order Discharge Order Patient is doing well, no complaints, stable vital signs, no apparent adverse anesthesia problems. No complications reported per nursing. AIXA JOSEPH CRNA Dec 08, 2019 16:02
--- NOTE | 2019-12-08 16:52 | OPERATIVE REPORT ---
DATE OF SERVICE: PREOPERATIVE DIAGNOSES: 1. Malfunctioning port. 2. Venous insufficiency. 3. Lymphoma. POSTOPERATIVE DIAGNOSES: 1. Malfunctioning port. 2. Venous insufficiency. 3. Lymphoma. PROCEDURES: 1. Insertion of Port-A-Cath left anterior chest wall, left subclavian vein. 2. Removal of right Port-A-Cath, right anterior chest wall. SURGEON: Mark Mccoy DO. SOLUTION CONSULTANT: Zoie Burns. ANESTHESIA: IV sedation by CIGAR BINDER. SPECIMEN: Port removed, but not sent to pathology. BLOOD LOSS: Less than 5 mL. FLUIDS: Per anesthesia. POSTOPERATIVE CONDITION: Stable. INDICATION FOR PROCEDURE: The patient is a 59-year-old male who has lymphoma and unfortunately still needs chemotherapy. The port on the right side that was placed, the catheter has totally retracted back and is kinked up, unable to use. FINDINGS: The patient had a new port placed in the left anterior chest wall, left subclavian vein and had one removed from the right anterior chest wall. PROCEDURE NOTE: After informed consent was obtained, the patient was brought to the operating room, placed on the operating table in supine position. He was sterilely prepped and draped in normal fashion. He was then placed in slight Trendelenburg. I started by using ultrasound guidance to find the left subclavian vein and then accessed with a needle. It was accessed on the third attempt, got a good flash of blood, removed the syringe, placed a guidewire down the needle using Seldinger technique. It went in easily and then checked for fluoroscopy. Wire was in good position. I made a stab incision along the guidewire with #11 blade and then in the left anterior chest wall, made an incision with #11 blade, down through the skin into subcutaneous tissue, then deepened down to subcutaneous tissue with Bovie electrocautery to create a pocket, created a pocket bluntly as well as with Bovie electrocautery. Then placed a 3-0 Prolene suture and then over the tunnel, tunneled the catheter from the stab incision into the pocket created and then over the guidewire placed a dilator using Seldinger technique, checked with fluoroscopy, it was in good position and removed the wire and inner portion of the dilator sheath and placed the catheter down the dilator sheath using the Seldinger technique, checked with fluoroscopy, it was in good position. At this point, then removed the inner wire from the catheter. I then attached the catheter to the port and then attached the locking mechanism, accessed the port with a Bran needle, aspirated, got a good flash of blood and then flushed with saline, then aspirated and got a good flash of blood and then flushed with 2.5 mL of heparin locked. At this point, then placed the port into the pocket previously created, sutured down with 3-0 Prolene, checked for fluoroscopy, had to rearrange port and then finally get the port, so it was not kinked, looked to be in good position. Closed the subcutaneous tissue with 3-0 Vicryl 2 interrupted sutures, then closed the skin with 4-0 undyed Monocryl 3 interrupted subcuticular stitches. Turned our attention to the right side, infiltrated the anterior chest wall with local right under the previous incision as well as around the port. I then made an incision with #11 blade, carried down through the skin into subcutaneous tissue, then deepened down to subcutaneous tissue with Bovie electrocautery down to the catheter, able to get hold of the catheter and then gently pulled this up out of the previous tract, came out easily, then cauterized the tract. There was no back bleeding. Pulled the catheter out, removed the whole catheter and then able to grasp the distal portion of the port and then cut out the port and cut out part of the capsule that had been created on the port. Once this was done, irrigated this incision with normal saline. Hemostasis obtained using Bovie electrocautery, then closed this incision with 3-0 Vicryl 2 interrupted sutures and then a 4-0 undyed Monocryl 3 interrupted subcuticular stitches. Area was cleaned and dried. Dermabond placed on both ends. The patient tolerated the procedure. Sponge, instrument and needle count correct at the end of the case. Job ID: [id number] DocumentID: [id number] Dictated Date: 12/08/2019 11:07:47 College Professor Date: 12/08/2019 16:51:54 Dictated By: MARK MCCOY DO
== END 2019-12-08 13:55 | disposition home or self-care (01) ==
LOC: SDC 07:57
PROVIDERS: ATTEND Surgery
DX: T85.618A Breakdown (mechanical) of other specified internal prosthetic devices, implants and grafts, initial encounter (principal); C83.10 Mantle cell lymphoma, unspecified site; I87.2 Venous insufficiency (chronic) (peripheral); J44.9 Chronic obstructive pulmonary disease, unspecified; K21.9 Gastro-esophageal reflux disease without esophagitis; E66.9 Obesity, unspecified; F41.9 Anxiety disorder, unspecified; F32.9 Major depressive disorder, single episode, unspecified; Z68.35 Body mass index [BMI] 35.0-35.9, adult; Z79.899 Other long term (current) drug therapy; Z79.82 Long term (current) use of aspirin; Z90.89 Acquired absence of other organs; Z90.49 Acquired absence of other specified parts of digestive tract; Z88.8 Allergy status to other drugs, medicaments and biological substances; Z91.040 Latex allergy status; Z79.891 Long term (current) use of opiate analgesic; Z96.649 Presence of unspecified artificial hip joint; Z82.49 Family history of ischemic heart disease and other diseases of the circulatory system; Z83.3 Family history of diabetes mellitus
CPT/HCPCS: 87081

== ENCOUNTER 2020-01-11 10:05 | Outpatient (RCR) | payer MEDICARE, OTHER ==
[2019-11-16 12:54] LABS: BASOPHILS % (AUTO) 1 % (0-10); EOSINOPHILS # (AUTO) 0.2 10^3/uL (0.0-0.3); EOSINOPHILS % (AUTO) 4 % (0-10); HEMATOCRIT 43 % (40-54); LYMPHOCYTES # (AUTO) 0.5 X 10^3 (1.0-4.0); LYMPHOCYTES % (AUTO) 8 % (12-44); MEAN CORPUSCULAR HEMOGLOBIN 32 PG (25-34); MEAN CORPUSCULAR HGB CONC 35 G/DL (32-36); MEAN CORPUSCULAR VOLUME 91 FL (80-99); MEAN PLATELET VOLUME 9.8 FL (7.4-10.4); MONOCYTES # (AUTO) 0.3 X 10^3 (0.0-1.0); MONOCYTES % (AUTO) 6 % (0-12); NEUTROPHILS # (AUTO) 4.7 X 10^3 (1.8-7.8); NEUTROPHILS % (AUTO) 82 % (42-75); PLATELET COUNT 185 10^3/uL (130-400); RED CELL DISTRIBUTION WIDTH 12.8 % (10.0-14.5); WHITE BLOOD COUNT 5.7 10^3/uL (4.3-11.0)
[2019-11-16 13:15] LABS: ALANINE AMINOTRANSFERASE 16 U/L (0-55); ALBUMIN 4.4 GM/DL (3.2-4.5); ALKALINE PHOSPHATASE 61 U/L (40-136); BILIRUBIN,TOTAL 0.8 MG/DL (0.1-1.0); BUN/CREATININE RATIO 13; CARBON DIOXIDE 20 MMOL/L (21-32); CHLORIDE 107 MMOL/L (98-107); CREATININE SERUM 1.01 MG/DL (0.60-1.30); GFR ESTIMATED > 60; GLUCOSE 129 MG/DL (70-105); POTASSIUM 4.1 MMOL/L (3.6-5.0); SODIUM 138 MMOL/L (135-145); TOTAL PROTEIN 6.4 GM/DL (6.4-8.2)
[~2020-01-11 10:05] MED LIST changes: +ACETAMINOPHEN 325 MG TAB (TYLENOL) CANCER CTR PO PRN; +ALTEPLASE 2 MG (CATHFLO) CANCER CENTER IV ONE; -LACTATED RINGERS 1,000 ML IV PRN; +NS IV 1000 ML (CANCER CTR) IV SCH; -OMEP-280 PO; +OMEP20CA18 PO; -ONDA8TAB12 PO; +ONDA8TAB15 PO; +UMEC1BLS IH; +diphenhydrAMINE 25 MG TAB (BENADRYL) CANCER CENTER PO SCH; +riTUXimab 500 MG, riTUXimab FOR IV INJ CONC 300 MG in NS (IVPB) CANCER CENTER 186 ML IV SCH
[2020-01-11 10:33] LABS: BASOPHILS % (AUTO) 1 % (0-10); EOSINOPHILS # (AUTO) 0.1 10^3/uL (0.0-0.3); EOSINOPHILS % (AUTO) 2 % (0-10); HEMATOCRIT 40 % (40-54); HEMOGLOBIN 14.1 G/DL (13.3-17.7); LYMPHOCYTES # (AUTO) 0.7 X 10^3 (1.0-4.0); LYMPHOCYTES % (AUTO) 13 % (12-44); MEAN CORPUSCULAR HGB CONC 35 G/DL (32-36); MEAN CORPUSCULAR VOLUME 92 FL (80-99); MONOCYTES # (AUTO) 0.5 X 10^3 (0.0-1.0); MONOCYTES % (AUTO) 10 % (0-12); NEUTROPHILS # (AUTO) 3.8 X 10^3 (1.8-7.8); NEUTROPHILS % (AUTO) 74 % (42-75); PLATELET COUNT 182 10^3/uL (130-400); RED CELL DISTRIBUTION WIDTH 12.4 % (10.0-14.5); WHITE BLOOD COUNT 5.2 10^3/uL (4.3-11.0)
[2020-01-11 10:35] LABS: MEAN CORPUSCULAR HEMOGLOBIN 32 PG (25-34)
[2020-01-11 10:53] LABS: ALANINE AMINOTRANSFERASE 15 U/L (0-55); ALBUMIN 4.3 GM/DL (3.2-4.5); ALKALINE PHOSPHATASE 63 U/L (40-136); BILIRUBIN,TOTAL 0.6 MG/DL (0.1-1.0); BUN/CREATININE RATIO 17; CALCIUM 8.6 MG/DL (8.5-10.1); CARBON DIOXIDE 24 MMOL/L (21-32); CHLORIDE 108 MMOL/L (98-107); CREATININE SERUM 1.02 MG/DL (0.60-1.30); GFR ESTIMATED > 60; GLUCOSE 111 MG/DL (70-105); POTASSIUM 4.3 MMOL/L (3.6-5.0); SODIUM 140 MMOL/L (135-145); TOTAL PROTEIN 6.1 GM/DL (6.4-8.2)
== END 2020-02-14 | disposition home or self-care (01) ==
LOC: ONC 10:05
PROVIDERS: ATTEND Internal Medicine Hematology & Oncology
DX: Z51.11 Encounter for antineoplastic chemotherapy (principal); C83.18 Mantle cell lymphoma, lymph nodes of multiple sites; C85.90 Non-Hodgkin lymphoma, unspecified, unspecified site; J06.9 Acute upper respiratory infection, unspecified; Z79.899 Other long term (current) drug therapy
CPT/HCPCS: 36591; 36593; 80053; 83615; 85025; 96413; J9312

== ENCOUNTER → 2020-01-24 | Outpatient (CLI) | payer MEDICARE ==
[~2020-01-24] MED LIST changes: -ACETAMINOPHEN 325 MG TAB (TYLENOL) CANCER CTR PO PRN; -ALTEPLASE 2 MG (CATHFLO) CANCER CENTER IV ONE; -NS IV 1000 ML (CANCER CTR) IV SCH; -diphenhydrAMINE 25 MG TAB (BENADRYL) CANCER CENTER PO SCH; -riTUXimab 500 MG, riTUXimab FOR IV INJ CONC 300 MG in NS (IVPB) CANCER CENTER 186 ML IV SCH
[2020-01-24 16:51] LABS: HEMATOCRIT 40 % (40-54); HEMOGLOBIN 14.1 G/DL (13.3-17.7); MEAN CORPUSCULAR HEMOGLOBIN 32 PG (25-34); MEAN CORPUSCULAR HGB CONC 35 G/DL (32-36); MEAN CORPUSCULAR VOLUME 91 FL (80-99); MEAN PLATELET VOLUME 9.7 FL (7.4-10.4); PLATELET COUNT 185 10^3/uL (130-400); RED CELL DISTRIBUTION WIDTH 12.1 % (10.0-14.5); WHITE BLOOD COUNT 4.2 10^3/uL (4.3-11.0)
[2020-01-24 16:52] LABS: EOSINOPHILS % (AUTO) 3 % (0-10); LYMPHOCYTES % (AUTO) 12 % (12-44); MONOCYTES % (AUTO) 12 % (0-12); NEUTROPHILS % (AUTO) 72 % (42-75)
--- NOTE | 2020-01-24 16:52 | Diagnostic Imaging Report ---
EXAMINATION: CHEST (PA AND LATERAL) CLINICAL INDICATION: 59-year-old male, cough. COMPARISON: October 29, 2019. FINDINGS: There is a left-sided port catheter with tip overlying the upper SVC. Stable overall appearance of the cardiomediastinal silhouette. There is no identified pneumothorax. There is no pleural effusion. There is no identified focal airspace consolidation. IMPRESSION: No identified acute cardiopulmonary abnormality. Dictated by: Dictated on workstation # [id number]
[2020-01-24 16:53] LABS: BASOPHILS % (AUTO) 1 % (0-10); EOSINOPHILS # (AUTO) 0.1 10^3/uL (0.0-0.3); LYMPHOCYTES # (AUTO) 0.5 X 10^3 (1.0-4.0); MONOCYTES # (AUTO) 0.5 X 10^3 (0.0-1.0)
[2020-01-24 16:57] LABS: CARBON DIOXIDE 25 MMOL/L (21-32); CHLORIDE 110 MMOL/L (98-107); POTASSIUM 4.5 MMOL/L (3.6-5.0); SODIUM 144 MMOL/L (135-145)
[2020-01-24 16:58] LABS: BUN/CREATININE RATIO 14; CREATININE SERUM 1.18 MG/DL (0.60-1.30); GFR ESTIMATED > 60
[2020-01-24 16:59] LABS: ALANINE AMINOTRANSFERASE 13 U/L (0-55); ALBUMIN 4.3 GM/DL (3.2-4.5); ALKALINE PHOSPHATASE 72 U/L (40-136); BILIRUBIN,TOTAL 0.3 MG/DL (0.1-1.0); CALCIUM 8.6 MG/DL (8.5-10.1); GLUCOSE 100 MG/DL (70-105); TOTAL PROTEIN 6.2 GM/DL (6.4-8.2)
--- NOTE | 2020-01-24 17:06 | Diagnostic Imaging Report ---
EXAMINATION: Abdominal radiographs, 2 views, upright and supine. DATE: January 24, 2020. CLINICAL INDICATION: 59-year-old male, abdominal pain. COMPARISON: CT neck, chest, abdomen and pelvis June 28, 2019. COMMENTS: There are right upper quadrant surgical clips. There is no identified free intraperitoneal air. There is no identified pneumatosis or portal venous gas. There are no abnormally dilated gas-filled segments of bowel. There is a moderate to large volume colonic stool. There is a right total hip prosthesis. There is heterotopic ossification adjacent of the right hip. There are surgical clips in the left inguinal region. IMPRESSION: 1. No identified acute abdominal radiographic abnormality. 2. Moderate to large volume colonic stool. Dictated by: Dictated on workstation # [id number]
== END ==
LOC: LAB FS 16:05
PROVIDERS: ATTEND Nurse Practitioner Family
DX: R10.84 Generalized abdominal pain (principal); R07.1 Chest pain on breathing; R05 Cough
CPT/HCPCS: 36415; 71046; 74019; 80053; 85025

== ENCOUNTER 2020-03-06 16:55 | Emergency (ER) | payer MEDICARE ==
[~2020-03-06] VITALS: Ht 185.4 cm; Wt 116.0 kg
--- NOTE | 2020-03-06 17:26 | ED General ---
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 is being seen by oncology says he is in remission and gets IV chemotherapy every other month next treatment is supposed to be tomorrow has COPD uses a nebulizer 5 times a day uses an oxygen concentrator during the day CPAP at night says he gets agitated with high-dose steroids Initially he told the nurses that he received a call from one of his providers checking on him they asked about chest pain he said he had been having severe pressure-like central chest pain for 2-1/2 weeks so that sort of precipitated this visit later he said he was planning on coming to the ER anyway patient relates a 2-1/2 week history of cough with davis sputum he's never had a fever he doesn't appear to be having any increased work of breathing or struggle but he says he is more short of breath than normal he has been isolated at home so no exposure to illness and no travel he has no cardiac history other then having what he says 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, but nothing as an adult (MITCH BELLO MD) Allergies and Home Medications Allergies Coded Allergies: latex (Verified Allergy, Unknown, Rash, 12/08/19) Uncoded Allergies: STEROIDS (Adverse Reaction, Severe, VIOLENT BEHAVIOR, 12/07/19) Home Medications Albuterol Sulfate 18 Gm Hfa.aer.ad, 2 PUFF INH Q4H PRN for SHORTNESS OF BREATH, (Reported) Citalopram Hydrobromide 40 Mg Tablet, 60 MG PO HS, (Reported) TAKES 1 & 1/2 (40MG) TABLET Divalproex Sodium 500 Mg Tablet.dr, 500 MG PO 1800, (Reported) Hydrocodone Bit/Acetaminophen 1 Tab Tab, 1 TAB PO Q6H PRN for PAIN-MODERATE Prescribed by: MALI GUPTA on 12/08/19 1112 Meloxicam 15 Mg Tablet, 15 MG PO HS, (Reported) [place] 3 Polyunsat Fatty Acids 1,000 Mg Cap, 1,000 MG PO DAILY, (Reported) Omeprazole 20 Mg Capsule.dr, 20 MG PO BID, (Reported) Umeclidinium Brm/Vilanterol Tr 1 Each Blst.w.dev, 1 EACH IH DAILY, (Reported) Vitamin B Complex 1 Each Capsule, 1 CAP PO DAILY, (Reported) Patient Home Medication List Home Medication List Reviewed: Yes (MITCH BELLO MD) Review of Systems Review of Systems Constitutional: No fever Respiratory: cough, short of breath Cardiovascular: chest pain Gastrointestinal: No abdominal pain, No diarrhea, No vomiting Genitourinary: no symptoms reported Musculoskeletal: no symptoms reported Skin: no symptoms reported (MITCH BELLO MD) Past Nhtbpxq-Ljkfzx-Umqxjx Hx Patient Social History Type Used: Smokeless Tobacco Former Smoker, Quit: Nov 03, 1989 2nd Hand Smoke Exposure: No Recent Foreign Travel: No Contact w/Someone Who Travel: No Recent Hopitalizations: No (MITCH BELLO MD) Immunizations Up To Date Tetanus Booster (TDap): Unknown PED Vaccines UTD: No Date of Pneumonia Vaccine: Aug 03, 2018 Date of Influenza Vaccine: Aug 27, 2019 (MITCH BELLO MD) Seasonal Allergies Seasonal Allergies: No (MITCH BELLO MD) Past Medical History Surgeries: Yes (Port Placement, R THR) Abdominal, Appendectomy, Gallbladder, Joint Replacement, Orthopedic, Rectal, Tonsillectomy Respiratory: Yes COPD Currently Using CPAP: Yes Cardiac: No Neurological: No Sexually Transmitted Disease: No HIV/AIDS: No Genitourinary: No Gastrointestinal: Yes Abdominal Hernia, Gastroesophageal Reflux, Hemorrhoids Musculoskeletal: Yes Arthritis, Fractures Endocrine: No HEENT: No Loss of Vision: Denies Hearing Impairment: Denies Cancer: Yes Skin, Lymphoma Did You Recieve Any Treatments: Yes What Type of Treatment Did You: Chemotherapy Psychosocial: Yes Anxiety, Depression Integumentary: Yes (BENIGN TUMOR LEFT EAR) Recent Skin Changes Blood Disorders: Yes (MANTLE CELL LYMPHOMA) (MITCH BELLO MD) Family Medical History Cardiovascular disease 19 MOTHER G8 SISTER Completed stroke G8 SISTER FH: brain tumor G8 SISTER FH: emphysema 19 FATHER FH: kidney failure 19 FATHER No Pertinent Family Hx (MITCH BELLO MD) Physical Exam Vital Signs Vital Signs - First Documented (LUCITA TORRES DO) Vital Signs Capillary Refill : (MITCH BELLO MD) Height, Weight, BMI Height: 6'1.00" Weight: 260lbs. 0.0oz. [id number]; 35.06 BMI Method:Stated General Appearance: No Apparent Distress Eyes: Bilateral Eye PERRL, Bilateral Eye EOMI HEENT: Moist Mucous Membranes Neck: Supple Respiratory: Lungs Clear, No Accessory Muscle Use, No Respiratory Distress Cardiovascular: Regular Rate, Rhythm, No Murmur Gastrointestinal: Normal Bowel Sounds, Soft, Other (mild epigastric tenderness) (MITCH BELLO MD) Progress/Results/Core Measures Suspected Sepsis SIRS Temperature: Pulse: Respiratory Rate: Laboratory Tests 03/06/20 17:05: White Blood Count 5.9 Blood Pressure / Mean: Laboratory Tests 03/06/20 17:05: Creatinine 1.00, Platelet Count 193, Total Bilirubin 0.4 (MITCH BELLO MD) Results/Orders Lab Results Laboratory Tests Test 03/06/20 17:05 Range/Units White Blood Count 5.9 4.3-11.0 10^3/uL Red Blood Count 4.63 4.35-5.85 10^6/uL Hemoglobin 14.9 13.3-17.7 G/DL Hematocrit 42 40-54 % Mean Corpuscular Volume 91 80-99 FL Mean Corpuscular Hemoglobin 32 25-34 PG Mean Corpuscular Hemoglobin Concent 35 32-36 G/DL Red Cell Distribution Width 12.4 10.0-14.5 % Platelet Count 193 130-400 10^3/uL Mean Platelet Volume 9.7 7.4-10.4 FL Neutrophils (%) (Auto) 76 H 42-75 % Lymphocytes (%) (Auto) 11 L 12-44 % Monocytes (%) (Auto) 10 0-12 % Eosinophils (%) (Auto) 3 0-10 % Basophils (%) (Auto) 0 0-10 % Neutrophils # (Auto) 4.5 1.8-7.8 X 10^3 Lymphocytes # (Auto) 0.6 L 1.0-4.0 X 10^3 Monocytes # (Auto) 0.6 0.0-1.0 X 10^3 Eosinophils # (Auto) 0.2 0.0-0.3 10^3/uL Basophils # (Auto) 0.1 0.0-0.1 10^3/uL D-Dimer 0.26 0.00-0.49 UG/ML Sodium Level 144 135-145 MMOL/L Potassium Level 3.8 3.6-5.0 MMOL/L Chloride Level 109 H 98-107 MMOL/L Carbon Dioxide Level 23 21-32 MMOL/L Anion Gap 12 5-14 MMOL/L Blood Urea Nitrogen 16 7-18 MG/DL Creatinine 1.00 0.60-1.30 MG/DL Estimat Glomerular Filtration Rate > 60 BUN/Creatinine Ratio 16 Glucose Level 94 70-105 MG/DL Calcium Level 9.1 8.5-10.1 MG/DL Corrected Calcium 8.8 8.5-10.1 MG/DL Total Bilirubin 0.4 0.1-1.0 MG/DL Aspartate Amino Transf (AST/SGOT) 21 5-34 U/L Alanine Aminotransferase (ALT/SGPT) 14 0-55 U/L Alkaline Phosphatase 72 40-136 U/L Troponin I < 0.30 <0.30 NG/ML Total Protein 6.4 6.4-8.2 GM/DL Albumin 4.4 3.2-4.5 GM/DL (LUCITA TORRES DO) My Orders Orders - LUCITA TORRES DO Fibrin Degradation Products (03/06/20 18:06) Aspirin Chewable Tablet (Baby Aspirin Ch (03/06/20 18:30) (LUCITA TORRES DO) Medications Given in ED Current Medications Medications Dose Ordered Sig/Gunner Route Start Time Stop Time Status Last Admin Dose Admin Aspirin 324 mg ONCE ONCE PO 03/06/20 18:30 03/06/20 18:31 DC 03/06/20 18:32 324 MG (LUCITA TORRES DO) Vital Signs/I&O 03/06/20 03/06/20 17:00 17:00 Temp 37.1 Pulse 89 Resp 18 B/P (MAP) 144/82 (102) Pulse Ox 98 O2 Delivery Room Air Room Air (LUCITA TORRES DO) Vital Signs/I&O Capillary Refill : (MITCH BELLO MD) Progress Note : Progress Note EKG shows a sinus rhythm rate [address]-T changes Chest x-ray is actually been read as normal all lab work is pending the patient's very stable in no distress care assumed by Dr. Childress at shift change at 1800 hrs. (MITCH BELLO MD) Progress Note : Progress Note @1820 - Pt states his chest wall at the right lower sternal border is tender to touch and that palpation reproduces his pain. We discussed possible diagnoses. Pt has not been given any aspirin so this will be given now. D-dimer added as the pt has a h/o stage IV mantel cell lymphoma. Pt does appear comfortable at this time. @1848 - patient updated on lab and imaging results which are acutely unremarkable. He states he is feeling better and wants to go home. Troponin, d- dimer, chest x-ray, and EKG are reassuring. The patient's pain is reproducible on palpation and has been present for at least 2-1/2 weeks. He would like an a ntibiotic for the productive cough he has been having. He appears comfortable and his vital signs are stable. Advised the patient to follow up with his PCP in the next 1-2 days and to return to the emergency Department immediately for new or worsening symptoms. He expresses verbal understanding and agreement with the plan and is stable for discharge. (LUCITA TORRES DO) Departure Impression Primary Impression: Chest wall pain Additional Impression: Productive cough Disposition: HOME, SELF-CARE Condition: Stable Departure-Patient Inst. Decision time for Depature: 18:49 (LUCITA TORRES DO) Referrals: SANGEETHA MURRY MD (PCP/Family) Primary Care Physician Patient Instructions: Chest Pain That Is Not Caused by the Heart (DC), Costochondritis (DC), Cough, Adult (DC) Add. Discharge Instructions: Take the prescribed medicine as directed. Follow-up with your doctor in the next 1-2 days. Return to the emergency department immediately for difficulty breathing, chest pain, new or worsening symptoms. Scripts Azithromycin (Azithromycin) 250 Mg Tablet 250 MG PO UD for Cough for 5 Days, #6 TAB TAKE 2 TABLETS ON DAY ONE THEN TAKE 1 TABLET DAILY FOR FOUR MORE DAYS Prov: LUCITA TORRES DO 03/06/20 MITCH BELLO MD March 06, 2020 17:26 LUCITA TORRES DO March 06, 2020 18:31
[2020-03-06 17:41] LABS: EOSINOPHILS % (AUTO) 3 % (0-10); HEMATOCRIT 42 % (40-54); HEMOGLOBIN 14.9 G/DL (13.3-17.7); LYMPHOCYTES % (AUTO) 11 % (12-44); MEAN CORPUSCULAR HEMOGLOBIN 32 PG (25-34); MEAN CORPUSCULAR HGB CONC 35 G/DL (32-36); MEAN CORPUSCULAR VOLUME 91 FL (80-99); MEAN PLATELET VOLUME 9.7 FL (7.4-10.4); MONOCYTES % (AUTO) 10 % (0-12); NEUTROPHILS % (AUTO) 76 % (42-75); PLATELET COUNT 193 10^3/uL (130-400); RED CELL DISTRIBUTION WIDTH 12.4 % (10.0-14.5); WHITE BLOOD COUNT 5.9 10^3/uL (4.3-11.0)
[2020-03-06 17:42] LABS: BASOPHILS # (AUTO) 0.1 10^3/uL (0.0-0.1); BASOPHILS % (AUTO) 0 % (0-10); EOSINOPHILS # (AUTO) 0.2 10^3/uL (0.0-0.3); LYMPHOCYTES # (AUTO) 0.6 X 10^3 (1.0-4.0); MONOCYTES # (AUTO) 0.6 X 10^3 (0.0-1.0); NEUTROPHILS # (AUTO) 4.5 X 10^3 (1.8-7.8)
--- NOTE | 2020-03-06 17:48 | Diagnostic Imaging Report ---
INDICATION: Chest pain. EXAMINATION: PA and lateral chest. FINDINGS: Left subclavian Port-A-Cath tip projects over the SVC. Heart size and pulmonary vascularity are normal. Lungs are clear. There are no effusions or pneumothoraces. IMPRESSION: No acute abnormalities in the chest. Dictated by: Dictated on workstation # [id number]
[2020-03-06 17:51] LABS: POTASSIUM 3.8 MMOL/L (3.6-5.0); SODIUM 144 MMOL/L (135-145)
[2020-03-06 17:52] LABS: ALANINE AMINOTRANSFERASE 14 U/L (0-55); ALKALINE PHOSPHATASE 72 U/L (40-136); BILIRUBIN,TOTAL 0.4 MG/DL (0.1-1.0); BUN/CREATININE RATIO 16; CALCIUM 9.1 MG/DL (8.5-10.1); CARBON DIOXIDE 23 MMOL/L (21-32); CHLORIDE 109 MMOL/L (98-107); GFR ESTIMATED > 60; GLUCOSE 94 MG/DL (70-105); TOTAL PROTEIN 6.4 GM/DL (6.4-8.2)
[2020-03-06 17:53] LABS: ALBUMIN 4.4 GM/DL (3.2-4.5)
[2020-03-06] MEDS ORDERED: ASPIRIN 81 MG CHEW (CHILDREN'S ASA) PO ONE (18:30)
--- OUTSIDE RECORDS SUMMARY | 2020-03-06 18:50 | XMS REPORT | Continuity of Care Document ---
Author Organization Unknown Address Unknown Phone Unavailable Allergies Active Description Code Type Severity Reaction Onset Reported/Identified Relationship to Patient Clinical Status Yes No Known Drug Allergies [id number] Drug Allergy Unknown N/A 10/16/2017 Yes STEROIDS STEROIDS Se dimitri VIOLENT BEHAVIO 12/07/2019 Yes latex [id number] Drug Allergy Unknown Rash 12/08/2019 Medications There is no data. Problems Date Dx Coded Attending Type Code Diagnosis Diagnosed By 10/16/2017 CITLALI WEINBERG APRN Ot F32 .9 MAJOR DEPRESSIVE DISORDER, SINGLE EPISOD 10/16/2017 CITLALI WEINBERG APRN Ot F41 .9 ANXIETY DISORDER, UNSPECIFIED 10/16/2017 CITLALI WEINBERG APRN Ot J44 .9 CHRONIC OBSTRUCTIVE PULMONARY DISEASE, U 10/16/2017 CITLALI WEINBERG APRN Ot K21 .9 GASTRO-ESOPHAGEAL REFLUX DISEASE WITHOUT 10/16/2017 CITLALI WEINBERG APRN Ot K56.41 FECAL IMPACTION 10/16/2017 CITLALI WEINBERG APRN Ot N32 .0 BLADDER-NECK OBSTRUCTION 10/16/2017 CITLALI WEINBERG APRN Ot R10.30 LOWER ABDOMINAL PAIN, UNSPECIFIED 10/16/2017 CITLALI WEINBERG APRN Ot R59 .0 LOCALIZED ENLARGED LYMPH NODES 10/16/2017 CITLALI WEINBERG [...] DISEASE, U 11/30/2018 BOY SOUSA Ot K21.9 GASTRO-ESOPHAGEAL REFLUX DISEASE WITHOUT 11/30/2018 BERNOT, BOY Ot K52.9 NONINFECTIVE GASTROENTERITIS AND COLITIS 11/30/2018 ELIZABETH SOUSAIS Ot R10.33 PERIUMBILICAL PAIN 11/30/2018 BERNELIZABETH HUNTERIS Ot Z85.828 PERSONAL HISTORY OF OTHER MALIGNANT NEOP 11/30/2018 ELIZABETH SOUSAIS Ot Z90.49 ACQUIRED ABSENCE OF OTHER SPECIFIED PART 11/30/2018 MARITZAOT BOY Ot Z90.89 ACQUIRED ABSENCE OF OTHER ORGANS 11/30/2018 MERRY BOY Ot Z98.890 OTHER SPECIFIED POSTPROCEDURAL STATES 12/02/2018 ELIZABETH SOUSAIS Ot F32.9 MAJOR DEPRESSIVE DISORDER, SINGLE EPISOD 12/02/2018 ELIZABETH SOUSAIS Ot F41.9 ANXIETY DISORDER, UNSPECIFIED 12/02/2018 BOY SOUSA Ot J44.9 CHRONIC OBSTRUCTIVE PULMONARY DISEASE, U 12/02/2018 BOY SOUSA Ot K21.9 GASTRO-ESOPHAGEAL REFLUX DISEASE WITHOUT 12/02/2018 ELIZABETH SOUSAIS Ot K52.9 NONINFECTIVE GASTROENTERITIS AND COLITIS 12/02/2018 MARITZAELIZABETH HUNTERIS Ot R10.33 PERIUMBILICAL PAIN 12/02/2018 MARITZADALE BOY Ot Z85.828 PERSONAL HISTORY OF OTHER MALIGNANT NEOP 12/02/2018 MARITZADALE BOY Ot Z90.49 ACQUIRED ABSENCE OF OTHER SPECIFIED PART 12/02/2018 MARITZADALE BOY Ot Z90.89 ACQUIRED ABSENCE OF OTHER ORGANS 12/02/2018 MARITZADALE BOY Ot Z98.890 OTHER SPECIFIED POSTPROCEDURAL STATES 12/08/2018 ARTUR CARPENTER, CORINNA Triplett Ot 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, NODES OF ING REGIO 12/08/2018 ARTUR CARPENTER, CORINNA Triplett Ot J44.9 CHRONIC OBSTRUCTIVE PULMONARY DISEASE, U 12/08/2018 ARTUR CARPENTER, CORINNA Triplett Ot Z79.899 OTHER SKILLED NURSING (CURRENT) DRUG THERAPY 12/11/2018 ARTUR CARPENTER, CORINNA Triplett Ot 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, NODES OF ING REGIO 12/11/2018 ARTUR CARPENTER, CORINNA Triplett Ot J44.9 CHRONIC OBSTRUCTIVE PULMONARY DISEASE, U 12/11/2018 ARTUR CARPENTER, CORINNA Triplett Ot Z79.899 OTHER SKILLED NURSING (CURRENT) DRUG THERAPY 12/11/2018 BOY SOUSA Ot F32.9 MAJOR DEPRESSIVE DISORDER, SINGLE EPISOD 12/11/2018 BOY SOUSA Ot F41.9 ANXIETY DISORDER, UNSPECIFIED 12/11/2018 BOY SOUSA Ot G89.29 OTHER CHRONIC PAIN 12/11/2018 BOY SOUSA Ot J44.9 CHRONIC OBSTRUCTIVE PULMONARY DISEASE, U 12/11/2018 BOY SOUSA Ot K21.9 GASTRO-ESOPHAGEAL REFLUX DISEASE WITHOUT 12/11/2018 BOY SOUSA Ot R10.30 LOWER ABDOMINAL PAIN, UNSPECIFIED 12/11/2018 ELIZABETH SOUSAIS Ot Z85.828 PERSONAL HISTORY OF OTHER MALIGNANT NEOP 12/11/2018 ELIZABETH SOUSAIS Ot Z90.49 ACQUIRED ABSENCE OF [...] J44.9 CHRONIC OBSTRUCTIVE PULMONARY DISEASE, U 12/20/2018 ELIZABETH SOUSAIS Ot K21.9 GASTRO-ESOPHAGEAL REFLUX DISEASE WITHOUT 12/20/2018 BERNBOY HUNTER Ot R10.30 LOWER ABDOMINAL PAIN, UNSPECIFIED 12/20/2018 ELIZABETH SOUSAIS Ot Z85.828 PERSONAL HISTORY OF OTHER MALIGNANT NEOP 12/20/2018 ELIZABETH SOUSAIS Ot Z90.49 ACQUIRED ABSENCE OF OTHER SPECIFIED PART 12/20/2018 BERNELIZABETH HUNTERIS Ot Z90.89 ACQUIRED ABSENCE OF OTHER ORGANS 12/20/2018 ELIZABETH SOUSAIS Ot Z98.890 OTHER SPECIFIED POSTPROCEDURAL STATES 12/21/2018 ARTUR CARPENTER, CORINNA Triplett Ot Z01.818 ENCOUNTER FOR OTHER PREPROCEDURAL EXAMIN 12/22/2018 NILAMELIGIO Ot C85.90 NON-HODGKIN LYMPHOMA, UNSPECIFIED, UNSPE 12/24/2018 [...] 12/24/2018 CORINNA SIDDIQUI MD Ot Z79.899 OTHER DATA ANALYTICS SPECIALIST (CURRENT) DRUG THERAPY 12/30/2018 CORINNA SIDDIQUI MD [...] BODY MASS INDEX (BMI) 32.0-32.9, ADULT 12/30/2018 ARTUR CARPENTER, CORINNA Triplett Ot Z79.899 OTHER SKILLED NURSING (CURRENT) DRUG THERAPY 01/06/2019 NILAM, BOBAN N Ot C85.90 NON-HODGKIN LYMPHOMA, UNSPECIFIED, UNSPE 01/13/2019 NILAM, BOBAN N Ot C85.90 NON-HODGKIN LYMPHOMA, UNSPECIFIED, UNSPE 01/13/2019 NILAM, BOBAN N Ot Z51.81 ENCOUNTER FOR THERAPEUTIC DRUG LEVEL MON 01/22/2019 NILAM, BOBAN N Ot C85.90 NON-HODGKIN LYMPHOMA, UNSPECIFIED, UNSPE 02/01/2019 NILAM, BOBAN N Ot C85.90 NON-HODGKIN LYMPHOMA, UNSPECIFIED, UNSPE 02/23/2019 NILAM, BOBAN N Ot C85.98 NON-HODGKIN LYMPHOMA, UNSP, LYMPH NODES 02/23/2019 NILAM, BOBAN N Ot Z51.81 ENCOUNTER FOR THERAPEUTIC DRUG LEVEL MON 02/23/2019 EFREN, VANESSA S SECURITY OFFICER Ot F33.2 MAJOR DEPRESSV DISORDER, RECURRENT SEVER 02/23/2019 EFREN, VANESSA S SECURITY OFFICER Ot Z79.899 OTHER DATA ANALYTICS SPECIALIST (CURRENT) DRUG THERAPY 02/23/2019 EFREN, VANESSA S SECURITY OFFICER Ot F33.2 MAJOR DEPRESSV DISORDER, RECURRENT SEVER 02/23/2019 EFREN, VANESSA S SECURITY OFFICER Ot Z79.899 OTHER DATA ANALYTICS SPECIALIST (CURRENT) DRUG THERAPY 02/28/2019 NILAM, BOBAN N Ot C85.98 NON-HODGKIN LYMPHOMA, UNSP, LYMPH NODES 02/28/2019 NILAM, BOBAN N Ot Z51.81 ENCOUNTER FOR THERAPEUTIC DRUG LEVEL MON 02/28/2019 NILAM, BOBAN N Ot C85.90 NON-HODGKIN LYMPHOMA, UNSPECIFIED, UNSPE 02/28/2019 EFREN, VANESSA S SECURITY OFFICER Ot F33.2 MAJOR DEPRESSV DISORDER, RECURRENT SEVER 02/28/2019 EFREN, VANESSA S SECURITY OFFICER Ot Z79.899 OTHER DATA ANALYTICS SPECIALIST (CURRENT) DRUG THERAPY 02/28/2019 EFREN, VANESSA S SECURITY OFFICER Ot F33.2 MAJOR DEPRESSV DISORDER, RECURRENT SEVER 02/28/2019 EFREN, VANESSA S SECURITY OFFICER Ot Z79.899 OTHER DATA ANALYTICS SPECIALIST (CURRENT) DRUG THERAPY 03/03/2019 MATTHEW LINTON MD Ot C83.10 MANTLE CELL LYMPHOMA, UNSPECIFIED SITE 03/03/2019 MATTHEW LINTON MD Ot D64 .9 ANEMIA, UNSPECIFIED 03/03/2019 MATTHEW LINTON MD Ot F32 .9 MAJOR DEPRESSIVE DISORDER, SINGLE EPISOD 03/03/2019 MATTHEW LINTON MD Ot F41 .9 ANXIETY DISORDER, UNSPECIFIED 03/03/2019 MATTHEW LINTON MD Ot G47.30 SLEEP APNEA, UNSPECIFIED 03/03/2019 MATTHEW LINTON MD Ot J44 .9 CHRONIC OBSTRUCTIVE PULMONARY DISEASE, U 03/03/2019 MATTHEW LINTON MD Ot K21 .9 GASTRO-ESOPHAGEAL REFLUX DISEASE WITHOUT 03/03/2019 MATTHEW LINTON MD Ot R07.89 OTHER CHEST PAIN 03/03/2019 MATTHEW LINTON MD Ot Z79.899 OTHER DATA ANALYTICS SPECIALIST (CURRENT) DRUG THERAPY 03/03/2019 MATTHEW LINTON MD Ot Z87.891 PERSONAL HISTORY OF NICOTINE DEPENDENCE 03/03/2019 MATTHEW LINTON MD Ot Z99.89 DEPENDENCE ON OTHER ENABLING MACHINES AN 03/03/2019 MATTHEW LINTON MD Ot C83.10 MANTLE CELL LYMPHOMA, UNSPECIFIED SITE 03/03/2019 MATTHEW LINTON MD Ot D64 .9 ANEMIA, UNSPECIFIED 03/03/2019 MATTHEW LINTON MD Ot F32 .9 MAJOR DEPRESSIVE DISORDER, SINGLE EPISOD 03/03/2019 MATTHEW LINTON MD Ot F41 .9 ANXIETY DISORDER, UNSPECIFIED 03/03/2019 MATTHEW LINTON MD Ot G47.30 SLEEP APNEA, UNSPECIFIED 03/03/2019 MATTHEW LINTON MD Ot J44 .9 CHRONIC OBSTRUCTIVE PULMONARY DISEASE, U 03/03/2019 MATTHEW LINTON MD Ot K21 .9 GASTRO-ESOPHAGEAL REFLUX DISEASE WITHOUT 03/03/2019 MATTHEW LINTON MD Ot R07.89 OTHER CHEST PAIN 03/03/2019 MATTHEW LINTON MD Ot Z79.899 OTHER SKILLED NURSING (CURRENT) DRUG THERAPY 03/03/2019 MATTHEW LINTON MD [...] NON-HODGKIN LYMPHOMA, UNSPECIFIED, UNSPE 03/16/2019 VANESSA SCHWARTZ SECURITY OFFICER Ot F33.2 MAJOR DEPRESSV DISORDER, RECURRENT SEVER 03/16/2019 VANESSA SCHWARTZ SECURITY OFFICER Ot Z79.899 OTHER DATA ANALYTICS SPECIALIST (CURRENT) DRUG THERAPY 03/18/2019 NILAM, BOBAN N [...] UNSPE 04/22/2019 ZOEY CARPENTER, YURI Rivera Ot C83. 13 MANTLE CELL LYMPHOMA, INTRA-ABDOMINAL LY 04/22/2019 ZOEY CARPENTER, YURI Rivera Ot 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 DEPENDENCE, UNSPECIFIED, UNCOMP 04/22/2019 ZEOY CARPENTER, YURI Rivera Ot F32. 9 MAJOR DEPRESSIVE DISORDER, SINGLE EPISOD 04/22/2019 YURI GREER MD Ot F41. 9 ANXIETY DISORDER, UNSPECIFIED 04/22/2019 YURI GREER MD Ot J44. 9 CHRONIC OBSTRUCTIVE PULMONARY DISEASE, U 04/22/2019 YURI GREER MD Ot K21. 9 GASTRO-ESOPHAGEAL REFLUX DISEASE WITHOUT 04/22/2019 YURI GREER MD Ot R21 RASH AND OTHER NONSPECIFIC SKIN ERUPTION 04/22/2019 YURI GREER MD Ot Z79. 51 SKILLED NURSING (CURRENT) USE OF INHALED STERO 04/22/2019 YURI GREER MD Ot Z82. 49 FAMILY HX OF ISCHEM HEART DIS AND OTH DI 04/22/2019 YURI GREER MD Ot Z85.828 PERSONAL HISTORY OF OTHER MALIGNANT NEOP 04/22/2019 YURI GREER MD Ot Z87. 19 PERSONAL HISTORY OF OTHER DISEASES OF TH 04/22/2019 YURI GREER MD Ot Z90. 49 ACQUIRED ABSENCE OF OTHER SPECIFIED PART 04/22/2019 YURI GREER MD Ot Z90. 89 ACQUIRED ABSENCE OF OTHER ORGANS 04/22/2019 YURI GREER MD Ot Z98.890 OTHER SPECIFIED POSTPROCEDURAL STATES 04/23/2019 YURI GREER MD Ot C83. 13 MANTLE CELL LYMPHOMA, INTRA-ABDOMINAL LY 04/23/2019 YURI GREER MD Ot 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 DEPENDENCE, UNSPECIFIED, UNCOMP 04/23/2019 YURI GREER MD Ot F32. 9 MAJOR DEPRESSIVE DISORDER, SINGLE EPISOD 04/23/2019 YURI GREER MD Ot F41. 9 ANXIETY DISORDER, UNSPECIFIED 04/23/2019 YURI GREER MD Ot J44. 9 CHRONIC OBSTRUCTIVE PULMONARY DISEASE, U 04/23/2019 YURI GREER MD Ot K21. 9 GASTRO-ESOPHAGEAL REFLUX DISEASE WITHOUT 04/23/2019 YURI GREER MD Ot R21 RASH AND OTHER NONSPECIFIC SKIN ERUPTION 04/23/2019 YURI GREER MD Ot Z79. 51 DATA ANALYTICS SPECIALIST (CURRENT) USE OF INHALED STERO 04/23/2019 YURI GREER MD Ot Z82. 49 FAMILY HX OF ISCHEM HEART DIS AND OTH DI 04/23/2019 YURI GREER MD Ot Z85.828 PERSONAL HISTORY OF OTHER MALIGNANT NEOP 04/23/2019 YURI GREER MD Ot Z87. 19 PERSONAL HISTORY OF OTHER DISEASES OF TH 04/23/2019 YURI GREER MD Ot Z90. 49 ACQUIRED ABSENCE OF OTHER SPECIFIED PART 04/23/2019 YURI GREER MD Ot Z90. 89 ACQUIRED ABSENCE OF OTHER ORGANS 04/23/2019 YURI GREER MD Ot Z98.890 OTHER SPECIFIED POSTPROCEDURAL STATES 04/28/2019 YURI GREER MD Ot C83. 13 MANTLE CELL LYMPHOMA, INTRA-ABDOMINAL LY 04/28/2019 YURI GREER MD Ot 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 DEPENDENCE, UNSPECIFIED, UNCOMP 04/28/2019 YURI GREER MD Ot F32. 9 MAJOR DEPRESSIVE DISORDER, SINGLE EPISOD 04/28/2019 YURI GREER MD, Ot F41. 9 ANXIETY DISORDER, UNSPECIFIED 04/28/2019 YURI GREER MD, Ot J44. 9 CHRONIC OBSTRUCTIVE PULMONARY DISEASE, U 04/28/2019 YURI GREER MD, Ot K21. 9 GASTRO-ESOPHAGEAL REFLUX DISEASE WITHOUT 04/28/2019 YURI GREER MD Ot R21 RASH AND OTHER NONSPECIFIC SKIN ERUPTION 04/28/2019 YURI GREER MD Ot Z79. 51 SKILLED NURSING (CURRENT) USE OF INHALED STERO 04/28/2019 YURI GREER MD Ot Z82. 49 FAMILY HX OF ISCHEM HEART DIS AND OTH DI 04/28/2019 YURI GREER MD, Ot Z85.828 PERSONAL HISTORY OF OTHER MALIGNANT NEOP 04/28/2019 YURI GREER MD Ot Z87. 19 PERSONAL HISTORY OF OTHER DISEASES OF TH 04/28/2019 YURI GREER MD Ot Z90. 49 ACQUIRED ABSENCE OF OTHER SPECIFIED PART 04/28/2019 YURI GREER MD Ot Z90. 89 ACQUIRED ABSENCE OF OTHER ORGANS 04/28/2019 YURI GREER MD Ot Z98.890 OTHER SPECIFIED POSTPROCEDURAL STATES 04/30/2019 ELIGIO DEMARCO Ot C85.90 NON-HODGKIN LYMPHOMA, UNSPECIFIED, UNSPE 05/04/2019 ELIGIO DEMARCO Ot C85.90 NON-HODGKIN LYMPHOMA, UNSPECIFIED, UNSPE 05/21/2019 ELIGIO DEMARCO Ot C85.90 NON-HODGKIN LYMPHOMA, UNSPECIFIED, UNSPE 06/01/2019 ELIGIO DEMARCO Ot C85.90 NON-HODGKIN LYMPHOMA, UNSPECIFIED, UNSPE 06/07/2019 SHREYA APARICIO DO Ot F32.9 MAJOR DEPRESSIVE DISORDER, SINGLE EPISOD 06/07/2019 SHREYA APARICIO DO Ot F41.9 ANXIETY DISORDER, UNSPECIFIED 06/07/2019 SHREYA APARICIO DO, Ot J44.9 CHRONIC OBSTRUCTIVE PULMONARY DISEASE, U 06/07/2019 SHREYA APARICIO DO Ot K21.9 GASTRO-ESOPHAGEAL REFLUX DISEASE WITHOUT 06/07/2019 SHREYA APARICIO DO Ot M94.0 CHONDROCOSTAL JUNCTION SYNDROME [TIETZE] 06/07/2019 SHREYA APARICIO DO Ot R07.9 CHEST PAIN, UNSPECIFIED 06/07/2019 SHREYA APARICIO DO Ot Z79.51 DATA ANALYTICS SPECIALIST (CURRENT) USE OF INHALED STERO 06/07/2019 SHREYA APARICIO DO Ot Z82.49 FAMILY HX OF ISCHEM HEART DIS AND OTH DI 06/07/2019 SHREYA APARICIO DO Ot Z85.72 PERSONAL HISTORY OF NON-HODGKIN LYMPHOMA 06/07/2019 SHREYA APARICIO DO Ot Z85.828 PERSONAL HISTORY OF OTHER MALIGNANT NEOP 06/07/2019 SHREYA APARICIO DO Ot Z90.49 ACQUIRED ABSENCE OF OTHER SPECIFIED PART 06/07/2019 SHREYA APARICIO DO Ot Z90.89 ACQUIRED ABSENCE OF OTHER ORGANS 06/07/2019 SHREYA APARICIO DO Ot Z99.89 DEPENDENCE ON OTHER ENABLING MACHINES AN 06/10/2019 SHREYA APARICIO DO, Ot F32.9 MAJOR DEPRESSIVE DISORDER, SINGLE EPISOD 06/10/2019 SHREYA APARICIO DO, Ot F41.9 ANXIETY DISORDER, UNSPECIFIED 06/10/2019 SHREYA APARICIO DO Ot J44.9 CHRONIC OBSTRUCTIVE PULMONARY DISEASE, U 06/10/2019 SHREYA APARICIO DO, Ot K21.9 GASTRO-ESOPHAGEAL REFLUX DISEASE WITHOUT 06/10/2019 SHREYA APARICIO DO Ot M94.0 CHONDROCOSTAL JUNCTION SYNDROME [TIETZE] 06/10/2019 SHREYA APARICIO DO Ot R07.9 CHEST PAIN, UNSPECIFIED 06/10/2019 SHREYA APARICIO DO Ot Z79.51 SKILLED NURSING (CURRENT) USE OF INHALED STERO 06/10/2019 SHREYA APARICIO DO Ot Z82.49 FAMILY HX OF ISCHEM HEART DIS AND OTH DI 06/10/2019 SHREYA APARICIO DO, Ot Z85.72 PERSONAL HISTORY OF NON-HODGKIN LYMPHOMA 06/10/2019 SHREYA APARICIO DO, Ot Z85.828 PERSONAL HISTORY OF OTHER MALIGNANT NEOP 06/10/2019 SHREYA APARICIO DO, Ot Z90.49 ACQUIRED ABSENCE OF OTHER SPECIFIED PART 06/10/2019 SHREYA APARICIO DO, Ot Z90.89 ACQUIRED ABSENCE OF OTHER ORGANS 06/10/2019 SHREYA APARICIO DO, Ot Z99.89 DEPENDENCE ON OTHER ENABLING MACHINES AN 06/13/2019 ELIGIO DEMARCO Ot C85.90 NON-HODGKIN LYMPHOMA, UNSPECIFIED, UNSPE 06/13/2019 ELIGIO DEMARCO Ot Z51.11 ENCOUNTER FOR ANTINEOPLASTIC CHEMOTHERAP 06/13/2019 SHREYA APARICIO DO, Ot F32.9 MAJOR DEPRESSIVE DISORDER, SINGLE EPISOD 06/13/2019 SHREYA APARICIO DO, Ot F41.9 ANXIETY DISORDER, UNSPECIFIED 06/13/2019 SHREYA APARICIO DO, Ot J44.9 CHRONIC OBSTRUCTIVE PULMONARY DISEASE, U 06/13/2019 SHREYA APARICIO DO, Ot K21.9 GASTRO-ESOPHAGEAL REFLUX DISEASE WITHOUT 06/13/2019 SHREYA APARICIO DO, Ot M94.0 CHONDROCOSTAL JUNCTION SYNDROME [TIETZE] 06/13/2019 SHREYA APARICIO DO, Ot R07.9 CHEST PAIN, UNSPECIFIED 06/13/2019 SHREYA APARICIO DO, Ot Z79.51 DATA ANALYTICS SPECIALIST (CURRENT) USE OF INHALED STERO 06/13/2019 SHREYA APARICIO DO, Ot Z82.49 FAMILY HX OF ISCHEM HEART DIS AND OTH DI 06/13/2019 SHREYA APARICIO DO, Ot Z85.72 PERSONAL HISTORY OF NON-HODGKIN LYMPHOMA 06/13/2019 SHREYA APARICIO DO, Ot Z85.828 PERSONAL HISTORY OF OTHER MALIGNANT NEOP 06/13/2019 SHRYEA APARICIO DO, Ot Z90.49 ACQUIRED ABSENCE OF OTHER SPECIFIED PART 06/13/2019 SHREYA APARICIO DO, Ot Z90.89 ACQUIRED ABSENCE OF OTHER ORGANS 06/13/2019 SHREYA APARICIO DO, Ot Z99.89 DEPENDENCE ON OTHER ENABLING MACHINES AN 06/15/2019 ELIGIO DEMARCO Ot C85.90 NON-HODGKIN LYMPHOMA, UNSPECIFIED, UNSPE 06/15/2019 ELIGIO DEMARCO Ot Z51.11 ENCOUNTER FOR ANTINEOPLASTIC CHEMOTHERAP 06/19/2019 ELIGIO DEMARCO N Ot C85.90 NON-HODGKIN LYMPHOMA, UNSPECIFIED, UNSPE 06/19/2019 ELIGIO DEMARCO N Ot Z51.11 ENCOUNTER FOR ANTINEOPLASTIC CHEMOTHERAP 06/25/2019 NILAMELIGIO PRICE N Ot C85.98 NON-HODGKIN LYMPHOMA, UNSP, LYMPH NODES 06/25/2019 NILAMELIGIO PRICE N Ot Z51.81 ENCOUNTER FOR THERAPEUTIC DRUG LEVEL MON 06/25/2019 VANESSA SCHWARTZ SECURITY OFFICER Ot F33.2 MAJOR DEPRESSV DISORDER, RECURRENT SEVER 06/25/2019 VANESSA SCHWARTZ SECURITY OFFICER Ot Z79.899 OTHER SKILLED NURSING (CURRENT) DRUG THERAPY 06/25/2019 ELIGIO DEMARCO Ot C83.18 MANTLE CELL LYMPHOMA, LYMPH NODES OF MUL 06/25/2019 ELIGIO DEMARCO Ot C85.10 UNSPECIFIED B-CELL LYMPHOMA, UNSPECIFIED 06/25/2019 ELIGIO DEMARCO Ot C85.90 NON-HODGKIN LYMPHOMA, UNSPECIFIED, UNSPE 06/28/2019 ELIGIO DEMARCO Ot C85.98 NON-HODGKIN LYMPHOMA, UNSP, LYMPH NODES 06/28/2019 ELIGIO DEMARCO N Ot Z51.81 ENCOUNTER FOR THERAPEUTIC DRUG LEVEL MON 06/28/2019 ELIGIO DEMARCO Ot C83.18 MANTLE CELL LYMPHOMA, LYMPH NODES OF MUL 06/28/2019 ELIGIO DEMARCO Ot C85.10 UNSPECIFIED B-CELL LYMPHOMA, UNSPECIFIED 06/28/2019 ELIGIO DEMARCO N Ot C85.90 NON-HODGKIN LYMPHOMA, UNSPECIFIED, UNSPE 07/04/2019 LORY ALVES RIB CHOPPER Ot C83.10 MANTLE CELL LYMPHOMA, UNSPECIFIED SITE 07/04/2019 LORY ALVES RIB CHOPPER Ot Z90.49 ACQUIRED ABSENCE OF OTHER SPECIFIED PART 07/04/2019 LORY ALVES Ot Z95.828 PRESENCE OF OTHER VASCULAR IMPLANTS AND 07/04/2019 LORY ALVES Ot Z96.641 PRESENCE OF RIGHT ARTIFICIAL HIP JOINT 07/15/2019 ELIGIO DEMARCO N Ot C85.90 NON-HODGKIN LYMPHOMA, UNSPECIFIED, UNSPE 07/22/2019 LORY ALVES Ot C83.10 MANTLE CELL LYMPHOMA, UNSPECIFIED SITE 07/22/2019 LORY ALVES RIB CHOPPER Ot Z90.49 ACQUIRED ABSENCE OF OTHER SPECIFIED PART 07/22/2019 LORY ALVES RIB CHOPPER Ot Z95.828 PRESENCE OF OTHER VASCULAR IMPLANTS AND 07/22/2019 SHAYY ALVESITA Vega RIB CHOPPER Ot Z96.641 PRESENCE OF RIGHT ARTIFICIAL HIP JOINT 08/02/2019 LORY ALVES RIB CHOPPER Ot C85.10 UNSPECIFIED B-CELL LYMPHOMA, UNSPECIFIED 08/03/2019 ELIGIO DEMARCO N Ot C85.98 NON-HODGKIN LYMPHOMA, UNSP, LYMPH NODES 08/03/2019 ELIGIO DEMARCO N Ot Z51.81 ENCOUNTER FOR THERAPEUTIC DRUG LEVEL MON 08/03/2019 VANESSA SCHWARTZ SECURITY OFFICER Ot F33.2 MAJOR DEPRESSV DISORDER, RECURRENT SEVER 08/03/2019 VANESSA SCHWARTZ SECURITY OFFICER Ot Z79.899 OTHER DATA ANALYTICS SPECIALIST (CURRENT) DRUG THERAPY 08/03/2019 ELIGIO DEMARCO N Ot C83.18 MANTLE CELL LYMPHOMA, LYMPH NODES OF MUL 08/03/2019 ELIGIO DEMARCO N Ot C85.10 UNSPECIFIED B-CELL LYMPHOMA, UNSPECIFIED 08/03/2019 LORY ALVES RIB CHOPPER Ot C83.10 MANTLE CELL LYMPHOMA, UNSPECIFIED SITE 08/03/2019 LORY ALVES RIB CHOPPER Ot Z90.49 ACQUIRED ABSENCE OF OTHER SPECIFIED PART 08/03/2019 SHAYY ALVESITA Gary RIB CHOPPER Ot Z95.828 PRESENCE OF OTHER VASCULAR IMPLANTS AND 08/03/2019 SHAYY ALVESITA Gary RIB CHOPPER Ot Z96.641 PRESENCE OF RIGHT ARTIFICIAL HIP JOINT 08/03/2019 LORY ALVES RIB CHOPPER Ot C85.10 UNSPECIFIED B-CELL LYMPHOMA, UNSPECIFIED 08/03/2019 ELIGIO DEMARCO N Ot C85.90 NON-HODGKIN LYMPHOMA, UNSPECIFIED, UNSPE 08/24/2019 ELIGIO DEMARCO Ot C85.90 NON-HODGKIN LYMPHOMA, UNSPECIFIED, UNSPE 09/14/2019 LORY ALVES RIB CHOPPER Ot C85.10 UNSPECIFIED B-CELL LYMPHOMA, UNSPECIFIED 09/20/2019 LORY ALVES RIB CHOPPER Ot C85.10 UNSPECIFIED B-CELL LYMPHOMA, UNSPECIFIED 09/21/2019 ELIGIO DEMARCO N Ot C85.90 NON-HODGKIN LYMPHOMA, UNSPECIFIED, UNSPE 09/21/2019 NILAM, BOBAN N Ot C85.98 NON-HODGKIN LYMPHOMA, UNSP, LYMPH NODES 09/21/2019 NILAM BOBAN N Ot Z51.81 ENCOUNTER FOR THERAPEUTIC DRUG LEVEL MON 09/21/2019 EFREN VANESSA S SECURITY OFFICER Ot F33.2 MAJOR DEPRESSV DISORDER, RECURRENT SEVER 09/21/2019 EFREN, VANESSA S SECURITY OFFICER Ot Z79.899 OTHER DATA ANALYTICS SPECIALIST (CURRENT) DRUG THERAPY 09/21/2019 NILAM, BOBAN N Ot C83.18 MANTLE CELL LYMPHOMA, LYMPH NODES OF MUL 09/21/2019 NILAM, BOBAN N Ot C85.10 UNSPECIFIED B-CELL LYMPHOMA, UNSPECIFIED 09/21/2019 LORY ALVES S RIB CHOPPER Ot C83.10 MANTLE CELL LYMPHOMA, UNSPECIFIED SITE 09/21/2019 LORY ALVES S RIB CHOPPER Ot Z90.49 ACQUIRED ABSENCE OF OTHER SPECIFIED PART 09/21/2019 ALVESLORY S RIB CHOPPER Ot Z95.828 PRESENCE OF OTHER VASCULAR IMPLANTS AND 09/21/2019 LORY ALVES S RIB CHOPPER Ot Z96.641 PRESENCE OF RIGHT ARTIFICIAL HIP JOINT 09/21/2019 NILAM, BOBAN N Ot C85.90 NON-HODGKIN LYMPHOMA, UNSPECIFIED, UNSPE 09/21/2019 ALVESLORY S RIB CHOPPER Ot C85.10 UNSPECIFIED B-CELL LYMPHOMA, UNSPECIFIED 09/26/2019 NILAM, BOBAN N Ot C85.90 NON-HODGKIN LYMPHOMA, UNSPECIFIED, UNSPE 10/12/2019 NILAM, BOBAN N Ot C85.98 NON-HODGKIN LYMPHOMA, UNSP, LYMPH NODES 10/12/2019 NILAM, BOBAN N Ot Z51.81 ENCOUNTER FOR THERAPEUTIC DRUG LEVEL MON 10/12/2019 EFREN, VANESSA S SECURITY OFFICER Ot F33.2 MAJOR DEPRESSV DISORDER, RECURRENT SEVER 10/12/2019 EFREN, VANESSA S SECURITY OFFICER Ot Z79.899 OTHER DATA ANALYTICS SPECIALIST (CURRENT) DRUG THERAPY 10/12/2019 NILAM BOBAN N Ot C83.18 MANTLE CELL LYMPHOMA, LYMPH NODES OF MUL 10/12/2019 NILAM BOBAN N Ot C85.10 UNSPECIFIED B-CELL LYMPHOMA, UNSPECIFIED 10/12/2019 LORY ALVES S RIB CHOPPER Ot C83.10 MANTLE CELL LYMPHOMA, UNSPECIFIED SITE 10/12/2019 LORY ALVES RIB CHOPPER Ot Z90.49 ACQUIRED ABSENCE OF OTHER SPECIFIED PART 10/12/2019 LORY ALVES RIB CHOPPER Ot Z95.828 PRESENCE OF OTHER VASCULAR IMPLANTS AND 10/12/2019 SHAYY ALVESITA Gary RIB CHOPPER Ot Z96.641 PRESENCE OF RIGHT ARTIFICIAL HIP JOINT 10/12/2019 LORY ALVES RIB CHOPPER Ot C85.10 UNSPECIFIED B-CELL LYMPHOMA, UNSPECIFIED 10/12/2019 ELIGIO DEMARCO Ot C85.90 NON-[place] LYMPHOMA, UNSPECIFIED, UNSPE 10/29/2019 ELIGIO DEMARCO N Ot C85.98 NON-H[place] LYMPHOMA, UNSP, LYMPH NODES 10/29/2019 ELIGIO DEMARCO N Ot Z51.81 ENCOUNTER FOR THERAPEUTIC DRUG LEVEL MON 10/29/2019 VANESSA SCHWARTZ SECURITY OFFICER Ot F33.2 MAJOR DEPRESSV DISORDER, RECURRENT SEVER 10/29/2019 VANESSA SCHWARTZ SECURITY OFFICER Ot Z79.899 OTHER SKILLED NURSING (CURRENT) DRUG THERAPY 10/29/2019 ELIGIO DEMARCO N Ot C83.18 MANTLE CELL LYMPHOMA, LYMPH NODES OF MUL 10/29/2019 ELIGIO DEMARCO N Ot C85.10 UNSPECIFIED B-CELL LYMPHOMA, UNSPECIFIED 10/29/2019 LORY ALVES RIB CHOPPER Ot C83.10 MANTLE CELL LYMPHOMA, UNSPECIFIED SITE 10/29/2019 LORY ALVES RIB CHOPPER Ot Z90.49 ACQUIRED ABSENCE OF OTHER SPECIFIED PART 10/29/2019 LORY ALVES RIB CHOPPER Ot Z95.828 PRESENCE OF OTHER VASCULAR IMPLANTS AND 10/29/2019 LORY ALVES RIB CHOPPER Ot Z96.641 PRESENCE OF RIGHT ARTIFICIAL HIP JOINT 10/29/2019 LORY ALVES RIB CHOPPER Ot C85.10 UNSPECIFIED B-CELL LYMPHOMA, UNSPECIFIED 10/29/2019 ELIGIO DEMARCO N Ot C85.90 NON-HODGKIN LYMPHOMA, UNSPECIFIED, UNSPE 10/29/2019 LEIGHTON LUP Ot F32.9 MAJOR DEPRESSIVE DISORDER, SINGLE EPISOD 10/29/2019 LEIGHTON LU RIB CHOPPER Ot F41.9 ANXIETY DISORDER, UNSPECIFIED 10/29/2019 LEIGHTON LU RIB CHOPPER Ot J06.9 ACUTE UPPER RESPIRATORY INFECTION, UNSPE 10/29/2019 ALY, LEIGHTON RIB CHOPPER Ot J44.9 CHRONIC OBSTRUCTIVE PULMONARY DISEASE, U 10/29/2019 ALY, LEIGHTON RIB CHOPPER Ot K21.9 GASTRO-ESOPHAGEAL REFLUX DISEASE WITHOUT 10/29/2019 ALY, LEIGHTON RIB CHOPPER Ot R11.10 VOMITING, UNSPECIFIED 10/29/2019 ALY, LEIGHTON RIB CHOPPER Ot Z79.51 SKILLED NURSING (CURRENT) USE OF INHALED STERO 10/29/2019 ALY, LEIGHTON RIB CHOPPER Ot Z82.49 FAMILY HX OF ISCHEM HEART DIS AND OTH DI 10/29/2019 ALY, LEIGHTON RIB CHOPPER Ot Z85.72 PERSONAL HISTORY OF NON-H[place]IN LYMPHOMA 10/29/2019 ALY, LEIGHTON RIB CHOPPER Ot Z85.828 PERSONAL HISTORY OF OTHER MALIGNANT NEOP 10/29/2019 ALY, LEIGHTON RIB CHOPPER Ot Z90.49 ACQUIRED ABSENCE OF OTHER SPECIFIED PART 10/29/2019 ALY, LEIGHTON RIB CHOPPER Ot Z90.89 ACQUIRED ABSENCE OF OTHER ORGANS 11/02/2019 ALY, LEIGHTON RIB CHOPPER Ot F32.9 MAJOR DEPRESSIVE DISORDER, SINGLE EPISOD 11/02/2019 ALY, LEIGHTON RIB CHOPPER Ot F41.9 ANXIETY DISORDER, UNSPECIFIED 11/02/2019 ALY, LEIGHTON RIB CHOPPER Ot J06.9 ACUTE UPPER RESPIRATORY INFECTION, UNSPE 11/02/2019 ALY, LEIGHTON RIB CHOPPER Ot J44.9 CHRONIC OBSTRUCTIVE PULMONARY DISEASE, U 11/02/2019 ALY, LEIGHTON RIB CHOPPER Ot K21.9 GASTRO-ESOPHAGEAL REFLUX DISEASE WITHOUT 11/02/2019 AYL, LEIGHTON RIB CHOPPER Ot R11.10 VOMITING, UNSPECIFIED 11/02/2019 ALY, LEIGHTON RIB CHOPPER Ot Z79.51 DATA ANALYTICS SPECIALIST (CURRENT) USE OF INHALED STERO 11/02/2019 ALY, LEIGHTON RIB CHOPPER Ot Z82.49 FAMILY HX OF ISCHEM HEART DIS AND OTH DI 11/02/2019 ALY, LEIGHTON RIB CHOPPER Ot Z85.72 PERSONAL HISTORY OF NON-HODG[place]IN LYMPHOMA 11/02/2019 ALY, LEIGHTON RIB CHOPPER Ot Z85.828 PERSONAL HISTORY OF OTHER MALIGNANT NEOP 11/02/2019 ALY, LEIGHTON RIB CHOPPER Ot Z90.49 ACQUIRED ABSENCE OF OTHER SPECIFIED PART 11/02/2019 ALY, LEIGHTON RIB CHOPPER Ot Z90.89 ACQUIRED ABSENCE OF OTHER ORGANS 11/09/2019 AIXA VICK APRN Ot J44.9 CHRONIC OBSTRUCTIVE PULMONARY DISEASE, U 11/09/2019 VICKBUNNY WITTIN Daniel JACKIE Ot T85.9XXA UNSP COMPLICATION OF INTERNAL PROSTH DEV 11/24/2019 ELIGIO DEMARCO Kevin Ot C85.90 NON-H[place] LYMPHOMA, UNSPECIFIED, UNSPE 12/03/2019 VICKBUNNYLINDSEY Sanchez APRN Ot J44.9 CHRONIC OBSTRUCTIVE PULMONARY DISEASE, U 12/03/2019 VICKBUNNY WITTIN Daniel JACKIE Ot T85.9XXA UNSP COMPLICATION OF INTERNAL PROSTH DEV 12/03/2019 VANESSA SCHWARTZ JACKIE Ot S59.911A UNSPECIFIED INJURY OF RIGHT FOREARM, INI 12/03/2019 EFRENVANESSA Noble SECURITY OFFICER Ot X58.XXXA EXPOSURE TO OTHER SPECIFIED FACTORS, INI 12/05/2019 KENN WOLF MD, Ot C85. 90 NON-HODGKIN LYMPHOMA, UNSPECIFIED, UNSPE 12/05/2019 KENN WOLF MD, Ot F32. 9 MAJOR DEPRESSIVE DISORDER, SINGLE EPISOD 12/05/2019 KENN WOLF MD, Ot F41. 9 ANXIETY DISORDER, UNSPECIFIED 12/05/2019 KENN WOLF MD, Ot J44. 9 CHRONIC OBSTRUCTIVE PULMONARY DISEASE, U 12/05/2019 KENN WOLF MD, Ot K21. 9 GASTRO-ESOPHAGEAL REFLUX DISEASE WITHOUT 12/05/2019 KENN WOLF MD, Ot M19. 90 UNSPECIFIED OSTEOARTHRITIS, UNSPECIFIED 12/05/2019 KENN WOLF MD, Ot M54. 2 CERVICALGIA 12/05/2019 KENN WOLF MD, Ot Z79.899 OTHER SKILLED NURSING (CURRENT) DRUG THERAPY 12/05/2019 KENN WOLF MD, Ot Z82. 3 FAMILY HISTORY OF STROKE 12/05/2019 KENN WOLF MD, Ot Z82. 49 FAMILY HX OF ISCHEM HEART DIS AND OTH DI 12/05/2019 KENN WOLF MD, Ot Z90. 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 9 MAJOR DEPRESSIVE DISORDER, SINGLE EPISOD 12/05/2019 MARYANN MD, KENN M Ot F41. 9 ANXIETY DISORDER, UNSPECIFIED 12/05/2019 KENN WOLF MD Ot J44. 9 CHRONIC OBSTRUCTIVE PULMONARY DISEASE, U 12/05/2019 KENN WOLF MD, Ot K21. 9 GASTRO-ESOPHAGEAL REFLUX DISEASE WITHOUT 12/05/2019 KENN WOLF MD Ot M19. 90 UNSPECIFIED OSTEOARTHRITIS, UNSPECIFIED 12/05/2019 KENN WOLF MD Ot M54. 2 CERVICALGIA 12/05/2019 EKNN WOLF MD Ot Z79.899 OTHER DATA ANALYTICS SPECIALIST (CURRENT) DRUG THERAPY 12/05/2019 KENN WOLF MD, Ot Z82. 3 FAMILY HISTORY OF STROKE 12/05/2019 KENN WOLF MD, Ot Z82. 49 FAMILY HX OF ISCHEM HEART DIS AND OTH DI 12/05/2019 KENN WOLF MD Ot Z90. 89 ACQUIRED ABSENCE OF OTHER ORGANS 12/07/2019 LORY ALVES Ot C85.10 UNSPECIFIED B-CELL LYMPHOMA, UNSPECIFIED 12/07/2019 ALONSO DO, MALI B Ot Z01.8 18 ENCOUNTER FOR OTHER PREPROCEDURAL EXAMIN 12/08/2019 ALONSO DO, MALI B Ot C83.1 0 MANTLE CELL LYMPHOMA, UNSPECIFIED SITE 12/08/2019 ALONSO DO, MALI B Ot E66.9 OBESITY, UNSPECIFIED 12/08/2019 DELMAN DO, MALI B Ot F32.9 MAJOR DEPRESSIVE DISORDER, SINGLE EPISOD 12/08/2019 ALONSO DO, MALI B Ot F41.9 ANXIETY DISORDER, UNSPECIFIED 12/08/2019 ALONSO DO, MALI B Ot I87.2 VENOUS INSUFFICIENCY (CHRONIC) (PERIPHER 12/08/2019 DELDIANA DO, MALI B Ot J44.9 CHRONIC OBSTRUCTIVE PULMONARY DISEASE, U 12/08/2019 ALONSO DO, MALI B Ot K21.9 GASTRO-ESOPHAGEAL REFLUX DISEASE WITHOUT 12/08/2019 ALONSO DO, MALI B Ot T85.618A BREAKDOWN (MECHANICAL) OF INTERNAL PROST 12/08/2019 DELDIANA DO, MALI B Ot Z68.3 5 BODY MASS INDEX (BMI) 35.0-35.9, ADULT 12/08/2019 ALONSO DO, MALI B Ot Z79.8 2 DATA ANALYTICS SPECIALIST (CURRENT) USE OF ASPIRIN 12/08/2019 ALONSO DO MALI B Ot Z79.8 91 SKILLED NURSING (CURRENT) USE OF OPIATE ANALGE 12/08/2019 GEOVANNY GUPTA DOIC B Ot Z79.8 99 OTHER SKILLED NURSING (CURRENT) DRUG THERAPY 12/08/2019 KRISSYDIANA DO MALI B Ot Z82.4 9 FAMILY HX OF ISCHEM HEART DIS AND OTH DI 12/08/2019 KRISSYDIANA GEOVANNY ARROYOIC B Ot Z83.3 FAMILY HISTORY OF DIABETES MELLITUS 12/08/2019 KRISSYDIANA DO MALI B Ot Z88.8 ALLERGY STATUS TO [facility] DRUG/MEDS/BIOL SUB 12/08/2019 KRISSYDIANA DO MALI B Ot Z90.4 9 ACQUIRED ABSENCE OF OTHER SPECIFIED PART 12/08/2019 KRISSYDIANA GEOVANNY ARROYOIC B Ot Z90.8 9 ACQUIRED ABSENCE OF OTHER ORGANS 12/08/2019 KRISSYDIANA DO MALI B Ot Z91.0 40 LATEX ALLERGY STATUS 12/08/2019 KRISSYDIANA GEOVANNY ARROYOIC B Ot Z96.6 49 PRESENCE OF UNSPECIFIED ARTIFICIAL HIP J 12/10/2019 KRISSYDIANA DO MALI B Ot C83.1 0 MANTLE CELL LYMPHOMA, UNSPECIFIED SITE 12/10/2019 KRISSYDIANA DO MALI B Ot E66.9 OBESITY, UNSPECIFIED 12/10/2019 KRISSYDIANA DO MALI B Ot F32.9 MAJOR DEPRESSIVE DISORDER, SINGLE EPISOD 12/10/2019 KRISSYDIANA DO MALI B Ot F41.9 ANXIETY DISORDER, UNSPECIFIED 12/10/2019 KRISSYDIANA DO MALI B Ot I87.2 VENOUS INSUFFICIENCY (CHRONIC) (PERIPHER 12/10/2019 KRISSYDIANA GEOVANNY ARROYOIC B Ot J44.9 CHRONIC OBSTRUCTIVE PULMONARY DISEASE, U 12/10/2019 KRISSYDIANA DO MALI B Ot K21.9 GASTRO-ESOPHAGEAL REFLUX DISEASE WITHOUT 12/10/2019 KRISSYDIANA DO MALI B Ot T85.618A BREAKDOWN (MECHANICAL) OF INTERNAL PROST 12/10/2019 GEOVANNY GUPTA DOIC B Ot Z68.3 5 BODY MASS INDEX (BMI) 35.0-35.9, ADULT 12/10/2019 ALONSO ARROYO MALI B Ot Z79.8 2 DATA ANALYTICS SPECIALIST (CURRENT) USE OF ASPIRIN 12/10/2019 ALONSO ARROYO MALI B Ot Z79.8 91 SKILLED NURSING (CURRENT) USE OF OPIATE ANALGE 12/10/2019 ALONSO ARROYO, MALI B Ot Z79.8 99 OTHER DATA ANALYTICS SPECIALIST (CURRENT) DRUG THERAPY 12/10/2019 ALONSO ARROYO, MALI B Ot Z82.4 9 FAMILY HX OF ISCHEM HEART DIS AND OTH DI 12/10/2019 ALONSO ARROYO, MALI B Ot Z83.3 FAMILY HISTORY OF DIABETES MELLITUS 12/10/2019 ALONSO ARROYO, MALI B Ot Z88.8 ALLERGY STATUS TO [facility] DRUG/MEDS/BIOL SUB 12/10/2019 ALONSO ARROYO, MALI B Ot Z90.4 9 ACQUIRED ABSENCE OF OTHER SPECIFIED PART 12/10/2019 ALONSO ARROYO, MALI B Ot Z90.8 9 ACQUIRED ABSENCE OF OTHER ORGANS 12/10/2019 ALONSO ARROYO, MALI B Ot Z91.0 40 LATEX ALLERGY STATUS 12/10/2019 ALONSO ARROYO, MALI B Ot Z96.6 49 PRESENCE OF UNSPECIFIED ARTIFICIAL HIP J 12/17/2019 KENN WOLF MD Ot C85. 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 9 MAJOR DEPRESSIVE DISORDER, SINGLE EPISOD 12/17/2019 KENN WOLF MD, Ot F41. 9 ANXIETY DISORDER, UNSPECIFIED 12/17/2019 KENN WOLF MD, Ot J44. 9 CHRONIC OBSTRUCTIVE PULMONARY DISEASE, U 12/17/2019 KENN WOLF MD Ot K21. 9 GASTRO-ESOPHAGEAL REFLUX DISEASE WITHOUT 12/17/2019 KENN WOLF MD Ot M19. 90 UNSPECIFIED OSTEOARTHRITIS, UNSPECIFIED 12/17/2019 KENN WOLF MD Ot M54. 2 CERVICALGIA 12/17/2019 KENN WOLF MD Ot Z79.899 OTHER SKILLED NURSING (CURRENT) DRUG THERAPY 12/17/2019 KENN WOLF MD Ot Z82. 3 FAMILY HISTORY OF STROKE 12/17/2019 KENN WOLF MD Ot Z82. 49 FAMILY HX OF ISCHEM HEART DIS AND OTH DI 12/17/2019 KENN WOLF MD Ot Z90. 89 ACQUIRED ABSENCE OF OTHER ORGANS 12/17/2019 KENN WOLF MD, Ot C85. 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 9 MAJOR DEPRESSIVE DISORDER, SINGLE EPISOD 12/17/2019 MARYANN CARPENTER, KENN Triplett Ot F41. 9 ANXIETY DISORDER, UNSPECIFIED 12/17/2019 MARYANN CARPENTER, KENN Triplett Ot J44. 9 CHRONIC OBSTRUCTIVE PULMONARY DISEASE, U 12/17/2019 MARYANN CARPENTER, KENN Triplett Ot K21. 9 GASTRO-ESOPHAGEAL REFLUX DISEASE WITHOUT 12/17/2019 MARYANN CARPENTER, KENN Triplett Ot M19. 90 UNSPECIFIED OSTEOARTHRITIS, UNSPECIFIED 12/17/2019 MARYANN CARPENTER, KENN Triplett Ot M54. 2 CERVICALGIA 12/17/2019 MARYANN CARPENTER, KENN Triplett Ot Z79.899 OTHER SKILLED NURSING (CURRENT) DRUG THERAPY 12/17/2019 MARYANN CARPENTER, KENN Triplett Ot Z82. 3 FAMILY HISTORY OF STROKE 12/17/2019 MARYANN CARPENTER, KENN Triplett Ot Z82. 49 FAMILY HX OF ISCHEM HEART DIS AND OTH DI 12/17/2019 MARYANN CARPENTER, KENN Triplett Ot Z90. 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, LYMPH NODES OF MUL 02/14/2020 ELIGIO DEMARCO Ot C85.90 NON-HODGKIN LYMPHOMA, UNSPECIFIED, UNSPE 02/14/2020 ELIGIO DEMARCO Ot J06.9 ACUTE UPPER RESPIRATORY INFECTION, UNSPE 02/14/2020 ELIGIO DEMARCO Ot Z51.11 ENCOUNTER FOR ANTINEOPLASTIC CHEMOTHERAP 02/14/2020 ELIGIO DEMARCO Ot Z79.899 OTHER DATA ANALYTICS SPECIALIST (CURRENT) DRUG THERAPY 02/16/2020 ELIGIO DEMARCO Ot C83.18 MANTLE CELL LYMPHOMA, LYMPH NODES OF MUL 02/16/2020 ELIGIO DEMARCO Ot C85.90 NON-HODGKIN LYMPHOMA, UNSPECIFIED, UNSPE 02/16/2020 ELIGIO DEMARCO Ot J06.9 ACUTE UPPER RESPIRATORY INFECTION, UNSPE 02/16/2020 ELIGIO DEMARCO Ot Z51.11 ENCOUNTER FOR ANTINEOPLASTIC CHEMOTHERAP 02/16/2020 ELIGIO DEMARCO Ot Z79.899 OTHER SKILLED NURSING (CURRENT) DRUG THERAPY 02/16/2020 DOREEN, TITA RIB CHOPPER Ot R05 COUGH 02/16/2020 DOREEN, TITA RIB CHOPPER Ot R07.1 CHEST PAIN ON BREATHING 02/16/2020 DOREEN, TIAT RIB CHOPPER Ot R10.84 GENERALIZED ABDOMINAL PAIN 03/06/2020 Ot C83.18 MAN TLE CELL LYMPHOMA, LYMPH NODES OF MUL 03/06/2020 Ot C85.90 NON -HODGKIN LYMPHOMA, UNSPECIFIED, UNSPE 03/06/2020 Ot J06.9 ACUT E UPPER RESPIRATORY INFECTION, UNSPE 03/06/2020 Ot Z51.11 ENC OUNTER FOR ANTINEOPLASTIC CHEMOTHERAP 03/06/2020 Ot Z79.899 OT HER DATA ANALYTICS SPECIALIST (CURRENT) DRUG THERAPY Procedures There is no data. Results Test Result Range Comprehensive metabolic panel - 10/16/17 19:43 Serum or plasma sodium measurement (moles/volume) 138 mmol/L 135-145 Serum or plasma potassium measurement (moles/volume) 4.4 mmol/L 3.6-5.0 Serum or plasma chloride measurement (moles/volume) 106 mmol/L 98-107 Carbon dioxide 25 mmol/L 21-32 Serum or plasma anion gap determination (moles/volume) 7 mmol/L 5-14 Serum or plasma urea nitrogen measurement (mass/volume ) 13 mg/dL 7-18 Serum or plasma creatinine measurement (mass/volume) 0.85 mg/dL 0.60-1.30 Serum or plasma urea nitrogen/creatinine mass ratio 15 NRG Serum or plasma creatinine measurement w ith calculation of estimated glomerular filtration rate > NRG Serum or plasma glucose measurement (mass/volume) 89 mg/dL 70-105 Serum or plasma calcium measurement (mass/volume) 9.4 mg/dL 8.5-10.1 Serum or plasma total bilirubin measurement (mass/volu me) 0.7 mg/dL 0.1-1.0 Serum or plasma alkaline phosphatase rakesh surement (enzymatic activity/volume) 51 U/L 40-136 Serum or plasma aspartate aminotransfera se measurement (enzymatic activity/volume) 19 U/L 5-34 Serum or plasma alanine aminotransferase measurement (enzymatic activity/volume) 13 U/L 0-55 Serum or plasma protein measurement (mass/volume) 6.5 g/dL 6.4-8.2 Serum or plasma albumin measurement (mass/volume) 4.2 g/dL 3.2-4.5 Complete blood count (CBC) with automate d white blood cell (WBC) differential - 10/16/17 19:43 Blood leukocytes automated count (number/volume) 9.4 10*3/uL 4.3-11.0 Blood erythrocytes automated count (number/volume) 4.50 10*6/uL 4.35-5.85 Venous blood hemoglobin measurement (mass/volume) 14.2 g/dL 13.3-17.7 Blood hematocrit (volume fraction) 41 % 40-54 Automated erythrocyte mean corpuscular volume 91 [ foz_us] 80-99 Automated erythrocyte mean corpuscular h emoglobin (mass per erythrocyte) 32 pg 25-34 Automated erythrocyte mean corpuscular h emoglobin concentration measurement (mass/volume) 35 g/dL 32-36 Automated erythrocyte distribution width ratio 12. 1 % 10.0- 14.5 Automated blood platelet count [...] 10*3 1.0-4.0 Blood monocytes automated count (number/volume) 0. 8 10*3 0.0-1.0 Automated eosinophil count 0.1 10*3/uL 0 .0-0.3 Automated blood basophil count (count/volume) 0.1 10*3/uL 0.0-0.1 Complete urinalysis with reflex to cultu re - 10/16/17 20:25 Urine color determination YELLOW NRG Urine clarity determination CLEAR NR G Urine pH measurement by test strip 8 5-9 Specific gravity of urine by test strip 1.010 1.016-1.022 Urine protein assay by test strip, semi-quantitative NEGATIVE NEGATIVE Urine glucose detection by automated test strip NE GATIVE NEGATIVE Erythrocytes detection in urine sediment by light micr oscopy 2+ NEGATIVE Urine ketones detection by automated test strip NE GATIVE NEGATIVE Urine nitrite detection by test strip NEGATIVE NEGATIVE Urine total bilirubin detection by test strip NEGA TIVE NEGATIVE Urine urobilinogen measurement by automated test strip (mass/volume) NORMAL NORMAL Urine leukocyte esterase detection by dipstick 1+ NEGATIVE Automated urine sediment erythrocyte cou nt by microscopy (number/high power field) [HPF] NRG Automated urine sediment leukocyte count by microscopy (number/high power field) [HPF] NRG Bacteria detection in urine sediment by light microsco py NONE NRG Squamous epithelial cells detection in u rine sediment by light microscopy RARE NRG Crystals detection in urine sediment by light microsco py NONE NRG Casts detection in urine sediment by light microscopy NONE NRG Mucus detection in urine sediment by light microscopy NEGATIVE NRG Complete urinalysis with reflex to culture NO NRG Complete urinalysis with reflex to cultu re - 11/30/18 18:51 Urine color determination YELLOW NRG Urine clarity determination CLEAR NR G Urine pH measurement by test strip 5 5-9 Specific gravity of urine by test strip 1.025 1.016-1.022 Urine protein assay by test strip, semi-quantitative 2+ NEGATIVE Urine glucose detection by automated test strip NE GATIVE NEGATIVE Erythrocytes detection in urine sediment by light micr oscopy 2+ NEGATIVE Urine ketones detection by automated test strip NE GATIVE NEGATIVE Urine nitrite detection by test strip NEGATIVE NEGATIVE Urine total bilirubin detection by test strip NEGA TIVE NEGATIVE Urine urobilinogen measurement by automated test strip (mass/volume) NORMAL NORMAL Urine leukocyte esterase detection by dipstick 1+ NEGATIVE Automated urine sediment erythrocyte cou nt by microscopy (number/high power field) RARE NRG Automated urine sediment leukocyte count by microscopy (number/high power field) [HPF] NRG Bacteria detection in urine sediment by light microsco py FEW NRG Squamous epithelial cells detection in u rine sediment by light microscopy 0-2 NRG Crystals detection in urine sediment by light microsco py NONE NRG Casts detection in urine sediment by light microscopy PRESENT NRG Mucus detection in urine sediment by light microscopy LARGE NRG Complete urinalysis with reflex to culture NO NRG Hyaline casts detection in urine sediment by light ethan roscopy 0-2 NRG Complete blood count (CBC) with automate d white blood cell (WBC) differential - 11/30/18 19:09 Blood leukocytes automated count (number/volume) 6.3 10*3/uL 4.3-11.0 Blood erythrocytes automated count (number/volume) 4.45 10*6/uL 4.35-5.85 Venous blood hemoglobin measurement (mass/volume) 14.4 g/dL 13.3-17.7 Blood hematocrit (volume fraction) 40 % 40-54 Automated erythrocyte mean corpuscular volume 89 [ foz_us] 80-99 Automated erythrocyte mean corpuscular h emoglobin (mass per erythrocyte) 32 pg 25-34 Automated erythrocyte mean corpuscular h emoglobin concentration measurement (mass/volume) 37 g/dL 32-36 Automated erythrocyte distribution width ratio 12. 9 % 10.0- 14.5 Automated blood platelet count [...] 10*3 1.0-4.0 Blood monocytes automated count (number/volume) 0. 6 10*3 0.0-1.0 Automated eosinophil count 0.1 10*3/uL 0 .0-0.3 Automated blood basophil count (count/volume) 0.0 10*3/uL 0.0-0.1 Comprehensive metabolic panel - 11/30/18 19:09 Serum or plasma sodium measurement (moles/volume) 141 mmol/L 135-145 Serum or plasma potassium measurement (moles/volume) 4.3 mmol/L 3.6-5.0 Serum or plasma chloride measurement (moles/volume) 107 mmol/L 98-107 Carbon dioxide 23 mmol/L 21-32 Serum or plasma anion gap determination (moles/volume) 11 mmol/L 5-14 Serum or plasma urea nitrogen measurement (mass/volume ) 18 mg/dL 7-18 Serum or plasma creatinine measurement (mass/volume) 0.88 mg/dL 0.60-1.30 Serum or plasma urea nitrogen/creatinine mass ratio 20 NRG Serum or plasma creatinine measurement w ith calculation of estimated glomerular filtration rate > NRG Serum or plasma glucose measurement (mass/volume) 81 mg/dL 70-105 Serum or plasma calcium measurement (mass/volume) 9.4 mg/dL 8.5-10.1 Serum or plasma total bilirubin measurement (mass/volu me) 0.7 mg/dL 0.1-1.0 Serum or plasma alkaline phosphatase rakesh surement (enzymatic activity/volume) 59 U/L 40-136 Serum or plasma aspartate aminotransfera se measurement (enzymatic activity/volume) 17 U/L 5-34 Serum or plasma alanine aminotransferase measurement (enzymatic activity/volume) 12 U/L 0-55 Serum or plasma protein measurement (mass/volume) 6.5 g/dL 6.4-8.2 Serum or plasma albumin measurement (mass/volume) 4.4 g/dL 3.2-4.5 CALCIUM CORRECTED 9.1 mg/dL 8.5-10.1 Serum or plasma amylase measurement (enz ymatic activity/volume) - 11/30/18 19:09 Serum or plasma amylase measurement (enzymatic activit y/volume) 61 U/L 25-125 Lipase - 11/30/18 19:09 Lipase 31 U/L 8-78 Methicillin resistant Staphylococcus aur eus (MRSA) screening culture - 12/08/18 09:55 Methicillin resistant Staphylococcus aureus (MRSA) scr eening culture NEG NRG Complete urinalysis with reflex to cultu re - 12/11/18 13:35 Urine color determination YELLOW NRG Urine clarity determination CLEAR NR G Urine pH measurement by test strip 8 5-9 Specific gravity of urine by test strip 1.010 1.016-1.022 Urine protein assay by test strip, semi-quantitative NEGATIVE NEGATIVE Urine glucose detection by automated test strip NE GATIVE NEGATIVE Erythrocytes detection in urine sediment by light micr oscopy 3+ NEGATIVE Urine ketones detection by automated test strip NE GATIVE NEGATIVE Urine nitrite detection by test strip NEGATIVE NEGATIVE Urine total bilirubin detection by test strip NEGA TIVE NEGATIVE Urine urobilinogen measurement by automated test strip (mass/volume) NORMAL NORMAL Urine leukocyte esterase detection by dipstick NEG ATIVE NEGATIVE Automated urine sediment erythrocyte cou nt by microscopy (number/high power field) [HPF] NRG Automated urine sediment leukocyte count by microscopy (number/high power field) NONE NRG Bacteria detection in urine sediment by light microsco py NEGATIVE NRG Squamous epithelial cells detection in u rine sediment by light microscopy NONE NRG Crystals detection in urine sediment by light microsco py NONE NRG Casts detection in urine sediment by light microscopy NONE NRG Mucus detection in urine sediment by light microscopy NEGATIVE NRG Complete urinalysis with reflex to culture NO NRG Complete blood count (CBC) with automate d white blood cell (WBC) differential - 12/11/18 14:25 Blood leukocytes automated count (number/volume) 6.1 10*3/uL 4.3-11.0 Blood erythrocytes automated count (number/volume) 4.37 10*6/uL 4.35-5.85 Venous blood hemoglobin measurement (mass/volume) 13.6 g/dL 13.3-17.7 Blood hematocrit (volume fraction) 39 % 40-54 Automated erythrocyte mean corpuscular volume 90 [ foz_us] 80-99 Automated erythrocyte mean corpuscular h emoglobin (mass per erythrocyte) 31 pg 25-34 Automated erythrocyte mean corpuscular h emoglobin concentration measurement (mass/volume) 35 g/dL 32-36 Automated erythrocyte distribution width ratio 12. 7 % 10.0- 14.5 Automated blood platelet count [...] 10*3 1.0-4.0 Blood monocytes automated count (number/volume) 0. 7 10*3 0.0-1.0 Automated eosinophil count 0.1 10*3/uL 0 .0-0.3 Automated blood basophil count (count/volume) 0.0 10*3/uL 0.0-0.1 Comprehensive metabolic panel - 12/11/18 14:25 Serum or plasma sodium measurement (moles/volume) 140 mmol/L 135-145 Serum or plasma potassium measurement (moles/volume) 4.3 mmol/L 3.6-5.0 Serum or plasma chloride measurement (moles/volume) 108 mmol/L 98-107 Carbon dioxide 23 mmol/L 21-32 Serum or plasma anion gap determination (moles/volume) 9 mmol/L 5-14 Serum or plasma urea nitrogen measurement (mass/volume ) 17 mg/dL 7-18 Serum or plasma creatinine measurement (mass/volume) 0.82 mg/dL 0.60-1.30 Serum or plasma urea nitrogen/creatinine mass ratio 21 NRG Serum or plasma creatinine measurement w ith calculation of estimated glomerular filtration rate > NRG Serum or plasma glucose measurement (mass/volume) 86 mg/dL 70-105 Serum or plasma calcium measurement (mass/volume) 8.6 mg/dL 8.5-10.1 Serum or plasma total bilirubin measurement (mass/volu me) 0.6 mg/dL 0.1-1.0 Serum or plasma alkaline phosphatase rakesh surement (enzymatic activity/volume) 45 U/L 40-136 Serum or plasma aspartate aminotransfera se measurement (enzymatic activity/volume) 16 U/L 5-34 Serum or plasma alanine aminotransferase measurement (enzymatic activity/volume) 11 U/L 0-55 Serum or plasma protein measurement (mass/volume) 5.6 g/dL 6.4-8.2 Serum or plasma albumin measurement (mass/volume) 3.8 g/dL 3.2-4.5 CALCIUM CORRECTED 8.8 mg/dL 8.5-10.1 Serum or plasma amylase measurement (enz ymatic activity/volume) - 12/11/18 14:25 Serum or plasma amylase measurement (enzymatic activit y/volume) 47 U/L 25-125 Lipase - 12/11/18 14:25 Lipase 21 U/L 8-78 Methicillin resistant Staphylococcus aur eus (MRSA) screening culture - 12/24/18 11:00 Methicillin resistant Staphylococcus aureus (MRSA) scr eening culture NEG NRG Complete urinalysis with reflex to cultu re - 01/11/19 10:25 Urine color determination YELLOW NRG Urine clarity determination CLEAR NR G Urine pH measurement by test strip 5 5-9 Specific gravity of urine by test strip 1.020 1.016-1.022 Urine protein assay by test strip, semi-quantitative 1+ NEGATIVE Urine glucose detection by automated test strip NE GATIVE NEGATIVE Erythrocytes detection in urine sediment by light micr oscopy 1+ NEGATIVE Urine ketones detection by automated test strip 1+ NEGATIVE Urine nitrite detection by test strip NEGATIVE NEGATIVE Urine total bilirubin detection by test strip NEGA TIVE NEGATIVE Urine urobilinogen measurement by automated test strip (mass/volume) NORMAL NORMAL Urine leukocyte esterase detection by dipstick NEG ATIVE NEGATIVE Automated urine sediment erythrocyte cou nt by microscopy (number/high power field) RARE NRG Automated urine sediment leukocyte count by microscopy (number/high power field) NONE NRG Bacteria detection in urine sediment by light microsco py NEGATIVE NRG Squamous epithelial cells detection in u rine sediment by light microscopy RARE NRG Crystals detection in urine sediment by light microsco py NONE NRG Casts detection in urine sediment by light microscopy NONE NRG Mucus detection in urine sediment by light microscopy NEGATIVE NRG Complete urinalysis with reflex to culture NO NRG Complete blood count (CBC) with automate d white blood cell (WBC) differential - 03/02/19 15:30 Blood leukocytes automated count (number/volume) 8.6 10*3/uL 4.3-11.0 Blood erythrocytes automated count (number/volume) 4.32 10*6/uL 4.35-5.85 Venous blood hemoglobin measurement (mass/volume) 13.6 g/dL 13.3-17.7 Blood hematocrit (volume fraction) 39 % 40-54 Automated erythrocyte mean corpuscular volume 91 [ foz_us] 80-99 Automated erythrocyte mean corpuscular h emoglobin (mass per erythrocyte) 31 pg 25-34 Automated erythrocyte mean corpuscular h emoglobin concentration measurement (mass/volume) 35 g/dL 32-36 Automated erythrocyte distribution width ratio 12. 9 % 10.0- 14.5 Automated blood platelet count [...] 10*3 1.0-4.0 Blood monocytes automated count (number/volume) 0. 4 10*3 0.0-1.0 Automated eosinophil count 0.0 10*3/uL 0 .0-0.3 Automated blood basophil count (count/volume) 0.0 10*3/uL 0.0-0.1 PT panel in platelet poor plasma by coag ulation assay - 03/02/19 15:30 Prothrombin time (PT) in platelet poor plasma by coagu lation assay 13.5 s 12.2-14.7 INR in platelet poor plasma or blood by coagulation as say 1.0 0.8-1.4 Activated partial thromboplastin time (a PTT) in platelet poor plasma bycoagulation assay - 03/02/19 15:30 Activated partial thromboplastin time (a PTT) in platelet poor plasma bycoagulation assay 25 s 24-35 Comprehensive metabolic panel - 03/02/19 15:30 Serum or plasma sodium measurement (moles/volume) 142 mmol/L 135-145 Serum or plasma potassium measurement (moles/volume) 4.6 mmol/L 3.6-5.0 Serum or plasma chloride measurement (moles/volume) 111 mmol/L 98-107 Carbon dioxide 21 mmol/L 21-32 Serum or plasma anion gap determination (moles/volume) 10 mmol/L 5-14 Serum or plasma urea nitrogen measurement (mass/volume ) 10 mg/dL 7-18 Serum or plasma creatinine measurement (mass/volume) 1.10 mg/dL 0.60-1.30 Serum or plasma urea nitrogen/creatinine mass ratio 9 NRG Serum or plasma creatinine measurement w ith calculation of estimated glomerular filtration rate > NRG Serum or plasma glucose measurement (mass/volume) 111 mg/dL 70-105 Serum or plasma calcium measurement (mass/volume) 9.0 mg/dL 8.5-10.1 Serum or plasma total bilirubin measurement (mass/volu me) 0.3 mg/dL 0.1-1.0 Serum or plasma alkaline phosphatase rakesh surement (enzymatic activity/volume) 47 U/L 40-136 Serum or plasma aspartate aminotransfera se measurement (enzymatic activity/volume) 17 U/L 5-34 Serum or plasma alanine aminotransferase measurement (enzymatic activity/volume) 16 U/L 0-55 Serum or plasma protein measurement (mass/volume) 5.9 g/dL 6.4-8.2 Serum or plasma albumin measurement (mass/volume) 4.1 g/dL 3.2-4.5 CALCIUM CORRECTED 8.9 mg/dL 8.5-10.1 Magnesium - 03/02/19 15:30 Magnesium 1.9 mg/dL 1.8-2.4 Serum or plasma creatine kinase measurem ent (enzymatic activity/volume) - 03/02/19 15:30 Serum or plasma creatine kinase measurem ent (enzymatic activity/volume) 188 U/L 30-200 Serum or plasma creatine kinase MB measu rement (enzymatic activity/volume) - 03/02/19 15:30 Serum or plasma creatine kinase MB measu rement (enzymatic activity/volume) 3.7 ng/mL <6.6 Serum or plasma troponin i.cardiac measu rement (mass/volume) - 03/02/19 15:30 Serum or plasma troponin i.cardiac measurement (mass/v olume) < ng/mL <0.028 Myoglobin, serum - 03/02/19 15:30 Myoglobin, serum 113.6 ng/mL 10.0-92.0 Serum or plasma amylase measurement (enz ymatic activity/volume) - 03/02/19 15:30 Serum or plasma amylase measurement (enzymatic activit y/volume) 55 U/L 25-125 Lipase - 03/02/19 15:30 Lipase 23 U/L 8-78 [id number] - 03/02/19 15:30 [id number] 40.8 ug/mL 50.0-100.0 Serum or plasma lithium measurement (mol es/volume) - 03/02/19 15:30 BNP level 34.5 pg/mL <100.0 Blood manual differential performed dete ction - 03/02/19 15:30 Blood monocytes/100 leukocytes 3 % NRG Manual blood segmented neutrophils/100 leukocytes 89 % NRG Blood band neutrophils/100 leukocytes 2 % NRG Manual blood lymphocytes/100 leukocytes 6 % NRG Manual eosinophils/100 leukocytes in nose 0 % NRG Manual blood basophils/100 leukocytes 0 % NRG Blood ovalocytes detection by light microscopy SLI GHT NRG Blood poikilocytosis detection by light microscopy SLIGHT NRG Blood lactic acid measurement (moles/vol ume) - 03/02/19 15:50 Blood lactic acid measurement (moles/volume) 2.05 mmol/L 0.50-2.00 Influenza virus A and B antigen detectio n - 03/02/19 15:50 FLU RESULT NEGATIVE FOR INFLUENZA A AND B ANTIGENS BY IA NRG Bacterial blood culture - 03/02/19 15:50 Bacterial blood culture NG NRG Bacterial blood culture - 03/02/19 16:07 Bacterial blood culture NG NRG Complete urinalysis with reflex to cultu re - 03/02/19 16:16 Urine color determination YELLOW NRG Urine clarity determination CLEAR NR G Urine pH measurement by test strip 6 5-9 Specific gravity of urine by test strip 1.015 1.016-1.022 Urine protein assay by test strip, semi-quantitative NEGATIVE NEGATIVE Urine glucose detection by automated test strip NE GATIVE NEGATIVE Erythrocytes detection in urine sediment by light micr oscopy NEGATIVE NEGATIVE Urine ketones detection by automated test strip 1+ NEGATIVE Urine nitrite detection by test strip NEGATIVE NEGATIVE Urine total bilirubin detection by test strip NEGA TIVE NEGATIVE Urine urobilinogen measurement by automated test strip (mass/volume) NORMAL NORMAL Urine leukocyte esterase detection by dipstick 1+ NEGATIVE Automated urine sediment erythrocyte cou nt by microscopy (number/high power field) NONE NRG Automated urine sediment leukocyte count by microscopy (number/high power field) [HPF] NRG Bacteria detection in urine sediment by light microsco py NEGATIVE NRG Squamous epithelial cells detection in u rine sediment by light microscopy RARE NRG Crystals detection in urine sediment by light microsco py NONE NRG Casts detection in urine sediment by light microscopy PRESENT NRG Mucus detection in urine sediment by light microscopy SMALL NRG Complete urinalysis with reflex to culture NO NRG Hyaline casts detection in urine sediment by light ethan roscopy 10-25 NRG Renal epithelial cells detection in urin e sediment by light microscopy NONE NRG WBC casts detection in urine sediment by light microsc opy 0-2 NRG Serum or plasma lactate measurement (mol es/volume) - 03/02/19 17:52 Serum or plasma lactate measurement (moles/volume) 1.64 mmol/L 0.50-2.00 Serum or plasma troponin i.cardiac measu rement (mass/volume) - 03/02/19 21:25 Serum or plasma troponin i.cardiac measurement (mass/v olume) < ng/mL <0.028 Complete blood count (CBC) with automate d white blood cell (WBC) differential - 03/03/19 03:40 Blood leukocytes automated count (number/volume) 9.1 10*3/uL 4.3-11.0 Blood erythrocytes automated count (number/volume) 4.04 10*6/uL 4.35-5.85 Venous blood hemoglobin measurement (mass/volume) 12.8 g/dL 13.3-17.7 Blood hematocrit (volume fraction) 37 % 40-54 Automated erythrocyte mean corpuscular volume 92 [ foz_us] 80-99 Automated erythrocyte mean corpuscular h emoglobin (mass per erythrocyte) 32 pg 25-34 Automated erythrocyte mean corpuscular h emoglobin concentration measurement (mass/volume) 35 g/dL 32-36 Automated erythrocyte distribution width ratio 12. 9 % 10.0- 14.5 Automated blood platelet count [...] 10*3 1.0-4.0 Blood monocytes automated count (number/volume) 1. 2 10*3 0.0-1.0 Automated eosinophil count 0.0 10*3/uL 0 .0-0.3 Automated blood basophil count (count/volume) 0.0 10*3/uL 0.0-0.1 Comprehensive metabolic panel - 03/03/19 03:40 Serum or plasma sodium measurement (moles/volume) 141 mmol/L 135-145 Serum or plasma potassium measurement (moles/volume) 4.7 mmol/L 3.6-5.0 Serum or plasma chloride measurement (moles/volume) 110 mmol/L 98-107 Carbon dioxide 21 mmol/L 21-32 Serum or plasma anion gap determination (moles/volume) 10 mmol/L 5-14 Serum or plasma urea nitrogen measurement (mass/volume ) 13 mg/dL 7-18 Serum or plasma creatinine measurement (mass/volume) 0.93 mg/dL 0.60-1.30 Serum or plasma urea nitrogen/creatinine mass ratio 14 NRG Serum or plasma creatinine measurement w ith calculation of estimated glomerular filtration rate > NRG Serum or plasma glucose measurement (mass/volume) 101 mg/dL 70-105 Serum or plasma calcium measurement (mass/volume) 8.4 mg/dL 8.5-10.1 Serum or plasma total bilirubin measurement (mass/volu me) 0.4 mg/dL 0.1-1.0 Serum or plasma alkaline phosphatase rakesh surement (enzymatic activity/volume) 43 U/L 40-136 Serum or plasma aspartate aminotransfera se measurement (enzymatic activity/volume) 19 U/L 5-34 Serum [...] Serum or plasma cholesterol in HDL measurement (mass/v olume) 41 mg/dL 40-60 Cholesterol in LDL [mass/volume] in serum or plasma by direct assay 75 mg/dL 1-129 Serum or plasma cholesterol in VLDL measurement (mass/ volume) 14 mg/dL 5-40 Complete blood count (CBC) with automate d white blood cell (WBC) differential - 05/13/19 10:28 Blood leukocytes automated count (number/volume) 2.3 10*3/uL 4.3-11.0 Blood erythrocytes automated count (number/volume) 4.50 10*6/uL 4.35-5.85 Venous blood hemoglobin measurement (mass/volume) 14.3 g/dL 13.3-17.7 Blood hematocrit (volume fraction) 40 % 40-54 Automated erythrocyte mean corpuscular volume 89 [ foz_us] 80-99 Automated erythrocyte mean corpuscular h emoglobin (mass per erythrocyte) 32 pg 25-34 Automated erythrocyte mean corpuscular h emoglobin concentration measurement (mass/volume) 36 g/dL 32-36 Automated erythrocyte distribution width ratio 12. 7 % 10.0- 14.5 Automated blood platelet count [...] 10*3 1.0-4.0 Blood monocytes automated count (number/volume) 0. 4 10*3 0.0-1.0 Automated eosinophil count 0.2 10*3/uL 0 .0-0.3 Automated blood basophil count (count/volume) 0.0 10*3/uL 0.0-0.1 Whole blood basic metabolic panel - 05/03 11/21 10:28 Serum or plasma sodium measurement (moles/volume) 142 mmol/L 135-145 Serum or plasma potassium measurement (moles/volume) 4.6 mmol/L 3.6-5.0 Serum or plasma chloride measurement (moles/volume) 109 mmol/L 98-107 Carbon dioxide 24 mmol/L 21-32 Serum or plasma anion gap determination (moles/volume) 9 mmol/L 5-14 Serum or plasma urea nitrogen measurement (mass/volume ) 10 mg/dL 7-18 Serum or plasma creatinine measurement (mass/volume) 0.98 mg/dL 0.60-1.30 Serum or plasma urea nitrogen/creatinine mass ratio 10 NRG Serum or plasma creatinine measurement w ith calculation of estimated glomerular filtration rate > NRG Serum or plasma glucose measurement (mass/volume) 110 mg/dL 70-105 Serum or plasma calcium measurement (mass/volume) 9.0 mg/dL 8.5-10.1 Complete blood count (CBC) with automate d white blood cell (WBC) differential - 05/17/19 09:57 Blood leukocytes automated count (number/volume) 2.0 10*3/uL 4.3-11.0 Blood erythrocytes automated count (number/volume) 4.40 10*6/uL 4.35-5.85 Venous blood hemoglobin measurement (mass/volume) 14.0 g/dL 13.3-17.7 Blood hematocrit (volume fraction) 39 % 40-54 Automated erythrocyte mean corpuscular volume 89 [ foz_us] 80-99 Automated erythrocyte mean corpuscular h emoglobin (mass per erythrocyte) 32 pg 25-34 Automated erythrocyte mean corpuscular h emoglobin concentration measurement (mass/volume) 36 g/dL 32-36 Automated erythrocyte distribution width ratio 13. 0 % 10.0- 14.5 Automated blood platelet count [...] 10*3 1.0-4.0 Blood monocytes automated count (number/volume) 0. 6 10*3 0.0-1.0 Automated eosinophil count 0.1 10*3/uL 0 .0-0.3 Automated blood basophil count (count/volume) 0.1 10*3/uL 0.0-0.1 Whole blood basic metabolic panel - 05/03 03/21 09:57 Serum or plasma sodium measurement (moles/volume) 142 mmol/L 135-145 Serum or plasma potassium measurement (moles/volume) 4.1 mmol/L 3.6-5.0 Serum or plasma chloride measurement (moles/volume) 108 mmol/L 98-107 Carbon dioxide 23 mmol/L 21-32 Serum or plasma anion gap determination (moles/volume) 11 mmol/L 5-14 Serum or plasma urea nitrogen measurement (mass/volume ) 10 mg/dL 7-18 Serum or plasma creatinine measurement (mass/volume) 0.96 mg/dL 0.60-1.30 Serum or plasma urea nitrogen/creatinine mass ratio 10 NRG Serum or plasma creatinine measurement w ith calculation of estimated glomerular filtration rate > NRG Serum or plasma glucose measurement (mass/volume) 90 mg/dL 70-105 Serum or plasma calcium measurement (mass/volume) 9.4 mg/dL 8.5-10.1 Complete blood count (CBC) with automate d white blood cell (WBC) differential - 06/07/19 18:20 Blood leukocytes automated count (number/volume) 5.6 10*3/uL 4.3-11.0 Blood erythrocytes automated count (number/volume) 4.36 10*6/uL 4.35-5.85 Venous blood hemoglobin measurement (mass/volume) 14.3 g/dL 13.3-17.7 Blood hematocrit (volume fraction) 39 % 40-54 Automated erythrocyte mean corpuscular volume 89 [ foz_us] 80-99 Automated erythrocyte mean corpuscular h emoglobin (mass per erythrocyte) 33 pg 25-34 Automated erythrocyte mean corpuscular h emoglobin concentration measurement (mass/volume) 37 g/dL 32-36 Automated erythrocyte distribution width ratio 12. 8 % 10.0- 14.5 Automated blood platelet count (count/volume) 206 10*3/uL 130-400 Automated blood platelet mean volume measurement 9.4 [foz_us] 7.4-10.4 Automated blood neutrophils/100 leukocytes 75 % 42-75 Automated blood lymphocytes/100 leukocytes 10 % 12-44 Blood monocytes/100 leukocytes 9 % 0-12 Automated blood eosinophils/100 leukocytes 5 % 0-10 Automated blood basophils/100 leukocytes 1 % 0-10 Blood neutrophils automated count (number/volume) 4.2 10*3 1.8-7.8 Blood lymphocytes automated count (number/volume) 0.5 10*3 1.0-4.0 Blood monocytes automated count (number/volume) 0. 5 10*3 0.0-1.0 Automated eosinophil count 0.3 10*3/uL 0 .0-0.3 Automated blood basophil count (count/volume) 0.0 10*3/uL 0.0-0.1 Comprehensive metabolic panel - 06/07/19 18:20 Serum or plasma sodium measurement (moles/volume) 143 mmol/L 135-145 Serum or plasma potassium measurement (moles/volume) 4.3 mmol/L 3.6-5.0 Serum or plasma chloride measurement (moles/volume) 104 mmol/L 98-107 Carbon dioxide 25 mmol/L 21-32 Serum or plasma anion gap determination (moles/volume) 14 mmol/L 5-14 Serum or plasma urea nitrogen measurement (mass/volume ) 11 mg/dL 7-18 Serum or plasma creatinine measurement (mass/volume) 1.03 mg/dL 0.60-1.30 Serum or plasma urea nitrogen/creatinine mass ratio 11 NRG Serum or plasma creatinine measurement w ith calculation of estimated glomerular filtration rate > NRG Serum or plasma glucose measurement (mass/volume) 108 mg/dL 70-105 Serum or plasma calcium measurement (mass/volume) 9.0 mg/dL 8.5-10.1 Serum or plasma total bilirubin measurement (mass/volu me) 0.4 mg/dL 0.1-1.0 Serum or plasma alkaline phosphatase rakesh surement (enzymatic activity/volume) 66 U/L 40-136 Serum or plasma aspartate aminotransfera se measurement (enzymatic activity/volume) 16 U/L 5-34 Serum or plasma alanine aminotransferase measurement (enzymatic activity/volume) 12 U/L 0-55 Serum or plasma protein measurement (mass/volume) 6.4 g/dL 6.4-8.2 Serum or plasma albumin measurement (mass/volume) 4.4 g/dL 3.2-4.5 CALCIUM CORRECTED 8.7 mg/dL 8.5-10.1 Magnesium - 06/07/19 18:20 Magnesium 1.7 mg/dL 1.8-2.4 Serum or plasma troponin i.cardiac measu rement (mass/volume) - 06/07/19 18:20 Serum or plasma troponin i.cardiac measurement (mass/v olume) < ng/mL <0.30 PROBNP FS - 06/07/19 18:20 PROBNP FS 115.6 pg/mL <75.0 Lipase - 06/07/19 18:20 Lipase 35 U/L 8-78 Complete blood count (CBC) with automate d white blood cell (WBC) differential - 06/16/19 09:53 Blood leukocytes automated count (number/volume) 3.6 10*3/uL 4.3-11.0 Blood erythrocytes automated count (number/volume) 4.29 10*6/uL 4.35-5.85 Venous blood hemoglobin measurement (mass/volume) 13.7 g/dL 13.3-17.7 Blood hematocrit (volume fraction) 39 % 40-54 Automated erythrocyte mean corpuscular volume 91 [ foz_us] 80-99 Automated erythrocyte mean corpuscular h emoglobin (mass per erythrocyte) 32 pg 25-34 Automated erythrocyte mean corpuscular h emoglobin concentration measurement (mass/volume) 35 g/dL 32-36 Automated erythrocyte distribution width ratio 12. 9 % 10.0- 14.5 Automated blood platelet count (count/volume) 201 10*3/uL 130-400 Automated blood platelet mean volume measurement 9.0 [foz_us] 7.4-10.4 Automated blood neutrophils/100 leukocytes 68 % 42-75 Automated blood lymphocytes/100 leukocytes 10 % 12-44 Blood monocytes/100 leukocytes 15 % 0-12 Automated blood eosinophils/100 leukocytes 5 % 0-10 Automated blood basophils/100 leukocytes 1 % 0-10 Blood neutrophils automated count (number/volume) 2.4 10*3 1.8-7.8 Blood lymphocytes automated count (number/volume) 0.4 10*3 1.0-4.0 Blood monocytes automated count (number/volume) 0. 5 10*3 0.0-1.0 Automated eosinophil count 0.2 10*3/uL 0 .0-0.3 Automated blood basophil count (count/volume) 0.1 10*3/uL 0.0-0.1 Whole blood basic metabolic panel - 06/03 02/19 09:53 Serum or plasma sodium measurement (moles/volume) 142 mmol/L 135-145 Serum or plasma potassium measurement (moles/volume) 4.6 mmol/L 3.6-5.0 Serum or plasma chloride measurement (moles/volume) 104 mmol/L 98-107 Carbon dioxide 24 mmol/L 21-32 Serum or plasma anion gap determination (moles/volume) 14 mmol/L 5-14 Serum or plasma urea nitrogen measurement (mass/volume ) 8 mg/dL 7-18 Serum or plasma creatinine measurement (mass/volume) 0.91 mg/dL 0.60-1.30 Serum or plasma urea nitrogen/creatinine mass ratio 9 NRG Serum or plasma creatinine measurement w ith calculation of estimated glomerular filtration rate > NRG Serum or plasma glucose measurement (mass/volume) 110 mg/dL 70-105 Serum or plasma calcium measurement (mass/volume) 9.0 mg/dL 8.5-10.1 Whole blood basic metabolic panel - 06/04 11/21 09:06 Serum or plasma sodium measurement (moles/volume) 140 mmol/L 135-145 Serum or plasma potassium measurement (moles/volume) 3.9 mmol/L 3.6-5.0 Serum or plasma chloride measurement (moles/volume) 101 mmol/L 98-107 Carbon dioxide 24 mmol/L 21-32 Serum or plasma anion gap determination (moles/volume) 15 mmol/L 5-14 Serum or plasma urea nitrogen measurement (mass/volume ) 10 mg/dL 7-18 Serum or plasma creatinine measurement (mass/volume) 1.01 mg/dL 0.60-1.30 Serum or plasma urea nitrogen/creatinine mass ratio 10 NRG Serum or plasma creatinine measurement w ith calculation of estimated glomerular filtration rate > NRG Serum or plasma glucose measurement (mass/volume) 117 mg/dL 70-105 Serum or plasma calcium measurement (mass/volume) 9.5 mg/dL 8.5-10.1 Complete blood count (CBC) with automate d white blood cell (WBC) differential - 06/23/19 09:06 Blood leukocytes automated count (number/volume) 3.0 10*3/uL 4.3-11.0 Blood erythrocytes automated count (number/volume) 4.39 10*6/uL 4.35-5.85 Venous blood hemoglobin measurement (mass/volume) 14.4 g/dL 13.3-17.7 Blood hematocrit (volume fraction) 40 % 40-54 Automated erythrocyte mean corpuscular volume 92 [ foz_us] 80-99 Automated erythrocyte mean corpuscular h emoglobin (mass per erythrocyte) 33 pg 25-34 Automated erythrocyte mean corpuscular h emoglobin concentration measurement (mass/volume) 36 g/dL 32-36 Automated erythrocyte distribution width ratio 12. 9 % 10.0- 14.5 Automated blood platelet count (count/volume) 169 10*3/uL 130-400 Automated blood platelet mean volume measurement 9.7 [foz_us] 7.4-10.4 Automated blood neutrophils/100 leukocytes 70 % 42-75 Automated blood lymphocytes/100 leukocytes 13 % 12-44 Blood monocytes/100 leukocytes 12 % 0-12 Automated blood eosinophils/100 leukocytes 4 % 0-10 Automated blood basophils/100 leukocytes 1 % 0-10 Blood neutrophils automated count (number/volume) 2.1 10*3 1.8-7.8 Blood lymphocytes automated count (number/volume) 0.4 10*3 1.0-4.0 Blood monocytes automated count (number/volume) 0. 4 10*3 0.0-1.0 Automated eosinophil count 0.1 10*3/uL 0 .0-0.3 Automated blood basophil count (count/volume) 0.0 10*3/uL 0.0-0.1 Complete blood count (CBC) with automate d white blood cell (WBC) differential - 10/29/19 21:22 Blood leukocytes automated count (number/volume) 5.7 10*3/uL 4.3-11.0 Blood erythrocytes automated count (number/volume) 4.40 10*6/uL 4.35-5.85 Venous blood hemoglobin measurement (mass/volume) 14.2 g/dL 13.3-17.7 Blood hematocrit (volume fraction) 40 % 40-54 Automated erythrocyte mean corpuscular volume 91 [ foz_us] 80-99 Automated erythrocyte mean corpuscular h emoglobin (mass per erythrocyte) 32 pg 25-34 Automated erythrocyte mean corpuscular h emoglobin concentration measurement (mass/volume) 35 g/dL 32-36 Automated erythrocyte distribution width ratio 12. 8 % 10.0- 14.5 Automated blood platelet count (count/volume) 184 10*3/uL 130-400 Automated blood platelet mean volume measurement 9.7 [foz_us] 7.4-10.4 Automated blood neutrophils/100 leukocytes 73 % 42-75 Automated blood lymphocytes/100 leukocytes 10 % 12-44 Blood monocytes/100 leukocytes 11 % 0-12 Automated blood eosinophils/100 leukocytes 5 % 0-10 Automated blood basophils/100 leukocytes 1 % 0-10 Blood neutrophils automated count (number/volume) 4.2 10*3 1.8-7.8 Blood lymphocytes automated count (number/volume) 0.6 10*3 1.0-4.0 Blood monocytes automated count (number/volume) 0. 6 10*3 0.0-1.0 Automated eosinophil count 0.3 10*3/uL 0 .0-0.3 Automated blood basophil count (count/volume) 0.0 10*3/uL 0.0-0.1 Comprehensive metabolic panel - 10/29/19 21:22 Serum or plasma sodium measurement (moles/volume) 141 mmol/L 135-145 Serum or plasma potassium measurement (moles/volume) 3.8 mmol/L 3.6-5.0 Serum or plasma chloride measurement (moles/volume) 109 mmol/L 98-107 Carbon dioxide 20 mmol/L 21-32 Serum or plasma anion gap determination (moles/volume) 12 mmol/L 5-14 Serum or plasma urea nitrogen measurement (mass/volume ) 11 mg/dL 7-18 Serum or plasma creatinine measurement (mass/volume) 0.97 mg/dL 0.60-1.30 Serum or plasma urea nitrogen/creatinine mass ratio 11 NRG Serum or plasma creatinine measurement w ith calculation of estimated glomerular filtration rate > NRG Serum or plasma glucose measurement (mass/volume) 117 mg/dL 70-105 Serum or plasma calcium measurement (mass/volume) 8.9 mg/dL 8.5-10.1 Serum or plasma total bilirubin measurement (mass/volu me) 0.5 mg/dL 0.1-1.0 Serum or plasma alkaline phosphatase rakesh surement (enzymatic activity/volume) 64 U/L 40-136 Serum or plasma aspartate aminotransfera se measurement (enzymatic activity/volume) 27 U/L 5-34 Serum or plasma alanine aminotransferase measurement (enzymatic activity/volume) 19 U/L 0-55 Serum or plasma protein measurement (mass/volume) 6.2 g/dL 6.4-8.2 Serum or plasma albumin measurement (mass/volume) 4.4 g/dL 3.2-4.5 CALCIUM CORRECTED 8.6 mg/dL 8.5-10.1 Serum or plasma lithium measurement (mol es/volume) - 10/29/19 21:22 BNP PT < 10.0 <100.0 Influenza virus A and B antigen detectio n - 10/29/19 22:10 FLU RESULT NEGATIVE FOR INFLUENZA A AND B ANTIGENS BY [facility] Complete blood count (CBC) with automate d white blood cell (WBC) differential - 12/04/19 18:25 Blood leukocytes automated count (number/volume) 5.4 10*3/uL 4.3-11.0 Blood erythrocytes automated count (number/volume) 4.47 10*6/uL 4.35-5.85 Venous blood hemoglobin measurement (mass/volume) 14.4 g/dL 13.3-17.7 Blood hematocrit (volume fraction) 40 % 40-54 Automated erythrocyte mean corpuscular volume 90 [ foz_us] 80-99 Automated erythrocyte mean corpuscular h emoglobin (mass per erythrocyte) 32 pg 25-34 Automated erythrocyte mean corpuscular h emoglobin concentration measurement (mass/volume) 36 g/dL 32-36 Automated erythrocyte distribution width ratio 12. 1 % 10.0- 14.5 Automated blood platelet count (count/volume) 174 10*3/uL 130-400 Automated blood platelet mean volume measurement 9.5 [foz_us] 7.4-10.4 Automated blood neutrophils/100 leukocytes 75 % 42-75 Automated blood lymphocytes/100 leukocytes 9 % 12-44 Blood monocytes/100 leukocytes 11 % 0-12 Automated blood eosinophils/100 leukocytes 4 % 0-10 Automated blood basophils/100 leukocytes 1 % 0-10 Blood neutrophils automated count (number/volume) 4.0 10*3 1.8-7.8 Blood lymphocytes automated count (number/volume) 0.5 10*3 1.0-4.0 Blood monocytes automated count (number/volume) 0. 6 10*3 0.0-1.0 Automated eosinophil count 0.2 10*3/uL 0 .0-0.3 Automated blood basophil count (count/volume) 0.1 10*3/uL 0.0-0.1 PT panel in platelet poor plasma by coag ulation assay - 12/04/19 18:25 Prothrombin time (PT) in platelet poor plasma by coagu lation assay 13.4 s 12.2-14.7 INR in platelet poor plasma or blood by coagulation as say 1.0 0.8-1.4 Activated partial thromboplastin time (a PTT) in platelet poor plasma bycoagulation assay - 12/04/19 18:25 Activated partial thromboplastin time (a PTT) in platelet poor plasma bycoagulation assay 26 s 24-35 Comprehensive metabolic panel - 12/04/19 18:25 Serum or plasma sodium measurement (moles/volume) 140 mmol/L 135-145 Serum or plasma potassium measurement (moles/volume) 4.0 mmol/L 3.6-5.0 Serum or plasma chloride measurement (moles/volume) 105 mmol/L 98-107 Carbon dioxide 23 mmol/L 21-32 Serum or plasma anion gap determination (moles/volume) 12 mmol/L 5-14 Serum or plasma urea nitrogen measurement (mass/volume ) 16 mg/dL 7-18 Serum or plasma creatinine measurement (mass/volume) 1.04 mg/dL 0.60-1.30 Serum or plasma urea nitrogen/creatinine mass ratio 15 NRG Serum or plasma creatinine measurement w ith calculation of estimated glomerular filtration rate > NRG Serum or plasma glucose measurement (mass/volume) 100 mg/dL 70-105 Serum or plasma calcium measurement (mass/volume) 9.3 mg/dL 8.5-10.1 Serum or plasma total bilirubin measurement (mass/volu me) 0.5 mg/dL 0.1-1.0 Serum or plasma alkaline phosphatase rakesh surement (enzymatic activity/volume) 63 U/L 40-136 Serum or plasma aspartate aminotransfera se measurement (enzymatic activity/volume) 15 U/L 5-34 Serum or plasma alanine aminotransferase measurement (enzymatic activity/volume) 9 U/L 0-55 Serum or plasma protein measurement (mass/volume) 6.0 g/dL 6.4-8.2 Serum or plasma albumin measurement (mass/volume) 4.6 g/dL 3.2-4.5 TROPONIN I FS - 12/04/19 18:25 TROPONIN I FS < 0.30 <0.30 PROBNP FS - 12/04/19 18:25 PROBNP FS 44.8 pg/mL <75.0 Serum or plasma troponin i.cardiac measu rement (mass/volume) - 12/04/19 23:16 Serum or plasma troponin i.cardiac measurement (mass/v olume) < ng/mL <0.028 Comprehensive metabolic panel - 12/05/19 03:20 Serum or plasma sodium measurement (moles/volume) 140 mmol/L 135-145 Serum or plasma potassium measurement (moles/volume) 3.7 mmol/L 3.6-5.0 Serum or plasma chloride measurement (moles/volume) 109 mmol/L 98-107 Carbon dioxide 21 mmol/L 21-32 Serum or plasma anion gap determination (moles/volume) 10 mmol/L 5-14 Serum or plasma urea nitrogen measurement (mass/volume ) 15 mg/dL 7-18 Serum or plasma creatinine measurement (mass/volume) 1.06 mg/dL 0.60-1.30 Serum or plasma urea nitrogen/creatinine mass ratio 14 NRG Serum or plasma creatinine measurement w ith calculation of estimated glomerular filtration rate > NRG Serum or plasma glucose measurement (mass/volume) 111 mg/dL 70-105 Serum or plasma calcium measurement (mass/volume) 8.9 mg/dL 8.5-10.1 Serum or plasma total bilirubin measurement (mass/volu me) 0.3 mg/dL 0.1-1.0 Serum or plasma alkaline phosphatase rakesh surement (enzymatic activity/volume) 58 U/L 40-136 Serum or plasma aspartate aminotransfera se measurement (enzymatic activity/volume) 14 U/L 5-34 Serum or plasma alanine aminotransferase measurement (enzymatic activity/volume) 11 U/L 0-55 Serum or plasma protein measurement (mass/volume) 5.6 g/dL 6.4-8.2 Serum or plasma albumin measurement (mass/volume) 3.9 g/dL 3.2-4.5 CALCIUM CORRECTED 9.0 mg/dL 8.5-10.1 Serum or plasma troponin i.cardiac measu rement (mass/volume) - 12/05/19 03:20 Serum or plasma troponin i.cardiac measurement (mass/v olume) < ng/mL <0.028 Methicillin resistant Staphylococcus aur eus (MRSA) screening culture - 12/08/19 08:45 Methicillin resistant Staphylococcus aureus (MRSA) scr eening culture NEG NRG Complete blood count (CBC) with automate d white blood cell (WBC) differential - 01/24/20 16:20 Blood leukocytes automated count (number/volume) 4.2 10*3/uL 4.3-11.0 Blood erythrocytes automated count (number/volume) 4.39 10*6/uL 4.35-5.85 Venous blood hemoglobin measurement (mass/volume) 14.1 g/dL 13.3-17.7 Blood hematocrit (volume fraction) 40 % 40-54 Automated erythrocyte mean corpuscular volume 91 [ foz_us] 80-99 Automated erythrocyte mean corpuscular h emoglobin (mass per erythrocyte) 32 pg 25-34 Automated erythrocyte mean corpuscular h emoglobin concentration measurement (mass/volume) 35 g/dL 32-36 Automated erythrocyte distribution width ratio 12. 1 % 10.0- 14.5 Automated blood platelet count (count/volume) 185 10*3/uL 130-400 Automated blood platelet mean volume measurement 9.7 [foz_us] 7.4-10.4 Automated blood neutrophils/100 leukocytes 72 % 42-75 Automated blood lymphocytes/100 leukocytes 12 % 12-44 Blood monocytes/100 leukocytes 12 % 0-12 Automated blood eosinophils/100 leukocytes 3 % 0-10 Automated blood basophils/100 leukocytes 1 % 0-10 Blood neutrophils automated count (number/volume) 3.0 10*3 1.8-7.8 Blood lymphocytes automated count (number/volume) 0.5 10*3 1.0-4.0 Blood monocytes automated count (number/volume) 0. 5 10*3 0.0-1.0 Automated eosinophil count 0.1 10*3/uL 0 .0-0.3 Automated blood basophil count (count/volume) 0.0 10*3/uL 0.0-0.1 Comprehensive metabolic panel - 01/24/20 16:20 Serum or plasma sodium measurement (moles/volume) 144 mmol/L 135-145 Serum or plasma potassium measurement (moles/volume) 4.5 mmol/L 3.6-5.0 Serum or plasma chloride measurement (moles/volume) 110 mmol/L 98-107 Carbon dioxide 25 mmol/L 21-32 Serum or plasma anion gap determination (moles/volume) 9 mmol/L 5-14 Serum or plasma urea nitrogen measurement (mass/volume ) 16 mg/dL 7-18 Serum or plasma creatinine measurement (mass/volume) 1.18 mg/dL 0.60-1.30 Serum or plasma urea nitrogen/creatinine mass ratio 14 NRG Serum or plasma creatinine measurement w ith calculation of estimated glomerular filtration rate > NRG Serum or plasma glucose measurement (mass/volume) 100 mg/dL 70-105 Serum or plasma calcium measurement (mass/volume) 8.6 mg/dL 8.5-10.1 Serum or plasma total bilirubin measurement (mass/volu me) 0.3 mg/dL 0.1-1.0 Serum or plasma alkaline phosphatase rakesh surement (enzymatic activity/volume) 72 U/L 40-136 Serum or plasma aspartate aminotransfera se measurement (enzymatic activity/volume) 14 U/L 5-34 Serum or plasma alanine aminotransferase measurement (enzymatic activity/volume) 13 U/L 0-55 Serum or plasma protein measurement (mass/volume) 6.2 g/dL 6.4-8.2 Serum or plasma albumin measurement (mass/volume) 4.3 g/dL 3.2-4.5 CALCIUM CORRECTED 8.4 mg/dL 8.5-10.1 Encounters ACCT No. Visit Date/Time Discharge Status Pt. Type Provider Facility Loc./Unit Complaint [id number] 01/24/2020 15:00:00 01/24/2020 23:59: 59 CLS Outpatient VANESSA SCHWARTZ [facility] [id number] 01/11/2020 10:05:00 00:01:00 DIS Outpatient ELIGIO DEMARCO [facility] ONC [id number] 01/24/2020 16:05:00 23:59:59 CLS Outpatient TITA LOGAN [facility] LAB FS ABD PAIN [id number] 12/08/2019 07:57:00 13:55:00 DIS Outpatient MALI GUPTA DO [facility] SDC MANTLE CELL LYMPHOMA [id number] 12/07/2019 10:00:00 11:52:00 DIS Outpatient MALI GUPTA DO [facility] PREOP MANTLE CELL LYMPHOMA [id number] 12/04/2019 22:30:00 10:46:00 DIS Inpatient KENN WOLF MD [facility] ICU CHEST PAIN [id number] 11/08/2019 10:02:00 23:59:59 CLS Outpatient VANESSA SCHWARTZ APRN [facility] RAD FS S59.911A [id number] 11/04/2019 08:35:00 01/02/2 020 23:59:59 CLS Outpatient AIXA VICK [employer] [facility] RAD FS COPD [id number] 10/29/2019 20:13:00 23:05:00 DIS Emergency LEIGHTON LU MIKAELA [facility] ER VOMITTING,CONGESTED [id number] 09/21/2019 09:55:00 00:01:00 DIS Outpatient ELIGIO DEMARCO [facility] ONC [id number] 09/15/2019 00:11:00 23:59:59 CLS Preadmit LORY ALVESP [facility] LAB FS C85.10 [id number] 06/23/2019 08:55:00 00:01:00 DIS Outpatient LORY ALVESP [facility] LAB FS C85.10 [id number] 06/28/2019 08:35:00 23:59:59 CLS Outpatient LORY ALVESP [facility] RAD IMAGING STUDY T O RESTAGE NEOPLASM [id number] 06/02/2019 11:54:00 00:01:00 DIS Outpatient ELIGIO DEMARCO [facility] ONC [id number] 06/07/2019 18:13:00 21:27:00 DIS Emergency SHREYA APARICIO DO [facility] ER FS CHEST PAIN, SOB [id number] 04/22/2019 01:18:00 01:54:00 DIS Emergency YURI GREER MD [facility] ER RT ARM SWOLLEN,[place] RM TO TOUCH,POSS BUG BITE [id number] 03/23/2019 09:11:00 23:59:59 CLS Outpatient ELIGIO DEMARCO [facility] RAD B-CELL LYMPHOMA,MANTLE CELL LYMPHOMA [id number] 03/02/2019 11:02:00 00:01:00 DIS Outpatient ELIGIO DEMARCO [facility] ONC [id number] 03/02/2019 18:00:00 16:09:00 DIS Inpatient SHAILA CARPENTER, MATTHEW Brown [facility] ICU CHEST PAIN;MANTLE CELL LYMPHOMA ON CHEMO [id number] 02/22/2019 10:28:00 23:59:59 CLS Outpatient EFREN VANESSA Gary [employer]IC[employer] [facility] LAB [id number] 12/24/2018 10:02:00 16:25:00 DIS Outpatient CORINNA SIDDIQUI MD [facility] B-CELL LYMPHOMA [id number] 12/21/2018 05:56:00 16:06:00 DIS Outpatient CORINNA SIDDIQUI MD [facility] PREOP PORT PLACEMENT [id number] 12/15/2018 09:08:00 23:59:59 CLS Outpatient ELIGIO DEMARCO [facility] RAD NHL [id number] 12/11/2018 12:41:00 17:02:00 DIS Emergency ELIZABETH SOUSAIS [facility] ER GROIN PAIN [id number] 12/08/2018 09:24:00 15:30:00 DIS Outpatient ARTUR CARPENTER, CORINNA Triplett [facility] LEFT INGUINAL LYMPH NO DE [id number] 11/30/2018 18:37:00 21:30:00 DIS Emergency BERNOT BOY [facility] ER ABD PAIN [id number] 10/16/2017 18:48:00 22:37:00 DIS Emergency CITLALI WEINBERG [employer]ITY OFFICER [facility] ER UNABLE TO URINATE,CONSTIPATED,PELVIC/LOWER BA PAIN [id number] 03/07/2020 16:34:00 Document Registration [id number] 03/06/2020 16:56:[address] Emergency BRIAN LANDRUM DO [facility] ER FS CHEST PAIN
[2020-03-06] MEDS ORDERED: AZIT250T12 PO (18:52)
[2020-03-06 19:00] VITALS: BP 144/95
== END 2020-03-06 19:00 | disposition home or self-care (01) ==
LOC: EDUNIT# 16:55 → ER FS 16:56
DX: R07.89 Other chest pain (principal); R05 Cough; C83.10 Mantle cell lymphoma, unspecified site; J44.9 Chronic obstructive pulmonary disease, unspecified; M19.91 Primary osteoarthritis, unspecified site; Z92.21 Personal history of antineoplastic chemotherapy; Z91.040 Latex allergy status; Z79.899 Other long term (current) drug therapy; Z87.891 Personal history of nicotine dependence; Z96.641 Presence of right artificial hip joint; K21.9 Gastro-esophageal reflux disease without esophagitis; Z85.828 Personal history of other malignant neoplasm of skin
CPT/HCPCS: 36415; 71046; 80053; 84484; 85025; 85379; 93005

== ENCOUNTER 2020-05-02 09:55 | Outpatient (RCR) | payer MEDICARE, OTHER ==
[2020-03-07 09:11] LABS: BASOPHILS % (AUTO) 1 % (0-10); EOSINOPHILS # (AUTO) 0.1 10^3/uL (0.0-0.3); EOSINOPHILS % (AUTO) 3 % (0-10); HEMATOCRIT 41 % (40-54); HEMOGLOBIN 14.4 G/DL (13.3-17.7); LYMPHOCYTES # (AUTO) 0.4 X 10^3 (1.0-4.0); LYMPHOCYTES % (AUTO) 9 % (12-44); MEAN CORPUSCULAR HEMOGLOBIN 32 PG (25-34); MEAN CORPUSCULAR HGB CONC 35 G/DL (32-36); MEAN CORPUSCULAR VOLUME 92 FL (80-99); MEAN PLATELET VOLUME 9.6 FL (7.4-10.4); MONOCYTES # (AUTO) 0.4 X 10^3 (0.0-1.0); MONOCYTES % (AUTO) 10 % (0-12); NEUTROPHILS # (AUTO) 3.2 X 10^3 (1.8-7.8); NEUTROPHILS % (AUTO) 77 % (42-75); PLATELET COUNT 179 10^3/uL (130-400); RED CELL DISTRIBUTION WIDTH 12.6 % (10.0-14.5); WHITE BLOOD COUNT 4.1 10^3/uL (4.3-11.0)
[2020-03-07 09:29] LABS: ALANINE AMINOTRANSFERASE 15 U/L (0-55); ALBUMIN 4.1 GM/DL (3.2-4.5); ALKALINE PHOSPHATASE 67 U/L (40-136); BILIRUBIN,TOTAL 0.4 MG/DL (0.1-1.0); BUN/CREATININE RATIO 20; CALCIUM 8.1 MG/DL (8.5-10.1); CARBON DIOXIDE 21 MMOL/L (21-32); CHLORIDE 111 MMOL/L (98-107); CREATININE SERUM 0.93 MG/DL (0.60-1.30); GFR ESTIMATED > 60; GLUCOSE 105 MG/DL (70-105); SODIUM 142 MMOL/L (135-145); TOTAL PROTEIN 6.1 GM/DL (6.4-8.2)
[~2020-05-02 09:55] MED LIST changes: +ACETAMINOPHEN 325 MG TAB (TYLENOL) CANCER CTR PO PRN; +AZIT250T12 PO; +NS IV 1000 ML (CANCER CTR) IV SCH; +diphenhydrAMINE 25 MG TAB (BENADRYL) CANCER CENTER PO SCH; +riTUXimab 500 MG, riTUXimab FOR IV INJ CONC 300 MG in NS (IVPB) CANCER CENTER 186 ML IV SCH
[2020-05-02 10:17] LABS: BASOPHILS % (AUTO) 1 % (0-10); EOSINOPHILS # (AUTO) 0.1 10^3/uL (0.0-0.3); EOSINOPHILS % (AUTO) 3 % (0-10); HEMATOCRIT 41 % (40-54); HEMOGLOBIN 14.3 G/DL (13.3-17.7); LYMPHOCYTES # (AUTO) 0.6 X 10^3 (1.0-4.0); LYMPHOCYTES % (AUTO) 13 % (12-44); MEAN CORPUSCULAR HEMOGLOBIN 32 PG (25-34); MEAN CORPUSCULAR HGB CONC 35 G/DL (32-36); MEAN CORPUSCULAR VOLUME 92 FL (80-99); MEAN PLATELET VOLUME 9.9 FL (7.4-10.4); MONOCYTES # (AUTO) 0.5 X 10^3 (0.0-1.0); MONOCYTES % (AUTO) 12 % (0-12); NEUTROPHILS # (AUTO) 3.3 X 10^3 (1.8-7.8); NEUTROPHILS % (AUTO) 72 % (42-75); PLATELET COUNT 190 10^3/uL (130-400); RED CELL DISTRIBUTION WIDTH 12.4 % (10.0-14.5); WHITE BLOOD COUNT 4.5 10^3/uL (4.3-11.0)
[2020-05-02 10:32] LABS: ALANINE AMINOTRANSFERASE 21 U/L (0-55); ALBUMIN 4.4 GM/DL (3.2-4.5); ALKALINE PHOSPHATASE 64 U/L (40-136); BILIRUBIN,TOTAL 0.9 MG/DL (0.1-1.0); BUN/CREATININE RATIO 15; CALCIUM 8.6 MG/DL (8.5-10.1); CARBON DIOXIDE 23 MMOL/L (21-32); CHLORIDE 107 MMOL/L (98-107); CREATININE SERUM 0.91 MG/DL (0.60-1.30); GFR ESTIMATED > 60; GLUCOSE 90 MG/DL (70-105); SODIUM 140 MMOL/L (135-145); TOTAL PROTEIN 6.4 GM/DL (6.4-8.2)
== END 2020-06-05 | disposition home or self-care (01) ==
LOC: ONC 09:55
PROVIDERS: ATTEND Internal Medicine Hematology & Oncology
DX: Z51.11 Encounter for antineoplastic chemotherapy (principal); C83.18 Mantle cell lymphoma, lymph nodes of multiple sites; C85.90 Non-Hodgkin lymphoma, unspecified, unspecified site; J06.9 Acute upper respiratory infection, unspecified; Z79.899 Other long term (current) drug therapy
CPT/HCPCS: 80053; 83615; 85025; 96413; G0463; 36591; J9312

== ENCOUNTER → 2020-06-27 | Outpatient (CLI) | payer MEDICARE ==
[~2020-06-27] MED LIST changes: -ACETAMINOPHEN 325 MG TAB (TYLENOL) CANCER CTR PO PRN; -NS IV 1000 ML (CANCER CTR) IV SCH; -diphenhydrAMINE 25 MG TAB (BENADRYL) CANCER CENTER PO SCH; -riTUXimab 500 MG, riTUXimab FOR IV INJ CONC 300 MG in NS (IVPB) CANCER CENTER 186 ML IV SCH
[2020-06-27 09:33] LABS: ALANINE AMINOTRANSFERASE 15 U/L (0-55); ALBUMIN 4.3 GM/DL (3.2-4.5); ALKALINE PHOSPHATASE 62 U/L (40-136); BILIRUBIN,TOTAL 0.5 MG/DL (0.1-1.0); BUN/CREATININE RATIO 16; CALCIUM 8.7 MG/DL (8.5-10.1); CARBON DIOXIDE 24 MMOL/L (21-32); CHLORIDE 108 MMOL/L (98-107); CHOLESTEROL 143 MG/DL (< 200); CREATININE SERUM 1.02 MG/DL (0.60-1.30); GFR ESTIMATED > 60; GLUCOSE 102 MG/DL (70-105); HDL CHOLESTEROL 34 MG/DL (40-60); POTASSIUM 4.3 MMOL/L (3.6-5.0); SODIUM 141 MMOL/L (135-145); TOTAL PROTEIN 6.3 GM/DL (6.4-8.2); TRIGLYCERIDES 127 MG/DL (<150); VALPROIC ACID 39.6 UG/ML (50.0-100.0); VLDL CHOLESTEROL 25 MG/DL (5-40)
== END ==
LOC: ONC 08:47
PROVIDERS: ATTEND Nurse Practitioner Family
DX: Z12.5 Encounter for screening for malignant neoplasm of prostate (principal); Z51.81 Encounter for therapeutic drug level monitoring; I10 Essential (primary) hypertension
CPT/HCPCS: 36415; 80053; 80061; 80164; 84153

== ENCOUNTER 2020-08-22 09:51 | Outpatient (RCR) | payer MEDICARE ==
[2020-06-27 09:00] LABS: BASOPHILS % (AUTO) 0 % (0-10); EOSINOPHILS # (AUTO) 0.1 10^3/uL (0.0-0.3); EOSINOPHILS % (AUTO) 2 % (0-10); HEMATOCRIT 41 % (40-54); HEMOGLOBIN 14.5 G/DL (13.3-17.7); LYMPHOCYTES # (AUTO) 0.5 X 10^3 (1.0-4.0); LYMPHOCYTES % (AUTO) 8 % (12-44); MEAN CORPUSCULAR HEMOGLOBIN 32 PG (25-34); MEAN CORPUSCULAR HGB CONC 35 G/DL (32-36); MEAN CORPUSCULAR VOLUME 92 FL (80-99); MEAN PLATELET VOLUME 10.1 FL (7.4-10.4); MONOCYTES # (AUTO) 0.6 X 10^3 (0.0-1.0); MONOCYTES % (AUTO) 9 % (0-12); NEUTROPHILS # (AUTO) 4.8 X 10^3 (1.8-7.8); NEUTROPHILS % (AUTO) 80 % (42-75); PLATELET COUNT 175 10^3/uL (130-400)
[2020-06-27 09:23] LABS: ALANINE AMINOTRANSFERASE 15 U/L (0-55); ALBUMIN 4.2 GM/DL (3.2-4.5); ALKALINE PHOSPHATASE 62 U/L (40-136); BILIRUBIN,TOTAL 0.5 MG/DL (0.1-1.0); BUN/CREATININE RATIO 16; CALCIUM 8.5 MG/DL (8.5-10.1); CARBON DIOXIDE 23 MMOL/L (21-32); CHLORIDE 108 MMOL/L (98-107); CREATININE SERUM 1.03 MG/DL (0.60-1.30); GFR ESTIMATED > 60; GLUCOSE 100 MG/DL (70-105); POTASSIUM 4.2 MMOL/L (3.6-5.0); SODIUM 141 MMOL/L (135-145); TOTAL PROTEIN 6.4 GM/DL (6.4-8.2)
[~2020-08-22 09:51] MED LIST changes: +ACETAMINOPHEN 325 MG TAB (TYLENOL) CANCER CTR PO PRN; +NS IV 1000 ML (CANCER CTR) IV SCH; +RITUXIMAB-ABBS 500 MG, RITUXIMAB-ABBS 300 MG in NS (IVPB) CANCER CENTER 186 ML IV SCH; +diphenhydrAMINE 25 MG TAB (BENADRYL) CANCER CENTER PO SCH; +riTUXimab 500 MG, riTUXimab FOR IV INJ CONC 300 MG in NS (IVPB) CANCER CENTER 186 ML IV SCH
[2020-08-22 10:37] LABS: BASOPHILS % (AUTO) 1 % (0-10); EOSINOPHILS # (AUTO) 0.1 10^3/uL (0.0-0.3); EOSINOPHILS % (AUTO) 3 % (0-10); HEMATOCRIT 43 % (40-54); HEMOGLOBIN 14.9 g/dL (13.3-17.7); LYMPHOCYTES # (AUTO) 0.5 10^3/uL (1.0-4.0); LYMPHOCYTES % (AUTO) 13 % (12-44); MEAN CORPUSCULAR HEMOGLOBIN 32 pg (25-34); MEAN CORPUSCULAR HGB CONC 34 g/dL (32-36); MEAN CORPUSCULAR VOLUME 94 fL (80-99); MEAN PLATELET VOLUME 10.1 fL (9.0-12.2); MONOCYTES # (AUTO) 0.5 10^3/uL (0.0-1.0); MONOCYTES % (AUTO) 12 % (0-12); NEUTROPHILS # (AUTO) 2.6 10^3/uL (1.8-7.8); NEUTROPHILS % (AUTO) 71 % (42-75); PLATELET COUNT 194 10^3/uL (130-400); WHITE BLOOD COUNT 3.6 10^3/uL (4.3-11.0)
[2020-08-22 10:47] LABS: ALANINE AMINOTRANSFERASE 17 U/L (0-55); ALBUMIN 4.4 GM/DL (3.2-4.5); ALKALINE PHOSPHATASE 61 U/L (40-136); BILIRUBIN,TOTAL 0.8 MG/DL (0.1-1.0); BUN/CREATININE RATIO 16; CALCIUM 8.7 MG/DL (8.5-10.1); CARBON DIOXIDE 24 MMOL/L (21-32); CHLORIDE 108 MMOL/L (98-107); CREATININE SERUM 0.92 MG/DL (0.60-1.30); GFR ESTIMATED > 60; GLUCOSE 101 MG/DL (70-105); POTASSIUM 4.4 MMOL/L (3.6-5.0); SODIUM 140 MMOL/L (135-145); TOTAL PROTEIN 6.3 GM/DL (6.4-8.2)
== END 2020-09-25 | disposition home or self-care (01) ==
LOC: ONC 09:51
PROVIDERS: ATTEND Internal Medicine Hematology & Oncology
DX: Z51.11 Encounter for antineoplastic chemotherapy (principal); C83.18 Mantle cell lymphoma, lymph nodes of multiple sites; C85.90 Non-Hodgkin lymphoma, unspecified, unspecified site; J06.9 Acute upper respiratory infection, unspecified; Z79.899 Other long term (current) drug therapy
CPT/HCPCS: 80053; 83615; 85025; 96413; G0463; 36591

== ENCOUNTER 2020-10-24 10:16 | Outpatient (RCR) | payer MEDICARE ==
[~2020-10-24 10:16] MED LIST changes: +ESCI20TA39 PO; -ESCI20TA45 PO; -riTUXimab 500 MG, riTUXimab FOR IV INJ CONC 300 MG in NS (IVPB) CANCER CENTER 186 ML IV SCH
[2020-10-24 10:35] LABS: BASOPHILS # (AUTO) 0.1 10^3/uL (0.0-0.1); BASOPHILS % (AUTO) 1 % (0-10); EOSINOPHILS # (AUTO) 0.1 10^3/uL (0.0-0.3); EOSINOPHILS % (AUTO) 2 % (0-10); HEMATOCRIT 45 % (40-54); HEMOGLOBIN 15.3 g/dL (13.3-17.7); LYMPHOCYTES # (AUTO) 0.5 10^3/uL (1.0-4.0); LYMPHOCYTES % (AUTO) 14 % (12-44); MEAN CORPUSCULAR HEMOGLOBIN 32 pg (25-34); MEAN CORPUSCULAR HGB CONC 34 g/dL (32-36); MEAN CORPUSCULAR VOLUME 94 fL (80-99); MEAN PLATELET VOLUME 10.4 fL (9.0-12.2); MONOCYTES # (AUTO) 0.5 10^3/uL (0.0-1.0); MONOCYTES % (AUTO) 13 % (0-12); NEUTROPHILS # (AUTO) 2.6 10^3/uL (1.8-7.8); NEUTROPHILS % (AUTO) 71 % (42-75); PLATELET COUNT 169 10^3/uL (130-400); WHITE BLOOD COUNT 3.7 10^3/uL (4.3-11.0)
[2020-10-24 10:53] LABS: ALANINE AMINOTRANSFERASE 17 U/L (0-55); ALBUMIN 4.4 GM/DL (3.2-4.5); ALKALINE PHOSPHATASE 59 U/L (40-136); BILIRUBIN,TOTAL 0.8 MG/DL (0.1-1.0); BUN/CREATININE RATIO 10; CALCIUM 8.8 MG/DL (8.5-10.1); CARBON DIOXIDE 25 MMOL/L (21-32); CHLORIDE 107 MMOL/L (98-107); CREATININE SERUM 0.88 MG/DL (0.60-1.30); GFR ESTIMATED > 60; GLUCOSE 93 MG/DL (70-105); POTASSIUM 4.4 MMOL/L (3.6-5.0); SODIUM 138 MMOL/L (135-145); TOTAL PROTEIN 6.6 GM/DL (6.4-8.2)
[2020-12-08] MEDS ORDERED: CYCL10TA9 PO (20:21)
== END 2020-12-14 11:35 | disposition home or self-care (01) ==
LOC: ONC 10:16
PROVIDERS: ATTEND Internal Medicine Hematology & Oncology
DX: Z51.11 Encounter for antineoplastic chemotherapy (principal); C83.18 Mantle cell lymphoma, lymph nodes of multiple sites; C85.90 Non-Hodgkin lymphoma, unspecified, unspecified site; J06.9 Acute upper respiratory infection, unspecified; Z79.899 Other long term (current) drug therapy
CPT/HCPCS: 80053; 83615; 85025; 96413; G0463; 36591

== ENCOUNTER 2020-12-08 18:59 | Emergency (ER) | payer MEDICARE ==
[~2020-12-08] VITALS: Ht 185 cm; Wt 116.0 kg
[~2020-12-08 18:59] MED LIST changes: -ACETAMINOPHEN 325 MG TAB (TYLENOL) CANCER CTR PO PRN; -ESCI20TA39 PO; +ESCI20TA56 PO; -NS IV 1000 ML (CANCER CTR) IV SCH; -RITUXIMAB-ABBS 500 MG, RITUXIMAB-ABBS 300 MG in NS (IVPB) CANCER CENTER 186 ML IV SCH; -diphenhydrAMINE 25 MG TAB (BENADRYL) CANCER CENTER PO SCH
--- NOTE | 2020-12-08 19:18 | ED General ---
General Stated Complaint: POSS PORT LOOSE/PAIN AND SWELLING Source of Information: Patient Exam Limitations: No Limitations History of Present Illness Date Seen by Provider: Dec 08, 2020 Time Seen by Provider: 19:00 Initial Comments Patient presents to the ER by private conveyance with chief complaint he is having some pain and tenderness around his port in his left chest. He said it started in the last day. 3 weeks ago he had some neck ache and sinus problems and [facility] told him it was probably a sinus infection. He is known to Dr. Hannah. He finally got in and got a prescription for prednisone taper as well as doxycycline which she started 4 days ago. Today however he started having pain around his port and is concerned him so when he called to try and get in with his primary care provider they said it would be a while and he should just go to the ER. Patient is having no shortness of breath fevers nausea vomiting or diarrhea. He says he had 2 - Covid test in the past couple weeks. Dr. Alvarez placed his first port in his right chest for mantle cell lymphoma as a courtesy to Dr. Donis for chemotherapy. Something about the line became dislodged and he had to have that port taken out. His subsequent port was placed by Dr. Mccoy. He says today it feels just like what happened last time when the line became dislodged. According to the OR note from Dr. Mccoy 12/2019, the right side port that was placed had the catheter totally retracted back and kinked up unable to use. Patient also brings up concerns about his intractable headache and says he had meningitis a decade ago but does not recall if it was viral or bacterial. He is also had a fall off the deck where he split his head open and had to have a couple surgeries by [facility] and [facility] on his neck. Allergies and Home Medications Allergies Coded Allergies: latex (Verified Allergy, Unknown, Rash, 12/08/19) Uncoded Allergies: STEROIDS (Adverse Reaction, Severe, VIOLENT BEHAVIOR, 12/07/19) Home Medications Albuterol Sulfate 18 Gm Hfa.aer.ad, 2 PUFF INH Q4H PRN for SHORTNESS OF BREATH, (Reported) Azithromycin 250 Mg Tablet, 250 MG PO UD TAKE 2 TABLETS ON DAY ONE THEN TAKE 1 TABLET DAILY FOR FOUR MORE DAYS Prescribed by: LUCITA TORRES on 5/4/20 1852 Citalopram Hydrobromide 40 Mg Tablet, 60 MG PO HS, (Reported) TAKES 1 & 1/2 (40MG) TABLET Divalproex Sodium 500 Mg Tablet.dr, 500 MG PO 1800, (Reported) Meloxicam 15 Mg Tablet, 15 MG PO HS, (Reported) Jadwin 3 Polyunsat Fatty Acids 1,000 Mg Cap, 1,000 MG PO DAILY, (Reported) Omeprazole 20 Mg Capsule.dr, 20 MG PO BID, (Reported) Umeclidinium Brm/Vilanterol Tr 1 Each Blst.w.dev, 1 EACH IH DAILY, (Reported) Vitamin B Complex 1 Each Capsule, 1 CAP PO DAILY, (Reported) Patient Home Medication List Home Medication List Reviewed: Yes Review of Systems Review of Systems Constitutional: No chills, No diaphoresis EENTM: No ear discharge, No ear pain Respiratory: No cough, No short of breath Cardiovascular: see HPI, chest pain; No Hx of Intervention Gastrointestinal: No abdominal pain, No nausea, No vomiting Genitourinary: No discharge, No dysuria Musculoskeletal: No back pain, No joint pain All Other Systems Reviewed Negative Unless Noted: Yes Past Egdjfix-Gnmfyp-Thevna Hx Patient Social History Alcohol Use: Denies Use Smoking Status: Former Smoker Type Used: Smokeless Tobacco Former Smoker, Quit: Nov 03, 1989 2nd Hand Smoke Exposure: No Recent Hopitalizations: No Immunizations Up To Date Tetanus Booster (TDap): Unknown PED Vaccines UTD: No Date of Pneumonia Vaccine: Aug 03, 2018 Date of Influenza Vaccine: Aug 27, 2019 Seasonal Allergies Seasonal Allergies: No Past Medical History Surgeries: Yes (Port Placement, R THR) Abdominal, Appendectomy, Gallbladder, Joint Replacement, Orthopedic, Rectal, Tonsillectomy Respiratory: Yes COPD Currently Using CPAP: Yes Cardiac: No Neurological: No Sexually Transmitted Disease: No HIV/AIDS: No Genitourinary: No Gastrointestinal: Yes Abdominal Hernia, Gastroesophageal Reflux, Hemorrhoids Musculoskeletal: Yes Arthritis, Fractures Endocrine: No HEENT: No Loss of Vision: Denies Hearing Impairment: Denies 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, ) Skin, Lymphoma Did You Recieve Any Treatments: Yes What Type of Treatment Did You: Chemotherapy Psychosocial: Yes ("Severe depression" he states) Anxiety, Depression Integumentary: Yes (BENIGN TUMOR LEFT EAR) Recent Skin Changes Blood Disorders: Yes (MANTLE CELL LYMPHOMA) Family Medical History Cardiovascular disease 19 MOTHER G8 SISTER Completed stroke G8 SISTER FH: brain tumor G8 SISTER FH: emphysema 19 FATHER FH: kidney failure 19 FATHER No Pertinent Family Hx Physical Exam Vital Signs Vital Signs - First Documented 12/08/20 19:05 Temp 37.7 Pulse 82 Resp 18 B/P (MAP) 178/102 (127) Pulse Ox 95 O2 Delivery Room Air Capillary Refill : Height, Weight, BMI Height: 6'1.00" Weight: 260lbs. 0.0oz. 117.670755jh; 33.00 BMI Method:Stated General Appearance: WD/WN, Mild Distress Eyes: Bilateral Eye Normal Inspection, Bilateral Eye PERRL, Bilateral Eye EOMI HEENT: PERRL/EOMI, Pharynx Normal, Moist Mucous Membranes Neck: Full Range of Motion, Normal Inspection, Non Tender, Supple Respiratory: No Chest Non Tender (Left chest associated with the port is mildly tender without erythema, induration, fluctuance.); Lungs Clear, Normal Breath Sounds, No Accessory Muscle Use, No Respiratory Distress Cardiovascular: Regular Rate, Rhythm, No Edema Extremity: Normal Capillary Refill, Normal Inspection Neurologic/Psychiatric: Alert, Oriented x3 Skin: Warm/Dry, Erythema (Mild erythema associated with the left clavicle skin. ) Progress/Results/Core Measures Suspected Sepsis SIRS Temperature: Pulse: Respiratory Rate: Laboratory Tests 12/08/20 19:20: White Blood Count 10.7 Blood Pressure / Mean: Laboratory Tests 12/08/20 19:20: Creatinine 0.98, Platelet Count 200, Total Bilirubin 0.4 Results/Orders Lab Results Laboratory Tests Test 12/08/20 19:20 Range/Units White Blood Count 10.7 4.3-11.0 10^3/uL Red Blood Count 4.68 4.30-5.52 10^6/uL Hemoglobin 15.0 13.3-17.7 g/dL Hematocrit 43 40-54 % Mean Corpuscular Volume 91 80-99 fL Mean Corpuscular Hemoglobin 32 25-34 pg Mean Corpuscular Hemoglobin Concent 35 32-36 g/dL Red Cell Distribution Width 12.2 10.0-14.5 % Platelet Count 200 130-400 10^3/uL Mean Platelet Volume 9.7 9.0-12.2 fL Immature Granulocyte % (Auto) 2 % Neutrophils (%) (Auto) 85 H 42-75 % Lymphocytes (%) (Auto) 4 L 12-44 % Monocytes (%) (Auto) 8 0-12 % Eosinophils (%) (Auto) 0 0-10 % Basophils (%) (Auto) 1 0-10 % Neutrophils # (Auto) 9.1 H 1.8-7.8 10^3/uL Lymphocytes # (Auto) 0.5 L 1.0-4.0 10^3/uL Monocytes # (Auto) 0.8 0.0-1.0 10^3/uL Eosinophils # (Auto) 0.0 0.0-0.3 10^3/uL Basophils # (Auto) 0.1 0.0-0.1 10^3/uL Immature Granulocyte # (Auto) 0.2 H 0.0-0.1 10^3/uL Neutrophils % (Manual) 89 % Lymphocytes % (Manual) 5 % Monocytes % (Manual) 6 % Blood Morphology Comment NORMAL Sodium Level 140 135-145 MMOL/L Potassium Level 4.2 3.6-5.0 MMOL/L Chloride Level 106 98-107 MMOL/L Carbon Dioxide Level 23 21-32 MMOL/L Anion Gap 11 5-14 MMOL/L Blood Urea Nitrogen 16 7-18 MG/DL Creatinine 0.98 0.60-1.30 MG/DL Estimat Glomerular Filtration Rate > 60 BUN/Creatinine Ratio 16 Glucose Level 92 70-105 MG/DL Calcium Level 8.9 8.5-10.1 MG/DL Corrected Calcium 8.7 8.5-10.1 MG/DL Total Bilirubin 0.4 0.1-1.0 MG/DL Aspartate Amino Transf (AST/SGOT) 13 5-34 U/L Alanine Aminotransferase (ALT/SGPT) 12 0-55 U/L Alkaline Phosphatase 72 40-136 U/L Total Protein 6.4 6.4-8.2 GM/DL Albumin 4.3 3.2-4.5 GM/DL My Orders Orders - YURI GREER Cbc With Automated Diff (12/08/20 19:11) Comprehensive Metabolic Panel (12/08/20 19:11) Chest 1 View, Ap/Pa Only (12/08/20 19:11) Blood Culture (12/08/20 19:12) Manual Differential (12/08/20 19:20) Hydrocodone/Apap 5/325 Tablet (Lortab 5 (12/08/20 19:30) Ct Head/Cervical Spine Wo (12/08/20 19:30) Medications Given in ED Current Medications Medications Dose Ordered Sig/Gunner Route Start Time Stop Time Status Last Admin Dose Admin Acetaminophen/ Hydrocodone Bitart 1 tab ONCE ONCE PO 12/08/20 19:30 12/08/20 19:31 DC 12/08/20 19:35 1 TAB Vital Signs/I&O 12/08/20 19:05 Temp 37.7 Pulse 82 Resp 18 B/P (MAP) 178/102 (127) Pulse Ox 95 O2 Delivery Room Air Capillary Refill : Progress Note #1: Time: 19:16 Progress Note Plan to access the port for a blood culture in lab if possible. We will get a plain film view first. If necessary we can always use a little contrast. Basic labs. Markers of inflammation will not be useful he is on prednisone taper. Progress Note #2: Time: 19:31 Progress Note The patient is afebrile and does not endorse any fevers. Meningitis seems less likely to explain his 3 weeks of neck stiffness and headache. He has had 2 - Covid screens. Plan to get a CT as a recurrent tumor could cause headache. He is not having any neurologic symptoms except for he says his vision is more blurry in the past 3 or 4 days. We will get a visual acuity screen done. We did offer to do a lumbar puncture regardless of no fever since he is on steroids and antibiotics and the patient at this time is declining stating he had a bad headache from lumbar puncture in the 80s and does not wish to redo that if he does not have to. For his pain we will give him a tablet of hydrocodone. Chest x-ray reveals a good placement of the port. We were able to draw blood out of it easily. Progress Note #3: Time: 20:18 Progress Note Patient's not seeing much relief from the [place] so were getting give him a Toradol injection. He would like to be retested for COVID-19 so we will swab him. We have encouraged him to follow-up with Dr. Donis at his appointment next week if he still having symptoms. Symptomatic support for what is likely a viral syndrome. Unremarkable vital signs unremarkable labs and imaging. Diagnostic Imaging Diagonstic Imaging: Xray Plain Films/CT/US/NM/MRI: chest Comments No acute cardiopulmonary process. The port appears to overlie the shadow of the subclavian and terminates in the superior vena cava just prior to reaching the right atria. There does not appear to be any malfunction on 1 view chest x-ray Reviewed: Reviewed by Me Diagonstic Imaging: CT Plain Films/CT/US/NM/MRI: c-spine, head Comments NAME: MITCH [facility]ERA [facility] REC#: [id number] PT STATUS: REG ER : 1960 PHYSICIAN: YURI GREER MD ADMIT DATE: 12/08/20/ER Draft Date of Exam:12/08/20 CT HEAD/CERVICAL SPINE WO TECHNIQUE: CT brain and CT cervical spine, 12/08/2020. Auto Exposure Controls were utilized during the CT exam to meet ALARA standards for radiation dose reduction. INDICATION: Stage IV non-Hodgkin's lymphoma currently undergoing maintenance immunotherapy. Two prior cervical spine surgeries. Skull fracture in the past. Trauma. FINDINGS: CT brain: There is no acute hemorrhage or infarct. No mass, mass effect or midline shift. No hydrocephalus. Partial opacification of the mastoid air cells on the left, age indeterminate. There is chronic change within the visualized sinuses. IMPRESSION: No acute intracranial process with age indeterminate partial opacification of the left mastoid air cells. CT cervical spine: There is postoperative change with anterior fusion at C5-C6. Interbody device in place versus artifact. Alignment of the spine is preserved. No subluxation or compression deformity appreciated. Multilevel diffuse spur disc complexes and bilateral facet hypertrophy seen throughout the spine. Lung apices clear. IMPRESSION: Postoperative change unremarkable in appearance with degenerative findings noted. Dictated on workstation # [id number] Dict: 12/08/201957 Trans: 12/08/202005 PJE [id number] Interpreted by: AYANNA MILLER MD Electronically signed by: Reviewed: Reviewed by Me Departure Impression Primary Impression: Viral syndrome Additional Impression: Person under investigation for COVID-19 Disposition: 01 HOME, SELF-CARE Condition: Stable Departure-Patient Inst. Decision time for Depature: 20:19 Referrals: LEIGIO SHEPPARD MAXWELL MD (PCP/Family) Primary Care Physician Patient Instructions: Coronavirus Disease 2019 (COVID-19) ED, VIRAL SYNDROME Add. Discharge Instructions: I am not entirely certain with causing your symptoms over the past 3 weeks however a viral syndrome could explain it. Therefore we did test you again for COVID-19 and you should have the result called you by Friday. Keep your follow-up appointment with Dr. Sheppard. Tylenol and Motrin as necessary for body aches. If you are having muscle spasms in your neck and back then cyclobenzaprine/Flexeril 1 tablet every 8 hours can help. Flexeril will cause drowsiness. Do not mix with alcohol. Return to the ER if you are having significant fever above 100.3, intractable vomiting or other worrisome symptoms. Scripts Cyclobenzaprine HCl (Cyclobenzaprine HCl) 10 Mg Tablet 10 MG PO Q8H PRN for SPASMS, #15 TAB 0 Refills Prov: YURI GREER 12/08/20 Copy Copies To 1: ELIGIO SHEPPARD TITUS J Dec 08, 2020 19:18
[2020-12-08 19:27] LABS: BASOPHILS # (AUTO) 0.1 10^3/uL (0.0-0.1); BASOPHILS % (AUTO) 1 % (0-10); EOSINOPHILS % (AUTO) 0 % (0-10); HEMATOCRIT 43 % (40-54); LYMPHOCYTES # (AUTO) 0.5 10^3/uL (1.0-4.0); LYMPHOCYTES % (AUTO) 4 % (12-44); MEAN CORPUSCULAR HEMOGLOBIN 32 pg (25-34); MEAN CORPUSCULAR HGB CONC 35 g/dL (32-36); MEAN CORPUSCULAR VOLUME 91 fL (80-99); MEAN PLATELET VOLUME 9.7 fL (9.0-12.2); MONOCYTES # (AUTO) 0.8 10^3/uL (0.0-1.0); MONOCYTES % (AUTO) 8 % (0-12); NEUTROPHILS # (AUTO) 9.1 10^3/uL (1.8-7.8); NEUTROPHILS % (AUTO) 85 % (42-75); PLATELET COUNT 200 10^3/uL (130-400); WHITE BLOOD COUNT 10.7 10^3/uL (4.3-11.0)
[2020-12-08] MEDS ORDERED: HYDROcodone/APAP 5 MG/325 MG (LORTAB) TAB PO ONE (19:30)
--- NOTE | 2020-12-08 19:48 | Diagnostic Imaging Report ---
INDICATION: Questioned port malfunction. EXAMINATION: Chest, 12/08/2020. COMPARISON: 03/06/2020. FINDINGS: There is a chest port on the left with the tip in the SVC. An adjacent hyperdensity is stable since previous imaging. Heart and pulmonary vasculature are normal. Lungs and pleural spaces clear. IMPRESSION: No acute abnormality. Dictated by: Dictated on workstation # [id number]
[2020-12-08 19:49] LABS: ALANINE AMINOTRANSFERASE 12 U/L (0-55); ALBUMIN 4.3 GM/DL (3.2-4.5); ALKALINE PHOSPHATASE 72 U/L (40-136); BILIRUBIN,TOTAL 0.4 MG/DL (0.1-1.0); BUN/CREATININE RATIO 16; CALCIUM 8.9 MG/DL (8.5-10.1); CARBON DIOXIDE 23 MMOL/L (21-32); CHLORIDE 106 MMOL/L (98-107); CREATININE SERUM 0.98 MG/DL (0.60-1.30); GFR ESTIMATED > 60; GLUCOSE 92 MG/DL (70-105); POTASSIUM 4.2 MMOL/L (3.6-5.0); SODIUM 140 MMOL/L (135-145); TOTAL PROTEIN 6.4 GM/DL (6.4-8.2)
[2020-12-08 19:57] LABS: LYMPHOCYTES % (MANUAL) 5 %; MONOCYTES % (MANUAL) 6 %; NEUTROPHILS % (MANUAL) 89 %; RBC MORPH NORMAL
--- NOTE | 2020-12-08 20:07 | Diagnostic Imaging Report ---
TECHNIQUE: CT brain and CT cervical spine, 12/08/2020. Auto Exposure Controls were utilized during the CT exam to meet ALARA standards for radiation dose reduction. INDICATION: Stage IV non-Hodgkin's lymphoma currently undergoing maintenance immunotherapy. Two prior cervical spine surgeries. Skull fracture in the past. Trauma. FINDINGS: CT brain: There is no acute hemorrhage or infarct. No mass, mass effect or midline shift. No hydrocephalus. Partial opacification of the mastoid air cells on the left, age indeterminate. There is chronic change within the visualized sinuses. IMPRESSION: No acute intracranial process with age indeterminate partial opacification of the left mastoid air cells. CT cervical spine: There is postoperative change with anterior fusion at C5-C6. Interbody device in place versus artifact. Alignment of the spine is preserved. No subluxation or compression deformity appreciated. Multilevel diffuse spur disc complexes and bilateral facet hypertrophy seen throughout the spine. Lung apices clear. IMPRESSION: Postoperative change unremarkable in appearance with degenerative findings noted. Dictated by: Dictated on workstation # [id number]
[2020-12-08] MEDS ORDERED: CYCL10TA9 PO (20:21)
[2020-12-08 20:30] VITALS: BP 156/87
[2020-12-08] MEDS ORDERED: KETOROLAC 30 MG/ML VIAL IVP ONE (20:30)
== END 2020-12-08 20:30 | disposition home or self-care (01) ==
LOC: EDUNIT# 18:59 → ER 19:01
DX: B34.9 Viral infection, unspecified (principal); J44.9 Chronic obstructive pulmonary disease, unspecified; K21.9 Gastro-esophageal reflux disease without esophagitis; F32.9 Major depressive disorder, single episode, unspecified; Z20.822 Contact with and (suspected) exposure to COVID-19; Z91.040 Latex allergy status; Z88.8 Allergy status to other drugs, medicaments and biological substances; Z85.828 Personal history of other malignant neoplasm of skin; Z85.72 Personal history of non-Hodgkin lymphomas; Z87.891 Personal history of nicotine dependence; Z82.49 Family history of ischemic heart disease and other diseases of the circulatory system
CPT/HCPCS: 70450; 71045; 72125; 80053; 85007; 85027; 87040; 99285; U0002; 36415; 87635

== ENCOUNTER → 2020-12-22 | Outpatient (CLI) | payer MEDICARE ==
[~2020-12-22] MED LIST changes: +CYCL10TA9 PO; +ESCI20TA39 PO; -ESCI20TA56 PO
[2020-12-22 13:15] LABS: HEMATOCRIT 43 % (40-54); HEMOGLOBIN 14.7 G/DL (13.3-17.7); LYMPHOCYTES % (AUTO) 7 % (12-44); MEAN CORPUSCULAR HEMOGLOBIN 32 PG (25-34); MEAN CORPUSCULAR HGB CONC 35 G/DL (32-36); MEAN CORPUSCULAR VOLUME 93 FL (80-99); MEAN PLATELET VOLUME 9.3 FL (7.4-10.4); MONOCYTES % (AUTO) 11 % (0-12); NEUTROPHILS % (AUTO) 78 % (42-75); PLATELET COUNT 181 10^3/uL (130-400); WHITE BLOOD COUNT 8.6 10^3/uL (4.3-11.0)
[2020-12-22 13:16] LABS: BASOPHILS # (AUTO) 0.1 10^3/uL (0.0-0.1); BASOPHILS % (AUTO) 1 % (0-10); EOSINOPHILS # (AUTO) 0.2 10^3/uL (0.0-0.3); EOSINOPHILS % (AUTO) 3 % (0-10); LYMPHOCYTES # (AUTO) 0.6 X 10^3 (1.0-4.0); MONOCYTES # (AUTO) 0.9 X 10^3 (0.0-1.0); NEUTROPHILS # (AUTO) 6.8 X 10^3 (1.8-7.8)
--- NOTE | 2020-12-22 13:32 | Diagnostic Imaging Report ---
INDICATION: Abdominal pain, malaise, unintentional weight loss. FINDINGS: The bowel gas pattern is unremarkable. There are clips at the gallbladder fossa. No suspicious calcifications. The right hip is replaced and incidental chronic right-sided pelvic digit with pseudoarthrosis between the greater trochanter and supra-acetabular region chronic. IMPRESSION: No obstructive features or acute appearing abnormalities. Dictated by: Dictated on workstation # [id number]
[2020-12-22 13:38] LABS: BASOPHILS % (MANUAL) 1 %; EOSINOPHILS % (MANUAL) 4 %; LYMPHOCYTES % (MANUAL) 8 %; MONOCYTES % (MANUAL) 9 %; NEUTROPHILS % (MANUAL) 78 %; RBC MORPH NORMAL
[2020-12-22 13:39] LABS: BUN/CREATININE RATIO 11; CARBON DIOXIDE 26 MMOL/L (21-32); CHLORIDE 107 MMOL/L (98-107); CREATININE SERUM 1.05 MG/DL (0.60-1.30); GFR ESTIMATED > 60; POTASSIUM 4.3 MMOL/L (3.6-5.0); SODIUM 141 MMOL/L (135-145)
[2020-12-22 13:40] LABS: ALANINE AMINOTRANSFERASE 12 U/L (0-55); ALBUMIN 4.7 GM/DL (3.2-4.5); ALKALINE PHOSPHATASE 74 U/L (40-136); BILIRUBIN,TOTAL 0.7 MG/DL (0.1-1.0); CALCIUM 9.3 MG/DL (8.5-10.1); GLUCOSE 85 MG/DL (70-105); TOTAL PROTEIN 6.7 GM/DL (6.4-8.2)
== END ==
LOC: LAB FS 12:54
PROVIDERS: ATTEND Nurse Practitioner Family
DX: R10.33 Periumbilical pain (principal); C83.10 Mantle cell lymphoma, unspecified site; R06.89 Other abnormalities of breathing; R53.81 Other malaise; R63.4 Abnormal weight loss
CPT/HCPCS: 36415; 74018; 80053; 85007; 85027

== ENCOUNTER → 2021-01-01 | Outpatient (CLI) | payer MEDICARE ==
[~2021-01-01] MED LIST changes: +CATHETER FLUSH 10 ML SYR IV PRN; +HOLD METFORMIN - RECEIVED CONTRAST 20 ML VIAL IV SCH; +IOHEXOL 350 MG/ML 100 ML (OMNIPAQUE 350) VIAL IV ONE; +NS 100 ML (IVPB) BAG IV ONE
--- NOTE | 2021-01-01 11:07 | Diagnostic Imaging Report ---
EXAMINATION: CT Neck and Chest with contrast. CT Abdomen and Pelvis with and without intravenous contrast. TECHNIQUE: Multiple contiguous axial images were obtained through the neck, chest, abdomen and pelvis after the uneventful administration of intravenous contrast. Pre-contrast images of the abdomen and pelvis were also obtained. All CT scans use one or more of the following dose optimizing techniques: automated exposure control, MA and/or KvP adjustment based on a patient size and exam type, or iterative reconstruction. HISTORY: Lymphoma COMPARISON: 06/28/2019 FINDINGS: Neck CT: Scattered subcentimeter lymph nodes are seen in the neck. None are pathologically enlarged or abnormally enhancing. The muscles of the neck are normal. Vessels of the neck demonstrate normal course and caliber. Fascial planes are preserved and the deep spaces of the neck are normal. The visualized airway is widely patent. The base of the skull and the temporal bones are normal. Limited views of the brain including the cerebellum and brainstem are normal. The limited view of the [place] is unremarkable. The visualized portions of the orbits are normal. There is bilateral maxillary sinus disease, right greater than left. The spinal canal is normal in caliber. Intervertebral disk heights are normal. Neural foramina are normal. Chest CT: The lungs are clear without edema or pneumonia. No pleural effusion or pneumothorax. No suspicious nodules. There is no axillary or supraclavicular lymphadenopathy. There is no mediastinal lymphadenopathy. Left-sided portacatheter is present. Left clavicle is absent. Heart size is normal. There are no coronary artery calcifications. No pericardial effusion. Aorta is normal in caliber. Abdomen and Pelvis CT: Simple cysts are present in the liver. No suspicious liver lesions are seen. There is no biliary ductal dilation. Gallbladder is surgically absent. Pancreas is normal. Spleen is normal. Adrenal glands are normal. There are a few cysts in the kidneys. No suspicious renal lesions. No follow-up needed. There is no hydronephrosis. Urinary bladder is normal. Visualized bowel is normal in caliber without obstruction or inflammation. No free fluid or air. No abdominal or pelvic lymphadenopathy. Aorta is normal in caliber without aneurysm. There are no suspicious osseous lesions. There is a right total hip arthroplasty. IMPRESSION: 1. No acute abnormality in the neck, chest, abdomen or pelvis. No lymphadenopathy. Dictated by: Dictated on workstation # [id number]
== END ==
LOC: RAD FS 09:16
PROVIDERS: ATTEND Nurse Practitioner Adult Health
DX: C83.18 Mantle cell lymphoma, lymph nodes of multiple sites (principal)
CPT/HCPCS: 70491; 71260; 74178

== ENCOUNTER 2021-03-07 12:36 | Outpatient (RCR) | payer MEDICARE ==
[2020-12-27 10:10] LABS: BASOPHILS # (AUTO) 0.1 10^3/uL (0.0-0.1); BASOPHILS % (AUTO) 1 % (0-10); EOSINOPHILS # (AUTO) 0.1 10^3/uL (0.0-0.3); EOSINOPHILS % (AUTO) 1 % (0-10); HEMATOCRIT 40 % (40-54); LYMPHOCYTES # (AUTO) 0.3 10^3/uL (1.0-4.0); LYMPHOCYTES % (AUTO) 5 % (12-44); MEAN CORPUSCULAR HEMOGLOBIN 32 pg (25-34); MEAN CORPUSCULAR HGB CONC 35 g/dL (32-36); MEAN CORPUSCULAR VOLUME 92 fL (80-99); MEAN PLATELET VOLUME 9.7 fL (9.0-12.2); MONOCYTES # (AUTO) 0.6 10^3/uL (0.0-1.0); MONOCYTES % (AUTO) 8 % (0-12); NEUTROPHILS % (AUTO) 84 % (42-75); PLATELET COUNT 213 10^3/uL (130-400); WHITE BLOOD COUNT 7.2 10^3/uL (4.3-11.0)
[2020-12-27 10:34] LABS: ALANINE AMINOTRANSFERASE 14 U/L (0-55); ALBUMIN 4.2 GM/DL (3.2-4.5); ALKALINE PHOSPHATASE 66 U/L (40-136); BILIRUBIN,TOTAL 0.7 MG/DL (0.1-1.0); BUN/CREATININE RATIO 13; CALCIUM 8.9 MG/DL (8.5-10.1); CARBON DIOXIDE 24 MMOL/L (21-32); CHLORIDE 106 MMOL/L (98-107); CREATININE SERUM 1.06 MG/DL (0.60-1.30); GFR ESTIMATED > 60; GLUCOSE 98 MG/DL (70-105); POTASSIUM 3.8 MMOL/L (3.6-5.0); SODIUM 141 MMOL/L (135-145); TOTAL PROTEIN 6.4 GM/DL (6.4-8.2)
[~2021-03-07 12:36] MED LIST changes: +ACETAMINOPHEN 325 MG TAB (TYLENOL) CANCER CTR PO PRN; +ACYC-108 PO; -ACYC200C PO; -ACYC400T PO; +ACYC400T21 PO; -CATHETER FLUSH 10 ML SYR IV PRN; -HOLD METFORMIN - RECEIVED CONTRAST 20 ML VIAL IV SCH; -IOHEXOL 350 MG/ML 100 ML (OMNIPAQUE 350) VIAL IV ONE; -NS 100 ML (IVPB) BAG IV ONE; +NS IV 1000 ML (CANCER CTR) IV SCH; +RITUXIMAB-ABBS 500 MG, RITUXIMAB-ABBS 300 MG in NS (IVPB) CANCER CENTER 186 ML IV SCH; +diphenhydrAMINE 25 MG TAB (BENADRYL) CANCER CENTER PO SCH
[2021-03-07 13:00] LABS: BASOPHILS % (AUTO) 1 % (0-10); EOSINOPHILS # (AUTO) 0.2 10^3/uL (0.0-0.3); EOSINOPHILS % (AUTO) 3 % (0-10); HEMATOCRIT 43 % (40-54); HEMOGLOBIN 14.9 g/dL (13.3-17.7); LYMPHOCYTES # (AUTO) 0.6 10^3/uL (1.0-4.0); LYMPHOCYTES % (AUTO) 12 % (12-44); MEAN CORPUSCULAR HEMOGLOBIN 32 pg (25-34); MEAN CORPUSCULAR HGB CONC 34 g/dL (32-36); MEAN CORPUSCULAR VOLUME 94 fL (80-99); MEAN PLATELET VOLUME 9.8 fL (9.0-12.2); MONOCYTES # (AUTO) 0.6 10^3/uL (0.0-1.0); MONOCYTES % (AUTO) 11 % (0-12); NEUTROPHILS # (AUTO) 3.8 10^3/uL (1.8-7.8); NEUTROPHILS % (AUTO) 73 % (42-75); PLATELET COUNT 181 10^3/uL (130-400); WHITE BLOOD COUNT 5.2 10^3/uL (4.3-11.0)
[2021-03-07 13:22] LABS: ALANINE AMINOTRANSFERASE 14 U/L (0-55); ALBUMIN 4.3 GM/DL (3.2-4.5); ALKALINE PHOSPHATASE 58 U/L (40-136); BILIRUBIN,TOTAL 0.7 MG/DL (0.1-1.0); BUN/CREATININE RATIO 11; CALCIUM 8.7 MG/DL (8.5-10.1); CARBON DIOXIDE 27 MMOL/L (21-32); CHLORIDE 106 MMOL/L (98-107); CREATININE SERUM 0.97 MG/DL (0.60-1.30); GFR ESTIMATED > 60; GLUCOSE 102 MG/DL (70-105); POTASSIUM 4.1 MMOL/L (3.6-5.0); SODIUM 139 MMOL/L (135-145); TOTAL PROTEIN 6.1 GM/DL (6.4-8.2)
== END 2021-03-27 | disposition home or self-care (01) ==
LOC: ONC 12:36
PROVIDERS: ATTEND Internal Medicine Hematology & Oncology
DX: Z45.2 Encounter for adjustment and management of vascular access device (principal); C83.18 Mantle cell lymphoma, lymph nodes of multiple sites; J44.9 Chronic obstructive pulmonary disease, unspecified; Z79.899 Other long term (current) drug therapy; Z98.890 Other specified postprocedural states
CPT/HCPCS: 80053; 83615; 85025; G0463; 36591; 96413

== ENCOUNTER → 2021-05-02 | Outpatient (CLI) | payer MEDICARE ==
[~2021-05-02] MED LIST changes: -ACETAMINOPHEN 325 MG TAB (TYLENOL) CANCER CTR PO PRN; -NS IV 1000 ML (CANCER CTR) IV SCH; -OMEP40CA27 PO; +OMEP40CA6 PO; -RITUXIMAB-ABBS 500 MG, RITUXIMAB-ABBS 300 MG in NS (IVPB) CANCER CENTER 186 ML IV SCH; -diphenhydrAMINE 25 MG TAB (BENADRYL) CANCER CENTER PO SCH
[2021-05-02 11:06] LABS: CHOLESTEROL 144 MG/DL (< 200); HDL CHOLESTEROL 43 MG/DL (40-60); TRIGLYCERIDES 90 MG/DL (<150); VLDL CHOLESTEROL 18 MG/DL (5-40)
== END ==
LOC: LAB 10:16
PROVIDERS: ATTEND Nurse Practitioner Family
DX: Z13.220 Encounter for screening for lipoid disorders (principal); I10 Essential (primary) hypertension
CPT/HCPCS: 36415; 80061

== ENCOUNTER → 2021-06-20 | Outpatient (CLI) | payer MEDICARE ==
[~2021-06-20] MED LIST changes: +HOLD METFORMIN - RECEIVED CONTRAST 20 ML VIAL IV SCH; +IOHEXOL 350 MG/ML 150 ML (OMNIPAQUE 350) VIAL IV ONE; +NS 100 ML (IVPB) BAG IV ONE
[2021-06-20 09:06] LABS: HEMATOCRIT 42 % (40-54); MEAN CORPUSCULAR HEMOGLOBIN 32 PG (25-34); MEAN CORPUSCULAR HGB CONC 36 G/DL (32-36); MEAN CORPUSCULAR VOLUME 91 FL (80-99); PLATELET COUNT 191 10^3/uL (130-400); WHITE BLOOD COUNT 5.8 10^3/uL (4.3-11.0)
[2021-06-20 09:07] LABS: BASOPHILS # (AUTO) 0.1 10^3/uL (0.0-0.1); BASOPHILS % (AUTO) 1 % (0-10); EOSINOPHILS # (AUTO) 0.1 10^3/uL (0.0-0.3); EOSINOPHILS % (AUTO) 2 % (0-10); LYMPHOCYTES % (AUTO) 10 % (12-44); MEAN PLATELET VOLUME 9.7 FL (7.4-10.4); MONOCYTES # (AUTO) 0.5 X 10^3 (0.0-1.0); MONOCYTES % (AUTO) 9 % (0-12); NEUTROPHILS # (AUTO) 4.4 X 10^3 (1.8-7.8); NEUTROPHILS % (AUTO) 77 % (42-75)
[2021-06-20 09:08] LABS: LYMPHOCYTES # (AUTO) 0.6 X 10^3 (1.0-4.0)
[2021-06-20 09:30] LABS: BILIRUBIN,TOTAL 0.4 MG/DL (0.1-1.0); CALCIUM 9.1 MG/DL (8.5-10.1); CREATININE SERUM 0.95 MG/DL (0.60-1.30); POTASSIUM 3.9 MMOL/L (3.6-5.0); TOTAL PROTEIN 6.3 GM/DL (6.4-8.2)
[2021-06-20 09:31] LABS: ALBUMIN 4.3 GM/DL (3.2-4.5)
--- NOTE | 2021-06-20 10:59 | Diagnostic Imaging Report ---
PROCEDURE: CT Neck, Chest Abdomen and Pelvis with contrast, Abdomen and Pelvis without. TECHNIQUE: Multiple contiguous axial images were obtained through the neck, chest, abdomen, and pelvis after the uneventful bolus administration of intravenous contrast. Precontrast acquisitions through the abdomen and pelvis were performed. Sagittal and coronal reformations are then performed. Auto Exposure Controls were utilized during the CT exam to meet ALARA standards for radiation dose reduction. INDICATION: Mantle cell lymphoma, follow-up. Correlation is made with prior CT from 01/01/2021. CT NECK: Visualized intracranial structures are unremarkable. The posterior nasopharynx and oropharynx are unremarkable. Parapharyngeal fat planes are preserved. Epiglottis and larynx appear unremarkable. No definite thyroid mass is detected. Submandibular and parotid glands appear to be symmetric bilaterally without evidence of discrete mass. No pathologically enlarged cervical lymph nodes are identified. There are no fluid collections identified. There is some mucosal thickening of the right maxillary sinus. IMPRESSION: Unremarkable CT soft tissue neck with contrast. No cervical lymphadenopathy is detected. CT CHEST: A left chest wall port has the tip at SVC right atrial junction. A left clavicle is absent. No axillary or supraclavicular lymphadenopathy is seen. No mediastinal or hilar lymphadenopathy is detected. There is no pericardial or pleural fluid identified. No pulmonary infiltrates, nodules or masses are detected. The bony structures are unremarkable. IMPRESSION: Stable CT chest with contrast since 01/01/2021. No thoracic lymphadenopathy or pulmonary mass is identified. CT abdomen and pelvis: Numerous circumscribed low-attenuation lesions throughout the liver are again noted consistent with cysts. The gallbladder is surgically absent. There is no biliary duct dilatation. The pancreas and spleen are unremarkable. No adrenal mass is detected. Kidneys appear stable. Aorta is nonaneurysmal. No central retroperitoneal or mesenteric lymphadenopathy is detected. The bowel loops are normal caliber. There is occasional diverticula in the sigmoid but no evidence of acute diverticulitis. Bladder is grossly unremarkable. No iliac or inguinal lymphadenopathy is detected. There is large amount of artifact through the pelvis from patient's right hip prosthesis. Bony structures are nonacute. IMPRESSION: Stable CT abdomen pelvis study compared with 01/01/2021. No abdominal or pelvic lymphadenopathy. Dictated by: Dictated on workstation # [id number]
== END ==
LOC: RAD FS 08:09
PROVIDERS: ATTEND Internal Medicine Hematology & Oncology
DX: C83.10 Mantle cell lymphoma, unspecified site (principal)
CPT/HCPCS: 36415; 70491; 71260; 74178; 80053; 83615; 85025

== ENCOUNTER 2021-06-27 12:59 | Outpatient (RCR) | payer MEDICARE ==
[2021-05-02 10:30] LABS: BASOPHILS % (AUTO) 1 % (0-10); EOSINOPHILS # (AUTO) 0.1 10^3/uL (0.0-0.3); EOSINOPHILS % (AUTO) 1 % (0-10); HEMATOCRIT 43 % (40-54); HEMOGLOBIN 14.9 g/dL (13.3-17.7); LYMPHOCYTES # (AUTO) 0.6 10^3/uL (1.0-4.0); LYMPHOCYTES % (AUTO) 10 % (12-44); MEAN CORPUSCULAR HEMOGLOBIN 33 pg (25-34); MEAN CORPUSCULAR HGB CONC 35 g/dL (32-36); MEAN CORPUSCULAR VOLUME 93 fL (80-99); MEAN PLATELET VOLUME 9.8 fL (9.0-12.2); MONOCYTES # (AUTO) 0.5 10^3/uL (0.0-1.0); MONOCYTES % (AUTO) 9 % (0-12); NEUTROPHILS # (AUTO) 4.6 10^3/uL (1.8-7.8); NEUTROPHILS % (AUTO) 79 % (42-75); PLATELET COUNT 185 10^3/uL (130-400); WHITE BLOOD COUNT 5.9 10^3/uL (4.3-11.0)
[2021-05-02 10:41] LABS: ALBUMIN 4.1 GM/DL (3.2-4.5)
[2021-05-02 10:42] LABS: CHLORIDE 105 MMOL/L (98-107); POTASSIUM 4.4 MMOL/L (3.6-5.0); SODIUM 139 MMOL/L (135-145)
[2021-05-02 10:44] LABS: GLUCOSE 96 MG/DL (70-105); TOTAL PROTEIN 6.2 GM/DL (6.4-8.2)
[2021-05-02 10:45] LABS: CARBON DIOXIDE 25 MMOL/L (21-32)
[2021-05-02 10:46] LABS: BILIRUBIN,TOTAL 0.6 MG/DL (0.1-1.0)
[2021-05-02 10:47] LABS: ALKALINE PHOSPHATASE 61 U/L (40-136)
[2021-05-02 10:48] LABS: CREATININE SERUM 0.96 MG/DL (0.60-1.30); GFR ESTIMATED > 60
[2021-05-02 10:49] LABS: BUN/CREATININE RATIO 11
[2021-05-02 10:51] LABS: ALANINE AMINOTRANSFERASE 13 U/L (0-55)
[~2021-06-27 12:59] MED LIST changes: +ACETAMINOPHEN 325 MG TAB (TYLENOL) CANCER CTR PO PRN; -HOLD METFORMIN - RECEIVED CONTRAST 20 ML VIAL IV SCH; -IOHEXOL 350 MG/ML 150 ML (OMNIPAQUE 350) VIAL IV ONE; -NS 100 ML (IVPB) BAG IV ONE; +NS IV 1000 ML (CANCER CTR) IV SCH; +RITUXIMAB-ABBS 500 MG, RITUXIMAB-ABBS 300 MG in NS (IVPB) CANCER CENTER 186 ML IV SCH; +diphenhydrAMINE 25 MG TAB (BENADRYL) CANCER CENTER PO SCH
[2021-06-27 13:51] LABS: BASOPHILS % (AUTO) 1 % (0-10); EOSINOPHILS # (AUTO) 0.1 10^3/uL (0.0-0.3); EOSINOPHILS % (AUTO) 2 % (0-10); HEMATOCRIT 41 % (40-54); HEMOGLOBIN 14.5 g/dL (13.3-17.7); LYMPHOCYTES # (AUTO) 0.8 10^3/uL (1.0-4.0); LYMPHOCYTES % (AUTO) 15 % (12-44); MEAN CORPUSCULAR HEMOGLOBIN 32 pg (25-34); MEAN CORPUSCULAR HGB CONC 35 g/dL (32-36); MEAN CORPUSCULAR VOLUME 92 fL (80-99); MONOCYTES # (AUTO) 0.6 10^3/uL (0.0-1.0); MONOCYTES % (AUTO) 11 % (0-12); NEUTROPHILS # (AUTO) 3.7 10^3/uL (1.8-7.8); NEUTROPHILS % (AUTO) 71 % (42-75); PLATELET COUNT 199 10^3/uL (130-400); WHITE BLOOD COUNT 5.2 10^3/uL (4.3-11.0)
[2021-06-27 13:58] LABS: ALBUMIN 4.4 GM/DL (3.2-4.5); BILIRUBIN,TOTAL 1.1 MG/DL (0.1-1.0); CALCIUM 9.6 MG/DL (8.5-10.1); CREATININE SERUM 0.96 MG/DL (0.60-1.30); POTASSIUM 3.7 MMOL/L (3.6-5.0); TOTAL PROTEIN 6.7 GM/DL (6.4-8.2)
== END 2021-07-31 | disposition home or self-care (01) ==
LOC: ONC 12:59
PROVIDERS: ATTEND Internal Medicine Hematology & Oncology
DX: Z51.11 Encounter for antineoplastic chemotherapy (principal); Z45.2 Encounter for adjustment and management of vascular access device; C83.18 Mantle cell lymphoma, lymph nodes of multiple sites; J44.9 Chronic obstructive pulmonary disease, unspecified; Z13.220 Encounter for screening for lipoid disorders; I10 Essential (primary) hypertension; Z79.899 Other long term (current) drug therapy; Z98.890 Other specified postprocedural states
CPT/HCPCS: 80053; 80061; 83615; 85025; 96413; G0463; 36415; 36591

== ENCOUNTER 2021-10-17 12:49 | Outpatient (RCR) | payer MEDICARE ==
[2021-08-24 11:01] LABS: BASOPHILS # (AUTO) 0.1 10^3/uL (0.0-0.1); BASOPHILS % (AUTO) 1 % (0-10); EOSINOPHILS # (AUTO) 0.1 10^3/uL (0.0-0.3); EOSINOPHILS % (AUTO) 1 % (0-10); HEMATOCRIT 43 % (40-54); HEMOGLOBIN 14.7 g/dL (13.3-17.7); LYMPHOCYTES # (AUTO) 0.6 10^3/uL (1.0-4.0); LYMPHOCYTES % (AUTO) 12 % (12-44); MEAN CORPUSCULAR HEMOGLOBIN 32 pg (25-34); MEAN CORPUSCULAR HGB CONC 34 g/dL (32-36); MEAN CORPUSCULAR VOLUME 94 fL (80-99); MEAN PLATELET VOLUME 9.9 fL (9.0-12.2); MONOCYTES # (AUTO) 0.4 10^3/uL (0.0-1.0); MONOCYTES % (AUTO) 8 % (0-12); NEUTROPHILS % (AUTO) 78 % (42-75); PLATELET COUNT 194 10^3/uL (130-400); WHITE BLOOD COUNT 5.1 10^3/uL (4.3-11.0)
[2021-08-24 11:19] LABS: ALBUMIN 4.2 GM/DL (3.2-4.5); BILIRUBIN,TOTAL 0.7 MG/DL (0.1-1.0); CREATININE SERUM 1.02 MG/DL (0.60-1.30); POTASSIUM 4.2 MMOL/L (3.6-5.0); TOTAL PROTEIN 6.5 GM/DL (6.4-8.2)
[~2021-10-17 12:49] MED LIST changes: -CITA40TA11 PO; +CITA40TA13 PO; +CYCL10TA25 PO; -CYCL10TA9 PO; +ONDA-106 PO; -ONDA8TAB15 PO
[2021-10-17 13:10] LABS: BASOPHILS # (AUTO) 0.1 10^3/uL (0.0-0.1); BASOPHILS % (AUTO) 1 % (0-10); EOSINOPHILS # (AUTO) 0.1 10^3/uL (0.0-0.3); EOSINOPHILS % (AUTO) 1 % (0-10); HEMATOCRIT 45 % (40-54); HEMOGLOBIN 15.3 g/dL (13.3-17.7); LYMPHOCYTES # (AUTO) 0.7 10^3/uL (1.0-4.0); LYMPHOCYTES % (AUTO) 10 % (12-44); MEAN CORPUSCULAR HEMOGLOBIN 32 pg (25-34); MEAN CORPUSCULAR HGB CONC 34 g/dL (32-36); MEAN CORPUSCULAR VOLUME 93 fL (80-99); MEAN PLATELET VOLUME 10.2 fL (9.0-12.2); MONOCYTES # (AUTO) 0.6 10^3/uL (0.0-1.0); MONOCYTES % (AUTO) 8 % (0-12); NEUTROPHILS # (AUTO) 5.6 10^3/uL (1.8-7.8); NEUTROPHILS % (AUTO) 80 % (42-75); PLATELET COUNT 184 10^3/uL (130-400)
[2021-10-17 13:28] LABS: ALBUMIN 4.2 GM/DL (3.2-4.5); BILIRUBIN,TOTAL 0.7 MG/DL (0.1-1.0); CALCIUM 8.9 MG/DL (8.5-10.1); CREATININE SERUM 0.95 MG/DL (0.60-1.30); POTASSIUM 4.5 MMOL/L (3.6-5.0); TOTAL PROTEIN 6.3 GM/DL (6.4-8.2)
== END 2021-11-02 | disposition home or self-care (01) ==
LOC: ONC 12:49
PROVIDERS: ATTEND Internal Medicine Hematology & Oncology
DX: Z51.11 Encounter for antineoplastic chemotherapy (principal); Z45.2 Encounter for adjustment and management of vascular access device; C83.18 Mantle cell lymphoma, lymph nodes of multiple sites; J44.9 Chronic obstructive pulmonary disease, unspecified; I10 Essential (primary) hypertension; E66.9 Obesity, unspecified; Z79.899 Other long term (current) drug therapy; Z98.890 Other specified postprocedural states
CPT/HCPCS: 80053; 83615; 85025; 96413; G0463; 36591; 99213

== ENCOUNTER → 2021-10-24 | Outpatient (CLI) | payer MEDICARE ==
[~2021-10-24] MED LIST changes: -ACETAMINOPHEN 325 MG TAB (TYLENOL) CANCER CTR PO PRN; -NS IV 1000 ML (CANCER CTR) IV SCH; -RITUXIMAB-ABBS 500 MG, RITUXIMAB-ABBS 300 MG in NS (IVPB) CANCER CENTER 186 ML IV SCH; -diphenhydrAMINE 25 MG TAB (BENADRYL) CANCER CENTER PO SCH
--- NOTE | 2021-10-24 12:10 | Diagnostic Imaging Report ---
INDICATION: Forearm fracture. TIME OF EXAM: 10:47 a.m. COMPARISON: Correlation is made with prior right forearm radiographs from 11/08/2019. FINDINGS: Alignment at the elbow and wrist appears normal. The radius and ulna appear to be intact. No fractures are seen. IMPRESSION: No acute bony abnormality is detected. Dictated by: Dictated on workstation # [id number]
== END ==
LOC: RAD FS 10:40
PROVIDERS: ATTEND Nurse Practitioner
DX: S52.334A Nondisplaced oblique fracture of shaft of right radius, initial encounter for closed fracture (principal); X58.XXXA Exposure to other specified factors, initial encounter
CPT/HCPCS: 73090

== ENCOUNTER 2022-03-24 21:09 | Emergency (ER) | payer MEDICARE ==
[2022-03-24] MEDS ORDERED: ONDANSETRON 4 MG/2 ML (SDV) Z0FRAN IVP STA ×2 (21:25→22:59)
[2022-03-24] MEDS ORDERED: NS IV 1000 ML 1,000 ML IV STA (21:25)
[2022-03-24] MEDS ORDERED: PANTOPRAZOLE 40 MG (PROTONIX) VIAL IV STA (21:25)
[2022-03-24] MEDS ORDERED: fentaNYL INJ 100 MCG/2 ML AMP IVP STA (21:27)
[2022-03-24 21:30] LABS: BASOPHILS % (AUTO) 1 % (0-10); EOSINOPHILS % (AUTO) 0 % (0-10); HEMATOCRIT 43 % (40-54); HEMOGLOBIN 15.5 g/dL (13.3-17.7); LYMPHOCYTES # (AUTO) 1.1 10^3/uL (1.0-4.0); LYMPHOCYTES % (AUTO) 39 % (12-44); MEAN CORPUSCULAR HEMOGLOBIN 31 pg (25-34); MEAN CORPUSCULAR HGB CONC 36 g/dL (32-36); MEAN CORPUSCULAR VOLUME 87 fL (80-99); MEAN PLATELET VOLUME 10.5 fL (9.0-12.2); MONOCYTES # (AUTO) 0.4 10^3/uL (0.0-1.0); MONOCYTES % (AUTO) 15 % (0-12); NEUTROPHILS # (AUTO) 1.3 10^3/uL (1.8-7.8); NEUTROPHILS % (AUTO) 44 % (42-75); PLATELET COUNT 104 10^3/uL (130-400); WHITE BLOOD COUNT 2.9 10^3/uL (4.3-11.0)
[2022-03-24] MEDS ORDERED: NS 100 ML (IVPB) BAG IV ONE (21:30)
[2022-03-24] MEDS ORDERED: IOHEXOL 350 MG/ML 100 ML (OMNIPAQUE 350) VIAL IV ONE (21:30)
[2022-03-24] MEDS ORDERED: HOLD METFORMIN - RECEIVED CONTRAST 20 ML VIAL IV SCH (21:30)
--- NOTE | 2022-03-24 21:34 | ED GI ---
General Chief Complaint: Abdominal/GI Problems Stated Complaint: SEVERE ABDOMINAL PAIN/VOMITING Source of Information: Patient History of Present Illness Date Seen by Provider: March 24, 2022 Time Seen by Provider: 21:13 Initial Comments 61-year-old male presenting with complaints of nausea, vomiting, diarrhea and diffuse abdominal pain for the last 10 days. He has been improving since the last 2 weeks and family today came home because he did not want to be stuck in [place]. He has not been able to eat or drink anything for the last 4 days. He has had chills with rigors. He has had some coffee-ground looking diarrhea. He denies any pain with urination. He does have a history of lymphoma and is undergoing monthly maintenance chemotherapy for the rest of his life. He states that he also had found a large tumor in his stomach and he is hoping that that is not back since he is having pain in his belly. Timing/Duration: Other (over 10 days of n/v/d) Severity/Quality: Severe, Cramping Location: Generalized Abdomen Activities at Onset: None Modifying Factors: Worsens With Eating Associated Symptoms: No Back Pain, No Chest Pain, No Diaphoresis; Fever/Chills (chills with rigors), Fatigue; No Headache, No Heartburn; Nausea/Vomiting; No Rash, No Shortness of Air, No Swelling/Mass in Abdomen, No Syncope; Weakness (generalized) Allergies and Home Medications Allergies Coded Allergies: latex (Verified Allergy, Unknown, Rash, 12/08/19) Uncoded Allergies: STEROIDS (Adverse Reaction, Severe, VIOLENT BEHAVIOR, 12/07/19) Patient Home Medication List Home Medication List Reviewed: Yes Albuterol Sulfate (Ventolin Hfa) 18 Gm Hfa.aer.ad, 2 PUFF INH Q4H PRN for SHORTNESS OF BREATH, (Reported) Entered as Reported by: VANESSA ETIENNE on 03/03/19 1012 Azithromycin (Azithromycin) 250 Mg Tablet, 250 MG PO UD Prescribed by: LUCITA TORRES on 03/06/20 185 Citalopram Hydrobromide (Citalopram HBr) 40 Mg Tablet, 60 MG PO HS, (Reported) Entered as Reported by: CHARLIE QUEZADA on 12/21/18 1557 Cyclobenzaprine HCl (Cyclobenzaprine HCl) 10 Mg Tablet, 10 MG PO Q8H PRN for SPASMS Prescribed by: YURI GREER on 12/08/202020 Divalproex Sodium (Depakote) 500 Mg Tablet.dr, 500 MG PO 1800, (Reported) Entered as Reported by: ZAFAR DUNN on 12/08/18 1144 Meloxicam (Meloxicam) 15 Mg Tablet, 15 MG PO HS, (Reported) Entered as Reported by: CHARLIE QUEZADA on 12/21/18 1557 [place] 3 Polyunsat Fatty Acids (Fish Oil 1,000 mg Capsule) 1,000 Mg Cap, 1,000 MG PO DAILY, (Reported) Entered as Reported by: ZAFAR DUNN on 12/08/18 1144 Omeprazole (Omeprazole) 20 Mg Capsule.dr, 20 MG PO BID, (Reported) Entered as Reported by: CHARLIE QUEZADA on 12/21/18 1557 Ondansetron (Ondansetron Odt) 4 Mg Tab.rapdis, 4 MG PO Q6H PRN for NAUSEA/VOMITING Prescribed by: LATONIA WEBER on 03/24/22 2310 Umeclidinium Brm/Vilanterol Tr (Anoro Ellipta 62.5-25 Mcg INH) 1 Each Blst.w.dev, 1 EACH IH DAILY, (Reported) Entered as Reported by: EUGENIE VILLAGOMEZ on 12/08/19 0903 Vitamin B Complex (Vitamin B Complex) 1 Each Capsule, 1 CAP PO DAILY, (Reported) Entered as Reported by: ZAFAR DUNN on 12/08/18 1144 Review of Systems Review of Systems Constitutional: see HPI EENTM: No Symptoms Reported Respiratory: Cough (for over a month) Cardiovascular: No Symptoms Reported Gastrointestinal: See HPI Genitourinary: Denies Hematuria, Denies Pain Musculoskeletal: no symptoms reported Skin: No rash Psychiatric/Neurological: No Symptoms Reported Endocrine: No Symptoms Reported Hematologic/Lymphatic: No Symptoms Reported Past Pasprgu-Rwymmp-Neonan Hx Patient Social History Tobacco Use?: No Use of E-Cig and/or Vaping dev: No Substance use?: No Alcohol Use?: No Pt feels they are or have been: No Immunizations Up To Date Tetanus Booster (TDap): Unknown PED Vaccines UTD: No Seasonal Allergies Seasonal Allergies: No Past Medical History Surgery/Hospitalization HX: Lymphoma, Stomach tumor, appendectomy, cholecystectomy, COPD, GERD Surgeries: Yes (Port Placement, R THR) Abdominal, Appendectomy, Gallbladder, Joint Replacement, Orthopedic, Rectal, Tonsillectomy Respiratory: Yes COPD Currently Using CPAP: Yes Cardiac: No Neurological: No Sexually Transmitted Disease: No HIV/AIDS: No Genitourinary: No Gastrointestinal: Yes Abdominal Hernia, Gastroesophageal Reflux, Hemorrhoids Musculoskeletal: Yes Arthritis, Fractures Endocrine: No HEENT: No Loss of Vision: Denies Hearing Impairment: Denies 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, ) Skin, Lymphoma Did You Recieve Any Treatments: Yes What Type of Treatment Did You: Chemotherapy Psychosocial: Yes ("Severe depression" he states) Anxiety, Depression Integumentary: Yes (BENIGN TUMOR LEFT EAR) Recent Skin Changes Blood Disorders: Yes (MANTLE CELL LYMPHOMA) Family Medical History Cardiovascular disease 19 MOTHER G8 SISTER Completed stroke G8 SISTER FH: brain tumor G8 SISTER FH: emphysema 19 FATHER FH: kidney failure 19 FATHER No Pertinent Family Hx Physical Exam Vital Signs Vital Signs - First Documented 03/24/22 21:18 Temp 36.6 Pulse 93 Resp 18 B/P (MAP) 152/87 (108) Pulse Ox 98 O2 Delivery Room Air Capillary Refill : Height/Weight/BMI Height: 6'1.00" Weight: 260lbs. 0.0oz. 117.516839nw; 33.00 BMI Method:Stated General Appearance: mild distress HEENT: PERRL/EOMI, pharynx normal Neck: non-tender, full range of motion, supple, normal inspection Respiratory: chest non-tender, lungs clear, normal breath sounds, no respiratory distress, no accessory muscle use Cardiovascular: normal peripheral pulses, regular rate, rhythm Gastrointestinal: normal bowel sounds, non tender, soft, no pulsatile mass Extremities: normal range of motion, non-tender, normal capillary refill Neurologic/Psychiatric: alert, oriented x 3 Skin: normal color, warm/dry Focused Exam Lactate Level 03/24/22 21:25: Lactic Acid Level 1.44 Lactic Acid Level Laboratory Tests Test 03/24/22 21:25 Lactic Acid Level 1.44 MMOL/L (0.50-2.00) Progress/Results/Core Measures Results/Orders Lab Results Laboratory Tests Test 03/24/22 21:25 03/24/22 23:28 Range/Units White Blood Count 2.9 L 4.3-11.0 10^3/uL Red Blood Count 4.94 4.30-5.52 10^6/uL Hemoglobin 15.5 13.3-17.7 g/dL Hematocrit 43 40-54 % Mean Corpuscular Volume 87 80-99 fL Mean Corpuscular Hemoglobin 31 25-34 pg Mean Corpuscular Hemoglobin Concent 36 32-36 g/dL Red Cell Distribution Width 11.9 10.0-14.5 % Platelet Count 104 L 130-400 10^3/uL Mean Platelet Volume 10.5 9.0-12.2 fL Immature Granulocyte % (Auto) 0 % Neutrophils (%) (Auto) 44 42-75 % Lymphocytes (%) (Auto) 39 12-44 % Monocytes (%) (Auto) 15 H 0-12 % Eosinophils (%) (Auto) 0 0-10 % Basophils (%) (Auto) 1 0-10 % Neutrophils # (Auto) 1.3 L 1.8-7.8 10^3/uL Lymphocytes # (Auto) 1.1 1.0-4.0 10^3/uL Monocytes # (Auto) 0.4 0.0-1.0 10^3/uL Eosinophils # (Auto) 0.0 0.0-0.3 10^3/uL Basophils # (Auto) 0.0 0.0-0.1 10^3/uL Immature Granulocyte # (Auto) 0.0 0.0-0.1 10^3/uL Percent Immature Platelet Fraction 5.9 0.0-7.6 % Sodium Level 133 L 135-145 MMOL/L Potassium Level 3.6 3.6-5.0 MMOL/L Chloride Level 96 L 98-107 MMOL/L Carbon Dioxide Level 22 21-32 MMOL/L Anion Gap 15 H 5-14 MMOL/L Blood Urea Nitrogen 13 7-18 MG/DL Creatinine 1.14 0.60-1.30 MG/DL Estimat Glomerular Filtration Rate 74 BUN/Creatinine Ratio 11 Glucose Level 95 70-105 MG/DL Lactic Acid Level 1.44 0.50-2.00 MMOL/L Calcium Level 8.8 8.5-10.1 MG/DL Corrected Calcium 8.6 8.5-10.1 MG/DL Total Bilirubin 0.8 0.1-1.0 MG/DL Aspartate Amino Transf (AST/SGOT) 67 H 5-34 U/L Alanine Aminotransferase (ALT/SGPT) 35 0-55 U/L Alkaline Phosphatase 67 40-136 U/L Total Protein 6.6 6.4-8.2 GM/DL Albumin 4.3 3.2-4.5 GM/DL Lipase 35 8-78 U/L My Orders Orders - LATONIA WEBER MD Comprehensive Metabolic Panel (03/24/22:) Lipase (03/24/22:) Ua Culture If Indicated (03/24/22:) Ed Iv/Invasive Line Start (03/24/22:) Cbc With Automated Diff (03/24/22:) Ct Abdomen/Pelvis W (03/24/22:) Ns Iv 1000 Ml (Sodium Chloride 0.9%) (03/24/22:) Pantoprazole Injection (Protonix Injecti (03/24/22:) Ondansetron Injection (Zofran Injectio (03/24/22:) Blood Culture (03/24/22:) Lactic Acid Analyzer (03/24/22:) Fentanyl Inj (Sublimaze Injection) (03/24/22:) Iohexol Injection (Omnipaque 350 Mg/Ml 1 (03/24/22:) Received Contrast (Hold Metformin- Contr (03/24/22:30) Ns (Ivpb) (Sodium Chloride 0.9% Ivpb Bag (03/24/22:30) Lorazepam Injection (Ativan Injection) (03/24/22 22:59) Ondansetron Injection (Zofran Injectio (03/24/22 22:59) Ketorolac Injection (Toradol Injection) (03/24/22 22:59) Albuterol Inhaler (Albuterol) (03/24/22 22:59) Covid 19 Inhouse Test (03/24/22 23:25) Medications Given in ED Current Medications Medications Dose Ordered Sig/Gunner Route Start Time Stop Time Status Last Admin Dose Admin Iohexol 100 ml ONCE ONCE IV 03/24/22 21:30 03/24/22 21:31 DC 03/24/22 22:04 100 ML Sodium Chloride 100 ml ONCE ONCE IV 03/24/22 21:30 03/24/22 21:31 DC 03/24/22 22:05 100 ML Vital Signs/I&O 03/24/22 03/24/22 21:18 23:13 Temp 36.6 Pulse 93 83 Resp 18 26 B/P (MAP) 152/87 (108) 130/82 Pulse Ox 98 98 O2 Delivery Room Air Room Air Progress Progress Note #1: Progress Note Obtain labs and blood cultures with lactic acid. CT scan of the abdomen pelvis with IV contrast provided his renal function is satisfactory. Give normal saline 1 L IV fluids for hydration, Zofran 4 mg IV for nausea and vomiting, fentanyl 50 mcg IV for pain, Protonix 40 mg IV for reflux and epigastric pain/gastritis. Differential diagnosis includes small bowel obstruction, abdominal mass or tumor, colitis, diverticulitis Progress Note #2: Progress Note Labs shows low white blood cell count at 2.9. His platelets are low at 104. His chemistry panel has mild hyponatremia 133. Renal function and hepatic function shows no acute significant abnormality. CT scan shows no acute process in the abdomen or pelvis. He has fluid-filled loops of bowel consistent with diarrhea. There is no mass or tumor present. There is no obstruction or blockage. On recheck of the patient he is feeling a lot better. He started having coughing fit always discussing results with him. He states he usually uses an inhaler but he does not have one now. Ordered an inhaler for him with a spacer. He also is very anxious reproducible dose of Ativan here in addition to Zofran and Toradol. Since he has been coughing for over a month and having the vomi ting and diarrhea for the last 2 weeks he was concerned he might have COVID as well. We will send off a COVID swab although he has had all of his symptoms for several weeks. Advised this will take a minimum of 24 to 48 hours before the results will be back Diagnostic Imaging Diagonstic Imaging: CT Plain Films/CT/US/NM/MRI: abdomen, pelvis Comments NAME: ALEMITCHFRANCOISE Noble JR [facility] REC#: [id number] PT STATUS: REG ER : 1960 PHYSICIAN: LATONIA WEBER MD ADMIT DATE: 03/24/22/ER FS Draft Date of Exam:03/24/22 CT ABDOMEN/PELVIS W EXAMINATION: CT abdomen and pelvis with intravenous contrast. TECHNIQUE: Multiple contiguous axial images were obtained through the abdomen and pelvis after the uneventful administration of intravenous contrast. All CT scans use one or more of the following dose optimizing techniques: automated exposure control, MA and/or KvP adjustment based on patient size and exam type or iterative reconstruction. HISTORY: Diffuse abdominal pain, n/v/d x 10 days. COMPARISON: 06/28/2019. FINDINGS: Lung bases: Bibasilar dependent atelectasis. Solid organs: Multiple hypodensities seen within the liver, unchanged, the largest of which are compatible with cysts. The gallbladder is surgically absent. There is no biliary ductal dilation. Pancreas is normal. Spleen is normal. Adrenal glands are normal. Bilateral renal cysts are present which require no follow-up. No hydronephrosis. Bowel: The stomach and small bowel are normal without obstruction. There is fluid in the colon which can be seen with diarrheal state. There are a few scattered colonic diverticula. No findings of acute appendicitis. Peritoneum: There is no intraperitoneal free fluid or free air. No suspicious lymphadenopathy. Vasculature: Normal without aneurysm. Musculoskeletal: Degenerative changes of the spine without suspicious osseous lesion or compression fracture. Surgical changes from right hip arthroplasty. Pelvis: The prostate gland is normal. The urinary bladder is normal. IMPRESSION: No acute abnormality in the abdomen or pelvis. Dictated on workstation # [id number] Dict: 03/24/222230 Trans: 03/24/222234 [facility] [id number] Interpreted by: LUCITA TONG DO Electronically signed by: Reviewed: Reviewed by Me Departure Impression Primary Impression: Diffuse abdominal pain Additional Impressions: Nausea vomiting and diarrhea Cough in adult Disposition: 01 HOME, SELF-CARE Condition: Stable Departure-Patient Inst. Decision time for Depature: 23:08 Referrals: SELF,SANGEETHA CARPENTER (PCP/Family) Primary Care Physician Patient Instructions: Diarrhea, Adult ED, Nausea and Vomiting, Adult ED, Cough, Adult ED, Abdominal Pain, Adult ED Add. Discharge Instructions: Use the dissolving nausea tablets to help keep your stomach settled so you can drink fluids and electrolyte drinks to stay better hydrated. Consider taking a dose or two of Imodium to help with the diarrhea before you go to bed so that you can slow the diarrhea down and get some rest overnight. Follow up with clinic for continued cough, nausea and vomiting, and diarrhea All discharge instructions reviewed with patient and/or family. Voiced understanding. Scripts Ondansetron (Ondansetron Odt) 4 Mg Tab.rapdis 4 MG PO Q6H PRN for NAUSEA/VOMITING for 5 Days, #20 TAB 0 Refills Prov: LATONIA WEBER MD 03/24/22 LATONIA WEBER MD March 24, 2022 21:34
[2022-03-24 21:52] LABS: ALBUMIN 4.3 GM/DL (3.2-4.5); BILIRUBIN,TOTAL 0.8 MG/DL (0.1-1.0); CALCIUM 8.8 MG/DL (8.5-10.1); CREATININE SERUM 1.14 MG/DL (0.60-1.30); POTASSIUM 3.6 MMOL/L (3.6-5.0); TOTAL PROTEIN 6.6 GM/DL (6.4-8.2)
--- NOTE | 2022-03-24 22:36 | Diagnostic Imaging Report ---
EXAMINATION: CT abdomen and pelvis with intravenous contrast. TECHNIQUE: Multiple contiguous axial images were obtained through the abdomen and pelvis after the uneventful administration of intravenous contrast. All CT scans use one or more of the following dose optimizing techniques: automated exposure control, MA and/or KvP adjustment based on patient size and exam type or iterative reconstruction. HISTORY: Diffuse abdominal pain, n/v/d x 10 days. COMPARISON: 06/28/2019. FINDINGS: Lung bases: Bibasilar dependent atelectasis. Solid organs: Multiple hypodensities seen within the liver, unchanged, the largest of which are compatible with cysts. The gallbladder is surgically absent. There is no biliary ductal dilation. Pancreas is normal. Spleen is normal. Adrenal glands are normal. Bilateral renal cysts are present which require no follow-up. No hydronephrosis. Bowel: The stomach and small bowel are normal without obstruction. There is fluid in the colon which can be seen with diarrheal state. There are a few scattered colonic diverticula. No findings of acute appendicitis. Peritoneum: There is no intraperitoneal free fluid or free air. No suspicious lymphadenopathy. Vasculature: Normal without aneurysm. Musculoskeletal: Degenerative changes of the spine without suspicious osseous lesion or compression fracture. Surgical changes from right hip arthroplasty. Pelvis: The prostate gland is normal. The urinary bladder is normal. IMPRESSION: No acute abnormality in the abdomen or pelvis. Dictated by: Dictated on workstation # [id number]
[2022-03-24] MEDS ORDERED: RT-ALBUTEROL HFA 8.5 GM INHALER IH STA (22:59)
[2022-03-24] MEDS ORDERED: LORazepam INJ 2 MG/ML (ATIVAN) VIAL IVP STA (22:59)
[2022-03-24] MEDS ORDERED: KETOROLAC 30 MG/ML VIAL IVP STA (22:59)
[2022-03-24] MEDS ORDERED: ONDA4TAB11 PO (23:10)
[2022-03-24 23:13] VITALS: BP 130/82
== END 2022-03-24 23:30 | disposition home or self-care (01) ==
LOC: EDUNIT# 21:09 → ER FS 21:12
DX: R11.2 Nausea with vomiting, unspecified (principal); R19.7 Diarrhea, unspecified; R05.9 Cough, unspecified; D72.819 Decreased white blood cell count, unspecified; E87.1 Hypo-osmolality and hyponatremia; D37.1 Neoplasm of uncertain behavior of stomach; J44.9 Chronic obstructive pulmonary disease, unspecified; Z87.19 Personal history of other diseases of the digestive system; Z90.49 Acquired absence of other specified parts of digestive tract; Z99.89 Dependence on other enabling machines and devices
CPT/HCPCS: 36415; 74177; 80053; 83605; 83690; 85025; 87040; 87636; 96361; 96374; 96375; 96376; Q9967

== ENCOUNTER 2022-04-05 19:07 | Emergency (ER) | payer MEDICARE ==
[~2022-04-05] VITALS: Ht 185.4 cm; Wt 105.2 kg
[~2022-04-05 19:07] MED LIST changes: +ONDA4TAB11 PO
--- NOTE | 2022-04-05 19:09 | ED General ---
General Stated Complaint: GEN WEAKNESS History of Present Illness Date Seen by Provider: Apr 05, 2022 Time Seen by Provider: 19:08 Initial Comments 61-year-old male with PMH of lymphoma currently on maintenance chemotherapy with last chemo treatment on Friday which was 2 days ago, is here for the second time in the past week and a half with complaints of nausea and vomiting, loss of appetite, and inability to keep food down. Pt ran out of his Zofran prescription which was given at the last ER visit. Pt's last meal was 5 days ago. He has not been drinking any water for the past 3 days. Denies fever, diarrhea, abdominal pain, chest pain, shortness of breath, respiratory symptoms, dysuria, cough. Allergies and Home Medications Allergies Coded Allergies: latex (Verified Allergy, Unknown, Rash, 12/08/19) Uncoded Allergies: STEROIDS (Adverse Reaction, Severe, VIOLENT BEHAVIOR, 12/07/19) Patient Home Medication List Home Medication List Reviewed: Yes Albuterol Sulfate (Ventolin Hfa) 18 Gm Hfa.aer.ad, 2 PUFF INH Q4H PRN for EDWIN RTNESS OF BREATH, (Reported) Entered as Reported by: VANESSA ETIENNE on 03/03/19 1012 Azithromycin (Azithromycin) 250 Mg Tablet, 250 MG PO UD Prescribed by: LUCITA TORRES on 03/06/20 185 Citalopram Hydrobromide (Citalopram HBr) 40 Mg Tablet, 60 MG PO HS, (Reported) Entered as Reported by: CHARLIE QUEZADA on 12/21/18 155 Cyclobenzaprine HCl (Cyclobenzaprine HCl) 10 Mg Tablet, 10 MG PO Q8H PRN for SPASMS Prescribed by: YURI GREER on 12/08/202020 Divalproex Sodium (Depakote) 500 Mg Tablet.dr, 500 MG PO 1800, (Reported) Entered as Reported by: ZAFAR DUNN on 12/08/18 1144 Meloxicam (Meloxicam) 15 Mg Tablet, 15 MG PO HS, (Reported) Entered as Reported by: CHARLIE QUEZADA on 12/21/18 1557 [place] 3 Polyunsat Fatty Acids (Fish Oil 1,000 mg Capsule) 1,000 Mg Cap, 1,000 MG PO DAILY, (Reported) Entered as Reported by: ZAFAR DUNN on 12/08/18 1144 Omeprazole (Omeprazole) 20 Mg Capsule.dr, 20 MG PO BID, (Reported) Entered as Reported by: CHARLIE QUEZADA on 12/21/18 1557 Ondansetron (Ondansetron Odt) 4 Mg Tab.rapdis, 4 MG PO Q6H PRN for NAUSEA/VOMITING Prescribed by: LATONIA WEBER on 03/24/22 2310 Umeclidinium Brm/Vilanterol Tr (Anoro Ellipta 62.5-25 Mcg INH) 1 Each Blst.w.dev, 1 EACH IH DAILY, (Reported) Entered as Reported by: EUGENIE VILLAGOMEZ on 12/08/19 0903 Vitamin B Complex (Vitamin B Complex) 1 Each Capsule, 1 CAP PO DAILY, (Reported) Entered as Reported by: ZAFAR DUNN on 12/08/18 1144 Review of Systems Review of Systems Constitutional: other EENTM: no symptoms reported Respiratory: no symptoms reported Cardiovascular: no symptoms reported Gastrointestinal: loss of appetite, nausea, vomiting Genitourinary: no symptoms reported Musculoskeletal: no symptoms reported Skin: no symptoms reported Psychiatric/Neurological: No Symptoms Reported Hematologic/Lymphatic: No Symptoms Reported Immunological/Allergic: no symptoms reported Past Awfogks-Meveal-Gnibxl Hx Immunizations Up To Date Tetanus Booster (TDap): Unknown PED Vaccines UTD: No Seasonal Allergies Seasonal Allergies: No Past Medical History Surgery/Hospitalization HX: Lymphoma, Stomach tumor, appendectomy, cholecystectomy, COPD, GERD Surgeries: Yes (Port Placement, R THR) Abdominal, Appendectomy, Gallbladder, Joint Replacement, Orthopedic, Rectal, Tonsillectomy Respiratory: Yes COPD Currently Using CPAP: Yes Cardiac: No Neurological: No Sexually Transmitted Disease: No HIV/AIDS: No Genitourinary: No Gastrointestinal: Yes Abdominal Hernia, Gastroesophageal Reflux, Hemorrhoids Musculoskeletal: Yes Arthritis, Fractures Endocrine: No HEENT: No Loss of Vision: Denies Hearing Impairment: Denies 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, ) Skin, Lymphoma Did You Recieve Any Treatments: Yes What Type of Treatment Did You: Chemotherapy Psychosocial: Yes ("Severe depression" he states) Anxiety, Depression Integumentary: Yes (BENIGN TUMOR LEFT EAR) Recent Skin Changes Blood Disorders: Yes (MANTLE CELL LYMPHOMA) Family Medical History Cardiovascular disease 19 MOTHER G8 SISTER Completed stroke G8 SISTER FH: brain tumor G8 SISTER FH: emphysema 19 FATHER FH: kidney failure 19 FATHER No Pertinent Family Hx Physical Exam Vital Signs Vital Signs - First Documented 04/05/22 19:09 Temp 37.9 Pulse 96 Resp 18 B/P (MAP) 145/86 (105) Pulse Ox 96 O2 Delivery Room Air Capillary Refill : Height, Weight, BMI Height: 6'1.00" Weight: 260lbs. 0.0oz. 117.575726be; 33.00 BMI Method:Stated General Appearance: Other (generalized weakness) HEENT: PERRL/EOMI, TMs Normal, Pharynx Normal, Other (Dry mucous membranes, tenting of skin present, dry lips) Neck: Full Range of Motion, Normal Inspection Respiratory: Chest Non Tender, Lungs Clear, Normal Breath Sounds Cardiovascular: Regular Rate, Rhythm, No Edema Gastrointestinal: Normal Bowel Sounds, No Organomegaly, No Pulsatile Mass, Non Tender, Soft Back: No CVA Tenderness Neurologic/Psychiatric: Alert, Oriented x3, No Motor/Sensory Deficits, Normal Mood/Affect Skin: Normal Color, Warm/Dry Progress/Results/Core Measures Suspected Sepsis SIRS Temperature: Pulse: Respiratory Rate: Laboratory Tests 04/05/22 19:19: White Blood Count 8.2 Blood Pressure / Mean: Laboratory Tests 04/05/22 19:19: Creatinine 1.18, INR Comment 1.0, Platelet Count 135, Total Bilirubin 0.6 Results/Orders Lab Results Laboratory Tests Test 04/05/22 19:19 Range/Units White Blood Count 8.2 4.3-11.0 10^3/uL Red Blood Count 4.96 4.30-5.52 10^6/uL Hemoglobin 15.4 13.3-17.7 g/dL Hematocrit 44 40-54 % Mean Corpuscular Volume 89 80-99 fL Mean Corpuscular Hemoglobin 31 25-34 pg Mean Corpuscular Hemoglobin Concent 35 32-36 g/dL Red Cell Distribution Width 12.5 10.0-14.5 % Platelet Count 135 130-400 10^3/uL Mean Platelet Volume 9.4 9.0-12.2 fL Immature Granulocyte % (Auto) 1 % Neutrophils (%) (Auto) 35 L 42-75 % Lymphocytes (%) (Auto) 57 H 12-44 % Monocytes (%) (Auto) 6 0-12 % Eosinophils (%) (Auto) 0 0-10 % Basophils (%) (Auto) 1 0-10 % Neutrophils # (Auto) 2.9 1.8-7.8 10^3/uL Lymphocytes # (Auto) 4.7 H 1.0-4.0 10^3/uL Monocytes # (Auto) 0.5 0.0-1.0 10^3/uL Eosinophils # (Auto) 0.0 0.0-0.3 10^3/uL Basophils # (Auto) 0.1 0.0-0.1 10^3/uL Immature Granulocyte # (Auto) 0.0 0.0-0.1 10^3/uL Prothrombin Time 13.5 12.2-14.7 SEC INR Comment 1.0 0.8-1.4 Activated Partial Thromboplast Time 27 24-35 SEC D-Dimer 0.95 H 0.00-0.49 UG/ML Sodium Level 137 135-145 MMOL/L Potassium Level 4.1 3.6-5.0 MMOL/L Chloride Level 102 98-107 MMOL/L Carbon Dioxide Level 21 21-32 MMOL/L Anion Gap 14 5-14 MMOL/L Blood Urea Nitrogen 14 7-18 MG/DL Creatinine 1.18 0.60-1.30 MG/DL Estimat Glomerular Filtration Rate 71 BUN/Creatinine Ratio 12 Glucose Level 88 70-105 MG/DL Calcium Level 8.7 8.5-10.1 MG/DL Corrected Calcium 8.6 8.5-10.1 MG/DL Magnesium Level 1.9 1.6-2.4 MG/DL Total Bilirubin 0.6 0.1-1.0 MG/DL Aspartate Amino Transf (AST/SGOT) 25 5-34 U/L Alanine Aminotransferase (ALT/SGPT) 16 0-55 U/L Alkaline Phosphatase 76 40-136 U/L Total Protein 6.4 6.4-8.2 GM/DL Albumin 4.1 3.2-4.5 GM/DL Lipase 38 8-78 U/L My Orders Orders - CHAPINCITO CRAWFORD MD Cbc With Automated Diff (04/05/22 19:18) Comprehensive Metabolic Panel (04/05/22 19:18) Fibrin Degradation Products (04/05/22 19:18) Lactic Acid Analyzer (04/05/22 19:18) Lipase (04/05/22 19:18) Magnesium (04/05/22 19:18) Protime With Inr (04/05/22 19:18) Partial Thromboplastin Time (04/05/22 19:18) Ua Culture If Indicated (04/05/22 19:18) Ed Iv/Invasive Line Start (04/05/22 19:18) Ns Iv 1000 Ml (Sodium Chloride 0.9%) (04/05/22 19:30) Abdomen (Kub) 1 View (04/05/22 19:20) Chest 1 View Ap/Pa Only (04/05/22 19:20) Phosphorus (04/05/22 19:19) Ondansetron Injection (Zofran Injectio (04/05/22 19:30) Ed Iv/Invasive Line Start (04/05/22 20:09) Ns Iv 1000 Ml (Sodium Chloride 0.9%) (04/05/22 20:15) Ct Angio Chest W (04/05/22 20:55) Iohexol Injection (Omnipaque 350 Mg/Ml 1 (04/05/22 21:00) Received Contrast (Hold Metformin- Contr (04/05/22 21:00) Ns (Ivpb) (Sodium Chloride 0.9% Ivpb Bag (04/05/22 21:00) Azithromycin Tablet (Zithromax Tablet) (04/05/22 21:45) Medications Given in ED Current Medications Medications Dose Ordered Sig/Gunner Route Start Time Stop Time Status Last Admin Dose Admin Iohexol 125 ml ONCE ONCE IV 04/05/22 21:00 04/05/22 21:01 DC 04/05/22 21:06 125 ML Ondansetron HCl 4 mg ONCE ONCE IVP 04/05/22 19:30 04/05/22 19:31 DC 04/05/22 19:33 4 MG Sodium Chloride 100 ml ONCE ONCE IV 04/05/22 21:00 04/05/22 21:01 DC 04/05/22 21:06 100 ML Vital Signs/I&O 04/05/22 19:09 Temp 37.9 Pulse 96 Resp 18 B/P (MAP) 145/86 (105) Pulse Ox 96 O2 Delivery Room Air Capillary Refill : Progress Note : Progress Note 1. DEHYDRATION DUE TO INTRACTABLE NAUSEA & VOMITING: - Labs unremarkable - NS IVF / Zofran iv - Pt had CT abd on which was normal - KUB AND CXR: unremarkable - Prescription for Zofran, also advised to try Benadryl if Zofran not working at home for nausea and vomiting. - Advised adequate fluid intake - Follow up with Oncology to discuss options for chemo and anti-nausea medications -The patient was seen in the ED, and treated appropriately to presentation at a specific point in time. Patient is informed that there is a possibility that disease and illness can evolve and change in acuity rapidly or slowly after patient is discharged from the ER. Precautionary advice given to the patient for immediate return to ER if symptoms worsen or do not resolve, and to seek emergency care sooner rather than later. Pt also advised on the importance of PCP follow up and compliance with management and follow up plan with PCP and/or specialist, as this is part of the management plan. Pt verbally expressed understanding. 2. ELEVATED D-DIMER: - CTA chest: no PE 3. RIGHT SIDED PNEUMONIA: - Found on CTA CHEST - Azithro 500mg STAT in ER and prescription for 2 more days - Follow up with PCP in the next 5 days Diagnostic Imaging Diagonstic Imaging: Xray Plain Films/CT/US/NM/MRI: chest, abdomen Comments [facility] [place], [place] NAME: MITCH AGUILERA [employer] REC#: [id number] PT STATUS: REG ER : 1960 PHYSICIAN: CHAPINCITO CRAWFORD MD ADMIT DATE: 04/05/22/ER FS Signed Date of Exam:04/05/22 ABDOMEN (KUB) 1 VIEW INDICATION: Epigastric pain. EXAMINATION: KUB at 7:36 PM. Lung bases are clear. Gallbladder is surgically absent. Bowel gas pattern is normal. There are no pathologic masses or calcifications. There is a surgical clip in the right lower quadrant which may be from an appendectomy. Patient has had right hip arthroplasty. IMPRESSION: No acute abnormalities in the abdomen. Dictated by: Dictated on workstation # [id number] Dict: 04/05/221943 Trans: 04/05/221950 [id number] Interpreted by: PEMA TONG MD Electronically signed by: PEMA TONG MD 04/05/221950 [facility] [place], [place] NAME: MITCH AGUILERA [facility] REC#: [id number] PT STATUS: REG ER : 1960 PHYSICIAN: CHAPINCITO CRAWFORD MD ADMIT DATE: 04/05/22/ER FS Signed Date of Exam:04/05/22 CHEST 1 VIEW AP/PA ONLY INDICATION: Epigastric pain. EXAMINATION: Portable chest at 7:35 PM. Left subclavian Port-A-Cath with tip projecting over the SVC. Heart size and pulmonary vascularity are normal. Lungs are clear. There are no effusions or pneumothoraces. IMPRESSION: No acute abnormalities in the chest. Dictated by: Dictated on workstation # [id number] Dict: 04/05/221942 Trans: 04/05/221950 [id number] Interpreted by: PEMA TONG MD Electronically signed by: PEMA TONG MD 04/05/221950 Departure Impression Primary Impression: Pneumonia Qualified Codes: J18.9 - Pneumonia, unspecified organism Additional Impressions: Intractable vomiting with nausea Elevated d-dimer Dehydration Disposition: 01 HOME, SELF-CARE Condition: Improved Departure-Patient Inst. Referrals: ELIGIO DEMARCO MAXWELL MD (PCP/Family) Primary Care Physician Patient Instructions: Dehydration, Adult (DC), Pneumonia in Adults, Nausea and Vomiting With Cancer Treatment, Home Treatments for Nausea and Vomiting When You Have Cancer Add. Discharge Instructions: - Prescription for Zofran, also advised to try Benadryl if Zofran not working at home for nausea and vomiting. - Advised adequate fluid intake - Follow up with Oncology to discuss options for chemo and anti-nausea medications -Follow-up with PCP within the next 5 days - For Pneumoni: Azithro 500mg STAT in ER and prescription for 2 more days -Return to ER if symptoms worsen or do not improve Scripts Azithromycin (Azithromycin) 500 Mg Tablet 500 MG PO DAILY for 2 Days, #2 TAB Prov: CHAPINCITO CRAWFORD MD 04/05/22 Ondansetron (Ondansetron Odt) 4 Mg Tab.rapdis 4 MG PO Q6H PRN for NAUSEA/VOMITING for 7 Days, #28 TAB Prov: CHAPINCITO CRAWFORD MD 04/05/22 CHAPINCITO CRAWFORD MD Apr 05, 2022 19:09
[2022-04-05 19:24] LABS: BASOPHILS # (AUTO) 0.1 10^3/uL (0.0-0.1); BASOPHILS % (AUTO) 1 % (0-10); EOSINOPHILS % (AUTO) 0 % (0-10); HEMATOCRIT 44 % (40-54); HEMOGLOBIN 15.4 g/dL (13.3-17.7); LYMPHOCYTES # (AUTO) 4.7 10^3/uL (1.0-4.0); LYMPHOCYTES % (AUTO) 57 % (12-44); MEAN CORPUSCULAR HEMOGLOBIN 31 pg (25-34); MEAN CORPUSCULAR HGB CONC 35 g/dL (32-36); MEAN CORPUSCULAR VOLUME 89 fL (80-99); MEAN PLATELET VOLUME 9.4 fL (9.0-12.2); MONOCYTES # (AUTO) 0.5 10^3/uL (0.0-1.0); MONOCYTES % (AUTO) 6 % (0-12); NEUTROPHILS # (AUTO) 2.9 10^3/uL (1.8-7.8); NEUTROPHILS % (AUTO) 35 % (42-75); PLATELET COUNT 135 10^3/uL (130-400); WHITE BLOOD COUNT 8.2 10^3/uL (4.3-11.0)
[2022-04-05] MEDS ORDERED: ONDANSETRON 4 MG/2 ML (SDV) Z0FRAN IVP ONE (19:30)
[2022-04-05] MEDS ORDERED: NS IV 1000 ML 1,000 ML IV SCH ×2 (19:30→20:15)
[2022-04-05 19:33] LABS: PROTHROMBIN TIME PATIENT 13.5 SEC (12.2-14.7)
[2022-04-05 19:37] LABS: POTASSIUM 4.1 MMOL/L (3.6-5.0)
[2022-04-05 19:38] LABS: ALBUMIN 4.1 GM/DL (3.2-4.5); BILIRUBIN,TOTAL 0.6 MG/DL (0.1-1.0); CALCIUM 8.7 MG/DL (8.5-10.1); CREATININE SERUM 1.18 MG/DL (0.60-1.30); MAGNESIUM 1.9 MG/DL (1.6-2.4); TOTAL PROTEIN 6.4 GM/DL (6.4-8.2)
[2022-04-05 19:43] LABS: FIBRIN DEGRADATION PRODUCTS 0.95 UG/ML (0.00-0.49)
--- NOTE | 2022-04-05 19:45 | Diagnostic Imaging Report ---
INDICATION: Epigastric pain. EXAMINATION: Portable chest at 7:35 PM. Left subclavian Port-A-Cath with tip projecting over the SVC. Heart size and pulmonary vascularity are normal. Lungs are clear. There are no effusions or pneumothoraces. IMPRESSION: No acute abnormalities in the chest. Dictated by: Dictated on workstation # [id number]
--- NOTE | 2022-04-05 19:46 | Diagnostic Imaging Report ---
INDICATION: Epigastric pain. EXAMINATION: KUB at 7:36 PM. Lung bases are clear. Gallbladder is surgically absent. Bowel gas pattern is normal. There are no pathologic masses or calcifications. There is a surgical clip in the right lower quadrant which may be from an appendectomy. Patient has had right hip arthroplasty. IMPRESSION: No acute abnormalities in the abdomen. Dictated by: Dictated on workstation # [id number]
[2022-04-05] MEDS ORDERED: IOHEXOL 350 MG/ML 150 ML (OMNIPAQUE 350) VIAL IV ONE (21:00)
[2022-04-05] MEDS ORDERED: HOLD METFORMIN - RECEIVED CONTRAST 20 ML VIAL IV SCH (21:00)
[2022-04-05] MEDS ORDERED: NS 100 ML (IVPB) BAG IV ONE (21:00)
--- NOTE | 2022-04-05 21:29 | Diagnostic Imaging Report ---
PROCEDURE: CT angiography of the chest with contrast. TECHNIQUE: Multiple contiguous axial images were obtained through the chest after uneventful bolus administration of intravenous contrast. 3D reconstructed CTA MIP acquisitions were also performed. Auto Exposure Controls were utilized during the CT exam to meet ALARA standards for radiation dose reduction. INDICATION: Chest pain, elevated D-dimer. FINDINGS: There are small patchy infiltrates in the right lung. There are no effusions or pneumothoraces. There are no pulmonary emboli. There is no evidence of right ventricular strain. Aorta is unremarkable. There are several hepatic cysts. Pancreas is unremarkable. Spleen is not enlarged. Pancreas is normal. The visualized portions of the kidneys are unremarkable. IMPRESSION: There are a few small patchy alveolar infiltrates in the right lung. CTA chest is otherwise unremarkable. Dictated by: Dictated on workstation # [id number]
[2022-04-05 21:42] VITALS: BP 117/63
[2022-04-05] MEDS ORDERED: AZITHROMYCIN 250 MG TAB (ZITHROMAX) PO ONE (21:45)
[2022-04-05] MEDS ORDERED: AZIT500T9 PO (21:54)
[2022-04-05] MEDS ORDERED: ONDA4TAB11 PO (21:54)
== END 2022-04-05 21:59 | disposition home or self-care (01) ==
LOC: EDUNIT# 19:07 → ER FS 19:08
DX: J18.9 Pneumonia, unspecified organism (principal); E86.0 Dehydration; R79.1 Abnormal coagulation profile; Z91.040 Latex allergy status
CPT/HCPCS: 36591; 71045; 71275; 74018; 80053; 83690; 83735; 84100; 85379; 85610; 85730; Q9967

== ENCOUNTER 2022-05-16 21:20 | Emergency (ER) | payer MEDICARE ==
[~2022-05-16 21:20] MED LIST changes: +AZIT500T9 PO
[2022-05-16] MEDS ORDERED: NS IV 1000 ML 1,000 ML IV SCH (22:00)
[2022-05-16] MEDS ORDERED: fentaNYL INJ 100 MCG/2 ML AMP IVP ONE (22:00)
[2022-05-16] MEDS ORDERED: ONDANSETRON 4 MG/2 ML (SDV) Z0FRAN IV PRN (22:00)
--- NOTE | 2022-05-16 22:09 | ED GI ---
General Chief Complaint: Abdominal/GI Problems Stated Complaint: WEAKNESS,N/V/D Nursing Triage Note: Pt complaining of nausea, vomiting, and diarrhea since Friday Source of Information: Patient, Family Exam Limitations: No Limitations History of Present Illness Date Seen by Provider: May 16, 2022 Time Seen by Provider: 21:46 Initial Comments 61-year-old male patient with history of COPD, arthritis, GERD, lymphoma on chemotherapy with last chemo on April 03, 2022 brought in by EMS with complaining of nausea and vomiting and diarrhea. Patient complaining of 4 or 5 episodes of nonbloody vomiting per day and 4-5 episodes of diarrhea per day for the last 4 days, subjective fever, chills and generalized weakness, anorexia. Patient complaining of hurting in his abdomen during episode of vomiting and diarrhea. Patient states because of generalized weakness he has urine incontinence and has to wear depends. Patient states he had a near syncopal episode today while taking a shower without chest pain or focal neurodeficit. Patient states for the last 4 months he has had episodes of nausea vomiting and diarrhea and dehydration with frequent emergency room visits. Allergies and Home Medications Allergies Coded Allergies: latex (Verified Allergy, Unknown, Rash, 12/08/19) Uncoded Allergies: STEROIDS (Adverse Reaction, Severe, VIOLENT BEHAVIOR, 12/07/19) Patient Home Medication List Home Medication List Reviewed: Yes Albuterol Sulfate (Ventolin Hfa) 18 Gm Hfa.aer.ad, 2 PUFF INH Q4H PRN for SHORTNESS OF BREATH, (Reported) Entered as Reported by: VANESSA ETIENNE on 03/03/19 1012 Azithromycin (Azithromycin) 250 Mg Tablet, 250 MG PO UD Prescribed by: LUCITA TORRES on 03/06/20 1852 Azithromycin (Azithromycin) 500 Mg Tablet, 500 MG PO DAILY Prescribed by: CHAPINCITO CRAWFORD MD on 04/05/22 2154 Citalopram Hydrobromide (Citalopram HBr) 40 Mg Tablet, 60 MG PO HS, (Reported) Entered as Reported by: CHARLIE QUEZADA on 12/21/18 1557 Cyclobenzaprine HCl (Cyclobenzaprine HCl) 10 Mg Tablet, 10 MG PO Q8H PRN for SPASMS Prescribed by: YURI GREER on 12/08/202020 Divalproex Sodium (Depakote) 500 Mg Tablet.dr, 500 MG PO 1800, (Reported) Entered as Reported by: ZAFAR DUNN on 12/08/18 1144 Meloxicam (Meloxicam) 15 Mg Tablet, 15 MG PO HS, (Reported) Entered as Reported by: CHARLIE QUEZADA on 12/21/18 1557 [place] 3 Polyunsat Fatty Acids (Fish Oil 1,000 mg Capsule) 1,000 Mg Cap, 1,000 MG PO DAILY, (Reported) Entered as Reported by: ZAFAR DUNN on 12/08/18 1144 Omeprazole (Omeprazole) 20 Mg Capsule.dr, 20 MG PO BID, (Reported) Entered as Reported by: CHARLIE QUEZADA on 12/21/18 1557 Ondansetron (Ondansetron Odt) 4 Mg Tab.rapdis, 4 MG PO Q6H PRN for NAUSEA/VOM ITING Prescribed by: LATONIA WEBER on 03/24/22 2310 Ondansetron (Ondansetron Odt) 4 Mg Tab.rapdis, 4 MG PO Q6H PRN for NAUSEA/VOMITING Prescribed by: CHAPINCITO CRAWFORD MD on 04/05/22 2154 Umeclidinium Brm/Vilanterol Tr (Anoro Ellipta 62.5-25 Mcg INH) 1 Each Blst.w.dev, 1 EACH IH DAILY, (Reported) Entered as Reported by: EUGENIE VILLAGOMEZ on 12/08/19 0903 Vitamin B Complex (Vitamin B Complex) 1 Each Capsule, 1 CAP PO DAILY, (Reported) Entered as Reported by: ZAFAR DUNN on 12/08/18 1144 Review of Systems Review of Systems Constitutional: see HPI EENTM: No Symptoms Reported Respiratory: No Symptoms Reported Cardiovascular: No Symptoms Reported Gastrointestinal: See HPI Genitourinary: See HPI Musculoskeletal: see HPI Skin: no symptoms reported Psychiatric/Neurological: No Symptoms Reported Endocrine: No Symptoms Reported Hematologic/Lymphatic: No Symptoms Reported All Other Systems Reviewed Negative Unless Noted: Yes Past Djakiwy-Mzsogv-Emowsq Hx Patient Social History Tobacco Use?: No Substance use?: No Alcohol Use?: No Pt feels they are or have been: No Immunizations Up To Date Tetanus Booster (TDap): Unknown PED Vaccines UTD: No Seasonal Allergies Seasonal Allergies: No Past Medical History Surgery/Hospitalization HX: Lymphoma, Stomach tumor, appendectomy, cholecystectomy, COPD, GERD Surgeries: Yes (Port Placement, R THR) Abdominal, Appendectomy, Gallbladder, Joint Replacement, Orthopedic, Rectal, Tonsillectomy Respiratory: Yes COPD Currently Using CPAP: Yes Cardiac: No Neurological: No Sexually Transmitted Disease: No HIV/AIDS: No Genitourinary: No Gastrointestinal: Yes Abdominal Hernia, Gastroesophageal Reflux, Hemorrhoids Musculoskeletal: Yes Arthritis, Fractures Endocrine: No HEENT: No Loss of Vision: Denies Hearing Impairment: Denies 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, ) Skin, Lymphoma Did You Recieve Any Treatments: Yes What Type of Treatment Did You: Chemotherapy Psychosocial: Yes ("Severe depression" he states) Anxiety, Depression Integumentary: Yes (BENIGN TUMOR LEFT EAR) Recent Skin Changes Blood Disorders: Yes (MANTLE CELL LYMPHOMA) Family Medical History Cardiovascular disease 19 MOTHER G8 SISTER Completed stroke G8 SISTER FH: brain tumor G8 SISTER FH: emphysema 19 FATHER FH: kidney failure 19 FATHER No Pertinent Family Hx Physical Exam Vital Signs Vital Signs - First Documented 05/16/22 21:25 Temp 37.1 Pulse 105 Resp 20 B/P (MAP) 140/91 (107) Pulse Ox 93 O2 Delivery Room Air Capillary Refill : Less Than 3 Seconds Height/Weight/BMI Height: 6'1.00" Weight: 260lbs. 0.0oz. 117.842393gd; 30.00 BMI Method:Stated General Appearance: mild distress HEENT: PERRL/EOMI, normal ENT inspection, other (Dry oral mucosa) Neck: non-tender, full range of motion, supple Respiratory: chest non-tender, rales (Left basilar) Cardiovascular: normal peripheral pulses, tachycardia Gastrointestinal: non tender, soft, no organomegaly Extremities: normal range of motion, non-tender Back: normal inspection Neurologic/Psychiatric: no motor/sensory deficits, alert Skin: normal color Focused Exam Lactate Level 05/16/22 21:50: Lactic Acid Level 1.40 Lactic Acid Level Laboratory Tests Test 05/16/22 21:50 Lactic Acid Level 1.40 MMOL/L (0.50-2.00) Progress/Results/Core Measures Results/Orders Lab Results Laboratory Tests Test 05/16/22 21:50 05/16/22 22:05 Range/Units White Blood Count 5.1 4.3-11.0 10^3/uL Red Blood Count 4.46 4.30-5.52 10^6/uL Hemoglobin 13.2 L 13.3-17.7 g/dL Hematocrit 39 L 40-54 % Mean Corpuscular Volume 87 80-99 fL Mean Corpuscular Hemoglobin 30 25-34 pg Mean Corpuscular Hemoglobin Concent 34 32-36 g/dL Red Cell Distribution Width 12.9 10.0-14.5 % Platelet Count 196 130-400 10^3/uL Mean Platelet Volume 10.3 9.0-12.2 fL Immature Granulocyte % (Auto) 0 % Neutrophils (%) (Auto) 59 42-75 % Lymphocytes (%) (Auto) 28 12-44 % Monocytes (%) (Auto) 10 0-12 % Eosinophils (%) (Auto) 2 0-10 % Basophils (%) (Auto) 1 0-10 % Neutrophils # (Auto) 3.0 1.8-7.8 10^3/uL Lymphocytes # (Auto) 1.4 1.0-4.0 10^3/uL Monocytes # (Auto) 0.5 0.0-1.0 10^3/uL Eosinophils # (Auto) 0.1 0.0-0.3 10^3/uL Basophils # (Auto) 0.0 0.0-0.1 10^3/uL Immature Granulocyte # (Auto) 0.0 0.0-0.1 10^3/uL Prothrombin Time 14.6 12.2-14.7 SEC INR Comment 1.1 0.8-1.4 Activated Partial Thromboplast Time > 200 *H 24-35 SEC Sodium Level 139 135-145 MMOL/L Potassium Level 3.9 3.6-5.0 MMOL/L Chloride Level 106 98-107 MMOL/L Carbon Dioxide Level 22 21-32 MMOL/L Anion Gap 11 5-14 MMOL/L Blood Urea Nitrogen 12 7-18 MG/DL Creatinine 0.90 0.60-1.30 MG/DL Estimat Glomerular Filtration Rate 98 BUN/Creatinine Ratio 13 Glucose Level 108 H 70-105 MG/DL Lactic Acid Level 1.40 0.50-2.00 MMOL/L Calcium Level 8.8 8.5-10.1 MG/DL Corrected Calcium 9.2 8.5-10.1 MG/DL Magnesium Level 1.8 1.6-2.4 MG/DL Total Bilirubin 0.6 0.1-1.0 MG/DL Aspartate Amino Transf (AST/SGOT) 40 H 5-34 U/L Alanine Aminotransferase (ALT/SGPT) 14 0-55 U/L Alkaline Phosphatase 52 40-136 U/L Troponin I < 0.30 <0.30 NG/ML Pro-B-Type Natriuretic Peptide 36.8 <125.0 PG/ML Total Protein 6.1 L 6.4-8.2 GM/DL Albumin 3.5 3.2-4.5 GM/DL Lipase 26 8-78 U/L SARS-CoV-2 RNA (RT-PCR) Not Detected Not Detecte My Orders Orders - ANA CABA MD Cbc With Automated Diff (05/16/22 21:59) Comprehensive Metabolic Panel (05/16/22 21:59) Blood Culture (05/16/22:59) Protime With Inr (05/16/22:59) Partial Thromboplastin Time (05/16/22 21:59) Chest 1 View Ap/Pa Only (05/16/22 21:59) Ed Iv/Invasive Line Start (05/16/22 21:59) Ed Iv/Invasive Line Start (05/16/22 21:59) Troponin I George (05/16/22 21:59) Ondansetron Injection (Zofran Injectio (05/16/22 22:00) Lactic Acid Analyzer (05/16/22 21:59) Ns Iv 1000 Ml (Sodium Chloride 0.9%) (05/16/22 22:00) Magnesium (05/16/22 21:59) Fentanyl Inj (Sublimaze Injection) (05/16/22 22:00) Lipase (05/16/22 21:59) Covid 19 Inhouse Test (05/16/22 22:09) Probnp Fs (05/16/22 21:59) Implanted Port: Access (05/17/22 00:16) Medications Given in ED Current Medications Medications Dose Ordered Sig/Gunner Route Start Time Stop Time Status Last Admin Dose Admin Fentanyl Citrate 50 mcg ONCE ONCE IVP 05/16/22 22:00 05/16/22 22:05 DC 05/16/22 22:11 50 MCG Ondansetron HCl 4 mg PRN PRN IV 05/16/22 22:00 05/16/22 22:11 DC 05/16/22 22:10 4 MG Vital Signs/I&O 05/16/22 05/16/22 05/17/22 21:25 21:55 00:08 Temp 37.1 38.2 36.9 Pulse 105 96 Resp 20 20 B/P (MAP) 140/91 (107) 120/75 Pulse Ox 93 95 O2 Delivery Room Air Room Air 05/17/22 00:00 Intake Total 1000 ml Balance 1000 ml Blood Pressure Mean: 107 Progress Progress Note : Progress Note Evaluation of patient in ER showed 61-year-old male patient with history of lymphoma complaining of nausea and vomiting and diarrhea and generalized weakness for the last 4 days. Patient treated with IV fluid, Zofran and fentanyl. Patient had negative lactic acid, unremarkable CBC and CMP. Patient had normal PT and INR but PTT was more than 200 without any sign of bleeding and elevation of PTT sounded like lab error. Patient advised to follow-up with his primary care physician for the PT PTT in 2 to 3 days. Chest x-ray showed left lower lobe atelectasis Chiou versus infiltrate and patient stated he had this abnormal chest x-ray for several months and this time get treatment for pneumonia without improvement of x-ray condition. Patient advised to follow-up with his oncology physician and take home medication. Patient ambulated without problem and felt better. Departure Impression Primary Impression: Gastroenteritis and colitis, viral Additional Impressions: Chemotherapy adverse reaction Qualified Codes: T45.1X5D - Adverse effect of antineoplastic and immunos uppressive drugs, subsequent encounter Elevated partial thromboplastin time (PTT) Disposition: 01 HOME, SELF-CARE Condition: Improved Departure-Patient Inst. Decision time for Depature: 23:47 Referrals: SELF,SANGEETHA CARPENTER (PCP/Family) Primary Care Physician Patient Instructions: Dehydration, Adult (DC), Viral Gastroenteritis Add. Discharge Instructions: Drink plenty of liquid Take home nausea and vomiting for medication Follow-up with your primary care physician for repeat the blood test PTT in 2 or 3 days regarding elevated PTT in ER that could be lab error All discharge instructions reviewed with patient and/or family. Voiced understanding. ANA CABA MD May 16, 2022 22:09
[2022-05-16 22:17] LABS: BASOPHILS % (AUTO) 1 % (0-10); EOSINOPHILS # (AUTO) 0.1 10^3/uL (0.0-0.3); EOSINOPHILS % (AUTO) 2 % (0-10); HEMATOCRIT 39 % (40-54); HEMOGLOBIN 13.2 g/dL (13.3-17.7); LYMPHOCYTES # (AUTO) 1.4 10^3/uL (1.0-4.0); LYMPHOCYTES % (AUTO) 28 % (12-44); MEAN CORPUSCULAR HEMOGLOBIN 30 pg (25-34); MEAN CORPUSCULAR HGB CONC 34 g/dL (32-36); MEAN CORPUSCULAR VOLUME 87 fL (80-99); MEAN PLATELET VOLUME 10.3 fL (9.0-12.2); MONOCYTES # (AUTO) 0.5 10^3/uL (0.0-1.0); MONOCYTES % (AUTO) 10 % (0-12); NEUTROPHILS % (AUTO) 59 % (42-75); PLATELET COUNT 196 10^3/uL (130-400); WHITE BLOOD COUNT 5.1 10^3/uL (4.3-11.0)
--- NOTE | 2022-05-16 22:27 | Diagnostic Imaging Report ---
EXAMINATION: Chest 1 view HISTORY: Fever. Nausea and vomiting. COMPARISON: 04/05/2022. FINDINGS: Stable left port. The lung volumes are normal. No focal consolidation is seen. Patchy opacities are seen in the left lung base. No large pleural effusion or pneumothorax is seen. The cardiomediastinal silhouette is normal in size and contour. No acute osseous abnormality is seen. IMPRESSION: 1. Patchy left basilar opacities, which may represent atelectasis and/or infection. Dictated by: Dictated on workstation # [id number]
[2022-05-16 22:52] LABS: POTASSIUM 3.9 MMOL/L (3.6-5.0); SODIUM 139 MMOL/L (135-145)
[2022-05-16 22:53] LABS: ALANINE AMINOTRANSFERASE 14 U/L (0-55); ALKALINE PHOSPHATASE 52 U/L (40-136); BILIRUBIN,TOTAL 0.6 MG/DL (0.1-1.0); BUN/CREATININE RATIO 13; CALCIUM 8.8 MG/DL (8.5-10.1); CARBON DIOXIDE 22 MMOL/L (21-32); CHLORIDE 106 MMOL/L (98-107); GFR ESTIMATED 98; GLUCOSE 108 MG/DL (70-105); MAGNESIUM 1.8 MG/DL (1.6-2.4); TOTAL PROTEIN 6.1 GM/DL (6.4-8.2)
[2022-05-16 22:54] LABS: ALBUMIN 3.5 GM/DL (3.2-4.5); LIPASE 26 U/L (8-78)
[2022-05-16 23:20] LABS: INR 1.1 (0.8-1.4); PROTHROMBIN TIME PATIENT 14.6 SEC (12.2-14.7)
[2022-05-16 23:21] LABS: PARTIAL THROMBOPLASTIN TIME > 200 SEC (24-35)
[2022-05-17 00:08] VITALS: BP 120/75
== END 2022-05-17 00:11 | disposition home or self-care (01) ==
LOC: EDUNIT# 21:20 → ER FS 21:22
DX: A08.4 Viral intestinal infection, unspecified (principal); T45.1X5D Adverse effect of antineoplastic and immunosuppressive drugs, subsequent encounter; R79.1 Abnormal coagulation profile; J44.9 Chronic obstructive pulmonary disease, unspecified; Z99.89 Dependence on other enabling machines and devices; Z85.72 Personal history of non-Hodgkin lymphomas; Z90.49 Acquired absence of other specified parts of digestive tract; Z20.822 Contact with and (suspected) exposure to COVID-19; Z28.310 Unvaccinated for COVID-19
CPT/HCPCS: 36415; 71045; 80053; 83605; 83690; 83735; 83880; 84484; 85025; 85610; 85730; 87040; 87636

== ENCOUNTER → 2022-05-31 | Outpatient (CLI) | payer MEDICARE ==
--- NOTE | 2022-05-31 15:16 | Diagnostic Imaging Report ---
INDICATION: Persistent cough. COMPARISON: 05/16/2022 FINDINGS: Frontal and lateral radiographic views of the chest were obtained and demonstrate interval development of alveolar opacification within the right middle lobe consistent with pneumonia. Left lung remains clear. There is no large effusion or pneumothorax. Cardiac silhouette and pulmonary vasculature are within normal limits. Left-sided subclavian Port-A-Cath is in stable position with tip in the SVC. 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 IMPRESSION: 1. Findings consistent with right middle lobe pneumonia. Followup to resolution is advised. Dictated by: Dictated on workstation # [id number]
== END ==
LOC: RAD FS 14:50
PROVIDERS: ATTEND Nurse Practitioner Family
DX: R05.3 Chronic cough (principal)
CPT/HCPCS: 71046

== ENCOUNTER 2022-06-21 16:25 | Emergency (ER) | payer MEDICARE ==
[~2022-06-21] VITALS: Ht 185 cm; Wt 100.5 kg
--- NOTE | 2022-06-21 16:54 | ED Dyspnea ---
General Stated Complaint: COUGH,PAIN IN CHEST Source of Information: Patient History of Present Illness Date Seen by Provider: Jun 21, 2022 Time Seen by Provider: 14:29 Initial Comments 61-year-old male presenting with complaints of shortness of breath over the last 2 weeks. He just finished a course of Levaquin antibiotic about 7 to 10 days ago. He also has had testing for pertussis, TB, COVID, influenza. All of these have been negative. He saw a physician speech pathology assistant for pulmonology and is supposed to see him again in 2 weeks. He does have a history of COPD and lymphoma. He follows with Dr. Donis for the lymphoma and gets chemotherapy every other month. He just had a full body scan and work-up this week with the cancer center. He had tried going to urgent care today because he was still feeling short of breath over the last few weeks and they had told him that he had a fever. On arrival here his temperature is 37 Celsius which should be 98.6 Fahrenheit. He has an oxygen saturation of 98% on room air. Vital signs all appear stable. He is talking in complete sentences without difficulty. Timing/Duration: Waxing and Waning (Shortness of breath for the last several months but worse in the last few weeks) Severity: Moderate Activities at Onset: None Prior Episodes/Possible Cause: Chronic Episodes Modifying Factors: Improves With Antibiotics (Robards that he was improving while he was taking the Levaquin but getting worse again since he stopped the antibiotic) Associated Symptoms: Chest Pain (tightness in chest), Cough, Fever (subjective) Allergies and Home Medications Allergies Coded Allergies: latex (Verified Allergy, Unknown, Rash, 12/08/19) Uncoded Allergies: STEROIDS (Adverse Reaction, Severe, VIOLENT BEHAVIOR, 12/07/19) Patient Home Medication List Home Medication List Reviewed: Yes Albuterol Sulfate (Ventolin Hfa) 18 Gm Hfa.aer.ad, 2 PUFF INH Q4H PRN for SHORTNESS OF BREATH, (Reported) Entered as Reported by: VANESSA ETIENNE on 03/03/19 1012 Azithromycin (Azithromycin) 250 Mg Tablet, 250 MG PO UD Prescribed by: LUCITA TORRES on 03/06/20 1852 Azithromycin (Azithromycin) 500 Mg Tablet, 500 MG PO DAILY Prescribed by: CHAPINCITO CRAWFORD MD on 04/05/222153 Azithromycin (Azithromycin) 500 Mg Tablet, 500 MG PO DAILY Prescribed by: LATONIA WEBER on 06/21/22 1819 Citalopram Hydrobromide (Citalopram HBr) 40 Mg Tablet, 60 MG PO HS, (Reported) Entered as Reported by: CHARLIE QUEZADA on 12/21/18 1557 Cyclobenzaprine HCl (Cyclobenzaprine HCl) 10 Mg Tablet, 10 MG PO Q8H PRN for SPASMS Prescribed by: YURI GREER on 12/08/202020 Divalproex Sodium (Depakote) 500 Mg Tablet.dr, 500 MG PO 1800, (Reported) Entered as Reported by: ZAFAR DUNN on 12/08/18 1144 Meloxicam (Meloxicam) 15 Mg Tablet, 15 MG PO HS, (Reported) Entered as Reported by: CHARLIE QUEZADA on 12/21/18 1557 [place] 3 Polyunsat Fatty Acids (Fish Oil 1,000 mg Capsule) 1,000 Mg Cap, 1,000 MG PO DAILY, (Reported) Entered as Reported by: ZAFAR DUNN on 12/08/18 114 Omeprazole (Omeprazole) 20 Mg Capsule.dr, 20 MG PO BID, (Reported) Entered as Reported by: CHARLIE QUEZADA on 12/21/18 1557 Ondansetron (Ondansetron Odt) 4 Mg Tab.rapdis, 4 MG PO Q6H PRN for NAUSEA/VOMITING Prescribed by: LATONIA WEBER on 03/24/22 2310 Ondansetron (Ondansetron Odt) 4 Mg Tab.rapdis, 4 MG PO Q6H PRN for NAUSEA/VOMITI NG Prescribed by: CHAPINCITO CRAWFORD MD on 04/05/22 2154 Umeclidinium Brm/Vilanterol Tr (Anoro Ellipta 62.5-25 Mcg INH) 1 Each Blst.w.dev, 1 EACH IH DAILY, (Reported) Entered as Reported by: EUGENIE VILLAGOMEZ on 12/08/19 0903 Vitamin B Complex (Vitamin B Complex) 1 Each Capsule, 1 CAP PO DAILY, (Reported) Entered as Reported by: ZAFAR DUNN on 12/08/18 1144 Review of Systems Review of Systems Constitutional: chills, fever (subjective) EENTM: no symptoms reported Respiratory: cough, short of breath; No stridor, No wheezing Cardiovascular: see HPI Gastrointestinal: no symptoms reported Genitourinary: no symptoms reported Musculoskeletal: no symptoms reported Skin: No rash Psychiatric/Neurological: Denies Headache Endocrine: No Symptoms Reported Hematologic/Lymphatic: No Symptoms Reported Past Tlweskh-Yqrzsk-Rvdgxr Hx Patient Social History Tobacco Use?: No Use of E-Cig and/or Vaping dev: No Substance use?: No Immunizations Up To Date Tetanus Booster (TDap): Unknown PED Vaccines UTD: No Seasonal Allergies Seasonal Allergies: No Past Medical History Surgery/Hospitalization HX: Lymphoma, Stomach tumor, appendectomy, cholecystectomy, COPD, GERD Surgeries: Yes (Port Placement, R THR) Abdominal, Appendectomy, Gallbladder, Joint Replacement, Orthopedic, Rectal, Tonsillectomy Respiratory: Yes COPD Currently Using CPAP: Yes Cardiac: No Neurological: No Sexually Transmitted Disease: No HIV/AIDS: No Genitourinary: No Gastrointestinal: Yes Abdominal Hernia, Gastroesophageal Reflux, Hemorrhoids Musculoskeletal: Yes Arthritis, Fractures Endocrine: No HEENT: No Loss of Vision: Denies Hearing Impairment: Denies 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, ) Skin, Lymphoma Did You Recieve Any Treatments: Yes What Type of Treatment Did You: Chemotherapy Psychosocial: Yes ("Severe depression" he states) Anxiety, Depression Integumentary: Yes (BENIGN TUMOR LEFT EAR) Recent Skin Changes Blood Disorders: Yes (MANTLE CELL LYMPHOMA) Family Medical History Cardiovascular disease 19 MOTHER G8 SISTER Completed stroke G8 SISTER FH: brain tumor G8 SISTER FH: emphysema 19 FATHER FH: kidney failure 19 FATHER No Pertinent Family Hx Physical Exam Vital Signs Vital Signs - First Documented 06/21/22 16:50 Temp 37.0 Pulse 90 Resp 18 B/P (MAP) 139/83 (101) Pulse Ox 97 O2 Delivery Room Air Capillary Refill : Height, Weight, BMI Height: 6'1.00" Weight: 260lbs. 0.0oz. 117.226875mh; 30.00 BMI Method:Stated General Appearance: No Apparent Distress, WD/WN HEENT: PERRL/EOMI, Pharynx Normal Neck: Full Range of Motion, Normal Inspection, Non Tender, Supple Respiratory: Chest Non Tender, Lungs Clear, Normal Breath Sounds, No Accessory Muscle Use, No Respiratory Distress Cardiovascular: Regular Rate, Rhythm, Normal Peripheral Pulses Gastrointestinal: Normal Bowel Sounds, No Pulsatile Mass, Non Tender, Soft Extremity: Normal Capillary Refill, Normal Inspection, No Pedal Edema Neurologic/Psychiatric: Alert, Oriented x3, Normal Mood/Affect, kitchenhand II-XII Norm as Tested Skin: Normal Color, Warm/Dry; No Rash Focused Exam Lactate Level 06/21/22 16:50: Lactic Acid Level 0.86 Lactic Acid Level Laboratory Tests Test 06/21/22 16:50 Lactic Acid Level 0.86 MMOL/L (0.50-2.00) Progress/Results/Core Measures Results/Orders Lab Results Laboratory Tests Test 06/21/22 16:50 Range/Units White Blood Count 6.1 4.3-11.0 10^3/uL Red Blood Count 3.91 L 4.30-5.52 10^6/uL Hemoglobin 11.7 L 13.3-17.7 g/dL Hematocrit 34 L 40-54 % Mean Corpuscular Volume 87 80-99 fL Mean Corpuscular Hemoglobin 30 25-34 pg Mean Corpuscular Hemoglobin Concent 34 32-36 g/dL Red Cell Distribution Width 14.5 10.0-14.5 % Platelet Count 207 130-400 10^3/uL Mean Platelet Volume 9.3 9.0-12.2 fL Immature Granulocyte % (Auto) 1 % Neutrophils (%) (Auto) 61 42-75 % Lymphocytes (%) (Auto) 25 12-44 % Monocytes (%) (Auto) 10 0-12 % Eosinophils (%) (Auto) 3 0-10 % Basophils (%) (Auto) 0 0-10 % Neutrophils # (Auto) 3.7 1.8-7.8 10^3/uL Lymphocytes # (Auto) 1.5 1.0-4.0 10^3/uL Monocytes # (Auto) 0.6 0.0-1.0 10^3/uL Eosinophils # (Auto) 0.2 0.0-0.3 10^3/uL Basophils # (Auto) 0.0 0.0-0.1 10^3/uL Immature Granulocyte # (Auto) 0.0 0.0-0.1 10^3/uL Sodium Level 138 135-145 MMOL/L Potassium Level 4.0 3.6-5.0 MMOL/L Chloride Level 102 98-107 MMOL/L Carbon Dioxide Level 23 21-32 MMOL/L Anion Gap 13 5-14 MMOL/L Blood Urea Nitrogen 9 7-18 MG/DL Creatinine 0.79 0.60-1.30 MG/DL Estimat Glomerular Filtration Rate 102 BUN/Creatinine Ratio 11 Glucose Level 87 70-105 MG/DL Lactic Acid Level 0.86 0.50-2.00 MMOL/L Calcium Level 8.7 8.5-10.1 MG/DL Corrected Calcium 9.0 8.5-10.1 MG/DL Magnesium Level 1.8 1.6-2.4 MG/DL Total Bilirubin 0.5 0.1-1.0 MG/DL Aspartate Amino Transf (AST/SGOT) 16 5-34 U/L Alanine Aminotransferase (ALT/SGPT) 6 0-55 U/L Alkaline Phosphatase 66 40-136 U/L Troponin I < 0.30 <0.30 NG/ML C-Reactive Protein 3.75 H <0.50 MG/DL Pro-B-Type Natriuretic Peptide 33.9 <125.0 PG/ML Total Protein 6.0 L 6.4-8.2 GM/DL Albumin 3.6 3.2-4.5 GM/DL My Orders Orders - LATONIA WEBER MD Cbc With Automated Diff (06/21/22 16:43) Comprehensive Metabolic Panel (06/21/22 16:43) Blood Culture (06/21/22 16:43) Magnesium (06/21/22 16:43) Chest Pa/Lat (2 View) (06/21/22 16:43) Ekg Tracing (06/21/22 16:43) O2 (06/21/22 16:43) Ed Iv/Invasive Line Start (06/21/22 16:43) Monitor-Rhythm Ecg Trace Only (06/21/22 16:43) Crp Fs (06/21/22 16:43) Lactic Acid Analyzer (06/21/22 16:43) Troponin I Fs (06/21/22 16:46) Probnp Fs (06/21/22 16:46) Azithromycin Injection (Zithromax Inject (06/21/22 18:05) Vital Signs/I&O 06/21/22 06/21/22 06/21/22 16:50 19:00 19:20 Temp 37.0 Pulse 90 87 88 Resp 18 20 20 B/P (MAP) 139/83 (101) 117/76 117/82 Pulse Ox 97 98 97 O2 Delivery Room Air Room Air Room Air Progress Progress Note #1: Progress Note Obtain basic labs as well as blood cultures since he reports fever at home. His temperature here is afebrile. Obtain chest x-ray and electrocardiogram as well as cardiac enzymes to look for other sources of his shortness of breath. This male be related to his chronic COPD. Try to obtain records from the cancer center since he just had a body scan done a few days ago with IV contrast and oral contrast looking at his chest abdomen and pelvis. Progress Note #2: Time: :17 Progress Note Labs are stable without elevation of WBC count or lactic acid. Chemistry stable as well. He does have elevated CRP to go with general inflammation process. CXR shows chronic lung changes and concern for possible left lower lobe infiltrate. On review of Test results and CT scan of neck, chest, abdomen, pelvis from 06/19 his labs are stable. He had diffuse patchy infiltrates on CT scan that were noted to be worsened since prior imaging. Radiology recommended repeat evaluation in 3 months to ensure resolution. Since he had just finished his antibiotics shortly before having the scan this may also be residual infiltrate and inflammation that has not resolved. Progress Note #3: Progress Note d/w Dr. Donis and reviewed results as well as discussed CT findings from 06/19 and CXR from today. With him having stable labs and vitals without signs of sepsis or neutropenia he recommended trying to treat with Zithromax and check back with him next week. If he is not doing better after that he might need to get his appointment with Pulmonology moved up so they can see him sooner. He might also need Bronchoscopy or further pulmonary testing to see if he has chronic problems from Covid in addition to his COPD. Initial ECG Impression Date: Jun 21, 2022 Initial ECG Impression Time: 16:42 Initial ECG Rate: 84 Initial ECG Rhythm: Normal Sinus Initial ECG Comparisson: Unchanged Comment Normal sinus rhythm with a heart rate of 84 bpm. RI interval 158 ms. Low QRS voltage in the precordial leads. No acute ST elevation. There is some artifact on the tracing. QT interval 351 ms with a QTc interval 392 ms. Overall appears similar to prior tracings in the system. Diagnostic Imaging Diagonstic Imaging: Xray Plain Films/CT/US/NM/MRI: chest Comments NAME: MIT[facility] REC#: [id number] PT STATUS: REG ER : 1960 PHYSICIAN: LATONIA WEBER MD ADMIT DATE: 06/21/22/ER FS Signed Date of Exam:06/21/22 CHEST PA/LAT (2 VIEW) INDICATION: Cough and shortness of breath. EXAMINATION: Five PA and lateral views of the chest were obtained at 5:01 p.m. COMPARISON: 05/31/2022. Heart and mediastinal silhouette are normal in appearance. Port-A-Cath is unchanged. There is patchy infiltrate in the left lung base which is new compared to the prior study and suspicious for pneumonia. There are chronic changes in the right base. There is no pneumothorax or pleural fluid. IMPRESSION: Underlying chronic changes with new infiltrate in left base, suspicious for pneumonia. Dictated by: Dictated on workstation # [id number] Dict: 06/21/221701 Trans: 06/21/221705 [facility] [phone] Interpreted by: TIARRA FRANKLIN MD Electronically signed by: TIARRA FRANKLIN MD 06/21/221705 Reviewed: Reviewed by Me Departure Impression Primary Impression: Shortness of breath Additional Impressions: Diffuse lung disease COPD with exacerbation Disposition: 01 HOME, SELF-CARE Condition: Stable Departure-Patient Inst. Decision time for Depature: 18:12 Referrals: SANGEETHA MURRY MD (PCP) Primary Care Physician VANESSA SCHWARTZ APRN (Family) Primary Care Physician ELIGIO SHEPPARD Patient Instructions: Shortness of Breath, Adult ED, COPD Exacerbation, Adult ED Add. Discharge Instructions: Your CT scan and chest x-ray today showed chronic diffuse inflammation of your lungs with congestion. There was no single definite area of pneumonia currently. Your oxygen saturation has been 97 to 99% on room air here in the emergency department. You will get a course of azithromycin antibiotic for the inflammation with congestion and possible infection in your lungs. Check back with Dr. Sheppard next week and if you are not doing any better he may try to help get you in with Pulmonology sooner to see if there is anything else to do to help with your lungs and your breathing. You might need a Bronchoscopy (scope of your lungs) to see better why you keep getting inflammation and congestion building up in your lungs. Make sure to clean your equipment and tubing as directed by the relocation counselor for your CPAP and change them regularly to help prevent any spread of infection. Because of the constant pressure for the CPAP to help with your breathing you would not be getting any infection into the machine itself but need to make sure you regularly clean and replace the face mask and tubing as directed by the relocation counselor. Scripts Azithromycin (Azithromycin) 500 Mg Tablet 500 MG PO DAILY for Pulmonary Infiltrate for 5 Days, #5 TAB 0 Refills Prov: LATONIA WEBER MD 06/21/22 LATONIA WEBER MD Jun 21, 2022 16:54
[2022-06-21 16:56] LABS: BASOPHILS % (AUTO) 0 % (0-10); EOSINOPHILS # (AUTO) 0.2 10^3/uL (0.0-0.3); EOSINOPHILS % (AUTO) 3 % (0-10); HEMATOCRIT 34 % (40-54); HEMOGLOBIN 11.7 g/dL (13.3-17.7); LYMPHOCYTES # (AUTO) 1.5 10^3/uL (1.0-4.0); LYMPHOCYTES % (AUTO) 25 % (12-44); MEAN CORPUSCULAR HEMOGLOBIN 30 pg (25-34); MEAN CORPUSCULAR HGB CONC 34 g/dL (32-36); MEAN CORPUSCULAR VOLUME 87 fL (80-99); MEAN PLATELET VOLUME 9.3 fL (9.0-12.2); MONOCYTES # (AUTO) 0.6 10^3/uL (0.0-1.0); MONOCYTES % (AUTO) 10 % (0-12); NEUTROPHILS # (AUTO) 3.7 10^3/uL (1.8-7.8); NEUTROPHILS % (AUTO) 61 % (42-75); PLATELET COUNT 207 10^3/uL (130-400); WHITE BLOOD COUNT 6.1 10^3/uL (4.3-11.0)
--- NOTE | 2022-06-21 17:04 | Diagnostic Imaging Report ---
INDICATION: Cough and shortness of breath. EXAMINATION: Five PA and lateral views of the chest were obtained at 5:01 p.m. COMPARISON: 05/31/2022. Heart and mediastinal silhouette are normal in appearance. Port-A-Cath is unchanged. There is patchy infiltrate in the left lung base which is new compared to the prior study and suspicious for pneumonia. There are chronic changes in the right base. There is no pneumothorax or pleural fluid. IMPRESSION: Underlying chronic changes with new infiltrate in left base, suspicious for pneumonia. Dictated by: Dictated on workstation # [id number]
[2022-06-21 17:13] LABS: BILIRUBIN,TOTAL 0.5 MG/DL (0.1-1.0); CALCIUM 8.7 MG/DL (8.5-10.1); CREATININE SERUM 0.79 MG/DL (0.60-1.30); MAGNESIUM 1.8 MG/DL (1.6-2.4)
[2022-06-21 17:14] LABS: ALBUMIN 3.6 GM/DL (3.2-4.5)
[2022-06-21] MEDS ORDERED: AZITHROMYCIN INJECTION 500 MG in NS (IVPB) 250 ML IV STA (18:05)
[2022-06-21] MEDS ORDERED: AZIT500T9 PO (18:19)
[2022-06-21 19:20] VITALS: BP 117/82
== END 2022-06-21 19:20 | disposition home or self-care (01) ==
LOC: EDUNIT# 16:25 → ER FS 16:27
DX: J44.1 Chronic obstructive pulmonary disease with (acute) exacerbation (principal); J98.4 Other disorders of lung; R79.82 Elevated C-reactive protein (CRP); Z91.040 Latex allergy status
CPT/HCPCS: 36415; 71046; 80053; 83605; 83735; 83880; 84484; 85025; 86141; 87040

== ENCOUNTER 2022-08-09 00:32 | Emergency (ER) | payer MEDICARE ==
[~2022-08-09] VITALS: Ht 185.4 cm; Wt 105.1 kg
[2022-08-09 00:37] VITALS: BP 142/98
[2022-08-09] MEDS ORDERED: diphenhydrAMINE 50 MG/ML INJ (BENADRYL) IM STA (00:51)
--- NOTE | 2022-08-09 00:51 | ED Integumentary General ---
General Chief Complaint: Skin/Wound Problems Stated Complaint: RASH History of Present Illness Date Seen by Provider: Aug 09, 2022 Time Seen by Provider: 00:40 Initial Comments 61-year-old male presents with a rash. Patient reports that he receives inf usion today for his immune system. That he now is really itchy and started breaking out in a rash. He reports that he received the same infusion a week ago and after that infusion became really itchy. He got some Benadryl from the staff and improved. He states that he got little itchy today and then started having this rash today but has not taken anything for it. He presents because he is wondering what to take and also to check to see if we feel it might be related. Allergies and Home Medications Allergies Coded Allergies: latex (Verified Allergy, Unknown, Rash, 12/08/19) Uncoded Allergies: STEROIDS (Adverse Reaction, Severe, VIOLENT BEHAVIOR, 12/07/19) Patient Home Medication List Home Medication List Reviewed: Yes Albuterol Sulfate (Ventolin Hfa) 18 Gm Hfa.aer.ad, 2 PUFF INH Q4H PRN for SHORTNESS OF BREATH, (Reported) Entered as Reported by: VANESSA ETIENNE on 03/03/19 1012 Azithromycin (Azithromycin) 250 Mg Tablet, 250 MG PO UD Prescribed by: LUCITA TORRES on 03/06/20 185 Azithromycin (Azithromycin) 500 Mg Tablet, 500 MG PO DAILY Prescribed by: CHAPINCITO CRAWFORD MD on 04/05/222153 Azithromycin (Azithromycin) 500 Mg Tablet, 500 MG PO DAILY Prescribed by: LATONIA WEBER on 06/21/221818 Citalopram Hydrobromide (Citalopram HBr) 40 Mg Tablet, 60 MG PO HS, (Reported) Entered as Reported by: CHARLIE QUEZADA on 12/21/18 155 Cyclobenzaprine HCl (Cyclobenzaprine HCl) 10 Mg Tablet, 10 MG PO Q8H PRN for SPASMS Prescribed by: YURI GREER on 12/08/202020 Divalproex Sodium (Depakote) 500 Mg Tablet.dr, 500 MG PO 1800, (Reported) Entered as Reported by: ZAFAR DUNN on 12/08/18 1144 Meloxicam (Meloxicam) 15 Mg Tablet, 15 MG PO HS, (Reported) Entered as Reported by: CHARLIE QUEZADA on 12/21/18 1557 [place] 3 Polyunsat Fatty Acids (Fish Oil 1,000 mg Capsule) 1,000 Mg Cap, 1,000 MG PO DAILY, (Reported) Entered as Reported by: ZAFAR DUNN on 12/08/18 1144 Omeprazole (Omeprazole) 20 Mg Capsule.dr, 20 MG PO BID, (Reported) Entered as Reported by: CHARLIE QUEZADA on 12/21/18 1557 Ondansetron (Ondansetron Odt) 4 Mg Tab.rapdis, 4 MG PO Q6H PRN for NAUSEA/VOMITING Prescribed by: LATONIA ROBLESYART on 03/24/22 2310 Ondansetron (Ondansetron Odt) 4 Mg Tab.rapdis, 4 MG PO Q6H PRN for NAUSEA/VOMITING Prescribed by: CHAPINCITO CRAWFORD MD on 04/05/22 2154 Umeclidinium Brm/Vilanterol Tr (Anoro Ellipta 62.5-25 Mcg INH) 1 Each Blst.w.dev, 1 EACH IH DAILY, (Reported) Entered as Reported by: EUGENIE VILLAGOMEZ on 12/08/19 0903 Vitamin B Complex (Vitamin B Complex) 1 Each Capsule, 1 CAP PO DAILY, (Reported) Entered as Reported by: ZAFAR DUNN on 12/08/18 1144 Review of Systems Review of Systems Constitutional: No chills, No fever EENTM: see HPI Respiratory: no symptoms reported Cardiovascular: no symptoms reported Gastrointestinal: no symptoms reported Genitourinary: no symptoms reported Musculoskeletal: no symptoms reported Skin: see HPI Psychiatric/Neurological: No Symptoms Reported Endocrine: No Symptoms Reported Past Gxudelb-Imkvcd-Zwhewt Hx Patient Social History Tobacco Use?: No Substance use?: No Alcohol Use?: No Pt feels they are or have been: No Immunizations Up To Date Tetanus Booster (TDap): Unknown PED Vaccines UTD: No 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 Seasonal Allergies Seasonal Allergies: No Past Medical History Surgery/Hospitalization HX: Lymphoma, Stomach tumor, appendectomy, cholecystectomy, COPD, GERD Surgeries: Yes (Port Placement, R THR) Abdominal, Appendectomy, Gallbladder, Joint Replacement, Orthopedic, Rectal, Tonsillectomy Respiratory: Yes COPD Currently Using CPAP: Yes Cardiac: No Neurological: No Sexually Transmitted Disease: No HIV/AIDS: No Genitourinary: No Gastrointestinal: Yes Abdominal Hernia, Gastroesophageal Reflux, Hemorrhoids Musculoskeletal: Yes Arthritis, Fractures Endocrine: No HEENT: No Loss of Vision: Denies Hearing Impairment: Denies 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, ) Skin, Lymphoma Did You Recieve Any Treatments: Yes What Type of Treatment Did You: Chemotherapy Psychosocial: Yes ("Severe depression" he states) Anxiety, Depression Integumentary: Yes (BENIGN TUMOR LEFT EAR) Recent Skin Changes Blood Disorders: Yes (MANTLE CELL LYMPHOMA) Family Medical History Cardiovascular disease 19 MOTHER G8 SISTER Completed stroke G8 SISTER FH: brain tumor G8 SISTER FH: emphysema 19 FATHER FH: kidney failure 19 FATHER No Pertinent Family Hx Physical Exam Vital Signs Vital Signs - First Documented 08/09/22 00:37 Temp 36.4 Pulse 78 Resp 16 B/P (MAP) 142/98 (113) Pulse Ox 100 O2 Delivery Room Air Capillary Refill : General Appearance: WD/WN, no apparent distress HEENT: PERRL/EOMI Neck: full range of motion, supple Cardiovascular: normal peripheral pulses, regular rate, rhythm, no edema Respiratory: lungs clear, normal breath sounds, no respiratory distress Gastrointestinal: soft Extremities: normal range of motion, non-tender Neurologic/Psychiatric: alert, normal mood/affect Skin: other (Small erythematous lesions mainly on head and chest however there is a few generalized) Skin Problem Location: generalized Skin Problem Character: rash Progress/Results/Core Measures Results/Orders My Orders Orders - TED TRINH DO Diphenhydramine Injection (Benadryl Inje (08/09/22 00:51) Vital Signs/I&O 08/09/22 00:37 Temp 36.4 Pulse 78 Resp 16 B/P (MAP) 142/98 (113) Pulse Ox 100 O2 Delivery Room Air Progress Progress Note : Progress Note I discussed with patient that is likely at drug rash and related to infusion with the history of having itching last time and then having itching and rash this time. Recommend he makes his oncologist aware of this. Patient given Benadryl IM and discharged home Departure Impression Primary Impression: Drug-induced skin rash Disposition: 01 HOME, SELF-CARE Condition: Stable Departure-Patient Inst. Referrals: SELFSANGEETHA MD (PCP) Primary Care Physician VANESSA SCHWARTZ APRN (Family) Primary Care Physician Patient Instructions: Skin Rash ED Add. Discharge Instructions: You may use Benadryl 50 mg every 6-8 hours as needed for your rash and itching Hydrocortisone cream is available [id number]. Use as directed on package over the rash as needed Please make your oncologist aware of your rash tomorrow morning so that they may change your infusion medication if they feel that is needed All discharge instructions reviewed with patient and/or family. Voiced understanding. TED TRINH DO Aug 09, 2022 00:51
== END 2022-08-09 00:59 | disposition home or self-care (01) ==
LOC: EDUNIT# 00:32 → ER FS 00:35
DX: L27.0 Generalized skin eruption due to drugs and medicaments taken internally (principal); Z91.040 Latex allergy status
CPT/HCPCS: 99284

== ENCOUNTER → 2022-10-29 | Outpatient (CLI) | payer MEDICARE ==
[~2022-10-29] MED LIST changes: +RT-ALBUTEROL SULF 2.5 MG/3 ML PRE-MIX VIAL INH ONE
== END ==
LOC: RT 13:52
PROVIDERS: ATTEND Nurse Practitioner Family
DX: J44.9 Chronic obstructive pulmonary disease, unspecified (principal)
CPT/HCPCS: 94060

== ENCOUNTER 2023-06-19 09:34 | Emergency (ER) | payer MEDICARE ==
[~2023-06-19] VITALS: Ht 185 cm; Wt 120.0 kg
[~2023-06-19 09:34] MED LIST changes: -RT-ALBUTEROL SULF 2.5 MG/3 ML PRE-MIX VIAL INH ONE
[2023-06-19] MEDS ORDERED: PROCHLORPERAZINE 10 MG/2ML INJ (COMPAZINE) IM ONE (10:00)
[2023-06-19] MEDS ORDERED: diphenhydrAMINE INJ 50 MG/ML VIAL IM ONE (10:00)
[2023-06-19] MEDS ORDERED: KETOROLAC INJ 15 MG/ML VIAL IM ONE (10:00)
--- NOTE | 2023-06-19 10:29 | Diagnostic Imaging Report ---
PROCEDURE: CT head without contrast. TECHNIQUE: Multiple contiguous axial images were obtained through the brain without the use of intravenous contrast. Auto Exposure Controls were utilized during the CT exam to meet ALARA standards for radiation dose reduction. INDICATION: Headache. COMPARISON: CT of the head on 12/08/2020. FINDINGS: \ Mild generalized cerebral and cerebellar volume loss. Mild nonspecific periventricular hypoattenuation, most commonly seen with chronic small vessel ischemic disease. Calcified atherosclerosis of the bilateral cavernous and paraclinoid internal carotid arteries and intracranial vertebral arteries. No intra- or extra-axial mass or fluid collection. No acute hemorrhage. The ventricles are normal in size, shape, and morphology. The davis-white matter junction is normal. The subarachnoid cisterns are patent. The visualized paranasal sinuses are normal. The visualized portions of the orbits and globes are normal. The mastoid air cells are clear. The environmental compliance engineer topogram shows no lytic lesion or fracture. Impression: No acute intracranial process. Mild cerebral volume loss. Mild chronic small vessel ischemic disease. Dictated by: Dictated on workstation # [id number]
--- NOTE | 2023-06-19 10:35 | ED Headache ---
General Chief Complaint: Head/Cervical Problems Stated Complaint: HEADACHE Nursing Triage Note: PT REPORTS A HEADACHE FOR 2 DAYS. REPORTS HE TOOK IBUPROFEN LAST NIGHT. Source: patient Exam Limitations: no limitations History of Present Illness Date Seen by Provider: Jun 19, 2023 Time Seen by Provider: 09:37 Initial Comments 62-year-old male with past medical history of stage IV lymphoma in remission coming in due to a headache. The headaches been going on for the past 2 days. It was slow in onset, it took a few hours to get to its maximal intensity. He states its not the worst headache of his life but it is fairly bad. He was worried because his blood pressure was elevated yesterday. He typically takes ibuprofen for his headache which she had at the last dose at 10:30 PM last night. He gets headaches every couple of months that are similar. He denies any fever, neck stiffness, vision changes, weakness, numbness that is new, chest pain, shortness of breath, abdominal pain, nausea, vomiting, diarrhea, dysuria, rash that is new, or any other concerns. He follows with Dr. 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 Allergies and Home Medications Allergies Coded Allergies: latex (Verified Allergy, Unknown, Rash, 12/08/19) Uncoded Allergies: STEROIDS (Adverse Reaction, Severe, VIOLENT BEHAVIOR, 12/07/19) Patient Home Medication List Home Medication List Reviewed: Yes Albuterol Sulfate (Ventolin Hfa) 18 Gm Hfa.aer.ad, 2 PUFF INH Q4H PRN for SHORTNESS OF BREATH, (Reported) Entered as Reported by: VANESSA ETIENNE on 03/03/19 1012 Azithromycin (Azithromycin) 250 Mg Tablet, 250 MG PO UD Prescribed by: LUCITA TORRES on 03/06/20 185 Azithromycin (Azithromycin) 500 Mg Tablet, 500 MG PO DAILY Prescribed by: CHAPINCITO CRAWFORD MD on 04/05/222153 Azithromycin (Azithromycin) 500 Mg Tablet, 500 MG PO DAILY Prescribed by: LATONIA WEBER on 06/21/221818 Citalopram Hydrobromide (Citalopram HBr) 40 Mg Tablet, 60 MG PO HS, (Reported) Entered as Reported by: CHARLIE QUEZADA on 12/21/18 1557 Cyclobenzaprine HCl (Cyclobenzaprine HCl) 10 Mg Tablet, 10 MG PO Q8H PRN for SPASMS Prescribed by: YURI GREER on 12/08/202020 Divalproex Sodium (Depakote) 500 Mg Tablet.dr, 500 MG PO 1800, (Reported) Entered as Reported by: ZAFAR DUNN on 12/08/18 1144 Meloxicam (Meloxicam) 15 Mg Tablet, 15 MG PO HS, (Reported) Entered as Reported by: CHARLIE QUEZADA on 12/21/18 1557 [place] 3 Polyunsat Fatty Acids (Fish Oil 1,000 mg Capsule) 1,000 Mg Cap, 1,000 MG PO DAILY, (Reported) Entered as Reported by: ZAFAR DUNN on 12/08/18 114 Omeprazole (Omeprazole) 20 Mg Capsule.dr, 20 MG PO BID, (Reported) Entered as Reported by: CHARLIE QUEZADA on 12/21/18 155 Ondansetron (Ondansetron Odt) 4 Mg Tab.rapdis, 4 MG PO Q6H PRN for NAUSEA/VOMITING Prescribed by: LATONIA WBEER on 03/24/22 2310 Ondansetron (Ondansetron Odt) 4 Mg Tab.rapdis, 4 MG PO Q6H PRN for NAUSEA/VOMITING Prescribed by: CHAPINCITO CRAWFORD MD on 04/05/22 2154 Umeclidinium Brm/Vilanterol Tr (Anoro Ellipta 62.5-25 Mcg INH) 1 Each Blst.w.dev, 1 EACH IH DAILY, (Reported) Entered as Reported by: EUGENIE VILLAGOMEZ on 12/08/19 0903 Vitamin B Complex (Vitamin B Complex) 1 Each Capsule, 1 CAP PO DAILY, (Reported) Entered as Reported by: ZAFAR DUNN on 12/08/18 1144 Review of Systems Review of Systems Constitutional: No fever Eyes: No Symptoms Reported Ears, Nose, Mouth, Throat: no symptoms reported Respiratory: no symptoms reported Cardiovascular: no symptoms reported Gastrointestinal: no symptoms reported Psychiatric/Neurological: See HPI Past Tkwpfcc-Ckekkk-Ldutoz Hx Patient Social History Tobacco Use?: No Use of E-Cig and/or Vaping dev: No Substance use?: No Alcohol Use?: No Pt feels they are or have been: No Immunizations Up To Date Tetanus Booster (TDap): Unknown PED Vaccines UTD: No Influenza Vaccine Up-to-Date: Yes; Up-to-Date Seasonal Allergies Seasonal Allergies: No Past Medical History Surgery/Hospitalization HX: Lymphoma, Stomach tumor, appendectomy, cholecystectomy, COPD, GERD Surgeries: Yes (Port Placement, R THR) Abdominal, Appendectomy, Gallbladder, Joint Replacement, Orthopedic, Rectal, Tonsillectomy Respiratory: Yes COPD Currently Using CPAP: Yes Cardiac: No Neurological: No Sexually Transmitted Disease: No HIV/AIDS: No Genitourinary: No Gastrointestinal: Yes Abdominal Hernia, Gastroesophageal Reflux, Hemorrhoids Musculoskeletal: Yes Arthritis, Fractures Endocrine: No HEENT: No Loss of Vision: Denies Hearing Impairment: Denies 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, ) Skin, Lymphoma Did You Recieve Any Treatments: Yes What Type of Treatment Did You: Chemotherapy Psychosocial: Yes ("Severe depression" he states) Anxiety, Depression Integumentary: Yes (BENIGN TUMOR LEFT EAR) Recent Skin Changes Blood Disorders: Yes (MANTLE CELL LYMPHOMA) Family Medical History Cardiovascular disease 19 MOTHER G8 SISTER Completed stroke G8 SISTER FH: brain tumor G8 SISTER FH: emphysema 19 FATHER FH: kidney failure 19 FATHER No Pertinent Family Hx Physical Exam Vital Signs Vital Signs - First Documented 06/19/23 09:40 Temp 36.0 Pulse 77 Resp 16 B/P (MAP) 152/86 (108) Pulse Ox 96 O2 Delivery Room Air Capillary Refill : Less Than 3 Seconds Height, Weight, BMI Height: 6'1.00" Weight: 260lbs. 0.0oz. 117.806193am; 35.00 BMI Method:Stated General Appearance: WD/WN, no apparent distress HEENT: PERRL/EOMI, normal ENT inspection, pharynx normal Neck: non-tender, full range of motion, supple, normal inspection, other (No meningismus) Cardiovascular: regular rate, rhythm, no edema Respiratory: chest non-tender, lungs clear, normal breath sounds, no respiratory distress, no accessory muscle use Gastrointestinal: normal bowel sounds, non tender, soft; No distended, No guarding, No rebound Back: normal inspection, no CVA tenderness Extremities: normal range of motion, non-tender, normal inspection, no pedal edema, no calf tenderness, normal capillary refill Psychiatric: alert, oriented x 3 Crainal Nerves: normal hearing, normal speech, PERRL Coordination/Gait: normal finger to nose, normal gait Motor/Sensory: no motor deficit, no sensory deficit, no pronator drift Skin: normal color, warm/dry Progress/Results/Core Measures Results/Orders My Orders Orders - CARI BULLARD MD Ct Head Wo (06/19/23 09:52) Ketorolac Injection (Ketorolac Injection (06/19/23 10:00) Prochlorperazine Injection (Compazine In (06/19/23 10:00) Diphenhydramine Injection (Diphenhydram (06/19/23 10:00) Medications Given in ED Current Medications Medications Dose Ordered Sig/Gunner Route Start Time Stop Time Status Last Admin Dose Admin Diphenhydramine HCl 12.5 mg ONCE ONCE IM 06/19/23 10:00 06/19/23 10:01 DC 06/19/23 10:02 12.5 MG Ketorolac Tromethamine 15 mg ONCE ONCE IM 06/19/23 10:00 06/19/23 10:01 DC 06/19/23 10:02 15 MG Prochlorperazine Edisylate 10 mg ONCE ONCE IM 06/19/23 10:00 06/19/23 10:01 DC 06/19/23 10:02 10 MG Vital Signs/I&O 06/19/23 09:40 Temp 36.0 Pulse 77 Resp 16 B/P (MAP) 152/86 (108) Pulse Ox 96 O2 Delivery Room Air Blood Pressure Mean: 108 Progress Progress Note : Progress Note 62-year-old male with above history coming in due to headache. ABCs were intact and vitals were stable on presentation with a GCS of 15 and a nonfocal neuro exam. Headache was slow in onset, not consistent with a spontaneous subarachnoid hemorrhage. No fever or meningismus, this makes meningitis very unlikely. Very unlikely with his follow-up with his oncologist that this is lymphoma related given his recent scans that were unremarkable within the past month. He has not had any advanced imaging of his head recently. CT of his head was obtained and interpreted by me showing no large mass or bleeding. It was read as negative for acute findings per the radiologist. He was given IM injections to help with his headache with improvement in his symptoms. I will have him follow-up with his PCP if he is not seeing improvement and they can discuss referral to a neurologist versus more advanced imaging. Diagnostic Imaging Diagonstic Imaging: CT (head) Comments NAME: MITCH AGUILERA [facility] REC#: [id number] PT STATUS: REG ER : 1960 PHYSICIAN: CARI BULLARD MD ADMIT DATE: 06/19/23/ER FS Signed Date of Exam:06/19/23 CT HEAD WO PROCEDURE: CT head without contrast. TECHNIQUE: Multiple contiguous axial images were obtained through the brain without the use of intravenous contrast. Auto Exposure Controls were utilized during the CT exam to meet ALARA standards for radiation dose reduction. INDICATION: Headache. COMPARISON: CT of the head on 12/08/2020. FINDINGS: \\ Mild generalized cerebral and cerebellar volume loss. Mild nonspecific periventricular hypoattenuation, most commonly seen with chronic small vessel ischemic disease. Calcified atherosclerosis of the bilateral cavernous and paraclinoid internal carotid arteries and intracranial vertebral arteries. No intra- or extra-axial mass or fluid collection. No acute hemorrhage. The ventricles are normal in size, shape, and morphology. The davis-white matter junction is normal. The subarachnoid cisterns are patent. The visualized paranasal sinuses are normal. The visualized portions of the orbits and globes are normal. The mastoid air cells are clear. 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 Impression: No acute intracranial process. Mild cerebral volume loss. Mild chronic small vessel ischemic disease. Dictated by: Dictated on workstation # [id number] Dict: 06/19/23 1026 Trans: 06/19/23 1028 [facility] [place] [id number] Interpreted by: KRISHNA MARK DO Electronically signed by: KRISHNA MARK DO 06/19/23 1028 Departure Impression Primary Impression: Headache Qualified Codes: G44.209 - Tension-type headache, unspecified, not intractable Disposition: 01 HOME, SELF-CARE Condition: Stable Departure-Patient Inst. Decision time for Depature: 10:50 Referrals: SELFSANGEETHA MD (PCP) Primary Care Physician VANESSA SCHWARTZ APRN (Family) Primary Care Physician Patient Instructions: Headache, Adult ED Add. Discharge Instructions: Were not seeing any large mass or concerns on the CT of your head today. Continue to take ibuprofen and/or Tylenol as needed for the headache and drink plenty of fluids. If its not getting better, we definitely recommend following up with your primary doctor. If this becomes more episodic were headache is happening more frequently, you may need to talk about more advanced imaging such as an MRI which we unfortunately do not have in this building. Work/School Note: Work Release Form Date Seen in the Emergency Department: Jun 19, 2023 Return to Work: Jun 20, 2023 Restrictions: No Restrictions CARI BULLARD MD Jun 19, 2023 10:35
[2023-06-19 10:38] VITALS: BP 142/92
== END 2023-06-19 10:39 | disposition home or self-care (01) ==
LOC: ER FS 09:35
DX: R51.9 Headache, unspecified (principal); Z91.040 Latex allergy status; Z99.89 Dependence on other enabling machines and devices
CPT/HCPCS: 70450